=== PATIENT | female | born 1945 | race Caucasian/White ===

== ENCOUNTER 2022-03-01 12:22 | Outpatient (CLI) | payer MEDICARE, SELFPAY | END 2022-03-01 12:23 | disposition home or self-care (01) | LOC: AMB 03-14 13:58 | PROVIDERS: PCP Family Medicine; Visit Provider Emergency Medicine | DX: S79.911A Unspecified injury of right hip, initial encounter (principal); W01.0XXA Fall on same level from slipping, tripping and stumbling without subsequent striking against object, initial encounter; Y92.008 Other place in unspecified non-institutional (private) residence as the place of occurrence of the external cause | CPT/HCPCS: A0425; A0427 ==

== ENCOUNTER 2022-03-01 12:58 | Inpatient (IN) | payer MEDICARE, SELFPAY ==
[2022-03-01] VITALS (13 sets, daily range): BP systolic 103–157; BP diastolic 46–89; PULSE 74–85; RESP 16; TEMP 36.4–36.6; O2SAT 91–99; BMI 19.9
--- NOTE | 2022-03-01 | CRLHL7_ITS ---
For Patients: As a result of the Cures Act, medical imaging exams and procedure reports are released immediately into your electronic medical record. You may view this report before your referring provider. If you have questions, please contact your health care provider. INDICATION: Chest injury from fall, trauma TECHNIQUE: Chest radiograph 1 view COMPARISON: None FINDINGS: Mediastinum: The mediastinum is normal in appearance. The heart silhouette is normal in size and morphology. Lung: Both lungs are unremarkable in appearance. No sign of pleural effusion seen. No pneumothorax is identified. Prominent skin fold is seen right apex. Bone and Soft tissue: A right shoulder arthroplasty is partially visualized. Left shoulder osteoarthritis is noted. Severe diffuse osteopenia is present. IMPRESSION: 1. No acute cardiopulmonary disease is seen. Dictated by Wellington Eid MD @ 03/01/2022 2:12:37 PM Dictated by: Wellington Eid MD @ 03/01/2022 14:12:41 (Electronically Signed)
--- NOTE | 2022-03-01 13:29 | CRLHL7_ITS ---
For Patients: As a result of the Cures Act, medical imaging exams and procedure reports are released immediately into your electronic medical record. You may view this report before your referring provider. If you have questions, please contact your health care provider. INDICATION: Pelvic hip injury from fall, trauma TECHNIQUE: Pelvis radiograph, Hip radiograph 3 views right COMPARISON: None FINDINGS: Bone: A comminuted intertrochanteric fracture with varus angulation is seen in the right proximal femur. Joint: Moderate right hip osteoarthritis is present. A left bipolar hip prosthesis is partially seen. The visualized sacroiliac joints are unremarkable in appearance. The pubic symphysis is normal in appearance. Soft tissue: Unremarkable. The visualized bowel gas pattern of the pelvis is unremarkable in appearance. No radiopaque foreign bodies are seen. IMPRESSION: 1. A comminuted intertrochanteric fracture with varus angulation is seen in the right proximal femur. Dictated by Wellington Eid MD @ 03/01/2022 2:08:35 PM Dictated by: Wellington Eid MD @ 03/01/2022 14:08:39 (Electronically Signed)
--- NOTE | 2022-03-01 13:29 | ED_ITS ---
HPI - General Adult General Date Seen: 03/01/22 Chief complaint: Hip Injury/Pain Stated complaint: Fall Hip Pain Time Seen by Provider: 03/01/22 13:23 Source: patient History of Present Illness HPI narrative: Patient is a 76-year-old woman brought in by EMS after a fall from standing at home. Per report, she stumbled secondary possibly to her dog and cat getting tangled up in front of her. She landed on her right hip and now has pain and inability to bear weight. She denies hitting her head, no loss of consciousness. Denies neck or back pain. She has pain in the right hip and a shortened, rotated right leg. She does have a hip replacement on the left, but not on the right. She does not take any blood thinners. She received pain medication from EMS and says she is reasonably comfortable right now, declines need for more pain medication. Related Data Home Medications Medication Instructions Recorded Confirmed ibuprofen 800 mg tablet 800 mg PO TID PRN 10/22/21 03/01/22 meloxicam 15 mg tablet 15 mg PO QDAY 10/22/21 03/01/22 needle (disp) 18 G 18 gauge x 1 10/22/2104/08 (Exel Hypodermic [place]) omeprazole 20 mg capsule,delayed 20 mg PO QDAY 10/22/21 03/01/22 release sucralfate 1 gram tablet 1 g PO QID PRN 10/22/21 03/01/22 syringe with needle 3 mL 25 gauge 10/22/21 x 1 (Vivaty Luer Lock Syringe with needle) albuterol sulfate 90 mcg/actuation 2 puff inhalation Q4-6H PRN 11/14/21 03/01/22 aerosol inhaler alprazolam 0.25 mg tablet 0.25 mg PO TID PRN 11/14/21 03/01/22 aspirin 81 mg tablet,delayed 81 mg PO DAILY 11/14/21 03/01/22 release cranberry 500 mg capsule 1,500 mg PO QDAY 11/14/21 03/01/22 multivitamin 1 tab PO QDAY 11/14/21 03/01/22 ondansetron HCl 4 mg tablet 4 mg PO Q6H PRN 11/14/21 03/01/22 trazodone 150 mg tablet 150 mg PO QPM 11/14/21 03/01/22 Previous Rx's Medication Instructions Recorded valacyclovir 500 mg tablet 500 mg PO QDAY #30 tabs 11/14/21 cyanocobalamin (vitamin B-12) 1,000 mcg IM .QMONTH #10 mL 12/02/21 1,000 mcg/mL injection solution oxybutynin chloride 15 mg 15 mg PO .HS #90 tabs 12/20/21 tablet,extended release 24 hr tramadol 50 mg tablet 50 - 100 mg PO Q6H PRN pain #56 02/22/22 tabs Allergies Allergy/AdvReac Type Severity Reaction Status Date / Time amitriptyline Allergy Severe Bundle Verified 03/01/22 13:02 Branch Block acetaminophen Allergy Intermediate GI Verified 03/01/22 13:02 Intolerance codeine Allergy Intermediate GI Verified 03/01/22 13:02 [From Tylenol-Codeine #3] Intolerance diphenhydramine Allergy Mild Itchiness Verified 03/01/22 13:02 zinc Allergy Mild Cold Sores Verified 03/01/22 13:02 Review of Systems Status of ROS: Reports: 10 or more systems reviewed and unremarkable except as noted in History and below [facility] Medical History (Updated 03/01/22 @ 17:46 by Radha Galeano MD) ADD (attention deficit disorder) Chronic back pain Chronic pain syndrome Gastroesophageal reflux disease Generalized anxiety disorder with panic attacks History of duodenal ulcer History of vitamin B deficiency Insomnia Leukoplakia of oral cavity Radicular leg pain Recurrent cold sores Seasonal allergies Sore in mouth Urinary incontinence Surgical History (Updated 03/01/22 @ 15:55 by Amelie Mitchell MD) History of gastric bypass History of lumbar laminectomy 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 Harmony has been smoking cigarettes for 50 years. She is now down to a puff a few times a day, and one cigarette lasts 4-5 days. She denied alcohol use, but her granddaughter stopped Harmony's nurse in the hallway to say that Harmony does drink wine. She denies recreational drug use. She wishes to be a full code. Smoking Status: Light tobacco smoker What tobacco products do you use: cigarettes Do you use any of these nicotine containing products: None Second hand tobacco smoke exposure: No How often do you have a drink containing alcohol: 4 or more times a week Alcohol type: wine How many standard drinks containing alcohol do you have on a typical day: 1 or 2 How often do you have six or more drinks on one occasion: Never AUDIT-C Alcohol total score: 4 Non-prescribed substance use: denies use Non-prescribed substance use details: tylenol Caffeine: Yes (coffee, 1 cup/day) service: No Exam Narrative: Exam Narrative: Vital signs as noted above. In general, an alert, well-appearing patient. She looks comfortable, breathing easily. Head: Normocephalic, atraumatic. Eyes: Pupils are equal reactive. Extraocular movements are full. Conjunctivae are normal. ENT: Mucous membranes are moist. Throat is normal. Neck: Supple without lymphadenopathy. Nontender to palpation. Heart: Regular rate and rhythm. No murmur or rub. Lungs: Clear bilaterally. No increased work of breathing, crackles or wheezes. Abdomen: Soft and nontender. No organomegaly. Pelvis: Stable to palpation. Extremities: Well perfused. Bilateral dorsalis pedis pulses intact. No edema. No tenderness over the right femur, tenderness over the right hip. Distal CMS normal. Neurologic: Patient is alert and oriented to person and place. Speech is fluent. Face is symmetric. Follows commands. Moves all extremities. Affect: Normal. Skin: Warm and dry. Well perfused. Const: Vital Signs, click to edit/add: Vital Signs - 24 hr 03/01/22 13:04 03/01/22 14:05 03/01/22 14:21 Temperature 98 F Pulse Rate 81 79 Pulse Rate [Apical ] 83 Pulse Rate [Left P ulse Oximeter] Respiratory Rate 16 Blood Pressure 123/63 147/78 H Blood Pressure [Ri ght Arm] Blood Pressure [Ri ght Upper Arm] 121/71 Pulse Oximetry 99 98 98 Oxygen Delivery Me thod Room Air 03/01/22 14:42 03/01/22 15:02 03/01/22 15:22 Temperature Pulse Rate 85 74 82 Pulse Rate [Apical ] Pulse Rate [Left P ulse Oximeter] Respiratory Rate Blood Pressure 157/89 H 147/74 H 151/78 H Blood Pressure [Ri ght Arm] Blood Pressure [Ri ght Upper Arm] Pulse Oximetry 98 97 96 Oxygen Delivery Me thod 03/01/22 15:42 03/01/22 16:21 03/01/22 17:31 Temperature 98 F Pulse Rate 77 Pulse Rate [Apical ] Pulse Rate [Left P ulse Oximeter] 81 Respiratory Rate 16 16 Blood Pressure 131/64 Blood Pressure [Ri ght Arm] 115/51 L Blood Pressure [Ri ght Upper Arm] Pulse Oximetry 91 98 98 Oxygen Delivery Me thod Room Air Room Air Documenting provider has reviewed patient's vital signs: yes Course Course Hospital Course: X-rays of the right hip by my review show an intertrochanteric fracture of the right hip. Final radiology report is likewise. X-ray of the chest by my review is negative. Labs are largely pending. She does live with her daughter who currently has COVID, patient herself does not have any symptoms but COVID test is pending. CBC shows an elevated white blood cell count of 11.8. She is mildly anemic with a hemoglobin of 11. He had an EKG here by my review shows a normal sinus rhythm, ventricular rate of 84 beats per minute. No acute ST segment changes. Remainder of her labs are pending at this time. I did review her care with Orthopedics, plan will be for repair of her hip tomorrow morning assuming she is cleared for surgery. She has remained comfortable and hemodynamically stable without other complaints while in the emergency department. Will follow up on other labs as they return. Otherwise, plan will be for admission to the hospital when a bed becomes available. Currently, no beds are available and she will remain in the emergency department for the time being. Reevaluation(s) Reevaluation #1: Labs otherwise normal. Patient transferred to floor without incident Vital Signs Vital signs: Initial Vital Signs Temperature 98 F 03/01/22 13:04 Temperature Source Temporal Artery Scan 03/01/22 13:04 Pulse Rate 83 03/01/22 13:04 Pulse Rhythm 03/01/22 13:04 Respiratory Rate 16 03/01/22 13:04 Blood Pressure 121/71 03/01/22 13:04 Blood Pressure Mean 87 03/01/22 13:04 Blood Pressure Position Supine 03/01/22 13:04 Pulse Oximetry 99 03/01/22 13:04 Oxygen Delivery Method 03/01/22 13:04 Vital Signs Temperature 98 F 03/01/22 13:04 Pulse Rate 83 03/01/22 13:04 Respiratory Rate 16 03/01/22 13:04 Blood Pressure 121/71 03/01/22 13:04 Pulse Oximetry 99 03/01/22 13:04 Oxygen Delivery Method 03/01/22 13:04 Temperature 98 F 03/01/22 16:21 Pulse Rate 81 03/01/22 16:21 Respiratory Rate 16 03/01/22 17:31 Blood Pressure 115/51 L 03/01/22 16:21 Pulse Oximetry 98 03/01/22 17:31 Oxygen Delivery Method 03/01/22 17:31 Medical Decision Making Lab Data Labs: Lab Results 03/01/22 03/01/22 03/01/22 Range/Units 13:33 14:12 14:12 WBC 11.88 H (4.50-11.00) K/uL RBC 3.80 L (4.00-5.20) m/uL Hgb 11.2 L (12.0-16.0) gm/dL Hct 35.5 (33.0-51.0) % MCV 93 (80-100) fL MCH 30 (26-34) pg MCHC 32 (32-36) gm/dL RDW Coeff of Hao 15.7 H (11.5-15.5) % Plt Count 200 (140-440) K/uL Neut % (Auto) 82.8 H (42.0-72.0) % Lymph % (Auto) 8.6 L (20-44) % Reynolds % (Auto) 7.8 (0.0-11.0) % Eos % (Auto) 0.3 (0.0-7.0) % Baso % (Auto) 0.2 (0.0-3.0) % Neut # (Auto) 9.80 H (1.7-7.0) K/uL Lymph # (Auto) 1.00 (0.90-2.90) K/uL Reynolds # (Auto) 0.90 (0.00-0.90) K/UL Eos # (Auto) 0.00 (0.00-0.50) K/uL Baso # (Auto) 0.00 (0.00-0.30) K/uL Abs Immat Gran (auto) 0.00 (0.00-0.30) K/uL Imm/Tot Granulo (auto) 0.3 % INR 0.88 L (0.91-1.10) APTT 27 (23-33) Seconds Sodium (135-149) mmol/L Potassium (3.6-5.1) mmol/L Chloride (96-114) mmol/L Carbon Dioxide (20-32) mmol/L BUN (7-30) mg/dL Creatinine (0.5-1.5) mg/dL Estimated Creat Clear Estimated GFR ml/min Glucose (60-115) mg/dL Calcium (8.4-10.6) mg/dL Total Bilirubin (0.1-1.5) mg/dL Direct Bilirubin (0.0-0.5) mg/dL AST (12-35) U/L ALT (4-35) U/L Alkaline Phosphatase (40-150) U/L Total Protein (6.0-8.3) g/dL Albumin (3.3-5.0) g/dL SARS-CoV-2 (PCR) Negative SARS-CoV-2 (Negative) 03/01/22 Range/Units 14:12 WBC (4.50-11.00) K/uL RBC (4.00-5.20) m/uL Hgb (12.0-16.0) gm/dL Hct (33.0-51.0) % MCV (80-100) fL MCH (26-34) pg MCHC (32-36) gm/dL RDW Coeff of Hao (11.5-15.5) % Plt Count (140-440) K/uL Neut % (Auto) (42.0-72.0) % Lymph % (Auto) (20-44) % Reynolds % (Auto) (0.0-11.0) % Eos % (Auto) (0.0-7.0) % Baso % (Auto) (0.0-3.0) % Neut # (Auto) (1.7-7.0) K/uL Lymph # (Auto) (0.90-2.90) K/uL Reynolds # (Auto) (0.00-0.90) K/UL Eos # (Auto) (0.00-0.50) K/uL Baso # (Auto) (0.00-0.30) K/uL Abs Immat Gran (auto) (0.00-0.30) K/uL Imm/Tot Granulo (auto) % INR (0.91-1.10) APTT (23-33) Seconds Sodium 137 (135-149) mmol/L Potassium 4.8 (3.6-5.1) mmol/L Chloride 104 (96-114) mmol/L Carbon Dioxide 28 (20-32) mmol/L BUN 17 (7-30) mg/dL Creatinine 0.5 (0.5-1.5) mg/dL Estimated Creat Clear 33.30 Estimated GFR 96 ml/min Glucose 91 (60-115) mg/dL Calcium 8.6 (8.4-10.6) mg/dL Total Bilirubin 0.6 (0.1-1.5) mg/dL Direct Bilirubin 0.2 (0.0-0.5) mg/dL AST 22 (12-35) U/L ALT 27 (4-35) U/L Alkaline Phosphatase 59 (40-150) U/L Total Protein 6.3 (6.0-8.3) g/dL Albumin 3.7 (3.3-5.0) g/dL SARS-CoV-2 (PCR) (Negative) Discharge Plan Discharge Clinical Impression: Closed intertrochanteric fracture of right hip Patient Disposition: Admitted As Inpatient Condition: Improved
[2022-03-01 14:24] LABS: Basophils Percent Auto 0.2 % (0.0-3.0); Eosinophils Percent Auto 0.3 % (0.0-7.0); Hematocrit 35.5 % (33.0-51.0); Hemoglobin* 11.2 gm/dL (12.0-16.0); Immature Granulocytes Pct Auto 0.3 %; Lymphocytes Percent Auto 8.6 % (20-44); Mean Corpuscular HGB Conc 32 gm/dL (32-36); Mean Corpuscular Hemoglobin 30 pg (26-34); Mean Corpuscular Volume 93 fL (80-100); Monocytes Percent Auto 7.8 % (0.0-11.0); Neutrophils Percent Auto 82.8 % (42.0-72.0); Platelet Count* 200 K/uL (140-440); RDW Coefficient of Variation % 15.7 % (11.5-15.5); White Blood Count* 11.88 K/uL (4.50-11.00)
[2022-03-01 14:33] LABS: Slide Review Reflex No
[2022-03-01 14:38] LABS: Albumin* 3.7 g/dL (3.3-5.0)
[2022-03-01 14:39] LABS: Chloride* 104 mmol/L (96-114); Potassium* 4.8 mmol/L (3.6-5.1); Sodium* 137 mmol/L (135-149)
[2022-03-01 14:41] LABS: Bilirubin Direct* 0.2 mg/dL (0.0-0.5); Bilirubin Total* 0.6 mg/dL (0.1-1.5); Carbon Dioxide* 28 mmol/L (20-32); Creatinine* 0.5 mg/dL (0.5-1.5); Estimated Glomerular Filt Rate 96 ml/min
[2022-03-01 14:42] LABS: Alanine Aminotransferase* 27 U/L (4-35); Alkaline Phosphatase* 59 U/L (40-150); Aspartate Amino Transferase* 22 U/L (12-35); Blood Urea Nitrogen* 17 mg/dL (7-30); Calcium* 8.6 mg/dL (8.4-10.6); Glucose* 91 mg/dL (60-115); Total Protein* 6.3 g/dL (6.0-8.3)
[2022-03-01 14:47] LABS: SARS PCR* Negative SARS-CoV-2 (Negative)
[2022-03-01 14:57] LABS: INR 0.88 (0.91-1.10); Prothrombin Time 12.5 Seconds
[2022-03-01 14:58] LABS: Partial Thromboplastin Time* 27 Seconds (23-33)
[2022-03-01] MEDS: MORPHINE 4 MG/ML INJ IVP ×3 (15:23→21:48)
--- NOTE | 2022-03-01 15:47 | PM.IMHP1 ---
Hospitalist- H&P: HPI History of Present Illness Time Seen by Provider: 16:45 Date Seen: 03/01/22 Chief complaint: Fall Hip Pain Narrative: Harmony Yoon is a 76 year old female who lives with her daughter and fell face forward this morning. She says they have two dogs in the home that follow her everywhere, and even though they were not right in front of her, it still tripped her up. She denies hitting her face or head. Denies LOC. She fell onto her right hip and now has pain in the right groin. She was in her usual state of health prior to this with no recent illness or change in medications. She did not have any dizziness, vertigo, focal numbness, weakness or tingling. Review of Systems Status of ROS: Reports: 10 or more systems reviewed and unremarkable except as noted in History and below [facility] Medical History (Updated 03/01/22 @ 17:46 by Radha Galeano MD) ADD (attention deficit disorder) Chronic back pain Chronic pain syndrome Gastroesophageal reflux disease Generalized anxiety disorder with panic attacks History of duodenal ulcer History of vitamin B deficiency Insomnia Leukoplakia of oral cavity Radicular leg pain Recurrent cold sores Seasonal allergies Sore in mouth Urinary incontinence Surgical History (Updated 03/01/22 @ 15:55 by Amelie Mitchell MD) History of gastric bypass History of lumbar laminectomy 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 Harmony has been smoking cigarettes for 50 years. She is now down to a puff a few times a day, and one cigarette lasts 4-5 days. She denied alcohol use, but her granddaughter stopped Harmony's nurse in the hallway to say that Harmony does drink wine. She denies recreational drug use. She wishes to be a full code. Smoking Status: Light tobacco smoker What tobacco products do you use: cigarettes Do you use any of these nicotine containing products: None Second hand tobacco smoke exposure: No How often do you have a drink containing alcohol: 4 or more times a week Alcohol type: wine How many standard drinks containing alcohol do you have on a typical day: 1 or 2 How often do you have six or more drinks on one occasion: Never AUDIT-C Alcohol total score: 4 Non-prescribed substance use: denies use Non-prescribed substance use details: tylenol Caffeine: Yes (coffee, 1 cup/day) service: No Meds Home Medications and Allergies Home Medications Medication Instructions Recorded Confirmed Type ibuprofen 800 mg tablet 800 mg PO TID PRN 10/22/21 03/01/22 History meloxicam 15 mg tablet 15 mg PO QDAY 10/22/21 03/01/22 History needle (disp) 18 G 18 gauge x 1 10/22/21 History 1/2 (Exel Hypodermic [place]) omeprazole 20 mg capsule,delayed 20 mg PO QDAY 10/22/21 03/01/22 History release sucralfate 1 gram tablet 1 g PO QID PRN 10/22/21 03/01/22 History syringe with needle 3 mL 25 gauge 10/22/21 History x 1 (Sporthold Luer Lock Syringe with needle) albuterol sulfate 90 mcg/actuation 2 puff inhalation Q4-6H PRN 11/14/21 03/01/22 History aerosol inhaler alprazolam 0.25 mg tablet 0.25 mg PO TID PRN 11/14/21 03/01/22 History aspirin 81 mg tablet,delayed 81 mg PO DAILY 11/14/21 03/01/22 History release cranberry 500 mg capsule 1,500 mg PO QDAY 11/14/21 03/01/22 History multivitamin 1 tab PO QDAY 11/14/21 03/01/22 History ondansetron HCl 4 mg tablet 4 mg PO Q6H PRN 11/14/21 03/01/22 History trazodone 150 mg tablet 150 mg PO QPM 11/14/21 03/01/22 History Allergies Allergy/AdvReac Type Severity Reaction Status Date / Time amitriptyline Allergy Severe Bundle Verified 03/01/22 13:02 Branch Block acetaminophen Allergy Intermediate GI Verified 03/01/22 13:02 Intolerance codeine Allergy Intermediate GI Verified 03/01/22 13:02 [From Tylenol-Codeine #3] Intolerance diphenhydramine Allergy Mild Itchiness Verified 03/01/22 13:02 zinc Allergy Mild Cold Sores Verified 03/01/22 13:02 Exam Narrative: Exam Narrative: General: No acute distress. Thin, gaunt. Awake alert oriented x3. HEENT: Normocephalic atraumatic, pupils equally round and reactive to light and accommodation. Oropharynx clear, no teeth. No dentures present. Mucous membranes are moist. No cervical lymphadenopathy, thyromegaly or carotid bruits. No JVD. Cardiovascular: Regular rate and rhythm. No murmurs, gallops, or rubs. Chest: No increased work of breathing. Clear to auscultation bilaterally. No crackles or wheezes. Abdomen: Bowel sounds present. Soft, nondistended, nontender. No hepatosplenomegaly or masses. Extremities: No edema, no cyanosis or clubbing. No bruising on right hip. Right leg is shortened and internally rotated. Skin: No jaundice, no pallor, no rashes. Neuro: Grossly intact. No focal deficits. Const: Vital Signs, click to edit/add: Vital Signs - 24 hr 03/01/22 13:04 03/01/22 14:05 03/01/22 14:21 Temperature 98 F Pulse Rate 81 79 Pulse Rate [Apical ] 83 Respiratory Rate 16 Blood Pressure 123/63 147/78 H Blood Pressure [Ri ght Upper Arm] 121/71 Pulse Oximetry 99 98 98 Oxygen Delivery Me od Room Air 03/01/22 14:42 03/01/22 15:02 03/01/22 15:22 Temperature Pulse Rate 85 74 82 Pulse Rate [Apical ] Respiratory Rate Blood Pressure 157/89 H 147/74 H 151/78 H Blood Pressure [Ri ght Upper Arm] Pulse Oximetry 98 97 96 Oxygen Delivery Me thod 03/01/22 15:42 Temperature Pulse Rate 77 Pulse Rate [Apical ] Respiratory Rate Blood Pressure 131/64 Blood Pressure [Ri ght Upper Arm] Pulse Oximetry 91 Oxygen Delivery Nc thod Hospitalist - H&P: Result Labs Labs: Short CBC 03/01/22 Range/Units 14:12 WBC 11.88 H (4.50-11.00) K/uL Hgb 11.2 L (12.0-16.0) gm/dL Hct 35.5 (33.0-51.0) % Plt Count 200 (140-440) K/uL BMP 03/01/22 14:12 Sodium 137 Potassium 4.8 Chloride 104 Carbon Dioxide 28 BUN 17 Creatinine 0.5 Glucose 91 Calcium 8.6 Liver Function 03/01/22 Range/Units 14:12 Total Bilirubin 0.6 (0.1-1.5) mg/dL Direct Bilirubin 0.2 (0.0-0.5) mg/dL AST 22 (12-35) U/L ALT 27 (4-35) U/L Alkaline Phosphatase 59 (40-150) U/L Albumin 3.7 (3.3-5.0) g/dL 03/01/2022 1:43 p.m. EKG: Normal sinus rhythm, heart rate 84 beats per minute, normal EKG. Ordering Physician: Radha Galeano MD Date of Service: 03/01/22 Procedure(s): XR hip RT min 2V Accession Number(s): [id number] cc: Radha Galeano MD; Daniele Hawkins M.D.~ For Patients: As a result of the Cures Act, medical imaging exams and procedure reports are released immediately into your electronic medical record. You may view this report before your referring provider. If you have questions, please contact your health care provider. INDICATION: Pelvic hip injury from fall, trauma TECHNIQUE: Pelvis radiograph, Hip radiograph 3 views right COMPARISON: None FINDINGS: Bone: A comminuted intertrochanteric fracture with varus angulation is seen in the right proximal femur. Joint: Moderate right hip osteoarthritis is present. A left bipolar hip prosthesis is partially seen. The visualized sacroiliac joints are unremarkable in appearance. The pubic symphysis is normal in appearance. Soft tissue: Unremarkable. The visualized bowel gas pattern of the pelvis is unremarkable in appearance. No radiopaque foreign bodies are seen. IMPRESSION: 1. A comminuted intertrochanteric fracture with varus angulation is seen in the right proximal femur. Dictated by Wellington Eid MD @ 03/01/2022 2:08:35 PM Dictated by: Wellington Eid MD @ 03/01/2022 14:08:39 (Electronically Signed) Ordering Physician: Radha Galeano MD Date of Service: 03/01/22 Procedure(s): XR chest 1V Accession Number(s): [id number] cc: Radha Galeano MD; Daniele Hawkins M.D.~ For Patients: As a result of the Century Cures Act, medical imaging exams and procedure reports are released immediately into your electronic medical record. You may view this report before your referring provider. If you have questions, please contact your health care provider. INDICATION: Chest injury from fall, trauma TECHNIQUE: Chest radiograph 1 view COMPARISON: None FINDINGS: Mediastinum: The mediastinum is normal in appearance. The heart silhouette is normal in size and morphology. Lung: Both lungs are unremarkable in appearance. No sign of pleural effusion seen. No pneumothorax is identified. Prominent skin fold is seen right apex. Bone and Soft tissue: A right shoulder arthroplasty is partially visualized. Left shoulder osteoarthritis is noted. Severe diffuse osteopenia is present. IMPRESSION: 1. No acute cardiopulmonary disease is seen. Dictated by Wellington Eid MD @ 03/01/2022 2:12:37 PM Dictated by: Wellington Eid MD @ 03/01/2022 14:12:41 (Electronically Signed) Assessment and Plan Assessment and plan (1) Closed intertrochanteric fracture of right hip: Status: Acute Assessment and Plan: Harmony and I discussed the cardiopulmonary risk of surgery at her age as well as the high risk of mortality within the year and poor quality of life associated with not undergoing surgery for a hip fracture. She is an active person yet who has a lot of things to do and desires surgery. EKG and CXR reviewed. No further cardiopulmonary testing needed prior to surgery. I will make her NPO after MN and have started 50 cc/hr of LR (her wt is 46 kg). (2) ADD (attention deficit disorder): Status: Chronic Assessment and Plan: Not currently treated with medications. (3) Generalized anxiety disorder with panic attacks: Status: Chronic (4) Poor circulation: Status: Chronic (5) Recurrent falls: Status: Chronic Plan Start SCDs and TEDs. Hold off on pharmacologic VTE prophylaxis due to surgery tomorrow. Unclear how much wine she drinks. Monitor for signs of withdrawal.
--- NOTE | 2022-03-01 15:56 | ED.NURSE ---
to 247 via cart. report to dusty tian.
--- NOTE | 2022-03-01 16:09 | ED.NURSE ---
Klein catheter placed successfully after 1 attempt. Clear, dark yellow urine draining via gravity. Report given by BELINDA Canas to M/S RN. Pt brought down by cart with belongings.
[2022-03-01] MEDS: ONDANSETRON ODT 4 MG TAB PO (18:07)
[2022-03-01] MEDS: LACTATED RINGERS 1000 ML 1,000 ML 50 ML IV (18:11)
--- NOTE | 2022-03-01 18:36 | PC.NURSE ---
Pt. up to floor at 1523 accompanied by granddaughter. Alert and oriented x4. Comes from home where she lives with daughter in [place]. Fell this morning and broke her right hip. No bruises noted at this time. 18 gauge IV in left AC patent, LR running @50mls/hr. Klein Cath. inserted in ED, patent. VSS. Pt. denies SOB, lung sounds clear, no edema present. Pt. rated pain 7/10 PRN 4mg morphine Administered at 1805. Pt. C/O nausea, PRN Zofran administered PO. Pt. at 98% O2 on RA. Pt. [place], wears dentures. Bilateral calf SCD's applied. Pt. will be NPO at midnight for hip surgery in AM on 03/02/22.
[2022-03-01] MEDS: TRAZODONE HCL 50 MG TABLET 150 MG PO (21:12)
[2022-03-02] VITALS (24 sets, daily range): BP systolic 84–136; BP diastolic 46–72; PULSE 62–88; RESP 12–18; TEMP 35.8–37; O2SAT 93–100
[2022-03-02] MEDS: MORPHINE 4 MG/ML INJ IVP (02:45)
--- NOTE | 2022-03-02 04:19 | PC.NURSE ---
call placed to Link to updated provider on patients pain
[2022-03-02] MEDS: fentaNYL 100 MCG/2 ML inj 25 MCG IVP (04:55)
--- NOTE | 2022-03-02 05:05 | PC.NURSE ---
patient bedrest, krishnamurthy patent and draining. NPO since 0000. patient continues to have pain despite PRN medication, call placed to E hospitalist see new orders.
[2022-03-02] MEDS: OMEPRAZOLE 20 MG CAPSULE DR PO (06:32)
--- NOTE | 2022-03-02 07:14 | P.IMPN_ITS ---
Exam Narrative: Exam Narrative: edentulous Const: Vital Signs, click to edit/add: Vital Signs - 24 hr 03/01/22 13:04 03/01/22 14:05 03/01/22 14:21 Temperature 98 F Pulse Rate 81 79 Pulse Rate [Apical ] 83 Pulse Rate [Left P ulse Oximeter] Respiratory Rate 16 Blood Pressure 123/63 147/78 H Blood Pressure [Ri ght Arm] Blood Pressure [Ri ght Upper Arm] 121/71 Pulse Oximetry 99 98 98 Oxygen Delivery Me thod Room Air 03/01/22 14:42 03/01/22 15:02 03/01/22 15:22 Temperature Pulse Rate 85 74 82 Pulse Rate [Apical ] Pulse Rate [Left P ulse Oximeter] Respiratory Rate Blood Pressure 157/89 H 147/74 H 151/78 H Blood Pressure [Ri ght Arm] Blood Pressure [Ri ght Upper Arm] Pulse Oximetry 98 97 96 Oxygen Delivery Me thod 03/01/22 15:42 03/01/22 16:21 03/01/22 17:31 Temperature 98 F Pulse Rate 77 Pulse Rate [Apical ] Pulse Rate [Left P ulse Oximeter] 81 Respiratory Rate 16 16 Blood Pressure 131/64 Blood Pressure [Ri ght Arm] 115/51 L Blood Pressure [Ri ght Upper Arm] Pulse Oximetry 91 98 98 Oxygen Delivery Me thod Room Air Room Air 03/01/22 17:44 03/01/22 17:46 03/01/22 19:00 Temperature 98 F 97.6 F Pulse Rate Pulse Rate [Apical ] Pulse Rate [Left P ulse Oximeter] 81 83 Respiratory Rate 16 16 Blood Pressure Blood Pressure [Ri ght Arm] 115/51 L 103/63 Blood Pressure [Ri ght Upper Arm] Pulse Oximetry 98 98 98 Oxygen Delivery Me thod Room Air Room Air 03/01/22 23:00 03/01/22 23:00 03/02/22 02:52 Temperature 98 F 97 F L Pulse Rate Pulse Rate [Apical ] Pulse Rate [Left P ulse Oximeter] 80 80 82 Respiratory Rate 16 16 18 Blood Pressure Blood Pressure [Ri ght Arm] 118/46 L 108/47 L Blood Pressure [Ri ght Upper Arm] Pulse Oximetry 98 98 Oxygen Delivery Me thod Room Air Room Air Labs Labs: Laboratory Results - last 24 hr 11/03/01/22 03/01/22 13:33 14:12 14:12 WBC 11.88 H RBC 3.80 L Hgb 11.2 L Hct 35.5 MCV 93 MCH 30 MCHC 32 RDW Coeff of Hao 15.7 H Plt Count 200 Neut % (Auto) 82.8 H Lymph % (Auto) 8.6 L [place] % (Auto) 7.8 Eos % (Auto) 0.3 Baso % (Auto) 0.2 Neut # (Auto) 9.80 H Lymph # (Auto) 1.00 [place] # (Auto) 0.90 Eos # (Auto) 0.00 Baso # (Auto) 0.00 Abs Immat Gran (auto) 0.00 Imm/Tot Granulo (auto) 0.3 INR 0.88 L APTT 27 Sodium Potassium Chloride Carbon Dioxide BUN Creatinine Estimated Creat Clear Estimated GFR Glucose Calcium Total Bilirubin Direct Bilirubin AST ALT Alkaline Phosphatase Total Protein Albumin SARS-CoV-2 (PCR) Negative SARS-CoV-2 03/01/22 14:12 WBC RBC Hgb Hct MCV MCH MCHC RDW Coeff of Hao Plt Count Neut % (Auto) Lymph % (Auto) [place] % (Auto) Eos % (Auto) Baso % (Auto) Neut # (Auto) Lymph # (Auto) [place] # (Auto) Eos # (Auto) Baso # (Auto) Abs Immat Gran (auto) Imm/Tot Granulo (auto) INR APTT Sodium 137 Potassium 4.8 Chloride 104 Carbon Dioxide 28 BUN 17 Creatinine 0.5 Estimated Creat Clear 33.30 Estimated GFR 96 Glucose 91 Calcium 8.6 Total Bilirubin 0.6 Direct Bilirubin 0.2 AST 22 ALT 27 Alkaline Phosphatase 59 Total Protein 6.3 Albumin 3.7 SARS-CoV-2 (PCR)
--- NOTE | 2022-03-02 07:44 | CRLHL7_ITS ---
For Patients: As a result of the Cures Act, medical imaging exams and procedure reports are released immediately into your electronic medical record. You may view this report before your referring provider. If you have questions, please contact your health care provider. Indication: RT FEMUR RODDING Technique: Four fluoroscopic images of the right femur. Fluoroscopic time 163.1 seconds. IMPRESSION: Fluoroscopic guidance for open reduction internal fixation of right femoral neck fracture. Dictated by Lester Gold MD @ 03/04/2022 11:13:54 AM (Electronically Signed)
[2022-03-02] MEDS: LACTATED RINGERS 1000 ML 1,000 ML 100 ML IV (08:00)
[2022-03-02] MEDS: CEFAZOLIN 2 GM in 0.9 % SODIUM CHLORIDE Mini-bag 100 ML IVPB (08:16)
[2022-03-02] MEDS: TRANEXAMIC ACID 100 MG/ML INJ 1000 MG IV (08:22)
--- NOTE | 2022-03-02 09:49 | P.ORPRC_ITS ---
Procedure Note Date of procedure: 03/02/22 Procedure: PREOPERATIVE DIAGNOSES: 1. Right femur intertrochanteric fracture, Comminuted, closed, acute POSTOPERATIVE DIAGNOSES: 1. Right femur intertrochanteric fracture, comminuted, closed, acute NAME OF OPERATION: 1. Right femur intertrochanteric fracture fixation with intramedullary nail 2. 97119 - intraoperative fluoroscopy up to 1 hour. SURGEON: Wolfgang Garrison MD SEISMIC SURVEY ASSISTANT: Butch Felix PA-C. Of note, an assistant director of plant operations was critical for this case to aide in patient positioning, extremity positioning, tissue retraction, instrument manipulation, and closure. ANESTHESIA: Spinal IMPLANTS: Synthes long TFN 12 mm x 340 mm with 95 mm lag screw and 2 distal 5.0 mm interlocking screws] EBL: 150 ml COMPLICATIONS: None evident INDICATIONS: The patient is a pleasant, 76-year-old female who unfortunately sustained a recent fall. They landed on their right hip and were unable to bear weight. They experienced significant pain which prompted a visit to [facility]. X-rays were obtained and revealed a proximal femur fracture consis tent with a pertrochanteric (i.e. intertrochanteric / subtrochanteric) femur fracture. Given these findings, along with the desire to help with pain control and improved mobility / mobilization, surgery was recommended. FINDINGS: Intertrochanteric right femur fracture with displacement, comminuted, shortening, and varus angulation. PROCEDURE: Following a thorough discussion of risks, benefits, and alternatives, consent was obtained and the right hip was marked. After obtaining proper medical evaluation determining the patient was optimized prior to surgery, they were brought to the operating room and placed supine on the operating table. Induction of anesthesia undertaken. 1 g IV Ancef and 1 g tranexamic acid was administered within 1 hr of incision preoperatively. Proper time-out was performed identifying proper patient, site, and procedure. The operative extremity was prepped & draped in the appropriate sterile fashion using ChloraPrep after the patient was positioned on the [place] table with the head in neutral alignment all bone prominences well padded. C-arm fluoroscopic imaging was utilized to obtain AP and lateral views of the operative hip. This indeed confirm proper reduction of the proximal femur fracture. 10 blade skin incision was made proximal to the greater trochanteric tip. Sharp incision through skin and gluteal fascia allowed palpation of the greater trochanteric tip. A sharp awl was utilized and placed against the greater trochanteric tip. This was confirmed on C-arm and both in AP and lateral planes to be in appropriate starting position. Aiming down the canal. Once breaching the cortex, the ball-tip guidewire was passed the length of the femur. Once confirming via palpable scrape and visual C-Arm imagining that the guide wire with intraosseous, the depth gauge was used. The proper nail length was selected. The opening / proximal reamer was used followed by diaphyseal reamers up to 13.5mm. The IMN was then opened and inserted and passed the length of the canal without difficulty. The triple trocar was then applied to the lateral femur, 10 blade incision through the skin and ITB band along the trocars allowed them to be advanced to the lateral cortex. This was confirmed fluoroscopically to be in appropriate position. The guide pin was then placed and confirmed on AP and lateral views with the goal of center center position. The length was measured as noted above and the reamer used followed by screw application. Reduction of the fracture was monitored during insertion. The proximal nail locking screw was tightened down, and left static as the fracture pattern was felt to be unstable. At this stage, C-arm confirmed proper screw/leg screw position. We then turned our attention to the distal interlocking screws. Perfect [place] technique was utilized, and the 10 blade skin incision allowed the drill bit to be placed, and confirmed on C-arm fluoroscopic imaging to be within the oblong hole. This was measured and the screw placed with good security of the screw. A 2nd screw was placed in 1 of the other holes in a similar fashion. Again C-arm images were obtained to confirm position within the nail and the nail to be within the bone. At this stage, the wounds were thoroughly irrigated normal saline; closure was performed with #0 Vicryl for the deep gluteal fascia, and IT band. 2-0 Vicryl and 4-0 Monocryl was utilized for subcutaneous and subcuticular closure, respectively. The patient was awoken from anesthesia and transferred to the PACU in stable condition. PLAN: 1. Weight bear as tolerated left lower extremity. 2. Encouraged ice. 3. Oxycodone for pain as needed. 4. Anticipate the need for [facility] facility transfer once medically stabilized 5. 23 hr perioperative antibiotics. 6. Xarelto for DVT prophylaxis along with Luther ivan and SCDs.
--- NOTE | 2022-03-02 10:39 | P.NB_ITS ---
Nerve Block Nerve Block Time Seen by Provider: 10:30 Date Seen: 03/02/22 Type of block requested by surgeon for post-operative analgesia: IGNACIO/LFCN Side: right Time out performed: Yes Verification of patient name: Yes Verification of date of : Yes Site marking: site marked Name of person performing procedure: don Continuous monitoring Was continuous monitoring of O2 sat, B/P, residential monitor, recorded every 15 minutes?: Yes Procedure Checklist: sterile prep, needles and gloves Ultrasound guided. Images saved: Yes Medications given in 5ml increments after negative aspiration: Ropivicaine %: 0.5 mL: 20 Needle gauge: 20 Decadron (mg): 10 Precedex (mcg): 25 Patient tolerated procedure well: Yes Block Charges Block Charge (with Pro Fee): Other Periph Nerve Block Use of Ultrasound Machine for Block: Yes- US Guidance/pain block
--- NOTE | 2022-03-02 10:43 | W.ANESCHARGE ---
Anesthesia Charges Start Date/Time Anesthesia Start Date: 03/02/22 Anesthesia Start Time: 07:58 Stop Date/Time Anesthesia Stop Date: 03/02/22 Anesthesia Stop Time: 10:17 Summary Emergency: Yes Extremes of Age: Over 68-CPT [id number]
[2022-03-02] MEDS: LACTATED RINGERS 1000 ML 1,000 ML 35 ML IV (10:48)
[2022-03-02] MEDS: CEFAZOLIN 1 GM in 0.9 % SODIUM CHLORIDE Mini-bag 100 ML IVPB ×2 (13:45→21:53)
[2022-03-02] MEDS: OXYCODONE 5 MG TABLET PO ×5 (14:35→23:30)
--- NOTE | 2022-03-02 18:01 | P.IMPN_ITS ---
Progress Note: A&P Assessment and plan (1) Closed intertrochanteric fracture of right hip: Status: Acute Assessment and Plan: Postop day 0 status post ORIF. Routine cares. I discussed pain control with the patient's nurse. Continue current plan of care. (2) Recurrent falls: Status: Chronic (3) Poor circulation: Status: Chronic (4) Generalized anxiety disorder with panic attacks: Status: Chronic Plan Starting rivaroxaban in the morning for VTE prophylaxis. 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 She said she feels better now after surgery and can't wait to be active again. She has pain in her right hip when she moves, so she hasn't been out of bed yet. No CP or SOB. Exam Narrative: Exam Narrative: General: No acute distress. Thin, gaunt. Bright affect. Awake alert oriented x3. Cardiovascular: Regular rate and rhythm. No murmurs, gallops, or rubs. Chest: No increased work of breathing. Clear to auscultation bilaterally. No crackles or wheezes. Abdomen: Bowel sounds present. Soft, nondistended, nontender. No hepatosplenomegaly or masses. Extremities: 3 right hip bandages are clean, dry, and intact. No ankle edema. Const: Vital Signs, click to edit/add: Vital Signs - 24 hr 03/01/22 19:00 03/01/22 23:00 03/01/22 23:00 Temperature 97.6 F 98 F Pulse Rate Pulse Rate [Left P ulse Oximeter] 83 80 80 Respiratory Rate 16 16 16 Blood Pressure Blood Pressure [Ri ght Arm] 103/63 118/46 L Pulse Oximetry 98 98 Oxygen Delivery Me thod Room Air Room Air 03/02/22 02:52 03/02/22 10:14 03/02/22 11:08 Temperature 97 F L 98.2 F 96.5 F L Pulse Rate 74 65 Pulse Rate [Left P ulse Oximeter] 82 Respiratory Rate 18 14 18 Blood Pressure 111/72 Blood Pressure [Ri ght Arm] 108/47 L 114/52 L Pulse Oximetry 98 99 Oxygen Delivery Me thod Room Air Room Air Room Air 03/02/22 11:00 03/02/22 11:00 03/02/22 10:20 Temperature 96.8 F L 96.5 F L Pulse Rate 76 Pulse Rate [Left P ulse Oximeter] 65 65 Respiratory Rate 16 18 16 Blood Pressure 101/67 Blood Pressure [Ri ght Arm] 116/50 L 114/52 L Pulse Oximetry 100 100 96 Oxygen Delivery Me thod Room Air Room Air 03/02/22 10:25 03/02/22 10:30 03/02/22 10:35 Temperature Pulse Rate 73 67 71 Pulse Rate [Left P ulse Oximeter] Respiratory Rate 14 14 14 Blood Pressure 118/46 L 120/56 L 113/47 L Blood Pressure [Ri ght Arm] Pulse Oximetry 95 97 98 Oxygen Delivery Me thod 03/02/22 10:40 03/02/22 10:45 03/02/22 11:15 Temperature 97.2 F L Pulse Rate 65 62 Pulse Rate [Left P ulse Oximeter] 66 Respiratory Rate 16 16 12 Blood Pressure 120/51 L 112/53 L Blood Pressure [Ri ght Arm] 113/52 L Pulse Oximetry 96 98 98 Oxygen Delivery Me thod Room Air 03/02/22 11:30 03/02/22 11:45 03/02/22 11:51 Temperature 97.2 F L 97.2 F L 97.2 F L Pulse Rate Pulse Rate [Left P ulse Oximeter] 69 68 73 Respiratory Rate 12 12 12 Blood Pressure Blood Pressure [Ri ght Arm] 84/68 L 114/55 L 116/55 L Pulse Oximetry 98 99 100 Oxygen Delivery Me thod Room Air Room Air Room Air 03/02/22 15:00 03/02/22 15:00 03/02/22 12:00 Temperature 97.6 F 97.6 F Pulse Rate Pulse Rate [Left P ulse Oximeter] 77 77 73 Respiratory Rate 14 14 14 Blood Pressure Blood Pressure [Ri ght Arm] 127/57 L 116/55 L Pulse Oximetry 99 100 Oxygen Delivery Me thod Room Air Room Air 03/02/22 12:30 03/02/22 13:00 03/02/22 14:00 Temperature 97.6 F 97.4 F L 97.6 F Pulse Rate Pulse Rate [Left P ulse Oximeter] 82 88 86 Respiratory Rate 14 16 16 Blood Pressure Blood Pressure [Ri ght Arm] 123/61 94/54 L 120/51 L Pulse Oximetry 95 95 100 Oxygen Delivery Me thod Room Air Room Air Room Air 03/02/22 15:00 03/02/22 16:00 03/02/22 17:46 Temperature 97.6 F 98.1 F Pulse Rate Pulse Rate [Left P ulse Oximeter] 77 81 Respiratory Rate 14 14 Blood Pressure Blood Pressure [Ri t Arm] 127/57 L 122/54 L Pulse Oximetry 99 100 97 Oxygen Delivery Me thod Room Air Room Air
[2022-03-02] MEDS: ONDANSETRON 2 MG/ML inj 4 MG IVP (18:58)
--- NOTE | 2022-03-02 19:10 | PC.NURSE ---
Pt. up to floor at 1055 from right hip fracture surgery. Pt. alert and oriented, denies N/V/Pain. Pt's dressing to right hip C/D/I covered w/waterproof dressing to three sites. bilateral teds applied and bilateral SCD's in use. Pt. VSS, 95-100% on RA and on cont. pulse ox. Pt. tolerated advanced diet. Pt. krishnamurthy patent and draining. Will be removed when able to ambulate. Pt. needed 5 mg oxy for pain at 1400. see eMAR for administration and times. Pt. sat at edge of bed @1900 and did not tolerate well. Pt. became nauseous and PRN zofran was administered. Pt. did not want to attempt to stand d/t the amount of pain she was feeling. Pt. rated pain then, a 7-8/10. PRN oxy 5mg was administered prior to sitting at edge of bed.
[2022-03-02] MEDS: TRAZODONE HCL 50 MG TABLET 150 MG PO (20:18)
[2022-03-02] MEDS: SENNOSIDES 1 TAB TABLET 2 TAB PO (20:18)
[2022-03-03] MEDS: OXYCODONE 5 MG TABLET PO ×7 (01:52→21:48)
[2022-03-03] MEDS: LACTATED RINGERS 1000 ML 1,000 ML 75 ML IV (01:55)
[2022-03-03 03:00] VITALS: PULSE 70; RESP 16; TEMP 37; O2SAT 97
--- NOTE | 2022-03-03 04:49 | PC.NURSE ---
[id number]: patient has not yet ambulated, patient has been up to stand at bedside, able to take 2 steps but refused to take further steps or attempt BSC so Klein left in place. patient hesitant to ambulate due to fear of falling and pain; education provided and patient continued to refuse. appears to have slept on and off during the night. see EMAR for meds given. ice to hip, surgical sites c/d/i with mepilex.
[2022-03-03] MEDS: CEFAZOLIN 1 GM in 0.9 % SODIUM CHLORIDE Mini-bag 100 ML IVPB (06:09)
[2022-03-03] MEDS: OMEPRAZOLE 20 MG CAPSULE DR PO (06:09)
[2022-03-03 07:00] VITALS: BP 116/56; PULSE 62; RESP 18; TEMP 36.9; O2SAT 96
--- NOTE | 2022-03-03 07:26 | P.ORPN_ITS ---
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 She said she feels better now after surgery and can't wait to be active again. She has pain in her right hip when she moves, so she hasn't been out of bed yet. No CP or SOB. Ortho Exam Narrative Exam Narrative: Alert and oriented x3. Patient is in no acute distress. Converses without labored breathing. Hearing is grossly intact. Dressings are clean, dry, and intact. Soft tissue edema about the right hip and thigh. CMS is intact right lower extremity. Bilateral calves are soft and nontender. Const Vital Signs, click to edit/add: Vital Signs - 24 hr 03/02/22 10:14 03/02/22 11:08 03/02/22 11:00 Temperature 98.2 F 96.5 F L 96.8 F L Pulse Rate 74 65 Pulse Rate [Left Pulse Oximeter] 65 Respiratory Rate 14 18 16 Blood Pressure 111/72 Blood Pressure [Right Arm] 114/52 L 116/50 L Pulse Oximetry 99 100 Oxygen Delivery Method Room Air Room Air Room Air 03/02/22 11:00 03/02/22 10:20 03/02/22 10:25 Temperature 96.5 F L Pulse Rate 76 73 Pulse Rate [Left Pulse Oximeter] 65 Respiratory Rate 18 16 14 Blood Pressure 101/67 118/46 L Blood Pressure [Right Arm] 114/52 L Pulse Oximetry 100 96 95 Oxygen Delivery Method Room Air 03/02/22 10:30 03/02/22 10:35 03/02/22 10:40 Temperature Pulse Rate 67 71 65 Pulse Rate [Left Pulse Oximeter] Respiratory Rate 14 14 16 Blood Pressure 120/56 L 113/47 L 120/51 L Blood Pressure [Right Arm] Pulse Oximetry 97 98 96 Oxygen Delivery Method 03/02/22 10:45 03/02/22 11:15 03/02/22 11:30 Temperature 97.2 F L 97.2 F L Pulse Rate 62 Pulse Rate [Left Pulse Oximeter] 66 69 Respiratory Rate 16 12 12 Blood Pressure 112/53 L Blood Pressure [Right Arm] 113/52 L 84/68 L Pulse Oximetry 98 98 98 Oxygen Delivery Method Room Air Room Air 03/02/22 11:45 03/02/22 11:51 03/02/22 15:00 Temperature 97.2 F L 97.2 F L Pulse Rate Pulse Rate [Left Pulse Oximeter] 68 73 77 Respiratory Rate 12 12 14 Blood Pressure Blood Pressure [Right Arm] 114/55 L 116/55 L Pulse Oximetry 99 100 Oxygen Delivery Method Room Air Room Air 03/02/22 15:00 03/02/22 12:00 03/02/22 12:30 Temperature 97.6 F 97.6 F 97.6 F Pulse Rate Pulse Rate [Left Pulse Oximeter] 77 73 82 Respiratory Rate 14 14 14 Blood Pressure Blood Pressure [Right Arm] 127/57 L 116/55 L 123/61 Pulse Oximetry 99 100 95 Oxygen Delivery Method Room Air Room Air Room Air 03/02/22 13:00 03/02/22 14:00 03/02/22 15:00 Temperature 97.4 F L 97.6 F 97.6 F Pulse Rate Pulse Rate [Left Pulse Oximeter] 88 86 77 Respiratory Rate 16 16 14 Blood Pressure Blood Pressure [Right Arm] 94/54 L 120/51 L 127/57 L Pulse Oximetry 95 100 99 Oxygen Delivery Method Room Air Room Air Room Air 03/02/22 16:00 03/02/22 17:46 03/02/22 19:00 Temperature 98.1 F 98.1 F Pulse Rate Pulse Rate [Left Pulse Oximeter] 81 84 Respiratory Rate 14 14 Blood Pressure Blood Pressure [Right Arm] 122/54 L 136/57 L Pulse Oximetry 100 97 93 Oxygen Delivery Method Room Air Room Air 03/02/22 21:55 03/02/22 23:00 03/03/22 03:00 Temperature 98.6 F 98.6 F Pulse Rate Pulse Rate [Left Pulse Oximeter] 74 74 70 Respiratory Rate 14 16 16 Blood Pressure Blood Pressure [Right Arm] 108/56 L Pulse Oximetry 96 97 Oxygen Delivery Method Room Air Room Air Assessment and Plan Assessment and plan (1) Closed intertrochanteric fracture of right hip: Problem details: Date of surgery 03/02/2022 Bladimir Perkins Status: Acute Assessment and Plan: 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 Harmony is aware she will be going to a senior care upon discharge for an undetermined period of time. She has a good outlook and attitude and states she will take 1 day at a time. She has pain. She is weight-bearing as tolerated right lower extremity. She and I discussed that she will put weight on the right lower extremity as she feels comfortable. DVT prophylaxis includes Xarelto 10 mg daily for 35 days, Luther stockings for 1 month, SCDs, pumping her ankles. Physical therapy in hospital. On discharge PT and OT at longterm facility. Plan for discharge is today to home if they meet discharge criteria. Dressing will be removed in 1 week. Dressing is waterproof. May shower if safe to do so. Return to clinic with Dr. Garrison in 4 weeks. Minimize narcotic use. She will wean off when possible over the next several weeks. (2) Recurrent falls: Status: Chronic (3) Poor circulation: Status: Chronic (4) Generalized anxiety disorder with panic attacks: Status: Chronic
--- NOTE | 2022-03-03 08:49 | PM.IMPN1 ---
Progress Note: A&P Assessment and plan (1) Closed intertrochanteric fracture of right hip: Problem details: - post op IM rodding with Dr. Garrison on 03/02/22 Status: Acute Assessment and Plan: - continue PT, OT. Appreciate their assistance with dispo planning (2) Recurrent falls: Status: Chronic (3) Generalized anxiety disorder with panic attacks: Problem details: - has remained stable during stay Status: Chronic Plan - per above - continue PT/OT, will likely require TCU placement upon discharge - Semaj for ppx Subjective Date Seen: 03/03/22 Interval history: Harmony is having breakfast when I see her this morning, has pain in her hip when she moves, but no other concerns. She specifically denies chest pain or lightheadedness. Exam Narrative: Exam Narrative: GEN: Alert and oriented, answering questions appropriately HEENT: Normal external ears, EOMIs bilaterally, edentulous, no scleral icterus CV: RRR, No concerning murmurs, rubs, or gallops R: LCTA bilaterally without concerning wheezing, rales, or rhonchi Ext: wwp, no concerning edema Neuro: Nonfocal Psych: Appropriate Const: Vital Signs, click to edit/add: Vital Signs - 24 hr 03/02/22 10:14 03/02/22 11:08 03/02/22 11:00 Temperature 98.2 F 96.5 F L 96.8 F L Pulse Rate 74 65 Pulse Rate [Left P ulse Oximeter] 65 Respiratory Rate 14 18 16 Blood Pressure 111/72 Blood Pressure [Ri ght Arm] 114/52 L 116/50 L Pulse Oximetry 99 100 Oxygen Delivery Me thod Room Air Room Air Room Air 03/02/22 11:00 03/02/22 10:20 03/02/22 10:25 Temperature 96.5 F L Pulse Rate 76 73 Pulse Rate [Left P ulse Oximeter] 65 Respiratory Rate 18 16 14 Blood Pressure 101/67 118/46 L Blood Pressure [Ri ght Arm] 114/52 L Pulse Oximetry 100 96 95 Oxygen Delivery Me thod Room Air 03/02/22 10:30 03/02/22 10:35 03/02/22 10:40 Temperature Pulse Rate 67 71 65 Pulse Rate [Left P ulse Oximeter] Respiratory Rate 14 14 16 Blood Pressure 120/56 L 113/47 L 120/51 L Blood Pressure [Ri ght Arm] Pulse Oximetry 97 98 96 Oxygen Delivery Me thod 03/02/22 10:45 03/02/22 11:15 03/02/22 11:30 Temperature 97.2 F L 97.2 F L Pulse Rate 62 Pulse Rate [Left P ulse Oximeter] 66 69 Respiratory Rate 16 12 12 Blood Pressure 112/53 L Blood Pressure [Ri ght Arm] 113/52 L 84/68 L Pulse Oximetry 98 98 98 Oxygen Delivery Me thod Room Air Room Air 03/02/22 11:45 03/02/22 11:51 03/02/22 15:00 Temperature 97.2 F L 97.2 F L Pulse Rate Pulse Rate [Left P ulse Oximeter] 68 73 77 Respiratory Rate 12 12 14 Blood Pressure Blood Pressure [Ri ght Arm] 114/55 L 116/55 L Pulse Oximetry 99 100 Oxygen Delivery Me thod Room Air Room Air 03/02/22 15:00 03/02/22 12:00 03/02/22 12:30 Temperature 97.6 F 97.6 F 97.6 F Pulse Rate Pulse Rate [Left P ulse Oximeter] 77 73 82 Respiratory Rate 14 14 14 Blood Pressure Blood Pressure [Ri ght Arm] 127/57 L 116/55 L 123/61 Pulse Oximetry 99 100 95 Oxygen Delivery Me thod Room Air Room Air Room Air 03/02/22 13:00 03/02/22 14:00 03/02/22 15:00 Temperature 97.4 F L 97.6 F 97.6 F Pulse Rate Pulse Rate [Left P ulse Oximeter] 88 86 77 Respiratory Rate 16 16 14 Blood Pressure Blood Pressure [Ri ght Arm] 94/54 L 120/51 L 127/57 L Pulse Oximetry 95 100 99 Oxygen Delivery Me thod Room Air Room Air Room Air 03/02/22 16:00 03/02/22 17:46 03/02/22 19:00 Temperature 98.1 F 98.1 F Pulse Rate Pulse Rate [Left P ulse Oximeter] 81 84 Respiratory Rate 14 14 Blood Pressure Blood Pressure [Ri ght Arm] 122/54 L 136/57 L Pulse Oximetry 100 97 93 Oxygen Delivery Me thod Room Air Room Air 03/02/22 21:55 03/02/22 23:00 03/03/22 03:00 Temperature 98.6 F 98.6 F Pulse Rate Pulse Rate [Left P ulse Oximeter] 74 74 70 Respiratory Rate 14 16 16 Blood Pressure Blood Pressure [Ri ght Arm] 108/56 L Pulse Oximetry 96 97 Oxygen Delivery Me thod Room Air Room Air
[2022-03-03] MEDS: ONDANSETRON 2 MG/ML inj 4 MG IVP (09:32)
[2022-03-03] MEDS: RIVAROXABAN 10 MG TABLET PO (09:32)
[2022-03-03] MEDS: MULTIVITAMIN/MINERALS 1 TABLET 1 TAB PO (09:32)
[2022-03-03] MEDS: SENNOSIDES 1 TAB TABLET 2 TAB PO ×2 (09:32→21:48)
[2022-03-03] MEDS: VALACYCLOVIR HCL 500 MG TABLET PO (09:33)
[2022-03-03 11:00] VITALS: BP 121/60; PULSE 85; RESP 18; TEMP 36.9; O2SAT 96
[2022-03-03 15:00] VITALS: BP 129/57; PULSE 98; RESP 18; TEMP 36.5; O2SAT 94
[2022-03-03 19:00] VITALS: BP 127/63; PULSE 86; RESP 18; TEMP 37; O2SAT 94
--- NOTE | 2022-03-03 19:42 | PC.NURSE ---
shift note: pt up to recliner 2/walker. pt very cautious about activity. Reassured pt through transfers. Pt medicated with oxycodone throughout the day for 4-10+/10 pain. PP+ bilat. pt has bilat foot drop. drsg x3 c/d/i on rt lateral leg. teds and scds in place. LS clr. pt sats 92-9&% RA. pt had nausea this a.m and was given zofran IV with relief.
[2022-03-03] MEDS: ALPRAZolam 0.25 MG TABLET PO (19:54)
[2022-03-03] MEDS: TRAZODONE HCL 50 MG TABLET 150 MG PO (21:48)
[2022-03-03 22:13] VITALS: BP 126/59; PULSE 91; RESP 20; TEMP 36.8; O2SAT 92
[2022-03-04] VITALS (14 sets, daily range): BP systolic 91–130; BP diastolic 48–64; PULSE 72–103; RESP 14–20; TEMP 36.5–37.7; O2SAT 92–100
[2022-03-04] MEDS: OXYCODONE 5 MG TABLET PO ×7 (00:17→20:45)
[2022-03-04] MEDS: OMEPRAZOLE 20 MG CAPSULE DR PO ×2 (06:48→20:46)
[2022-03-04 07:16] LABS: Basophils Absolute Auto 0.01 K/uL (0.00-0.30); Basophils Percent Auto 0.1 % (0.0-3.0); Eosinophils Absolute Auto 0.03 K/uL (0.00-0.50); Eosinophils Percent Auto 0.4 % (0.0-7.0); Hematocrit 17.3 % (33.0-51.0); Immature Granulocytes Abs Auto 0.02 K/uL (0.00-0.30); Immature Granulocytes Pct Auto 0.2 %; Lymphocytes Percent Auto 19.9 % (20-44); Mean Corpuscular HGB Conc 33 gm/dL (32-36); Mean Corpuscular Hemoglobin 30 pg (26-34); Mean Corpuscular Volume 92 fL (80-100); Monocytes Percent Auto 15.1 % (0.0-11.0); Neutrophils Absolute Auto 5.49 K/uL (1.7-7.0); Neutrophils Percent Auto 64.3 % (42.0-72.0); Platelet Count* 163 K/uL (140-440); RDW Coefficient of Variation % 15.5 % (11.5-15.5); Red Blood Count 1.88 m/uL (4.00-5.20); White Blood Count* 8.54 K/uL (4.50-11.00)
[2022-03-04 07:27] LABS: Hemoglobin* 5.7 gm/dL (12.0-16.0)
[2022-03-04 07:35] LABS: Slide Review Reflex No
[2022-03-04 07:44] LABS: Chloride* 103 mmol/L (96-114)
[2022-03-04 07:47] LABS: Blood Urea Nitrogen* 16 mg/dL (7-30); Carbon Dioxide* 29 mmol/L (20-32); Creatinine* 0.6 mg/dL (0.5-1.5); Estimated Glomerular Filt Rate 92 ml/min; Glucose* 90 mg/dL (60-115)
[2022-03-04 07:48] LABS: Calcium* 8.2 mg/dL (8.4-10.6)
[2022-03-04 07:51] LABS: Sodium* 135 mmol/L (135-149)
--- NOTE | 2022-03-04 07:53 | PC.NURSE ---
[id number]: Patient cooperative with cares. Rates pain 4-8/10. PRN Oxy for relief. Xanax administered per patient for anxiety. Active ice to op site. Dressings C/D/I. Klein cath patent.
--- NOTE | 2022-03-04 07:56 | P.IMPN_ITS ---
Progress Note: A&P Assessment and plan (1) Closed intertrochanteric fracture of right hip: Problem details: - post op IM rodding with Dr. Garrison on 03/02/22 - continue postoperative therapies Status: Acute (2) Recurrent falls: Problem details: - may require transitional care versus home with increased services. Patient lives with daughter Status: Chronic (3) Generalized anxiety disorder with panic attacks: Problem details: - has remained stable during stay Status: Chronic (4) Anemia: Problem details: - noted 03/04/22, s/p 2U PRBCs Status: Acute Assessment and Plan: - likely secondary to acute blood loss from surgery - patient amenable to transfusion after discussion of risks and benefits (received a transfusion in the remote past) Plan - Transfuse per above - add PPI - follow hemoglobin - hemoccult stool - patient has already received her postoperative rivaroxaban today; consider holding prophylaxis pending hemoglobin trend Subjective Date Seen: 03/04/22 Interval history: Donnell notes some hip pain and generalized weakness this morning, no other concerns for hospitalist team. Her morning hemoglobin was noted to be 6 (confirmed with repeat). Patient denies melanotic stools, no acid reflux. Does have occasional nausea. Exam Narrative: Exam Narrative: GEN: Alert and oriented, answering questions appropriately HEENT: Normal external ears, EOMIs bilaterally, + conjunctival pallor CV: Heart rate in the 90s, sinus rhythm with no concerning murmurs R: LCTA bilaterally without concerning wheezing, rales, or rhonchi, air movement adequate Ext: wwp, no concerning edema. No concerning bleeding or bruising around surgical sites Skin: No concerning skin lesions or rashes on exposed skin Neuro: Nonfocal Psych: Appropriate Const: Vital Signs, click to edit/add: Vital Signs - 24 hr 03/03/22 11:00 03/03/22 15:00 03/03/22 19:00 Temperature 98.4 F 97.7 F 98.6 F Pulse Rate [Left P ulse Oximeter] 85 98 86 Respiratory Rate 18 18 18 Blood Pressure [Ri ght Arm] 121/60 129/57 L 127/63 Pulse Oximetry 96 94 94 Oxygen Delivery Me thod Room Air Room Air Room Air 03/03/22 22:13 03/04/22 02:41 Temperature 98.3 F 99.8 F H Pulse Rate [Left P ulse Oximeter] 91 89 Respiratory Rate 20 20 Blood Pressure [Ri ght Arm] 126/59 L 122/56 L Pulse Oximetry 92 92 Oxygen Delivery Me thod Room Air Room Air Labs Labs: Laboratory Results - last 24 hr 03/04/22 03/04/22 03/04/22 05:50 05:50 07:38 WBC 8.54 RBC 1.88 L Hgb 5.7 L* 6.0 L* Hct 17.3 L MCV 92 MCH 30 MCHC 33 RDW Coeff of Hao 15.5 Plt Count 163 Neut % (Auto) 64.3 Lymph % (Auto) 19.9 L [place] % (Auto) 15.1 H Eos % (Auto) 0.4 Baso % (Auto) 0.1 Neut # (Auto) 5.49 Lymph # (Auto) 1.70 [place] # (Auto) 1.30 H Eos # (Auto) 0.03 Baso # (Auto) 0.01 Abs Immat Gran (auto) 0.02 Imm/Tot Granulo (auto) 0.2 Sodium 135 Potassium 4.0 Chloride 103 Carbon Dioxide 29 BUN 16 Creatinine 0.6 Estimated Creat Clear 33.30 Estimated GFR 92 Glucose 90 Calcium 8.2 L
--- NOTE | 2022-03-04 09:22 | PM.ORCN ---
History of Present Illness HPI Date Seen: 03/02/22 Chief complaint: Fall Hip Pain Narrative: Harmony is a pleasant, spry 76 year old female who lives with her daughter and fell face forward on 03/01/2022 landing primarily on her right hip. She believes 1 of the 2 house dog's got in front of her and unfortunately tripped anterior. Denies LOC. she experienced significant pain about her right hip. Unable to bear weight. She presented [facility] via EMS. X-rays were obtained revealed a right intertrochanteric comminuted fracture. Orthopedics is consulted to assist with management. Prior to the fall, she was in her usual state of health with no recent illness or change in medications. She did not have any dizziness, vertigo, focal numbness, weakness or tingling. Review of Systems Narrative: Some anxiety, but otherwise no fevers or chills, nausea vomiting, diarrhea or constipation. No chest pain or shortness of breath. No blurry vision double vision or headaches. Outside of the fact that she does were glasses. No history of blood clotting or bleeding disorders. Remaining 10 point review systems otherwise negative. History is notable for undergoing contralateral left HAWA in the remote past-doing well. 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 Harmony has been smoking cigarettes for 50 years. She is now down to a puff a few times a day, and one cigarette lasts 4-5 days. She denied alcohol use, but her granddaughter stopped Harmony's nurse in the hallway to say that Harmony does drink wine. She denies recreational drug use. She wishes to be a full code. Smoking Status: Light tobacco smoker What tobacco products do you use: cigarettes Do you use any of these nicotine containing products: None Second hand tobacco smoke exposure: No How often do you have a drink containing alcohol: 4 or more times a week Alcohol type: wine How many standard drinks containing alcohol do you have on a typical day: 1 or 2 How often do you have six or more drinks on one occasion: Never AUDIT-C Alcohol total score: 4 Non-prescribed substance use: denies use Non-prescribed substance use details: tylenol Caffeine: Yes (coffee, 1 cup/day) service: No Meds Home Medications and Allergies Home Medications Medication Instructions Recorded Confirmed Type ibuprofen 800 mg tablet 800 mg PO TID PRN 10/22/21 03/01/22 History meloxicam 15 mg tablet 15 mg PO QDAY 10/22/21 03/01/22 History needle (disp) 18 G 18 gauge x 1 10/22/21 History 1/2 ([employer] [place]) omeprazole 20 mg capsule,delayed 20 mg PO QDAY 10/22/21 03/01/22 History release sucralfate 1 gram tablet 1 g PO QID PRN 10/22/21 03/01/22 History syringe with needle 3 mL 25 gauge 10/22/21 History x 1 ([employer] Luer Lock Syringe with needle) albuterol sulfate 90 mcg/actuation 2 puff inhalation Q4-6H PRN 11/14/21 03/01/22 History aerosol inhaler alprazolam 0.25 mg tablet 0.25 mg PO TID PRN 11/14/21 03/01/22 History aspirin 81 mg tablet,delayed 81 mg PO DAILY 11/14/21 03/01/22 History release cranberry 500 mg capsule 1,500 mg PO QDAY 11/14/21 03/01/22 History multivitamin 1 tab PO QDAY 11/14/21 03/01/22 History ondansetron HCl 4 mg tablet 4 mg PO Q6H PRN 11/14/21 03/01/22 History trazodone 150 mg tablet 150 mg PO QPM 11/14/21 03/01/22 History atomoxetine 10 mg capsule 10 mg PO DAILY 03/02/22 03/02/22 History gabapentin 300 mg capsule 900 mg PO HS 03/02/22 03/02/22 History Allergies Allergy/AdvReac Type Severity Reaction Status Date / Time amitriptyline Allergy Severe Bundle Verified 03/01/22 13:02 Branch Block acetaminophen Allergy Intermediate GI Verified 03/01/22 13:02 Intolerance codeine Allergy Intermediate GI Verified 03/01/22 13:02 [From Tylenol-Codeine #3] Intolerance diphenhydramine Allergy Mild Itchiness Verified 03/01/22 13:02 zinc Allergy Mild Cold Sores Verified 03/01/22 13:02 Ortho Exam Narrative Exam Narrative: She is alert and oriented x3. No acute distress. Nonlabored breathing. Cooperative with the exam. She is spry and spunky. Regarding the right hip, she does have pain about the right groin with any rotation of the hip or knee. She is nontender around the knee itself or distal. Mildly tender around the lateral and anterior hip to palpation. 2+ DP and PT pulse. Neurologic intact all 5 dermatomes/myotomes right lower extremity although again difficult to fully assess hip due to her recent fall and fracture. Const Vital Signs, click to edit/add: Vital Signs - 24 hr 03/03/22 11:00 03/03/22 15:00 03/03/22 19:00 Temperature 98.4 F 97.7 F 98.6 F Pulse Rate [Left Pulse Oximeter] 85 98 86 Respiratory Rate 18 18 18 Blood Pressure [Right Arm] 121/60 129/57 L 127/63 Pulse Oximetry 96 94 94 Oxygen Delivery Method Room Air Room Air Room Air 03/03/22 22:13 03/04/22 02:41 03/04/22 07:00 Temperature 98.3 F 99.8 F H 98.6 F Pulse Rate [Left Pulse Oximeter] 91 89 95 Respiratory Rate 20 20 14 Blood Pressure [Right Arm] 126/59 L 122/56 L 113/57 L Pulse Oximetry 92 92 93 Oxygen Delivery Method Room Air Room Air Room Air Results Labs Labs: Laboratory Results - last 48 hr 03/04/22 03/04/22 03/04/22 05:50 05:50 07:38 WBC 8.54 RBC 1.88 L Hgb 5.7 L* 6.0 L* Hct 17.3 L MCV 92 MCH 30 MCHC 33 RDW Coeff of Hao 15.5 Plt Count 163 Neut % (Auto) 64.3 Lymph % (Auto) 19.9 L [place] % (Auto) 15.1 H Eos % (Auto) 0.4 Baso % (Auto) 0.1 Neut # (Auto) 5.49 Lymph # (Auto) 1.70 [place] # (Auto) 1.30 H Eos # (Auto) 0.03 Baso # (Auto) 0.01 Abs Immat Gran (auto) 0.02 Imm/Tot Granulo (auto) 0.2 Sodium 135 Potassium 4.0 Chloride 103 Carbon Dioxide 29 BUN 16 Creatinine 0.6 Estimated Creat Clear 33.30 Estimated GFR 92 Glucose 90 Calcium 8.2 L Blood Type Antibody Screen Crossmatch ([facility]) 03/04/22 07:48 WBC RBC Hgb Hct MCV MCH MCHC RDW Coeff of Hao Plt Count Neut % (Auto) Lymph % (Auto) [place] % (Auto) Eos % (Auto) Baso % (Auto) Neut # (Auto) Lymph # (Auto) [place] # (Auto) Eos # (Auto) Baso # (Auto) Abs Immat Gran (auto) Imm/Tot Granulo (auto) Sodium Potassium Chloride Carbon Dioxide BUN Creatinine Estimated Creat Clear Estimated GFR Glucose Calcium Blood Type A Negative Antibody Screen NEGATIVE Crossmatch ([facility]) See Detail Diagnostic results Additional Comments: AP pelvis and AP and cross-table lateral views of the right hip ordered by different provider from [facility] dated 03/01/2022 and reviewed by me. This demonstrates right comminuted intertrochanteric femur fracture with varus angulation, shortening, and external rotation to the shaft. Incidentally, contralateral left HAWA implants are present. The appear to be well fixed without evidence of loosening. Assessment and Plan Assessment and plan (1) Closed intertrochanteric fracture of right hip: Problem comment: - post op IM rodbet[place] with Dr. Garrison on 03/02/22 Status: Acute Total time spent: Total time spent is greater than 50% in coordination of care (as documented) at patient's floor/unit and/or counseling patient: (2) Recurrent falls: Status: Chronic Total time spent: Total time spent is greater than 50% in coordination of care (as documented) at patient's floor/unit and/or counseling patient: (3) Generalized anxiety disorder with panic attacks: Problem comment: - has remained stable during stay Status: Chronic Total time spent: Total time spent is greater than 50% in coordination of care (as documented) at patient's floor/unit and/or counseling patient: (4) Anemia: Status: Acute Total time spent: Total time spent is greater than 50% in coordination of care (as documented) at patient's floor/unit and/or counseling patient: Plan Prior to the fall, she did ambulate regularly. I do think given her activity level and comminution/fracture displacement that surgery is indicated. This be for right femur cephalomedullary nail placement. We discussed the risks, benefits, and alternatives in great detail. I believe all questions were answered regarding both nonoperative and operative choices. At this time, indeed she elects for the operative route. We will plan for surgery on 03/02/2022. Following the procedure, I would expect she should be able to weightbear as tolerated. PT and OT consult will be initiated along with social work consult for discharge planning. 23 hours of perioperative antibiotics.
[2022-03-04] MEDS: SENNOSIDES 1 TAB TABLET 2 TAB PO ×2 (09:32→20:46)
[2022-03-04] MEDS: SODIUM CHLORIDE 0.9 % (FLUSH) 10 ML SYRINGE IVF (09:33)
[2022-03-04] MEDS: RIVAROXABAN 10 MG TABLET PO (09:33)
[2022-03-04] MEDS: VALACYCLOVIR HCL 500 MG TABLET PO (09:33)
[2022-03-04] MEDS: MULTIVITAMIN/MINERALS 1 TABLET 1 TAB PO (09:33)
[2022-03-04] MEDS: ONDANSETRON 2 MG/ML inj 4 MG IVP (09:42)
[2022-03-04] MEDS: ACETAMINOPHEN 325 MG TABLET 650 MG PO (09:59)
--- NOTE | 2022-03-04 13:03 | PC.SOCIAL ---
Update from PT/OT Department: Pt needed a blood transfusion so PT/OT was placed on hold until later afternoon. Pt/OT will reach out to Social Work with a recommendation. Met with pt in room. Informed pt that this worker will assist with discharge planning after PT and OT assess. Phone call to Pt's daughter, Jamia, at [phone]. Informed Jamia that this worker will be working on discharge planning after PT and OT assess pt. Jamia informed that pt would likely not like to go to a SNF but she understands that if it is recommended that it would be the safest plan. Jamia informed that she is home sick with Covid now and states she can be reached by phone at any time. Social Work will follow up as necessary.
[2022-03-04] MEDS: FUROSEMIDE 10 MG/ML inj 20 MG IV (13:06)
[2022-03-04] MEDS: ACETAMINOPHEN 325 MG TABLET 975 MG PO ×2 (13:14→20:45)
[2022-03-04 17:32] LABS: Hemoglobin* 10.1 gm/dL (12.0-16.0)
--- NOTE | 2022-03-04 20:02 | PC.NURSE ---
End of shift-- Pleasant and cooperative, alert and oriented patient. VSS and pt is afebrile. SPO2 maintained >90% on RA. Patient c/o pain in right hip which she rated as high as 8/10 this morning and refused to get up for breakfast. MD was notified and pt was given Tylenol. Pain now appears well managed with scheduled Tylenol and PRN Oxycodone. Dressing to right hip and knee are C/D/I and CMS WNL. Significant swelling noted in right knee. Pt was given 2 units PRBCs today per MD order and tolerated it well. LS CTA. BS+ x4, pt denied nausea and ate a regular diet without difficulty. She was up to the chair twice today with assist of 1-2, belt and walker and tolerated it well. Report to BELINDA York.
[2022-03-04] MEDS: SODIUM CHLORIDE 0.9 % (FLUSH) 10 ML SYRINGE 5 ML IVF (20:46)
[2022-03-04] MEDS: TRAZODONE HCL 50 MG TABLET 150 MG PO (20:46)
[2022-03-05 03:00] VITALS: BP 118/49; PULSE 72; RESP 18; TEMP 36.8; O2SAT 96
[2022-03-05] MEDS: ACETAMINOPHEN 325 MG TABLET 975 MG PO ×3 (03:17→20:08)
[2022-03-05] MEDS: OXYCODONE 5 MG TABLET PO ×5 (03:18→20:40)
--- NOTE | 2022-03-05 06:31 | PC.NURSE ---
[id number]: patient assist X2 with walker and gait belt. Klein DCed intact tip, pain well managed see EMAR for meds given. surgical dressing c/d/i
[2022-03-05 06:53] LABS: Basophils Absolute Auto 0.02 K/uL (0.00-0.30); Basophils Percent Auto 0.3 % (0.0-3.0); Eosinophils Absolute Auto 0.12 K/uL (0.00-0.50); Eosinophils Percent Auto 1.5 % (0.0-7.0); Hematocrit 28.8 % (33.0-51.0); Hemoglobin* 9.5 gm/dL (12.0-16.0); Immature Granulocytes Abs Auto 0.02 K/uL (0.00-0.30); Immature Granulocytes Pct Auto 0.3 %; Lymphocytes Percent Auto 18.8 % (20-44); Mean Corpuscular HGB Conc 33 gm/dL (32-36); Mean Corpuscular Hemoglobin 29 pg (26-34); Mean Corpuscular Volume 88 fL (80-100); Neutrophils Absolute Auto 5.22 K/uL (1.7-7.0); Neutrophils Percent Auto 65.1 % (42.0-72.0); Platelet Count* 165 K/uL (140-440); RDW Coefficient of Variation % 16.3 % (11.5-15.5); Red Blood Count 3.26 m/uL (4.00-5.20)
[2022-03-05 06:57] LABS: Slide Review Reflex No
[2022-03-05 07:05] LABS: Albumin* 3.1 g/dL (3.3-5.0); Chloride* 107 mmol/L (96-114)
[2022-03-05 07:06] LABS: Sodium* 140 mmol/L (135-149)
[2022-03-05 07:08] LABS: Alkaline Phosphatase* 55 U/L (40-150); Aspartate Amino Transferase* 27 U/L (12-35); Bilirubin Total* 1.1 mg/dL (0.1-1.5); Blood Urea Nitrogen* 17 mg/dL (7-30); Carbon Dioxide* 33 mmol/L (20-32); Creatinine* 0.6 mg/dL (0.5-1.5); Estimated Glomerular Filt Rate 92 ml/min; Total Protein* 5.5 g/dL (6.0-8.3)
[2022-03-05 07:09] LABS: Alanine Aminotransferase* 22 U/L (4-35); Calcium* 8.7 mg/dL (8.4-10.6); Glucose* 85 mg/dL (60-115)
[2022-03-05 07:36] VITALS: BP 125/52; PULSE 81; RESP 16; TEMP 36.9; O2SAT 96
[2022-03-05] MEDS: RIVAROXABAN 10 MG TABLET PO (08:26)
[2022-03-05] MEDS: MULTIVITAMIN/MINERALS 1 TABLET 1 TAB PO (08:26)
[2022-03-05] MEDS: OMEPRAZOLE 20 MG CAPSULE DR PO ×2 (08:26→20:11)
[2022-03-05] MEDS: SENNOSIDES 1 TAB TABLET 2 TAB PO ×2 (08:26→20:09)
[2022-03-05] MEDS: VALACYCLOVIR HCL 500 MG TABLET PO (08:27)
[2022-03-05] MEDS: SODIUM CHLORIDE 0.9 % (FLUSH) 10 ML SYRINGE 5 ML IVF ×2 (08:27→20:16)
[2022-03-05 12:14] VITALS: BP 116/59; PULSE 90; RESP 16; TEMP 36.7; O2SAT 97
--- NOTE | 2022-03-05 14:24 | P.ORPN_ITS ---
Subjective Subjective Time Seen by Provider: 14:25 Date Seen: 03/05/22 Principal diagnosis: Right hip IM rodding Interval history: Donnell notes some hip pain and generalized weakness this morning, no other concerns for hospitalist team. Her morning hemoglobin was noted to be 6 (confirmed with repeat). Patient denies melanotic stools, no acid reflux. Does have occasional nausea. Ortho Exam Narrative Exam Narrative: Alert and oriented x3. Patient is in no acute distress. Converses without labored breathing. Hearing is grossly intact. Thigh is edematous. No erythema. Mildly tender to palpation. CMS intact right lower extremity. Dressings are intact. Bilateral calves are soft and nontender. Const Vital Signs, click to edit/add: Vital Signs - 24 hr 03/04/22 15:00 03/04/22 17:33 03/04/22 15:00 Temperature 98.3 F 98.2 F Pulse Rate [Dorsalis Pedis] 79 82 82 Respiratory Rate 16 18 18 Blood Pressure [Right Arm] 103/52 L 119/48 L Pulse Oximetry 96 Oxygen Delivery Method Room Air 03/04/22 19:00 03/04/22 23:00 03/04/22 23:00 Temperature 98.2 F 98 F Pulse Rate [Dorsalis Pedis] 76 72 76 Respiratory Rate 18 18 18 Blood Pressure [Right Arm] 123/48 L 130/50 L Pulse Oximetry 97 96 Oxygen Delivery Method Room Air Room Air 03/05/22 03:00 03/05/22 07:36 03/05/22 12:14 Temperature 98.2 F 98.5 F 98.1 F Pulse Rate [Dorsalis Pedis] 72 81 90 Respiratory Rate 18 16 16 Blood Pressure [Right Arm] 118/49 L 125/52 L 116/59 L Pulse Oximetry 96 96 97 Oxygen Delivery Method Room Air Room Air Room Air Assessment and Plan Assessment and plan (1) Closed intertrochanteric fracture of right hip: Problem details: - post op IM rodding with Dr. Garrison on 03/02/22 - continue postoperative therapies Status: Acute Assessment and Plan: [facility]ing on [place] [facility]. Orthopedic Discharge medications will be entered once placement has been decided. DVT prophylaxis includes Xarelto 10 mg daily, Luther stockings for 1 month, pumping ankles, SCDs. Harmony states she feels much better since having a blood transfusion. Continue cares (2) Recurrent falls: Problem details: - may require transitional care versus home with increased services. Patient lives with daughter Status: Chronic (3) Generalized anxiety disorder with panic attacks: Problem details: - has remained stable during stay Status: Chronic (4) Anemia: Problem details: - noted 03/04/22, s/p 2U PRBCs Status: Acute
--- NOTE | 2022-03-05 14:25 | P.IMPN_ITS ---
Progress Note: A&P Assessment and plan (1) Closed intertrochanteric fracture of right hip: Problem details: - post op IM rodding with Dr. Garrison on 03/02/22 - continue postoperative therapies Status: Acute (2) Recurrent falls: Problem details: - may require transitional care versus home with increased services. Patient lives with daughter Status: Chronic (3) Generalized anxiety disorder with panic attacks: Problem details: - has remained stable during stay Status: Chronic (4) Anemia: Problem details: - noted 03/04/22, s/p 2U PRBCs with improvement - normal BUN, no melena, on PPI Status: Acute Plan - per above - medically cleared for home with HH vs SNF - Xarelto for prophylaxis Subjective Date Seen: 03/05/22 Interval history: Harmony is feeling better today after her blood transfusion. She continues to have pain in her hip, this is well controlled with current medication regimen. No other concerns for hospitalist staff. Exam Narrative: Exam Narrative: GEN: Alert and oriented, answering questions appropriately eating breakfast HEENT: Normal external ears, EOMIs bilaterally, edentulous, no scleral icterus CV: RRR, No concerning murmurs, rubs, or gallops R: LCTA bilaterally without concerning wheezing, rales, or rhonchi Skin: No concerning skin lesions or rashes on exposed skin Neuro: Nonfocal Psych: Appropriate Const: Vital Signs, click to edit/add: Vital Signs - 24 hr 03/04/22 15:00 03/04/22 17:33 03/04/22 15:00 Temperature 98.3 F 98.2 F Pulse Rate [Dorsal is Pedis] 79 82 82 Respiratory Rate 16 18 18 Blood Pressure [Ri ght Arm] 103/52 L 119/48 L Pulse Oximetry 96 Oxygen Delivery Me thod Room Air 03/04/22 19:00 03/04/22 23:00 03/04/22 23:00 Temperature 98.2 F 98 F Pulse Rate [Dorsal is Pedis] 76 72 76 Respiratory Rate 18 18 18 Blood Pressure [Ri ght Arm] 123/48 L 130/50 L Pulse Oximetry 97 96 Oxygen Delivery Me thod Room Air Room Air 03/05/22 03:00 03/05/22 07:36 03/05/22 12:14 Temperature 98.2 F 98.5 F 98.1 F Pulse Rate [Dorsal is Pedis] 72 81 90 Respiratory Rate 18 16 16 Blood Pressure [Ri ght Arm] 118/49 L 125/52 L 116/59 L Pulse Oximetry 96 96 97 Oxygen Delivery Me thod Room Air Room Air Room Air Labs Labs: Laboratory Results - last 24 hr 03/04/22 03/04/22 03/05/22 07:48 17:24 06:21 WBC 8.00 RBC 3.26 L Hgb 10.1 L 9.5 L Hct 28.8 L MCV 88 MCH 29 MCHC 33 RDW Coeff of Hao 16.3 H Plt Count 165 Neut % (Auto) 65.1 Lymph % (Auto) 18.8 L [place] % (Auto) 14.0 H Eos % (Auto) 1.5 Baso % (Auto) 0.3 Neut # (Auto) 5.22 Lymph # (Auto) 1.50 [place] # (Auto) 1.10 H Eos # (Auto) 0.12 Baso # (Auto) 0.02 Abs Immat Gran (auto) 0.02 Imm/Tot Granulo (auto) 0.3 Sodium Potassium Chloride Carbon Dioxide BUN Creatinine Estimated Creat Clear Estimated GFR Glucose Calcium Total Bilirubin AST ALT Alkaline Phosphatase Total Protein Albumin Crossmatch ([facility]) See Detail 03/05/22 06:21 WBC RBC Hgb Hct MCV MCH MCHC RDW Coeff of Hao Plt Count Neut % (Auto) Lymph % (Auto) [place] % (Auto) Eos % (Auto) Baso % (Auto) Neut # (Auto) Lymph # (Auto) [place] # (Auto) Eos # (Auto) Baso # (Auto) Abs Immat Gran (auto) Imm/Tot Granulo (auto) Sodium 140 Potassium 4.0 Chloride 107 Carbon Dioxide 33 H BUN 17 Creatinine 0.6 Estimated Creat Clear 33.30 Estimated GFR 92 Glucose 85 Calcium 8.7 Total Bilirubin 1.1 AST 27 ALT 22 Alkaline Phosphatase 55 Total Protein 5.5 L Albumin 3.1 L Crossmatch (G)
[2022-03-05 15:21] VITALS: BP 120/62; RESP 16; TEMP 36.2; O2SAT 97
--- NOTE | 2022-03-05 16:17 | PC.SOCIAL ---
Discharge planning: Called dtr Jamia regarding d/c plan. Jamia originally stated she would only place pt in short term rehab in a facility in [place] or [place]. And that if there was not availability in these facilities she will take pt home. Dtr works for a home care agency and is confident she can provide care at home. Called assisted facilites in [place] and [place]. There is no availability at these facilities. Called back to daughter who now states her sister is refusing for dtr to take pt home and is requesting placement in a facility within a short drive of [place]. Dtr specifically named [facility] and [facility] and [facility] as possibilities. Called the following facilities with the listed results: 1. [facility] - no beds this week. 2. [facility] - no beds this week. 3. [facility] - no beds this week. 4. [facility] - left message and requested call back. 5. [facility] - left message and requested call back. Dtr specifically said she would refuse [facility], so did not call this facility. Dtr states that after a placement is found, she will need 24 hours to schedule a family member to provide transport as she is unable to drive that distance. Explained the option to private pay for transportation. Dtr refused this option. alcoholism worker to follow up as needed.
--- NOTE | 2022-03-05 17:44 | PC.NURSE ---
End of shift note: Patient had surgery on 03/02 for a fall. Post op day 3. Has been up with assist of 1 and a walker and gaitbelt. Patient refused to get out of bed to chair for breakfast this morning but has been cooperative and compliant for lunch and supper. Worked with PT/OT. Latoya was pulled today and has voided 3 times. Small amounts and urine dark. Encouraged fluids. Does like apple juice and rosales crackers. Incisions are clean dry and intact. Lung sounds are clear. Vital signs are within normal limits. PIV in left upper arm is patent and secure. Alert and oriented. Denies nausea but appetite is poor. Pain is controlled with PO meds. Has not had a BM here. Gave senna this morning. Patient did not want anything more at this time. See social work note for discharge planning.
[2022-03-05] MEDS: ONDANSETRON 2 MG/ML inj 4 MG IVP (18:15)
[2022-03-05 19:59] VITALS: BP 113/52; PULSE 75; RESP 16; TEMP 36.6; O2SAT 94
[2022-03-05] MEDS: TRAZODONE HCL 50 MG TABLET 150 MG PO (20:11)
[2022-03-05 23:00] VITALS: BP 116/61; PULSE 75; RESP 16; TEMP 37.1; O2SAT 94
[2022-03-06] VITALS (7 sets, daily range): BP systolic 110–125; BP diastolic 54–61; PULSE 71–91; RESP 16–18; TEMP 36.6–37.1; O2SAT 94–99
[2022-03-06] MEDS: OXYCODONE 5 MG TABLET PO ×5 (04:51→20:50)
[2022-03-06] MEDS: ACETAMINOPHEN 325 MG TABLET 975 MG PO ×3 (04:51→20:50)
--- NOTE | 2022-03-06 07:04 | PC.NURSE ---
Status end of shift [id number] Pt alert with chronic confusion. Pleasant and cooperative. PRN oxy and scheduled tylenol given for hip pain. BP soft but stable. Remains on room air. Up with stand by and walker to bathroom. Voiding without difficulty. No BM this shift, passing flatus. Pt observed resting intermittently between cares. Plan to d/c back to [place] via son at 1100.
[2022-03-06 07:24] LABS: Basophils Absolute Auto 0.01 K/uL (0.00-0.30); Basophils Percent Auto 0.1 % (0.0-3.0); Eosinophils Absolute Auto 0.14 K/uL (0.00-0.50); Hematocrit 29.6 % (33.0-51.0); Hemoglobin* 9.5 gm/dL (12.0-16.0); Immature Granulocytes Abs Auto 0.01 K/uL (0.00-0.30); Immature Granulocytes Pct Auto 0.1 %; Lymphocytes Percent Auto 13.5 % (20-44); Mean Corpuscular HGB Conc 32 gm/dL (32-36); Mean Corpuscular Hemoglobin 29 pg (26-34); Mean Corpuscular Volume 91 fL (80-100); Monocytes Percent Auto 11.3 % (0.0-11.0); Platelet Count* 217 K/uL (140-440); RDW Coefficient of Variation % 16.6 % (11.5-15.5); Red Blood Count 3.27 m/uL (4.00-5.20)
[2022-03-06 07:33] LABS: Slide Review Reflex No
[2022-03-06 07:41] LABS: Chloride* 106 mmol/L (96-114)
[2022-03-06 07:42] LABS: Potassium* 3.7 mmol/L (3.6-5.1); Sodium* 139 mmol/L (135-149)
[2022-03-06 07:44] LABS: Carbon Dioxide* 29 mmol/L (20-32); Creatinine* 0.5 mg/dL (0.5-1.5); Estimated Glomerular Filt Rate 96 ml/min
--- NOTE | 2022-03-06 07:44 | PC.NURSE ---
Status end of shift [id number] Pt alert and oriented. PRN oxy and scheduled tylenol given for right hip pain. Denies nausea. BP stable. Remains on room air. Up with assist of 1 and walker/belt to bathroom. BM x2 this shift. Stool occult negative x2. Voided x1. Encouraging oral intake. Pt observed resting well between cares.
[2022-03-06 07:45] LABS: Blood Urea Nitrogen* 17 mg/dL (7-30); Calcium* 8.2 mg/dL (8.4-10.6); Glucose* 139 mg/dL (60-115)
[2022-03-06] MEDS: VALACYCLOVIR HCL 500 MG TABLET PO (09:22)
[2022-03-06] MEDS: OMEPRAZOLE 20 MG CAPSULE DR PO ×2 (09:22→20:53)
[2022-03-06] MEDS: MULTIVITAMIN/MINERALS 1 TABLET 1 TAB PO (09:22)
[2022-03-06] MEDS: RIVAROXABAN 10 MG TABLET PO (09:22)
[2022-03-06] MEDS: SENNOSIDES 1 TAB TABLET 2 TAB PO ×2 (09:22→20:53)
[2022-03-06] MEDS: SODIUM CHLORIDE 0.9 % (FLUSH) 10 ML SYRINGE 5 ML IVF ×2 (09:23→20:58)
--- NOTE | 2022-03-06 16:09 | P.IMPN_ITS ---
Progress Note: A&P Assessment and plan (1) Closed intertrochanteric fracture of right hip: Problem details: - post op IM rodding with Dr. Garrison on 03/02/22 - continue postoperative therapies Status: Acute (2) Recurrent falls: Problem details: - may require transitional care versus home with increased services. Patient lives with daughter Status: Chronic (3) Generalized anxiety disorder with panic attacks: Problem details: - has remained stable during stay Status: Chronic (4) Anemia: Problem details: - noted 03/04/22, s/p 2U PRBCs with improvement - normal BUN, no melena, on PPI Status: Acute Plan - per above - home with HH (patient lives with daughter) vs SNF, appreciate input from therapies and SW Subjective Date Seen: 03/06/22 Interval history: Harmony continues to do well with therapy. She is considering SNF stay, appreciate input from PT, OT, and social work. Hemoglobin remained stable. Patient denies abdominal pain, has no other concerns for hospitalist staff. Exam Narrative: Exam Narrative: GEN: Alert and oriented, answering questions appropriately and sitting in bedside chair HEENT: Normal external ears, EOMIs bilaterally, edentulous, no scleral icterus CV: RRR, No concerning murmurs, rubs, or gallops R: LCTA bilaterally without concerning wheezing, rales, or rhonchi Skin: No concerning skin lesions or rashes on exposed skin Const: Vital Signs, click to edit/add: Vital Signs - 24 hr 03/05/22 19:59 03/05/22 23:00 03/06/22 00:30 Temperature 97.9 F 98.7 F 98.7 F Pulse Rate [Left P ulse Oximeter] 75 75 75 Respiratory Rate 16 16 16 Blood Pressure [Ri ght Arm] 113/52 L 116/61 116/61 Pulse Oximetry 94 94 94 Oxygen Delivery Me thod Room Air Room Air Room Air 03/06/22 00:30 03/06/22 03:00 03/06/22 08:12 Temperature 98 F 98.1 F Pulse Rate [Left P ulse Oximeter] 75 77 71 Respiratory Rate 16 18 18 Blood Pressure [Ri ght Arm] 125/56 L 110/59 L Pulse Oximetry 97 94 Oxygen Delivery Me thod Room Air Room Air 03/06/22 12:35 Temperature 98.2 F Pulse Rate [Left P ulse Oximeter] 91 Respiratory Rate 18 Blood Pressure [Ri ght Arm] 115/59 L Pulse Oximetry 96 Oxygen Delivery Me thod Room Air Labs Labs: Laboratory Results - last 24 hr 03/06/22 03/06/22 06:26 06:26 WBC 6.90 RBC 3.27 L Hgb 9.5 L Hct 29.6 L MCV 91 MCH 29 MCHC 32 RDW Coeff of Hao 16.6 H Plt Count 217 Neut % (Auto) 73.0 H Lymph % (Auto) 13.5 L [place] % (Auto) 11.3 H Eos % (Auto) 2.0 Baso % (Auto) 0.1 Neut # (Auto) 5.00 Lymph # (Auto) 0.90 [place] # (Auto) 0.80 Eos # (Auto) 0.14 Baso # (Auto) 0.01 Abs Immat Gran (auto) 0.01 Imm/Tot Granulo (auto) 0.1 Sodium 139 Potassium 3.7 Chloride 106 Carbon Dioxide 29 BUN 17 Creatinine 0.5 Estimated Creat Clear 33.30 Estimated GFR 96 Glucose 139 H Calcium 8.2 L
--- NOTE | 2022-03-06 17:03 | PC.SOCIAL ---
Discharge planning- Phone call to Faith in admissions at [facility]. There is one open bed. Faxed referral to [facility]. Received a phone call back stating that pt was declined for admission due to numerous referrals and only one available bed. Phone call to Fartun in admissions at [facility]. There is an open bed. Faxed referral to [facility]. Fartun is assessing pt for possible admission. Social Work will follow up.
--- NOTE | 2022-03-06 19:32 | PC.NURSE ---
Nursing Care Hours: [id number] Pt this shift up to chair for meals, bathroom x1. 1 assist with walker and gait belt. A&Ox4, makes needs known, pleasant and cooperative. R knee warm, red, swollen. Pt offered ice pack x2, pt declined d/t feeling cold, but agreeable to use it in a little bit, aware that it will help with decreased swelling. Pedal pulses equal and strong. CMS intact.
[2022-03-06] MEDS: TRAZODONE HCL 50 MG TABLET 150 MG PO (20:51)
[2022-03-07] MEDS: OXYCODONE 5 MG TABLET PO ×6 (01:59→22:00)
[2022-03-07 03:00] VITALS: BP 117/52; PULSE 69; RESP 18; TEMP 36.6; O2SAT 97
[2022-03-07] MEDS: ACETAMINOPHEN 325 MG TABLET 975 MG PO ×3 (04:00→19:31)
--- NOTE | 2022-03-07 04:50 | PC.NURSE ---
Shift note: Pt was able to ambulate with assist of 1, walker and GB to and from the washroom. Pain complain has been ranging between 4 and 7 and effectively managed with scheduled tylenol and oxycodone. Dressing looked clean and dry.
[2022-03-07 07:55] VITALS: BP 119/50; PULSE 73; RESP 18; TEMP 36.3; O2SAT 97
[2022-03-07] MEDS: SENNOSIDES 1 TAB TABLET 2 TAB PO ×2 (07:56→21:59)
[2022-03-07] MEDS: MULTIVITAMIN/MINERALS 1 TABLET 1 TAB PO (07:56)
[2022-03-07] MEDS: OMEPRAZOLE 20 MG CAPSULE DR PO ×2 (07:56→21:59)
[2022-03-07] MEDS: RIVAROXABAN 10 MG TABLET PO (07:57)
[2022-03-07] MEDS: VALACYCLOVIR HCL 500 MG TABLET PO (07:57)
[2022-03-07] MEDS: SODIUM CHLORIDE 0.9 % (FLUSH) 10 ML SYRINGE 5 ML IVF ×2 (07:57→22:00)
[2022-03-07 12:59] VITALS: BP 142/65; PULSE 78; RESP 16; TEMP 36.5; O2SAT 98
--- NOTE | 2022-03-07 15:10 | P.IMPN_ITS ---
Progress Note: A&P Assessment and plan (1) Closed intertrochanteric fracture of right hip: Problem details: - post op IM rodding with Dr. Garrison on 03/02/22 - continue postoperative therapies Status: Acute (2) Recurrent falls: Problem details: - may require transitional care versus home with increased services. Patient lives with daughter in [place] Status: Chronic (3) Generalized anxiety disorder with panic attacks: Problem details: - has remained stable during stay Status: Chronic (4) Anemia: Problem details: - noted 03/04/22, s/p 2U PRBCs with improvement - normal BUN, no melena, on PPI Status: Acute Plan - continue to work with PT and OT while awaiting SNF placement - comorbidities stable - Xarelto for prophylaxis Subjective Date Seen: 03/07/22 Interval history: Harmony was admitted on 03/01 for right hip fracture after a fall at home; she is postop day 5 from IM rodding. Postoperatively, she required a blood transfusion for anemia. Hemoglobin remains stable. She continues to do well with therapy. Family requesting SNF discharge, appreciate input from PT, OT, and social work. Harmony has no concerns for hospitalist staff. Exam Narrative: Exam Narrative: GEN: Alert and oriented, sitting comfortably in bedside chair HEENT: Normal external ears, EOMIs bilaterally, edentulous CV: RRR, No concerning murmurs, rubs, or gallops R: LCTA bilaterally, no tachypnea Neuro: No focal deficits Const: Vital Signs, click to edit/add: Vital Signs - 24 hr 03/06/22 19:00 03/06/22 23:00 03/07/22 03:00 Temperature 98.4 F 98 F 98 F Pulse Rate [Left P ulse Oximeter] 80 76 69 Respiratory Rate 18 18 18 Blood Pressure [Ri ght Arm] 112/54 L 116/55 L 117/52 L Pulse Oximetry 99 99 97 Oxygen Delivery Me thod Room Air Room Air Room Air 03/07/22 07:55 03/07/22 12:59 Temperature 97.3 F L 97.7 F Pulse Rate [Left P ulse Oximeter] 73 78 Respiratory Rate 18 16 Blood Pressure [Ri ght Arm] 119/50 L 142/65 H Pulse Oximetry 97 98 Oxygen Delivery Me thod Room Air Room Air
[2022-03-07 15:19] VITALS: BP 142/65; PULSE 78; RESP 16; TEMP 36.5; O2SAT 98
--- NOTE | 2022-03-07 16:51 | PC.SOCIAL ---
Discharge planning- Contacting the following SNF's for possible placement for Short-term rehab stay. 1. [facility]- Phone call to Fartun in admissions to follow up on referral that was sent yesterday. Left voicemail. 2. [facility]- Phone call to Mary at [facility]. There is an opening. Faxed referral to facility. 3. [facility]- Phone call to [facility] and there is openings. Faxed referral to facility. Met with pt and pt's daughter, Jamia, in pt's room. Provided an update on locating a SNF. Jamia prefers to not have pt go to [facility]. Jamia states that they are interested in [facility]. Provided update that [facility] may have an open bed. Jamia states that [facility] would be a good option also as she and her work near [place]. Pt states she would like to go home and does not want to go to SNF. Daughter states that she thinks it would work best for pt to go to SNF for rehab as there are stairs in the home and she would need to find someone to come stay with pt while daughter works during the day. Daughter states this may be an option if no SNF is located. Received a phone call from Fartun in admissions states that pt is accepted clinically, but states that pt is out of network with insurance so pt would have to pay $150 for days 1-16, $250 for days 17-26, $0 for days 27-100. Will provide information to pt and pt's family. Phone call to pt's daughter, Jamia, to provide information that was relayed from [facility]. Jamia states that pt cannot afford to pay the co-pay for [facility] so she will not be able to go there.
[2022-03-07 19:00] VITALS: BP 132/63; PULSE 97; RESP 18; TEMP 36.6; O2SAT 98
[2022-03-07] MEDS: TRAZODONE HCL 50 MG TABLET 150 MG PO (22:00)
[2022-03-07 23:00] VITALS: BP 128/61; PULSE 65; RESP 16; TEMP 36.6; O2SAT 98
[2022-03-08] MEDS: OXYCODONE 5 MG TABLET PO ×4 (00:51→14:28)
[2022-03-08 03:00] VITALS: RESP 16
[2022-03-08] MEDS: ACETAMINOPHEN 325 MG TABLET 975 MG PO ×2 (04:04→11:02)
--- NOTE | 2022-03-08 04:59 | PC.NURSE ---
[id number] Pt rested well during shift, requesting pain meds q2h, educated on pain management strategies, pt slept well during night between cares and br trips. ambulated without difficulty, walker LILIA, SBRenea. dressings to R thigh x3 C/D/I. declined ice to site entire shift. encouraged patient to increase fluid intake.
[2022-03-08 07:00] VITALS: BP 118/59; PULSE 69; RESP 12; TEMP 36.8; O2SAT 99
[2022-03-08] MEDS: MULTIVITAMIN/MINERALS 1 TABLET 1 TAB PO (08:09)
[2022-03-08] MEDS: RIVAROXABAN 10 MG TABLET PO (08:09)
[2022-03-08] MEDS: SENNOSIDES 1 TAB TABLET 2 TAB PO (08:09)
[2022-03-08] MEDS: OMEPRAZOLE 20 MG CAPSULE DR PO (08:10)
[2022-03-08] MEDS: SODIUM CHLORIDE 0.9 % (FLUSH) 10 ML SYRINGE 5 ML IVF (08:10)
[2022-03-08] MEDS: VALACYCLOVIR HCL 500 MG TABLET PO (08:22)
[2022-03-08] MEDS: ONDANSETRON ODT 4 MG TAB PO (09:41)
[2022-03-08 11:00] VITALS: BP 142/59; PULSE 74; RESP 15; TEMP 36.6; O2SAT 97
[2022-03-08] MEDS: ALPRAZolam 0.25 MG TABLET PO (11:33)
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
--- NOTE | 2022-03-08 12:11 | PM.DS1 ---
DS: Providers Provider Date Seen: 03/08/22 Date of admission: 03/01/22 17:44 Primary care physician: Daniele Hawkins MD Admitting Clinician: Amelie Mitchell MD Date of Discharge: 03/08/22 DS: Diagnosis Discharge Diagnosis (1) Closed intertrochanteric fracture of right hip: Status: Acute Problem details: - post op IM rodding with Dr. Garrison on 03/02/22 - continue postoperative therapies (2) Recurrent falls: Status: Chronic Problem details: half-way facility for rehab (3) Generalized anxiety disorder with panic attacks: Status: Chronic Problem details: - has remained stable during stay (4) ADD (attention deficit disorder): Status: Chronic (5) Anemia: Status: Acute Problem details: Transfuse 2 units packed red cells. This was thought to be acute blood loss due to fracture DS: Summary Hospital Course Hospital Course: 76-year-old female fell injuring her right hip. She was found to have an intertrochanteric femur fracture. She was taken to the operating room by Dr. Garrison where she had placement of an intramedullary nail to stabilize the fracture. There were no operative complications. She has done well postoperatively. She did have anemia with a preop hemoglobin of 11.2 dropping to 6.0. This was thought to be acute blood loss from the fracture. She received 2 units of blood transfusion. Subsequent hemoglobin 9.5. Postoperatively she has otherwise done well. Status at Discharge Functional status at discharge: uses cane/walker Overall status at discharge: patient is progressing back to baseline Time Spent with Patient Time attestation: Total time spent providing and/or coordinating discharge services: Time spent: Greater than 30 minutes Exam Narrative: Exam Narrative: She is alert and in no distress. Very pleasant. She reports no significant issues other than her hip pain with activity. Respirations are clear to auscultation. Cardiovascular: S1, S2, regular rate and rhythm. Abdomen is soft without tenderness. Right hip is examined she has mild bruising in the area of the right hip. No significant erythema or drainage from the incisions. Distally she has intact pulses and sensation. No significant edema. Const: Vital Signs, click to edit/add: Vital Signs - 24 hr 03/07/22 12:59 03/07/22 15:19 03/07/22 19:00 Temperature 97.7 F 97.7 F 97.9 F Pulse Rate [Left P ulse Oximeter] 78 78 97 Respiratory Rate 16 16 18 Blood Pressure [Ri ght Arm] 142/65 H 142/65 H 132/63 Pulse Oximetry 98 98 98 Oxygen Delivery Me thod Room Air Room Air Room Air 03/07/22 23:00 03/08/22 03:00 03/08/22 07:00 Temperature 97.9 F 98.3 F Pulse Rate [Left P ulse Oximeter] 65 69 Respiratory Rate 16 16 12 Blood Pressure [Ri ght Arm] 128/61 118/59 L Pulse Oximetry 98 99 Oxygen Delivery Me thod Room Air Room Air 03/08/22 07:00 Temperature Pulse Rate [Left P ulse Oximeter] 69 Respiratory Rate 12 Blood Pressure [Ri ght Arm] Pulse Oximetry Oxygen Delivery Me thod Documenting provider has reviewed patient's vital signs: yes Discharge Plan Discharge Disposition: [facility] Date of Admission: 03/01/22 17:44 Attending Provider on Discharge: Oz Newton Consulting Providers: Wolfgang Garrison Primary Care Provider: Daniele Hawkins Condition: Improved Discharge Medications: New Xarelto 10 mg Tablet 10 mg PO DAILY Qty: 30 0RF sennosides [Senna Lax] 8.6 mg Tablet 17.2 mg PO BID Qty: 60 0RF naproxen sodium [Aleve] 220 mg capsule 220 mg PO BID Qty: 40 0RF alprazolam 0.25 mg tablet 0.25 mg PO BID PRNQty: 30 0RF oxycodone 5 mg capsule 5 mg PO Q4H PRN (Reason: pain) Qty: 40 0RF Rx Instructions: 2.5 - 5 mg every 4 hours as needed for pain Continued ondansetron HCl 4 mg tablet 4 mg PO Q6H PRN multivitamin Tablet 1 tab PO QDAY cranberry 500 mg capsule 1,500 mg PO QDAY Rx Instructions: administer with a meal trazodone 150 mg tablet 150 mg PO QPM albuterol sulfate 90 mcg/actuation HFA aerosol inhaler 2 puff inhalation Q4-6H PRN valacyclovir 500 mg tablet 500 mg PO QDAY Qty: 30 5RF gabapentin 300 mg capsule 900 mg PO HS Label Comments: TAKE 3 CAPSULES BY MOUTH EVERY NIGHT AT BEDTIME FOR NERVE PAIN atomoxetine 10 mg capsule 10 mg PO DAILY (DME) [employer] [place] 18 gauge x 1 1/2 needle See Rx Instructions .Route Rx Instructions: As directed (DME) [employer] Luer Lock Syr-needle 3 mL 25 gauge x 1 syringe See Rx Instructions .Route Rx Instructions: As directed omeprazole 20 mg capsule,delayed release(DR/EC) 20 mg PO QDAY sucralfate 1 gram tablet 1 g PO QID PRN cyanocobalamin (vitamin B-12) 1,000 mcg/mL solution 1,000 mcg IM .QMONTH Qty: 10 1RF oxybutynin chloride 15 mg tablet extended release 24hr 15 mg PO .HS Qty: 90 3RF Discontinued alprazolam 0.25 mg tablet 0.25 mg PO TID PRN aspirin 81 mg tablet,delayed release (DR/EC) 81 mg PO DAILY meloxicam 15 mg tablet 15 mg PO QDAY ibuprofen 800 mg tablet 800 mg PO TID PRN tramadol 50 mg tablet 50 - 100 mg PO Q6H PRN (Reason: pain) Qty: 56 0RF Rx Instructions: This prescription must last until January 11 Discharge Orders: Discharge Order (Routine); Ordered 03/08/22 Ordered By: Oz Newton Additional Instructions: Code status is full Regular diet Use facility standing orders Good rehab potential Good discharge potential PT and OT to evaluate and treat Weight-bearing as tolerated Activity Level: Weight Bearing as Tolerated Follow Up Appointments: Daniele Hawkins MD [Primary Care Provider] - Discharge Comments: See Dr. Garrison in 4 weeks. [facility]. [phone] TEDs: Bilateral Knee Therapy: Physical Therapy and Occupational Therapy Therapy Orders Additional Information: Weightbear as tolerated right lower extremity
--- NOTE | 2022-03-08 12:13 | PC.SOCIAL ---
Completed preadmission screening for pt to admit to [facility] today (03/08/2022). Confirmation #[id number]. Faxed preadmission screening to [facility].
[2022-03-08 13:40] VITALS: BP 138/74
--- NOTE | 2022-03-08 14:21 | PC.SOCIAL ---
Discharge planning- met with pt in pt's room. Following up on how pt was doing after receiving PRN medication for anxiety. Pt states she wants to go home as she is very anxious for the car ride to [facility] and anxious about how the SNF stay will be for her. Discussed options for pt. Provided pt with a copy of pt's medicare rights form and discussed her rights to appeal hospital discharge. Placed original medicare rights form in chart. Provided a list of SNF's and Home Health Care agencies that are covered by pt's insurance as requested by pt's daughter. Phone call to pt's daughter, Jamia. Informed Jamia that pt has changed her mind and wants to go home. Jamia states that pt has a lot of anxiety and things will be fine. Jamia states that she will talk through this with pt as this is the option that is best for pt due to not having someone in the home to assist with care all day throughout the day. Informed Jamia that the medicare rights form is on the table by the bed along with the requested list of SNF's and Home Health Care Agencies that are covered by pt's insurance. Informed that Social Work is available as needed.
--- NOTE | 2022-03-08 15:20 | PC.NURSE ---
Addendum entered by Liberty Vargas RN 03/08/22 15:31: Nursing Care Hours: edit [id number] Original Note: Nursing Care Hours: [id number] Pt this shift calm and cooperative in the morning. C/o nausea when breakfast arrived and requested to get back into bed. SB assist with walker, gait steady, strength improved from 03/06. PO Zofran given, tx effective. Pt ate 25% of breakfast afterwards. Pt became emotional and anxious during interview with medical social consultant. pt expressing not wanting to go anywhere else but home, tearful. Xanax given PRN, tx effective. Pt refused lunch d/t being upset. Pain controlled with Oxycodone see eMAR, and Tylenol. New order for Naproxen discussed with pt, pt refused d/t hx of stomach ulcers per pt report with use of NSAID's. R leg more swollen than left, but decreased from 03/06. Leg warm compared to L leg. Walked to bathroom x2. IV dc'd in morning d/t occlusion. Discharge instructions provided, wheeled out to daughters car in stable condition.
== END 2022-03-08 14:35 | DRG 481 ==
LOC: ED 15:31 → SS 16:18 → MEDSURG 16:19 → SS 19:53 → MEDSURG 19:53
PROVIDERS: Family Medicine; Orthopaedic Surgery Sports Medicine; Admitting Provider Family Medicine; Emergency Provider Emergency Medicine; PCP Family Medicine; Visit Provider Surgery
PROC: 0QS606Z Reposition Right Upper Femur with Intramedullary Internal Fixation Device, Open Approach (ICD-10-PCS; CPT 27245; principal; 2022-03-02 08:00)
DX: S72.141A Displaced intertrochanteric fracture of right femur, initial encounter for closed fracture (principal); D62 Acute posthemorrhagic anemia; F98.8 Other specified behavioral and emotional disorders with onset usually occurring in childhood and adolescence; K21.9 Gastro-esophageal reflux disease without esophagitis; F41.1 Generalized anxiety disorder; F41.0 Panic disorder [episodic paroxysmal anxiety]; G89.4 Chronic pain syndrome; M54.9 Dorsalgia, unspecified; F17.210 Nicotine dependence, cigarettes, uncomplicated; Z98.84 Bariatric surgery status; Z96.642 Presence of left artificial hip joint; Z96.611 Presence of right artificial shoulder joint; W01.0XXA Fall on same level from slipping, tripping and stumbling without subsequent striking against object, initial encounter; Y92.009 Unspecified place in unspecified non-institutional (private) residence as the place of occurrence of the external cause; Z91.81 History of falling
CPT/HCPCS: 01230; 36415; 36430; 64450; 71045; 73502; 73552; 76942; 80048; 80053; 80076; 85018; 85025; 85610; 85730; 86850; 86900; 86901; 86922; 87635; 93005; 97110; 97116; 97161; 97165; 97530; 97535; 99100; 99140; 99284; 99285; A9153; A9270; C1713; J0690; J1100; J1940; J2250; J2270; J2370; J2405; J2704; J2795; J3010; J3490; J7120; P9016

== ENCOUNTER 2022-03-09 18:43 | Emergency (ER) | payer MEDICARE, SELFPAY ==
[2022-03-09 18:54] VITALS: RESP 18; TEMP 36.9; O2SAT 99; BMI 20.9
--- NOTE | 2022-03-09 19:37 | ED.GENADULT ---
HPI - General Adult General Chief complaint: Extremity Pain/Injury, Lower Stated complaint: Extreme pain in R hip down to knee Time Seen by Provider: 03/09/22 19:00 Source: patient and family Mode of arrival: ambulatory Limitations: no limitations History of Present Illness HPI narrative: Patient is a 76-year-old female who has been staying at [facility] after breaking her hip. She states that she hates it there and she asked her daughter to bring her here because they are not adequately controlling her pain. Patient states that she is tired of fighting and she does not want to live anymore. She states that she is not going back there. She is not ill. Upon speaking with the staff at [facility], patient has been acting out, urinating on herself and telling the staff to come clean it up, yelling at the staff and kicking him out of her room. Per patient and her daughter and they sometimes forget to feed her, they do not bring her blankets when she requests, that he had in her room has not been turned on, in they are generally unkind to her. It looks like the patient received a dose of a alprazolam around 3:00 p.m. today and a dose of oxycodone at the same time. Patient has oxycodone 2.5-5 mg every 4 hours p.r.n.. Looks like she got 5 mg at 4:00 a.m. in the morning, 2.5 mg around 11 and then another 5mg around 3. Related Data Home Medications Medication Instructions Recorded Confirmed needle (disp) 18 G 18 gauge x 1 10/22/2104/08 ([employer] [place]) omeprazole 20 mg capsule,delayed 20 mg PO QDAY 10/22/21 03/01/22 release sucralfate 1 gram tablet 1 g PO QID PRN 10/22/21 03/01/22 syringe with needle 3 mL 25 gauge 10/22/21 x 1 ([employer] Luer Lock Syringe with needle) albuterol sulfate 90 mcg/actuation 2 puff inhalation Q4-6H PRN 11/14/21 03/01/22 aerosol inhaler cranberry 500 mg capsule 1,500 mg PO QDAY 11/14/21 03/01/22 multivitamin 1 tab PO QDAY 11/14/21 03/01/22 ondansetron HCl 4 mg tablet 4 mg PO Q6H PRN 11/14/21 03/01/22 trazodone 150 mg tablet 150 mg PO QPM 11/14/21 03/01/22 atomoxetine 10 mg capsule 10 mg PO DAILY 03/02/22 03/02/22 gabapentin 300 mg capsule 900 mg PO HS 03/02/22 03/02/22 Previous Rx's Medication Instructions Recorded valacyclovir 500 mg tablet 500 mg PO QDAY #30 tabs 11/14/21 cyanocobalamin (vitamin B-12) 1,000 mcg IM .QMONTH #10 mL 12/02/21 1,000 mcg/mL injection solution oxybutynin chloride 15 mg 15 mg PO .HS #90 tabs 12/20/21 tablet,extended release 24 hr tramadol 50 mg tablet 50 - 100 mg PO Q6H PRN pain #56 02/22/22 tabs alprazolam 0.25 mg tablet 0.25 mg PO BID PRN #30 tabs 03/08/22 naproxen sodium 220 mg capsule 220 mg PO BID pain #40 caps 03/08/22 (Aleve) oxycodone 5 mg capsule 5 mg PO Q4H PRN pain #40 caps 03/08/22 rivaroxaban 10 mg tablet (Xarelto) 10 mg PO DAILY #30 tabs 03/08/22 sennosides 8.6 mg tablet (Senna 17.2 mg PO BID #60 tabs 03/08/22 Lax) Allergies Allergy/AdvReac Type Severity Reaction Status Date / Time amitriptyline Allergy Severe Bundle Verified 03/09/22 18:54 Branch Block codeine Allergy Intermediate GI Verified 03/09/22 18:54 [From Tylenol-Codeine #3] Intolerance diphenhydramine Allergy Mild Itchiness Verified 03/09/22 18:54 zinc Allergy Mild Cold Sores Verified 03/09/22 18:54 Review of Systems Status of ROS: Reports: 10 or more systems reviewed and unremarkable except as noted in History and below [facility] Medical History ADD (attention deficit disorder) Chronic back pain Chronic pain syndrome Gastroesophageal reflux disease Generalized anxiety disorder with panic attacks History of duodenal ulcer History of vitamin B deficiency Insomnia Leukoplakia of oral cavity Radicular leg pain Recurrent cold sores Seasonal allergies Sore in mouth Urinary incontinence Surgical History History of gastric bypass History of lumbar laminectomy 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 Harmony has been smoking cigarettes for 50 years. She is now down to a puff a few times a day, and one cigarette lasts 4-5 days. She denied alcohol use, but her granddaughter stopped Harmony's nurse in the hallway to say that Harmony does drink wine. She denies recreational drug use. She wishes to be a full code. Smoking Status: Light tobacco smoker What tobacco products do you use: cigarettes Do you use any of these nicotine containing products: None Second hand tobacco smoke exposure: No How often do you have a drink containing alcohol: 4 or more times a week Alcohol type: wine How many standard drinks containing alcohol do you have on a typical day: 1 or 2 How often do you have six or more drinks on one occasion: Never AUDIT-C Alcohol total score: 4 Non-prescribed substance use: denies use Non-prescribed substance use details: tylenol Caffeine: Yes (coffee, 1 cup/day) service: No Exam Narrative: Exam Narrative: Thin, elderly patient in no acute distress. Alert and oriented. Patient is very angry. States that she is angry that she has to be residential. States that they are not taking good care of her. Patient raises her voice and anger. She then quickly becomes tearful saying that she is tired of fighting and does not want a live anymore. HEENT: Normocephalic atraumatic. Pupils are equally round reactive to light. Extraocular muscles are intact. Conjunctivae are moist without any icterus noted. Moist mucous membranes. She is edentulous. Cardiovascular: Heart is regular rate and rhythm. Lungs: Clear to auscultation bilaterally. Abdomen: Soft and nontender nondistended with normal bowel sounds. Extremities: Normal DP and PT pulses. Skin: Well perfused without any obvious rashes. Const: Vital Signs, click to edit/add: Vital Signs - 24 hr 03/09/22 18:54 03/09/22 19:45 Temperature 98.4 F Pulse Rate [Pulse Oximeter] 76 Respiratory Rate 18 14 Blood Pressure [Ri ght Upper Arm] 137/65 Pulse Oximetry 99 99 Oxygen Delivery Me thod Room Air Room Air Course Course Hospital Course: Given that has been over 4 hours since her last dosing we did repeat her alprazolam and oxycodone. This did help her quite a bit. She was much more calm. She just stated that she fell on comfortable at the current residential that she was that. She feels overwhelmed right now with recent surgery and not being home. Patient states that she feels like she will be better served if her pain medication is increased. She states that she does not want to harm herself although she does feel very sad. Vital Signs Vital signs: Initial Vital Signs Temperature 98.4 F 03/09/22 18:54 Temperature Source Temporal Artery Scan 03/09/22 18:54 Pulse Rhythm 03/09/22 18:54 Respiratory Rate 18 03/09/22 18:54 Blood Pressure Position Supine 03/09/22 18:54 Pulse Oximetry 99 03/09/22 18:54 Oxygen Delivery Method 03/09/22 18:54 Vital Signs Temperature 98.4 F 03/09/22 18:54 Respiratory Rate 18 03/09/22 18:54 Pulse Oximetry 99 03/09/22 18:54 Oxygen Delivery Method 03/09/22 18:54 Temperature 98.4 F 03/09/22 18:54 Pulse Rate 76 03/09/22 19:45 Respiratory Rate 14 03/09/22 19:45 Blood Pressure 137/65 03/09/22 19:45 Pulse Oximetry 99 03/09/22 19:45 Oxygen Delivery Method 03/09/22 19:45 Medical Decision Making MDM Narrative Medical decision making narrative: 76 year-old female with postoperative pain, , depression, difficulty acclimating to her new environment. We will increase the patient's oxycodone dosing as it looks like they are currently alternating 2.5 mg tabs and 5 mg tabs every 4 hours. We will go ahead increase that to 5 mg every 4 hours. Continue alprazolam as is. Family will have a conversation with physician on Friday to discuss next steps verses transfer her to a different residential. Patient did not feel the need to have a DEC assessment today, the are several hours out. She wished to go back to the residential at this time and rest. Again has no plans of suicide. Discharge Plan Discharge Clinical Impression: Post-op pain Patient Disposition: Home w/ Parent or Adult Condition: Improved Additional Instructions: Patient needs to have oxycodone increase to 5 mg every 4 hours as needed and not have the 2.5 mg dosing. Continue alprazolam as is. Have a discussion with the local physician on Friday regarding pain management. Recommend an air mattress or extra cushioning on the bed for increased comfort if possible. Prescriptions: No Action ondansetron HCl 4 mg tablet 4 mg PO Q6H PRN multivitamin Tablet 1 tab PO QDAY cranberry 500 mg capsule 1,500 mg PO QDAY Rx Instructions: administer with a meal trazodone 150 mg tablet 150 mg PO QPM albuterol sulfate 90 mcg/actuation HFA aerosol inhaler 2 puff inhalation Q4-6H PRN valacyclovir 500 mg tablet 500 mg PO QDAY Qty: 30 5RF gabapentin 300 mg capsule 900 mg PO HS Label Comments: TAKE 3 CAPSULES BY MOUTH EVERY NIGHT AT BEDTIME FOR NERVE PAIN atomoxetine 10 mg capsule 10 mg PO DAILY Xarelto 10 mg Tablet 10 mg PO DAILY Qty: 30 0RF sennosides [Senna Lax] 8.6 mg Tablet 17.2 mg PO BID Qty: 60 0RF naproxen sodium [Aleve] 220 mg capsule 220 mg PO BID Qty: 40 0RF alprazolam 0.25 mg tablet 0.25 mg PO BID PRNQty: 30 0RF oxycodone 5 mg capsule 5 mg PO Q4H PRN (Reason: pain) Qty: 40 0RF Rx Instructions: 2.5 - 5 mg every 4 hours as needed for pain (DME) [employer] [place] 18 gauge x 1 1/2 needle See Rx Instructions .Route Rx Instructions: As directed (DME) [employer] Luer Lock Syr-needle 3 mL 25 gauge x 1 syringe See Rx Instructions .Route Rx Instructions: As directed omeprazole 20 mg capsule,delayed release(DR/EC) 20 mg PO QDAY sucralfate 1 gram tablet 1 g PO QID PRN cyanocobalamin (vitamin B-12) 1,000 mcg/mL solution 1,000 mcg IM .QMONTH Qty: 10 1RF oxybutynin chloride 15 mg tablet extended release 24hr 15 mg PO .HS Qty: 90 3RF Follow Up/Referrals: Daniele Hawkins MD [Primary Care Provider] - Stand Alone Forms: [facility] Info Instructions
[2022-03-09] MEDS: OXYCODONE 5 MG TABLET PO (19:40)
[2022-03-09 19:45] VITALS: BP 137/65; PULSE 76; RESP 14; O2SAT 99
[2022-03-09] MEDS: ALPRAZolam 0.25 MG TABLET PO (19:55)
== END 2022-03-09 21:24 | disposition home or self-care (01) ==
PROVIDERS: Emergency Provider Family Medicine; PCP Family Medicine
DX: G89.18 Other acute postprocedural pain (principal)
CPT/HCPCS: 99283; 99284; A9270

== ENCOUNTER 2022-03-20 16:40 | Outpatient (CLI) | payer MEDICARE, SELFPAY | END 2022-03-20 16:41 | disposition home or self-care (01) | LOC: AMB 04-02 09:37 | PROVIDERS: PCP Family Medicine; Visit Provider Family Medicine | DX: R25.1 Tremor, unspecified (principal) | CPT/HCPCS: A0425; A0427 ==

== ENCOUNTER 2022-03-20 17:27 | Emergency (ER) | payer MEDICARE, SELFPAY ==
[2022-03-20 17:41] VITALS: BP 144/65; PULSE 70; RESP 16; TEMP 36.2; O2SAT 97; BMI 22.9
[2022-03-20 18:00] VITALS: BP 136/65; PULSE 66; O2SAT 97
[2022-03-20 18:30] VITALS: BP 131/63; PULSE 66; O2SAT 97
[2022-03-20] MEDS: 0.9 % SODIUM CHLORIDE 1000 ml 1,000 ML IV (18:33)
[2022-03-20 19:00] VITALS: BP 118/58; PULSE 71; O2SAT 94
[2022-03-20 19:19] LABS: Basophils Absolute Auto 0.03 K/uL (0.00-0.30); Basophils Percent Auto 0.5 % (0.0-3.0); Eosinophils Absolute Auto 0.12 K/uL (0.00-0.50); Eosinophils Percent Auto 2.1 % (0.0-7.0); Hematocrit 32.4 % (33.0-51.0); Immature Granulocytes Abs Auto 0.01 K/uL (0.00-0.30); Immature Granulocytes Pct Auto 0.2 %; Lymphocytes Absolute Auto 1.76 K/uL (0.90-2.90); Lymphocytes Percent Auto 31.2 % (20-44); Mean Corpuscular HGB Conc 31 gm/dL (32-36); Mean Corpuscular Hemoglobin 30 pg (26-34); Mean Corpuscular Volume 96 fL (80-100); Neutrophils Absolute Auto 3.05 K/uL (1.7-7.0); Platelet Count* 336 K/uL (140-440); RDW Coefficient of Variation % 17.1 % (11.5-15.5); Red Blood Count 3.39 m/uL (4.00-5.20); White Blood Count* 5.65 K/uL (4.50-11.00)
[2022-03-20 19:25] LABS: Slide Review Reflex No
[2022-03-20 19:30] VITALS: BP 134/65; PULSE 67; RESP 18; O2SAT 98
[2022-03-20 19:30] LABS: Albumin* 3.3 g/dL (3.3-5.0); Chloride* 109 mmol/L (96-114); Sodium* 139 mmol/L (135-149)
[2022-03-20 19:31] LABS: Potassium* 4.1 mmol/L (3.6-5.1)
[2022-03-20 19:33] LABS: Carbon Dioxide* 25 mmol/L (20-32); Creatinine* 0.5 mg/dL (0.5-1.5); Est. Creatinine Clearance* 33.86; Estimated Glomerular Filt Rate 96 ml/min
[2022-03-20 19:34] LABS: Alanine Aminotransferase* 15 U/L (4-35); Alkaline Phosphatase* 114 U/L (40-150); Aspartate Amino Transferase* 20 U/L (12-35); Bilirubin Direct* 0.3 mg/dL (0.0-0.5); Bilirubin Total* 0.7 mg/dL (0.1-1.5); Blood Urea Nitrogen* 16 mg/dL (7-30); Glucose* 86 mg/dL (60-115); Magnesium* 1.9 mg/dL (1.5-2.6); Total Protein* 5.7 g/dL (6.0-8.3)
[2022-03-20 19:41] LABS: C Reactive Protein* < 0.5 mg/dL (0.5-1.0); Ethanol* < 0.01 % (0.01-0.03)
--- NOTE | 2022-03-20 19:56 | ED.NURSE ---
has had a turkey sandwich. is pleasant and interacting well with daughter and staff. no tremors noted. watching tv.
--- NOTE | 2022-03-20 20:04 | ED.GENADULT ---
HPI - General Adult General Chief complaint: Neuro Symptoms/Altered Deficit Stated complaint: Tremors Time Seen by Provider: 03/20/22 17:42 History of Present Illness HPI narrative: 68-year-old woman presenting to the emergency department with concern of tremors that begin and ascend from her legs up into her upper arms even her head/face if she is attempting to ambulate. Started today. Physical therapist noted was concerned of a neurological problem. Primary apparently concerned about med interaction. Two weeks ago did have a left hip done. Sounds like has been rehabbing quite well. Does not drink water prefers coffee. Been no fevers. No cough or cold symptoms. Is not describing associated pain. Has been ambulating with a walker. No focal weakness. Related Data Home Medications Medication Instructions Recorded Confirmed needle (disp) 18 G 18 gauge x 1 10/22/2104/08 ([employer] [place]) omeprazole 20 mg capsule,delayed 20 mg PO QDAY 10/22/21 03/20/22 release sucralfate 1 gram tablet 1 g PO QID PRN 10/22/21 03/20/22 syringe with needle 3 mL 25 gauge 10/22/21 x 1 ([employer] Luer Lock Syringe with needle) albuterol sulfate 90 mcg/actuation 2 puff inhalation Q4-6H PRN 11/14/21 03/20/22 aerosol inhaler cranberry 500 mg capsule 1,500 mg PO QDAY 11/14/21 03/20/22 multivitamin 1 tab PO QDAY 11/14/21 03/20/22 ondansetron HCl 4 mg tablet 4 mg PO Q6H PRN 11/14/21 03/20/22 trazodone 150 mg tablet 150 mg PO QPM 11/14/21 03/20/22 atomoxetine 10 mg capsule 10 mg PO DAILY 03/02/22 03/20/22 gabapentin 300 mg capsule 900 mg PO HS 03/02/22 03/20/22 bupropion HCl 100 mg tablet,12 hr mg PO 03/20/22 sustained-release tramadol 50 mg tablet 50 mg PO Q8H PRN 03/20/22 03/20/22 Previous Rx's Medication Instructions Recorded valacyclovir 500 mg tablet 500 mg PO QDAY #30 tabs 11/14/21 cyanocobalamin (vitamin B-12) 1,000 mcg IM .QMONTH #10 mL 12/02/21 1,000 mcg/mL injection solution oxybutynin chloride 15 mg 15 mg PO .HS #90 tabs 12/20/21 tablet,extended release 24 hr tramadol 50 mg tablet 50 - 100 mg PO Q6H PRN pain #56 02/22/22 tabs alprazolam 0.25 mg tablet 0.25 mg PO BID PRN #30 tabs 03/08/22 naproxen sodium 220 mg capsule 220 mg PO BID pain #40 caps 03/08/22 (Aleve) oxycodone 5 mg capsule 5 mg PO Q4H PRN pain #40 caps 03/08/22 rivaroxaban 10 mg tablet (Xarelto) 10 mg PO DAILY #30 tabs 03/08/22 sennosides 8.6 mg tablet (Senna 17.2 mg PO BID #60 tabs 03/08/22 Lax) Allergies Allergy/AdvReac Type Severity Reaction Status Date / Time amitriptyline Allergy Severe Bundle Verified 03/20/22 17:51 Branch Block codeine Allergy Intermediate GI Verified 03/20/22 17:51 [From Tylenol-Codeine #3] Intolerance diphenhydramine Allergy Mild Itchiness Verified 03/20/22 17:51 zinc Allergy Mild Cold Sores Verified 03/20/22 17:51 Review of Systems Status of ROS: Reports: 10 or more systems reviewed and unremarkable except as noted in History and below [facility] Medical History ADD (attention deficit disorder) Chronic back pain Chronic pain syndrome Gastroesophageal reflux disease Generalized anxiety disorder with panic attacks History of duodenal ulcer History of vitamin B deficiency Insomnia Leukoplakia of oral cavity Poor circulation Radicular leg pain Recurrent cold sores Seasonal allergies Sore in mouth Urinary incontinence Surgical History History of gastric bypass History of lumbar laminectomy 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 Harmony has been smoking cigarettes for 50 years. She is now down to a puff a few times a day, and one cigarette lasts 4-5 days. She denied alcohol use, but her granddaughter stopped Harmony's nurse in the hallway to say that Harmony does drink wine. She denies recreational drug use. She wishes to be a full code. Smoking Status: Light tobacco smoker What tobacco products do you use: cigarettes Do you use any of these nicotine containing products: None Second hand tobacco smoke exposure: No How often do you have a drink containing alcohol: 4 or more times a week Alcohol type: wine How many standard drinks containing alcohol do you have on a typical day: 1 or 2 How often do you have six or more drinks on one occasion: Never AUDIT-C Alcohol total score: 4 Non-prescribed substance use: denies use Non-prescribed substance use details: tylenol Caffeine: Yes (coffee, 1 cup/day) service: No Exam Narrative: Exam Narrative: Is pleasant with good energy. Partially edentulous. Mouth is sticky. Skin is warm and dry. Trace edema in the right lower leg versus the left. Elevate left leg from the bed without any difficulty or tremor. Little weaker on the right but does well. This is the surgical leg. Well-healing incisions without inflammatory changes in the right hip. Abdomen is soft protuberant nontender. Cardiovascular with regular rate and rhythm. Lungs are clear. Has good strength also her upper extremities. Fluid movements. No significant tremor demonstrated. Cranial nerves 2-12 to be intact. Const: Vital Signs, click to edit/add: Vital Signs - 24 hr 03/20/22 17:41 03/20/22 18:00 03/20/22 18:30 Temperature 97.2 F L Pulse Rate [Right Pulse Oximeter] 70 66 66 Respiratory Rate 16 Blood Pressure [Le ft Upper Arm] 144/65 H 136/65 131/63 Pulse Oximetry 97 97 97 Oxygen Delivery Me thod Room Air Room Air Room Air 03/20/22 19:00 03/20/22 19:30 Temperature Pulse Rate [Right Pulse Oximeter] 71 67 Respiratory Rate 18 Blood Pressure [Le ft Upper Arm] 118/58 L 134/65 Pulse Oximetry 94 98 Oxygen Delivery Me thod Room Air Room Air Documenting provider has reviewed patient's vital signs: yes Course Vital Signs Vital signs: Initial Vital Signs Temperature 97.2 F L 03/20/22 17:41 Temperature Source Temporal Artery Scan 03/20/22 17:41 Pulse Rate 70 03/20/22 17:41 Respiratory Rate 16 03/20/22 17:41 Blood Pressure 144/65 H 03/20/22 17:41 Blood Pressure Mean 91 03/20/22 17:41 Blood Pressure Position Sitting 03/20/22 17:41 Pulse Oximetry 97 03/20/22 17:41 Oxygen Delivery Method 03/20/22 17:41 Vital Signs Temperature 97.2 F L 03/20/22 17:41 Pulse Rate 70 03/20/22 17:41 Respiratory Rate 16 03/20/22 17:41 Blood Pressure 144/65 H 03/20/22 17:41 Pulse Oximetry 97 03/20/22 17:41 Oxygen Delivery Method 03/20/22 17:41 Temperature 97.2 F L 03/20/22 21:31 Pulse Rate 67 03/20/22 21:31 Respiratory Rate 18 03/20/22 21:31 Blood Pressure 134/65 03/20/22 21:31 Pulse Oximetry 98 03/20/22 19:30 Oxygen Delivery Method 03/20/22 19:30 Medical Decision Making MDM Narrative Medical decision making narrative: Will hydrate check chemistries. Review medications for potential interactions. Discussed also with pharmacist. Reviewed also with our hospitalist. Three potential culprits are delineated on discharge. Chemistries were rather unremarkable. Received IV fluids ...and her coffee. Ambulated without apparent difficulty. Subtle tremor in her hands perhaps with intention was observed later. My thought is that after period of more prolonged inactivity after surgery and some degree of deconditioning stressing muscles in new way causing some of this spasm and recruitment. Dehydration possibly playing a role. Potentially medications are also a precipitant. Lab Data Lab results reviewed: Yes I reviewed the patient's lab results Labs: Lab Results 03/20/22 03/20/22 03/20/22 Range/Units 18:10 19:13 19:13 WBC 5.65 (4.50-11.00) K/uL RBC 3.39 L (4.00-5.20) m/uL Hgb 10.0 L (12.0-16.0) gm/dL Hct 32.4 L (33.0-51.0) % MCV 96 (80-100) fL MCH 30 (26-34) pg MCHC 31 L (32-36) gm/dL RDW Coeff of Hao 17.1 H (11.5-15.5) % Plt Count 336 (140-440) K/uL Neut % (Auto) 54.0 (42.0-72.0) % Lymph % (Auto) 31.2 (20-44) % [place] % (Auto) 12.0 H (0.0-11.0) % Eos % (Auto) 2.1 (0.0-7.0) % Baso % (Auto) 0.5 (0.0-3.0) % Neut # (Auto) 3.05 (1.7-7.0) K/uL Lymph # (Auto) 1.76 (0.90-2.90) K/uL [place] # (Auto) 0.70 (0.00-0.90) K/UL Eos # (Auto) 0.12 (0.00-0.50) K/uL Baso # (Auto) 0.03 (0.00-0.30) K/uL Abs Immat Gran (auto) 0.01 (0.00-0.30) K/uL Imm/Tot Granulo (auto) 0.2 % Sodium 139 (135-149) mmol/L Potassium 4.1 (3.6-5.1) mmol/L Chloride 109 (96-114) mmol/L Carbon Dioxide 25 (20-32) mmol/L BUN 16 (7-30) mg/dL Creatinine 0.5 (0.5-1.5) mg/dL Estimated Creat Clear 33.86 Estimated GFR 96 ml/min Glucose 86 (60-115) mg/dL Calcium 8.0 L (8.4-10.6) mg/dL Magnesium 1.9 (1.5-2.6) mg/dL Total Bilirubin 0.7 (0.1-1.5) mg/dL Direct Bilirubin 0.3 (0.0-0.5) mg/dL AST 20 (12-35) U/L ALT 15 (4-35) U/L Alkaline Phosphatase 114 (40-150) U/L C-Reactive Protein < 0.5 L (0.5-1.0) mg/dL Total Protein 5.7 L (6.0-8.3) g/dL Albumin 3.3 (3.3-5.0) g/dL Ethyl Alcohol < 0.01 L (0.01-0.03) % SARS-CoV-2 (PCR) Negative SARS-CoV-2 (Negative) Influenza Type A (PCR) Negative PCR FLU A (Negative) Influenza Type B (PCR) Negative PCR FLU B (Negative) Discharge Plan Discharge Clinical Impression: Muscle spasm Patient Disposition: Home w/ Parent or Adult Condition: Improved Additional Instructions: Definitely important to stay well hydrated. Water is best. Maybe flavored water would be helpful. The pills that might possibly be involved in some combination of twitching cramping or spasm include trazodone, Strattera or bupropion. As you are newly stressing your muscles they can start to twitch and spasm and sometimes recruit and escalate, especially when they are a little weaker. Prescriptions: No Action ondansetron HCl 4 mg tablet 4 mg PO Q6H PRN multivitamin Tablet 1 tab PO QDAY cranberry 500 mg capsule 1,500 mg PO QDAY Rx Instructions: administer with a meal trazodone 150 mg tablet 150 mg PO QPM albuterol sulfate 90 mcg/actuation HFA aerosol inhaler 2 puff inhalation Q4-6H PRN valacyclovir 500 mg tablet 500 mg PO QDAY Qty: 30 5RF gabapentin 300 mg capsule 900 mg PO HS Label Comments: TAKE 3 CAPSULES BY MOUTH EVERY NIGHT AT BEDTIME FOR NERVE PAIN atomoxetine 10 mg capsule 10 mg PO DAILY Xarelto 10 mg Tablet 10 mg PO DAILY Qty: 30 0RF sennosides [Senna Lax] 8.6 mg Tablet 17.2 mg PO BID Qty: 60 0RF naproxen sodium [Aleve] 220 mg capsule 220 mg PO BID Qty: 40 0RF alprazolam 0.25 mg tablet 0.25 mg PO BID PRNQty: 30 0RF oxycodone 5 mg capsule 5 mg PO Q4H PRN (Reason: pain) Qty: 40 0RF Rx Instructions: 2.5 - 5 mg every 4 hours as needed for pain tramadol 50 mg tablet 50 mg PO Q8H PRN bupropion HCl 100 mg tablet sustained-release 12 hr PO Label Comments: TAKE 1 TABLET BY MOUTH IN MORNING FOR DEPRESSION/ENERGY AND INATTENTION. WAIT ONE WEEK TO START (DME) [employer] [place] 18 gauge x 1 1/2 needle See Rx Instructions .Route Rx Instructions: As directed (DME) [employer] Luer Lock Syr-needle 3 mL 25 gauge x 1 syringe See Rx Instructions .Route Rx Instructions: As directed omeprazole 20 mg capsule,delayed release(DR/EC) 20 mg PO QDAY sucralfate 1 gram tablet 1 g PO QID PRN cyanocobalamin (vitamin B-12) 1,000 mcg/mL solution 1,000 mcg IM .QMONTH Qty: 10 1RF oxybutynin chloride 15 mg tablet extended release 24hr 15 mg PO .HS Qty: 90 3RF Follow Up/Referrals: Daniele Hawkins MD [Primary Care Provider] - Stand Alone [facility]
[2022-03-20 20:14] LABS: PCR FLU A Negative PCR FLU A (Negative); PCR FLU B Negative PCR FLU B (Negative)
[2022-03-20 21:00] LABS: SARS PCR* Negative SARS-CoV-2 (Negative)
[2022-03-20 21:31] VITALS: BP 134/65; PULSE 67; RESP 18; TEMP 36.2
== END 2022-03-20 21:32 | disposition home or self-care (01) ==
PROVIDERS: Emergency Provider Family Medicine; PCP Family Medicine
DX: M62.838 Other muscle spasm (principal); F17.200 Nicotine dependence, unspecified, uncomplicated
CPT/HCPCS: 36415; 80048; 80076; 81001; 82077; 83735; 85025; 86140; 87631; 96360; 99283; 99284; J7030

== ENCOUNTER 2022-09-30 13:48 | Outpatient (CLI) | payer MEDICARE, SELFPAY | END 2022-09-30 13:49 | disposition home or self-care (01) | LOC: AMB 10-02 11:24 | PROVIDERS: PCP Family Medicine; Visit Provider Family Medicine | DX: M54.9 Dorsalgia, unspecified (principal) | CPT/HCPCS: A0425; A0429 ==

== ENCOUNTER 2022-09-30 14:14 | Emergency (ER) | payer MEDICARE, SELFPAY ==
[2022-09-30 14:17] VITALS: BP 151/72; PULSE 79; RESP 18; TEMP 36.7; O2SAT 89; BMI 26.6
--- NOTE | 2022-09-30 17:01 | ED.BACK ---
HPI - Back Pain/Injury General Chief Complaint: Back Injury/Pain Stated Complaint: Back pain Time Seen by Provider: 09/30/22 16:52 History of Present Illness HPI Narrative: This 77-year-old female has a history of lumbar radiculopathy and chronic low back pain and is scheduled for an injection in the spine clinic tomorrow. She comes in because of pain in her back that is not new but not adequately treated as she has run out of her medications. She is taking meloxicam and also has prescription for tramadol. She states that she has run out of tramadol and is due for refill next week. She states that she must of taken extra tablets a to run out early. She does not describe any new injury event or strenuous activity. Related Data Home Medications Medication Instructions Recorded Confirmed needle (disp) 18 G 18 gauge x 1 10/22/21 06/25/2204/08 ([employer] [place]) omeprazole 20 mg capsule,delayed 20 mg PO QDAY 10/22/21 09/23/22 release syringe with needle 3 mL 25 gauge 10/22/21 06/25/22 x 1 ([employer] Luer Lock Syringe with needle) albuterol sulfate 90 mcg/actuation 2 puff inhalation Q4-6H PRN 11/14/21 09/23/22 aerosol inhaler ondansetron HCl 4 mg tablet 4 mg PO Q6H PRN 11/14/21 09/23/22 trazodone 150 mg tablet 150 mg PO QPM 11/14/21 09/23/22 tramadol 50 mg tablet 50 mg PO Q8H PRN 03/20/22 09/23/22 risedronate 35 mg tablet 35 mg PO QWEEK 06/25/22 09/23/22 lidocaine 5 % topical patch 1 patch topical DAILY 09/23/22 09/23/22 meloxicam 15 mg tablet 15 mg PO DAILY 09/23/22 09/23/22 tolterodine 4 mg capsule,extended 4 mg PO DAILY 09/23/22 09/23/22 release 24 hr Previous Rx's Medication Instructions Recorded valacyclovir 500 mg tablet 500 mg PO QDAY #30 tabs 11/14/21 cyanocobalamin (vitamin B-12) 1,000 mcg IM .QMONTH #10 mL 12/02/21 1,000 mcg/mL injection solution alprazolam 0.25 mg tablet 0.25 mg PO BID PRN #30 tabs 03/08/22 oxybutynin chloride 15 mg 15 mg PO .HS #90 tabs 08/30/22 tablet,extended release 24 hr tramadol 50 mg tablet 50 mg PO Q6H PRN pain #6 tabs 09/30/22 Allergies Allergy/AdvReac Type Severity Reaction Status Date / Time amitriptyline Allergy Severe Bundle Verified 09/30/22 14:20 Branch Block codeine Allergy Intermediate GI Verified 09/30/22 14:20 [From Tylenol-Codeine #3] Intolerance diphenhydramine Allergy Mild Itchiness Verified 09/30/22 14:20 zinc Allergy Mild Cold Sores Verified 09/30/22 14:20 Review of Systems Status of ROS: Reports: 10 or more systems reviewed and unremarkable except as noted in History and below Narrative: Constitutional: No fevers, no weight gain or loss. Eyes: No discharge. No vision changes. HENT: No congestion, no sore throat, no ear pain. Cardiovascular: No chest pain, no palpitations. Respiratory: No shortness of breath, no wheezes, no cough. Gastrointestinal: No abdominal pain, no vomiting, no diarrhea. Genitourinary: No dysuria, no hematuria. Musculoskeletal: Chronic low back pain. Skin: No rashes, no pruritis. Neurological: No dizziness, weakness, sensory change, speech change. Endo/Heme/Allergies: No bruising or bleeding. No polydipsia. Pysch: no suicidality, no anxiety, no insomnia. All other systems reviewed and are negative. 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, including tongue (ICD-10) Poor circulation ?R09.89 - Other specified symptoms and signs involving the circulatory and respiratory systems (ICD-10) 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 (ICD-10) Radicular leg pain ?M54.10 - Radiculopathy, site unspecified (ICD-10) Urinary incontinence ?R32 - Unspecified urinary incontinence (ICD-10) Sore in mouth ?K13.79 - Other lesions of oral mucosa (ICD-10) Seasonal allergies ?J30.2 - Other seasonal allergic rhinitis (ICD-10) Insomnia ?G47.00 - Insomnia, unspecified (ICD-10) History of vitamin B deficiency ?Z86.39 - Personal history of other endocrine, nutritional and metabolic disease (ICD-10) History of duodenal ulcer ?Z87.19 - Personal history of other diseases of the digestive system (ICD-10) Generalized anxiety disorder with panic attacks ?F41.1 - Generalized anxiety disorder (ICD-10) ?F41.0 - Panic disorder [episodic paroxysmal anxiety] (ICD-10) Gastroesophageal reflux disease ?K21.9 - Gastro-esophageal reflux disease without esophagitis (ICD-10) Chronic pain syndrome ?G89.4 - Chronic pain syndrome (ICD-10) ADD (attention deficit disorder) ?F98.8 - Other specified behavioral and emotional disorders with onset usually occurring in childhood and adolescence (ICD-10) Surgical History Status post hip surgery (03/02/22) ?Z98.890 - Other specified postprocedural states (ICD-10) History of lumbar laminectomy ?Z98.890 - Other specified postprocedural states (ICD-10) 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 Harmony has been smoking cigarettes for 50 years. She is now down to a puff a few times a day, and one cigarette lasts 4-5 days. She denied alcohol use, but her granddaughter stopped Harmony's nurse in the hallway to say that Harmony does drink wine. She denies recreational drug use. She wishes to be a full code. Smoking Status: Light tobacco smoker What tobacco products do you use: cigarettes Smoking quit date/years: <= 15 years ago Do you use any of these nicotine containing products: None Second hand tobacco smoke exposure: No How often do you have a drink containing alcohol: 4 or more times a week Alcohol type: wine How many standard drinks containing alcohol do you have on a typical day: 1 or 2 How often do you have six or more drinks on one occasion: Never AUDIT-C Alcohol total score: 4 Non-prescribed substance use: denies use Non-prescribed substance use details: tylenol Caffeine: Yes (coffee, 1 cup/day) service: No Exam Narrative: Exam Narrative: Constitutional: Well-developed, well-nourished, no acute distress. HEENT: Normocephalic, atraumatic. Neck: Normal range of motion. Nontender. Supple. Heart: Intact distal pulses. Lungs: No chest discomfort. No wheezes, rhonchi, or rales. Abdomen: Nontender. Back: Chronic low back pain. No new injury. She is ambulatory. Extremities: Normal range of motion. No injury. Skin: Intact. No rash. Warm. No erythema or pallor. Neurologic: No altered sensation. No weakness. Alert and oriented. Psychiatric: No suicidality. No anxiety or depression. No insomnia. Nursing notes and vitals signs are reviewed. Const: Vital Signs, click to edit/add: Vital Signs - 24 hr 09/30/22 14:17 Temperature 98.0 F Pulse Rate [Right Pulse Oximeter] 79 Respiratory Rate 18 Blood Pressure [Ri ght Upper Arm] 151/72 H Pulse Oximetry 89 Oxygen Delivery Me thod Room Air Course Vital Signs Vital signs: Initial Vital Signs Temperature 98.0 F 09/30/22 14:17 Temperature Source Temporal Artery Scan 09/30/22 14:17 Pulse Rate 79 09/30/22 14:17 Pulse Rhythm Regular 09/30/22 14:17 Pulse Strength 3+ Normal 09/30/22 14:17 Respiratory Rate 18 09/30/22 14:17 Blood Pressure 151/72 H 09/30/22 14:17 Blood Pressure Mean 98 09/30/22 14:17 Blood Pressure Position Sitting 09/30/22 14:17 Pulse Oximetry 89 09/30/22 14:17 Oxygen Delivery Method Room Air 09/30/22 14:17 Vital Signs Temperature 98.0 F 09/30/22 14:17 Pulse Rate 79 09/30/22 14:17 Respiratory Rate 18 09/30/22 14:17 Blood Pressure 151/72 H 09/30/22 14:17 Pulse Oximetry 89 09/30/22 14:17 Oxygen Delivery Method Room Air 09/30/22 14:17 Temperature 98.0 F 09/30/22 14:17 Pulse Rate 79 09/30/22 14:17 Respiratory Rate 18 09/30/22 14:17 Blood Pressure 151/72 H 09/30/22 14:17 Pulse Oximetry 89 09/30/22 14:17 Oxygen Delivery Method Room Air 09/30/22 14:17 MDM - Back Pain/Injury MDM Narrative Medical decision making narrative: This patient has chronic low back pain and is scheduled for an injection at the spine clinic tomorrow. She comes in today stating that she has run out of her tramadol and her pain is not adequately controlled. She is taking meloxicam also. She understands that tramadol is a narcotic that her regular doctor will need to manage. I did explain that we would not manage ongoing pain management out of the emergency department. She understands this and simply hopes to have some relief to get through till tomorrow. She does have a lidocaine patch in place that is providing some benefit also. Patient did receive an intramuscular injection of morphine 4 mg. I did provide a prescription for 6 tablets of tramadol also. Further management will need to occur through the spine clinic or her primary physician. Discharge Plan Discharge Clinical Impression: Lumbar radiculopathy, Chronic back pain Patient Disposition: Home w/ Parent or Adult Condition: Unchanged Additional Instructions: Take medications as prescribed and needed. Follow up with MD tomorrow as scheduled. Return if worsening. Prescriptions: New tramadol 50 mg tablet 50 mg PO Q6H PRN (Reason: pain) Qty: 6 0RF No Action ondansetron HCl 4 mg tablet 4 mg PO Q6H PRN trazodone 150 mg tablet 150 mg PO QPM albuterol sulfate 90 mcg/actuation HFA aerosol inhaler 2 puff inhalation Q4-6H PRN valacyclovir 500 mg tablet 500 mg PO QDAY Qty: 30 5RF tolterodine 4 mg capsule,extended release 24hr 4 mg PO DAILY meloxicam 15 mg tablet 15 mg PO DAILY lidocaine 5 % adhesive patch,medicated 1 patch topical DAILY risedronate 35 mg tablet 35 mg PO QWEEK alprazolam 0.25 mg tablet 0.25 mg PO BID PRNQty: 30 0RF tramadol 50 mg tablet 50 mg PO Q8H PRN (DME) [employer] [facility] [place] 18 gauge x 1 1/2 needle See Rx Instructions .Route Rx Instructions: As directed (DME) [employer] Luer Lock Syr-needle 3 mL 25 gauge x 1 syringe See Rx Instructions .Route Rx Instructions: As directed omeprazole 20 mg capsule,delayed release(DR/EC) 20 mg PO QDAY cyanocobalamin (vitamin B-12) 1,000 mcg/mL solution 1,000 mcg IM .QMONTH Qty: 10 1RF oxybutynin chloride 15 mg tablet extended release 24hr 15 mg PO .HS Qty: 90 3RF Follow Up/Referrals: Daniele Hawkins MD [Primary Care Provider] - Stand Alone Forms: [facility] Info Instructions
[2022-09-30] MEDS: MORPHINE 4 MG/ML INJ IM (17:22)
== END 2022-09-30 17:50 | disposition home or self-care (01) ==
LOC: ED 17:16
PROVIDERS: Emergency Provider Emergency Medicine Emergency Medical Services; PCP Family Medicine
DX: M54.16 Radiculopathy, lumbar region (principal); M54.9 Dorsalgia, unspecified; G89.29 Other chronic pain
CPT/HCPCS: 96372; 99284; J2270

== ENCOUNTER 2022-10-01 08:56 | Outpatient (CLI) | payer MEDICARE, SELFPAY | END 2022-10-01 08:57 | disposition home or self-care (01) | LOC: INJ CL 08:56 | PROVIDERS: PCP Family Medicine; Visit Provider Family Medicine | DX: M51.36 Other intervertebral disc degeneration, lumbar region (principal); M54.16 Radiculopathy, lumbar region | CPT/HCPCS: 64483; J1100; Q9966 ==

== ENCOUNTER 2022-12-02 16:45 | Outpatient (RCR) | payer MEDICARE, SELFPAY ==
--- NOTE | 2022-10-24 15:37 | PT.OPEX ---
PT [place] Outpatient Eval PT [facility] Outpatient Eval Start: 10/24/22 14:30 Freq: Status: Active Protocol: Document 10/24/22 14:32 MARISOL (Rec: 10/24/22 15:34 MARISOL [email or web address]) E-signed By Hank Castellano PT Physical Therapy Outpatient Evaluation Insurance Information Insurance Name Medicare B,[facility] Medical Diagnosis Lumbar DDD Lumbar facet arthropathy Lumbar radiculopathy Referring MD Dick Subjective Subjective Pt. comes to therapy today for right LB, gluteal and thigh pain symptoms. She had an injection at end of September which has helped reduce her pain. She has the most pain with standing. Walking and sitting are better overall. She reports having a fall last year, fracturing her hip and needing an ORIF. She now feels like her right leg is considerably shorter than the left. She is hoping to have reduced pain and improved strength from therapy. PMH includes; depression, arthritis, osteoporosis, and right hip ORIF. Pain Comments 8 Date of Last Physician Visit 09/23/22 Current Work Status Retired Preferred Name Harmony Assessment Assessment/Impression Objectively, pt. demonstrates; ambulation with 4 wheeled walker with apparent shortening of right LE; mild extension lag of right knee due to OA; dynamic balance deficits; core weakness; lumbar flexion preference; tightness of right gluteals/ hip; hip abductor and extensor weakness; normal bilateral ankle AROM and strength; mild quad and hamstring weakness; negative slump and SLR with good hamstring flexibility. She would benefit from skilled therapy working on progressive ROM, strengthening , and gait/balance rehab with a lumbar flexion biased program. Plan of Care Rehabilitation Potential Excellent Physical Therapy Goals 1. Pt. will be independent with HEP for self maintenance in 8 weeks. 2. Pt. will demonstrate improved mobility and core strength in 8 weeks. 3. Pt. will be able to stand longer with improved gait and balance in 8 weeks. Coordination/Communication With Referral Source Treatment Plan/Direct Interventions Manual Therapy,Neuromuscular Re-ed,Self-Care/Home Management,Therapeutic Activities,Therapeutic Exercises Frequency/Duration 1-2 times a week for 8 weeks. Patient Will Be Discharged From Therapy Independent w/HEP, Independently Progressing Evaluation Billing Complexity Moderate Certification Information Initial Certification Date 10/24/22 Ending Certification Date 01/17/23 Provider Signature Shows Agreement With POC & Medical Necessity Physician Signature & Date Requested Please Sign/Date Here Physician Comment/Change : Physician NPI Number #
== END 2023-01-30 09:06 | disposition home or self-care (01) ==
PROVIDERS: PCP Family Medicine; Visit Provider Family Medicine
DX: M54.16 Radiculopathy, lumbar region (principal); M51.36 Other intervertebral disc degeneration, lumbar region; M47.816 Spondylosis without myelopathy or radiculopathy, lumbar region; Z51.89 Encounter for other specified aftercare
CPT/HCPCS: 97110; 97112; 97162

== ENCOUNTER 2023-03-04 11:00 | Outpatient (CLI) | payer MEDICARE, SELFPAY | END 2023-03-04 11:01 | disposition home or self-care (01) | LOC: INJ CL 11:00 | PROVIDERS: PCP Family Medicine; Visit Provider Family Medicine | DX: M54.16 Radiculopathy, lumbar region (principal); M51.36 Other intervertebral disc degeneration, lumbar region | CPT/HCPCS: 64483; J1100; Q9966 ==

== ENCOUNTER 2023-05-04 03:21 | Emergency (ER) | payer MEDICARE, SELFPAY ==
[2023-05-04 03:25] VITALS: BP 142/72; PULSE 82; RESP 16; TEMP 36; O2SAT 99; BMI 21.9
--- NOTE | 2023-05-04 03:28 | ED_ITS ---
HPI - Back Pain/Injury General Chief Complaint: Back Injury/Pain Stated Complaint: low back pain Time Seen by Provider: 05/04/23 03:28 History of Present Illness HPI Narrative: Patient is an 78-year-old woman who was unable to sleep tonight due to worsening of her chronic back pain. She has not had any recent injuries. Any significant radiculopathy. She is out of her tramadol. She normally takes ibuprofen tramadol in Tylenol for pain. The pain is moderate in located in her low lumbar spine. She has no bowel or bladder symptoms no fevers chills night sweats cough or shortness of breath. She is otherwise in good health. Her daughter who lives with her called for an ambulance. Related Data Home Medications Medication Instructions Recorded Confirmed needle (disp) 18 G 18 gauge x 1 10/22/21 11/28/2204/08 (Exel Hypodermic [place]) omeprazole 20 mg capsule,delayed 20 mg PO QDAY 10/22/21 11/28/22 release albuterol sulfate 90 mcg/actuation 2 puff inhalation Q4-6H PRN 11/14/21 11/28/22 aerosol inhaler ondansetron HCl 4 mg tablet 4 mg PO Q6H PRN 11/14/21 11/28/22 risedronate 35 mg tablet 35 mg PO QWEEK 06/25/22 11/28/22 lidocaine 5 % topical patch 1 patch topical DAILY 09/23/22 05/04/23 meloxicam 15 mg tablet 15 mg PO DAILY 09/23/22 11/28/22 tolterodine 4 mg capsule,extended 4 mg PO DAILY 09/23/22 11/28/22 release 24 hr Previous Rx's Medication Instructions Recorded cyanocobalamin (vitamin B-12) 1,000 mcg IM .QMONTH #10 mL 12/02/21 1,000 mcg/mL injection solution alprazolam 0.25 mg tablet 0.25 mg PO BID PRN #30 tabs 03/08/22 tramadol 50 mg tablet 50 mg PO Q6H PRN pain #6 tabs 09/30/22 valacyclovir 500 mg tablet 500 mg PO QDAY #30 tabs 11/15/22 nirmatrelvir 300 mg (150 mg See Rx Instructions PO .COMPLEX 12/04/22 x2)-ritonavir 100 mg tablet,dose #30 ea pack (Paxlovid) trazodone 150 mg tablet 150 mg PO QPM #90 tabs 02/17/23 escitalopram oxalate 10 mg tablet 10 mg PO QDAY #30 tabs 03/07/23 syringe with needle, safety 3 mL #3 ea 03/21/23 25 gauge x 1 (Eclipse Syringe) oxybutynin chloride 15 mg 15 mg PO .HS #90 tabs 05/02/23 tablet,extended release 24 hr Allergies Allergy/AdvReac Type Severity Reaction Status Date / Time amitriptyline Allergy Severe Bundle Verified 05/04/23 03:25 Branch Block codeine Allergy Intermediate GI Verified 05/04/23 03:25 [From Tylenol-Codeine #3] Intolerance diphenhydramine Allergy Mild Itchiness Verified 05/04/23 03:25 zinc Allergy Mild Cold Sores Verified 05/04/23 03:25 Review of Systems Status of ROS: Reports: 10 or more systems reviewed and unremarkable except as noted in History and below [facility] Medical History Anemia ?D64.9 - Anemia, unspecified (ICD-10) 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, including tongue (ICD-10) Poor circulation ?R09.89 - Other specified symptoms and signs involving the circulatory and respiratory systems (ICD-10) 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 (ICD-10) History of duodenal ulcer ?Z87.19 - Personal history of other diseases of the digestive system (ICD-10) Gastroesophageal reflux disease ?K21.9 - Gastro-esophageal reflux disease without esophagitis (ICD-10) Chronic pain syndrome ?G89.4 - Chronic pain syndrome (ICD-10) ADD (attention deficit disorder) ?F98.8 - Other specified behavioral and emotional disorders with onset usually occurring in childhood and adolescence (ICD-10) Surgical History Status post hip surgery (03/02/22) ?Z98.890 - Other specified postprocedural states (ICD-10) History of lumbar laminectomy ?Z98.890 - Other specified postprocedural states (ICD-10) 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 Harmony has been smoking cigarettes for 50 years. She is now down to a puff a few times a day, and one cigarette lasts 4-5 days. She denied alcohol use, but her granddaughter stopped Harmony's nurse in the hallway to say that Harmony does drink wine. She denies recreational drug use. She wishes to be a full code. Smoking Status: Light tobacco smoker What tobacco products do you use: cigarettes Smoking quit date/years: <= 15 years ago Do you use any of these nicotine containing products: None Second hand tobacco smoke exposure: No How often do you have a drink containing alcohol: 4 or more times a week Alcohol type: wine How many standard drinks containing alcohol do you have on a typical day: 1 or 2 How often do you have six or more drinks on one occasion: Never AUDIT-C Alcohol total score: 4 Non-prescribed substance use: denies use Non-prescribed substance use details: tylenol Caffeine: Yes (coffee, 1 cup/day) Little interest or pleasure in doing things: several days Feeling down, depressed, or hopeless: several days service: No Exam Narrative: Exam Narrative: EXAM GENERAL: Patient appears comfortable and well. EYES: No scleral icterus. LYMPH: No supraclavicular or cervical lymphadenopathy. SKIN: Visible skin seen during exam normal or with benign process only. EXT: No dependent lower extremity pedal edema. HEART: Regular rate and rhythm with no murmurs, rubs, or gallops. LUNGS: Clear to auscultation bilaterally with no crackles or wheezes. ABD: Soft, non tender, non distended. PSYCH: Good eye contact, speech is not pressured. Neurologic cranial nerves 2-12 grossly intact no focal defects. Back exam is unremarkable with only modestly reduced range of motion. Const: Vital Signs, click to edit/add: Vital Signs - 24 hr 05/04/23 03:25 Temperature 96.8 F L Pulse Rate [Pulse Oximeter] 82 Respiratory Rate 16 Blood Pressure [Ri ght Upper Arm] 142/72 H Pulse Oximetry 99 Oxygen Delivery Me thod Room Air Course Course ED Course: Patient seen and examined. Vital Signs Vital signs: Initial Vital Signs Temperature 96.8 F L 05/04/23 03:25 Temperature Source Temporal Artery Scan 05/04/23 03:25 Pulse Rate 82 05/04/23 03:25 Respiratory Rate 16 05/04/23 03:25 Blood Pressure 142/72 H 05/04/23 03:25 Blood Pressure Mean 95 05/04/23 03:25 Pulse Oximetry 99 05/04/23 03:25 Oxygen Delivery Method Room Air 05/04/23 03:25 Vital Signs Temperature 96.8 F L 05/04/23 03:25 Pulse Rate 82 05/04/23 03:25 Respiratory Rate 16 05/04/23 03:25 Blood Pressure 142/72 H 05/04/23 03:25 Pulse Oximetry 99 05/04/23 03:25 Oxygen Delivery Method Room Air 05/04/23 03:25 Temperature 96.8 F L 05/04/23 03:25 Pulse Rate 82 05/04/23 03:25 Respiratory Rate 16 05/04/23 03:25 Blood Pressure 142/72 H 05/04/23 03:25 Pulse Oximetry 99 05/04/23 03:25 Oxygen Delivery Method Room Air 05/04/23 03:25 MDM - Back Pain/Injury MDM Narrative Medical decision making narrative: Patient is an 78-year-old woman who has worsening of her chronic back pain. She has no recent alarm symptoms such as fever bowel or bladder symptoms nausea vomiting or weakness. Her pain is in her low lumbar spine she has a completely normal exam with the exception of decreased range of motion of her lumbar spine. I do not believe further x-rays would be helpful. I do think outpatient follow-up would be appropriate. I did treat her with a 5 day course of prednisone as well as limited number of 8 Vicodin to take 1 every 6 hours for the next several days on a p.r.n. basis. She can apply ice to her back and advance her activity as tolerated. I did recommend close PCP follow-up with possible PT referral. Differential Diagnosis Differential diagnosis: Likely lumbar radiculopathy, sciatica, strain of lumbar region, renal colic, thoracic back pain, AAA and discitis Discharge Plan Discharge Clinical Impression: Low back pain Condition: Stable Instructions: Acute Low Back Pain (ED) Additional Instructions: [place] as directed Prednisone as directed Ice Tylenol Follow-up with primary care to discuss physical therapy. Activity Level: No Restrictions Discharge Diet: Regular Prescriptions: No Action ondansetron HCl 4 mg tablet 4 mg PO Q6H PRN albuterol sulfate 90 mcg/actuation HFA aerosol inhaler 2 puff inhalation Q4-6H PRN tolterodine 4 mg capsule,extended release 24hr 4 mg PO DAILY meloxicam 15 mg tablet 15 mg PO DAILY lidocaine 5 % adhesive patch,medicated 1 patch topical DAILY risedronate 35 mg tablet 35 mg PO QWEEK alprazolam 0.25 mg tablet 0.25 mg PO BID PRNQty: 30 0RF tramadol 50 mg tablet 50 mg PO Q6H PRN (Reason: pain) Qty: 6 0RF (DME) Exel Hypodermic [place] 18 gauge x 1 1/2 needle See Rx Instructions .Route Rx Instructions: As directed omeprazole 20 mg capsule,delayed release(DR/EC) 20 mg PO QDAY cyanocobalamin (vitamin B-12) 1,000 mcg/mL solution 1,000 mcg IM .QMONTH Qty: 10 1RF valacyclovir 500 mg tablet 500 mg PO QDAY Qty: 30 0RF Paxlovid 300 mg (150 mg x 2)-100 mg tablets,dose pack See Rx Instructions PO .COMPLEX Qty: 30 0RF Rx Instructions: take TWO 150 mg tablets of nirmatrelvir with ONE 100 mg tablet of ritonavir twice daily for 5 days PO trazodone 150 mg tablet 150 mg PO QPM Qty: 90 3RF escitalopram oxalate 10 mg tablet 10 mg PO QDAY Qty: 30 3RF (DME) Eclipse Syringe 3 mL 25 gauge x 1 syringe See Rx Instructions .ROUTE .COMPLEX Qty: 3 5RF Dose Instruction: USE ONCE MONTHLY Rx Instructions: USE ONCE MONTHLY oxybutynin chloride 15 mg tablet extended release 24hr 15 mg PO .HS Qty: 90 3RF Follow Up/Referrals: Daniele Hawkins MD [Primary Care Provider] - Stand Alone Forms: [facility] Info Instructions
--- OUTSIDE RECORDS SUMMARY | 2023-05-04 03:28 | XMS_ITS | Encounter Summary ---
Author Name Unknown Organization [facility] Address [address] [place] [address]. [place] [address] Care Team Providers Care Production Control Planner Name Role Phone Davy Murillo MD Primary Care Provider Davy Murillo MD Unavailable Davy Murillo MD Unavailable Reason for Visit * Reason Comments Medication Refill Encounter Details Date Type Department Care Team ([facility] st Contact Info) Description 04/02/2023 Refill [facility] [id number] [place] [address] [place] [id number] [place] [address] Medication Refill Social History Tobacco Use Types Packs/Day Years Used Date Smoking Tobacco: Former Cigarettes 0.5 40 Q uit: 03/29/2022 Smokeless Tobacco: Never Alcohol Use Standard Drinks/Week Comments No 0 (1 standard drink = 0.6 oz pur e alcohol) red wine rare PHQ-2 Answer Date Recorded PHQ-2 Score 0 03/21/2023 Adolescent Education Answer Date Record ed Getting School Help Needed Not on file 01/10 Food Insecurity Answer Date Recorded Within the past 12 months, d id you worry that your food would run out before you got money to buy more? No 03/21/2023 Within the past 12 months, d id the food you bought just not last and you didn? t have money to get more? No 03/21/2023 Housing Stability Answer Date Recorded Do you have housing? Yes 03/21/2023 Are you worried about losing your housing? No 03/21/2023 Financial Resource Strain Answer Date R ecorded Within the past 12 months, h ave you or your family members you live with been unable to get utilities (heat, electricity) when it was really needed? No 03/21/2023 Transportation Needs Answer Date Record ed Within the past 12 months, h as lack of transportation kept you from medical appointments, getting your medicines, non-medical meetings or appointments, work, or from getting things that you need? No 03/21/2023 Sex and Gender Information Value Date Recorded Sex Assigned at Not on file Gender Identity Not on file Sexual Orientation Not on file documented as of this encounter Plan of Treatment Not on file documented as of this encounter Goals Goal Patient Goal Type Associated Problems Recent Progress Patient-Stated? Author Financial Wellbeing General 20%( 9 1:15 PM CDT) Yes Liberty Harris LSW Note: Goal Statement: I would like to learn about financial resources that can assist me and my . Measure of Success: Whether or not I am able to qualfy programs that are helpful Supportive Steps to Achieve: I will work with my [facility] and the [facility] to inquire services I am interested in. Barriers: None noted Strengths: I am willing and able to look into applicable resources. 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
--- OUTSIDE RECORDS SUMMARY | 2023-05-04 03:28 | XMS_ITS | Encounter Summary ---
Author Name Unknown Organization [facility] Address [address] [place] [address]. [place] [address] Care Team Providers Care Grape Cutter Name Role Phone Davy Murillo MD Primary Care Provider Davy Murillo MD Unavailable [phone] Davy Murillo MD Unavailable Reason for Visit * Reason Comments Medication Refill Encounter Details Date Type Department Care Team (Late st Contact Info) Description [facility] [address] [place] [address] [place] [address] [place] [address] Medication Refill Social History Tobacco Use Types Packs/Day Years Used Date Smoking Tobacco: Former Cigarettes 0.5 40 Q uit: 03/29/2022 Smokeless Tobacco: Never Alcohol Use Standard Drinks/Week Comments No 0 (1 standard drink = 0.6 oz pur e alcohol) red wine rare PHQ-2 Answer Date Recorded PHQ-2 Score 1 05/17/2022 Sex and Gender Information Value Date Recorded [...] to Achieve: I will work with my [facility] and the [facility] to inquire services I am interested in. Barriers: None noted Strengths: I am willing and able to look into applicable resources. Date to Achieve By: October 2018 Patient expressed understanding of goal: yes documented as of this encounter Visit Diagnoses Diagnosis Nausea and vomiting, unspecified vomiting type documented in this encounter Additional Health Concerns Assessment Noted Time PHQ-9 Depression Total Score: 6 05/17/19 23 1:27 PM [employer] documented as of this encounter Care Teams Grape Cutter Relationship Specialty [place] [address] [address] [place] [address] PCP - General Family Practice 05/14/13 [place] [address] [address] [place] [address] Assigned PCP 01/26/22 [place] [address] [address] [address] Assigned Pain Medication Provider 04/15/22 documented as of this encounter
--- OUTSIDE RECORDS SUMMARY | 2023-05-04 03:28 | XMS_ITS | Encounter Summary ---
Author Name Unknown Organization [facility] Address [address] [place] [address]. [place] [address] Care Team Providers Care Transcribing Machine Operator Name Role Phone Davy Murillo MD Primary Care Provider Davy Murillo MD Unavailable [phone] Davy Murillo MD Unavailable [phone] Encounter Details Date Type Department Care Team (Late st Contact Info) Description 01/10/2023 [facility] [address] [place] [address] Michelle Leon V Social History Tobacco Use Types Packs/Day Years Used Date Smoking Tobacco: Former Cigarettes 0.5 40 Q uit: 03/29/2022 Smokeless Tobacco: Never Alcohol Use Standard Drinks/Week Comments No 0 (1 standard drink = 0.6 oz pur e alcohol) red wine rare PHQ-2 Answer Date Recorded PHQ-2 Score 1 05/17/2022 Adolescent Education Answer Date Record ed Getting School Help Needed Not on file 01/10 Sex and Gender Information Value Date Recorded Sex Assigned at Not on file Gender Identity Not on file Sexual Orientation Not on file documented as of this encounter Plan of Treatment Not on file documented as of this encounter Goals Goal Patient Goal Type Associated Problems Recent Progress Patient-Stated? 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 Measure of Success: Whether or not I am able to qualfy programs that are helpful Supportive Steps to Achieve: I will work with my [facility] and the [facility] to inquire services I am interested in. Barriers: None noted Strengths: I am willing and able to look into applicable resources. 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
--- OUTSIDE RECORDS SUMMARY | 2023-05-04 03:28 | XMS_ITS | Encounter Summary ---
Author Name Unknown Organization [place] Address [address] [place] [address]. [place] [address] Care Team Providers Care Counter Supply Worker Name Role Phone Davy Murillo MD Primary Care Provider [phone] Davy Murillo MD Unavailable Davy Murillo MD Unavailable [phone] Reason for Visit * Reason Comments Medication Refill Encounter Details Date Type Department Care Team ([facility] st Contact Info) Description [facility] [address] [place] [address] [place] [address] [place] [address] Medication Refill Social History Tobacco [...] to Achieve: I will work with my [facility] and the [facility] to inquire services I am interested in. Barriers: None noted Strengths: I am willing and able to look into applicable resources. 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
--- OUTSIDE RECORDS SUMMARY | 2023-05-04 03:28 | XMS_ITS | Encounter Summary ---
Author Name Unknown Organization [facility] Address [address] [place] [address]. [place] [address] Care Team Providers Care Tobacco Classer Name Role Phone Davy Murillo MD Primary Care Provider [phone] Davy Murillo MD Unavailable [phone] Davy Murillo MD Unavailable [phone] Reason for Visit * Reason Comments Medication Refill Encounter Details Date Type Department Care Team ([facility] st Contact Info) Description 02/03/2023 Refill [facility] [address] [place] [address] [place] [address] [place] [address] Medication Refill Social History Tobacco [...] to Achieve: I will work with my [facility] and the [facility] to inquire services I am interested [...] Total Score: 6 05/17/19 23 1:27 PM BACK TUFTER documented as of this encounter Care Teams Tobacco Classer Relationship Specialty [place] [address] [place] [address] PCP - General Family Practice 05/14/13 [place] [address] [facility] [address] Assigned PCP 01/26/22 [place] [address] [address] [address] Assigned Pain Medication Provider 04/15/22 documented as of this encounter
--- OUTSIDE RECORDS SUMMARY | 2023-05-04 03:28 | XMS_ITS | Referral Summary ---
Author Name Unknown Organization [place] Address [address] [place] [address]. [place] [address] Care Team Providers Care Amusement Or Recreation Card Checker Name Role Phone Davy Murillo MD Primary Care Provider Davy Murillo MD Unavailable Davy Murillo MD Unavailable Encounters Date Type Department Care Team Description 04/29/2023 Refill [facility] [place] [address] [place] [phone] Davy Murillo MD Medication Refill 04/24/2023 Refill [facility] [place] [address] [place] [phone] Davy Murillo MD Medication Refill 04/22/2023 Refill [facility] [place] [address] [place] [phone] Davy Murillo MD Medication Refill 04/02/2023 Telephone [facility] [place] [address] [place] [phone] Davy Murillo MD 04/02/2023 Refill [facility] [place] [address] [place] [address] Davy Murillo MD Medication Refill 03/21/2023 Travel 03/21/2023 12:00 PM CLINIC PHYSICIAN Office Visit [facility] [address] [place] [address] Davy Murillo MD Attention deficit hyperactivity disorder (ADHD), predominantly inattentive type; Vitamin B12 deficiency without anemia; Age-related osteoporosis with current pathological fracture, vertebra(e), initial encounter for fracture (H); Closed fracture of hip, unspecified laterality, sequela 03/05/2023 Refill [facility] [address] [place] [address] Davy Murillo MD Medication Refill 02/03/2023 Refill [facility] [address] [place] [address] Davy Murillo MD Medication Refill from Last 3 Months Allergies Active Allergy Reactions Criticality Noted Date Comments Amitriptyline Other (See Comments) High 01/06/2014 Bundle branch block Per [facility] EMR Diphenhydramine Itching Low 04/26/2019 Per [facility] EMR Methylphenidate Swelling High 01/06/2014 Tongue swelling Acetaminophen-Codeine GI Disturbance 03/22/2013 Zinc Other (See Comments) 03/11/2022 Per [facility] EMR Medications Medication Sig Dispensed Refills Start Date End Date Status VITAMIN D, CHOLECALCIFEROL, PO Take 50,000 Units by mouth Take 2 times weekly 0 Active order for DMEIndications:Chr onic low back pain, unspecified back pain laterality, with sciatica presence unspecified Equipment being ordered: TENS unit 1 each 0 06/04/2016 Active Syringe/Needle, Disp, (SYRINGE LUER LOCK) 25G X 1 3 ML MISCIndications:Vi tamin B12 deficiency without anemia Inject 1 Device into the muscle every 30 days Every OTHER MONTH, to be given with B-12 injection 1 each 0 12/12/2016 Active vitamin C (ASCORBIC ACID) 500 MG tablet Take 500 mg by mouth daily 0 Active GARLIC PO 0 Active oxybutynin ER (DITROPAN XL) 15 MG 24 hr tablet Take 15 mg by mouth At Bedtime 0 05/08/2022 Active cyanocobalamin (CYANOCOBALAMIN) 1000 MCG/ML injection Inject 1,000 mcg into the muscle every 30 days 0 10/30/2020 Active lidocaine (LIDODERM) 5 % patchIndications:C losed fracture of hip, unspecified laterality, sequela,Chronic low back pain, unspecified back pain laterality, unspecified whether sciatica present Place 1 patch onto the skin every 24 hours To prevent lidocaine toxicity, patient should be patch free for 12 hrs daily. 90 patch 1 05/20/2022 Active cyanocobalamin (CYANOCOBALAMIN) 1000 MCG/ML injectionIndicatio ns:Vitamin B12 deficiency without anemia Inject 1 mL (1,000 mcg) into the muscle every 30 days 1 mL 11 07/18/2022 Active albuterol (PROAIR HFA/PROVENTIL HFA/VENTOLIN HFA) 108 (90 Base) MCG/ACT inhalerIndications :Wheezing Inhale 1-2 puffs into the lungs every 6 hours as needed for shortness of breath, wheezing or cough 18 g 0 08/26/2022 Active omeprazole (PRILOSEC) [address] capsuleIndications :Gastroesophageal reflux disease without esophagitis TAKE 1 CAPSULE BY MOUTH DAILY FOR 14 DAYS THEN NEEDED UP UPSET STOMACH/ HEARTBURN 90 capsule 1 12/24/2022 Active ondansetron (ZOFRAN) 4 MG tabletIndications: Nausea and vomiting, unspecified vomiting type TAKE 1 TABLET(4 MG) BY MOUTH EVERY 8 HOURS NEEDED FOR NAUSEA 18 tablet 1 02/03/2023 Active meloxicam (MOBIC) 15 MG tabletIndications: Closed fracture of hip, unspecified laterality, sequela TAKE 1 TABLET(15 MG) BY MOUTH DAILY 30 tablet 1 03/05/2023 Active atomoxetine (STRATTERA) 10 MG capsuleIndications :Attention deficit hyperactivity disorder (ADHD), predominantly inattentive type TAKE 1 CAPSULE(10 MG) BY MOUTH DAILY FOR ADHD. REPLACES ADDERALL 30 capsule 5 03/21/2023 Active RISEdronate (ACTONEL) 35 MG tabletIndications: Age-related osteoporosis with current pathological fracture, vertebra(e), initial encounter for fracture (H) TAKE 1 TABLET BY MOUTH EVERY 7 DAYS. REMAIN UPRIGHT FOR AT LEAST 30 MINUTES AFTER TAKING AND TAKE 30 MINUTES BEFORE FIRST MEAL 4 tablet 5 03/21/2023 Active traMADol (ULTRAM) 50 MG tabletIndications: Closed fracture of hip, unspecified laterality, sequela Take 2 tablets (100 mg) by mouth 2 times daily as needed for severe pain 120 tablet 5 03/21/2023 Active traZODone (DESYREL) 150 MG tabletIndications: Primary insomnia TAKE 2 TABLETS BY MOUTH AT BEDTIME NEEDED FOR SLEEP 180 tablet 5 04/24/2023 Active tolterodine ER (DETROL LA) 4 MG 24 hr capsuleIndications :OAB (overactive bladder) TAKE 1 CAPSULE(4 MG) BY MOUTH DAILY 90 capsule 2 04/29/2023 Active traZODone (DESYREL) 150 MG tabletIndications: Primary insomnia TAKE 2 TABLET BY MOUTH AT BEDTIME NEEDED FOR SLEEP 180 tablet 5 01/21/2022 4 Discontinued tolterodine ER (DETROL LA) 4 MG 24 hr capsuleIndications :OAB (overactive bladder) TAKE 1 CAPSULE(4 MG) BY MOUTH DAILY 90 capsule 3 04/09/2022 4 Discontinued Hospital, Clinic, or Other Facility Administered Medication Ordered Dose Route Frequency Start Date End Date Status triamcinolone acetonide (KENALOG-40) injection 40 mgIndications:Primary osteoarthritis of left hip 40 mg 02/25/2018 Active ropivacaine (NAROPIN) injection 3 mLIndications:Primary osteoarthritis of left hip 3 mL 02/25/2018 Active triamcinolone (KENALOG-40) injection 40 mgIndications:Primary osteoarthritis of right hip,Acute right hip pain 40 mg 05/08/2018 Active ropivacaine (NAROPIN) injection 3 mLIndications:Primary osteoarthritis of right hip,Acute right hip pain 3 mL 05/08/2018 Active triamcinolone (KENALOG-40) injection 40 mgIndications:Primary osteoarthritis of left hip 40 mg 09/09/2018 Active ropivacaine (NAROPIN) injection 3 mLIndications:Primary osteoarthritis of left hip 3 mL 09/09/2018 Active cyanocobalamin injection 1,000 mcgIndications:Vitamin B12 deficiency (non anemic) 1000 mcg IM EVERY 30 DAYS 05/17/2022 05/12/2023 Active Active Problems Problem Noted Date Diagnosed Date Closed intertrochanteric fracture of femur 03/11 Severe episode of recurrent major depressive disorder, without psychotic features 01/21/2022 Anemia 02/22/2019 Overview: As of 02/2019, multifactorial including acute blood loss postoperative left hip replacement (hemoglobin 11.3 down to 8.7), vitamin B12 deficiency, iron deficiency. Anxiety 02/22/2019 Overview: Has been on Xanax as needed Attention deficit disorder (ADD) without hyperac tivity 03/17/2017 Urge incontinence of urine 06/04/2016 Chronic pain syndrome 02/15/2016 Pseudophakia of both eyes 01/23/2016 Choroidal nevus of right eye 01/03/2016 Chronic low back pain, unspe cified back pain laterality, with sciatica presence unspecified 09/29/2015 Primary insomnia 08/07/2015 NO SHOW 04/23/2015 LOUISA (generalized anxiety disorder) 02/06/2015 Chronic low back pain 01/27/2015 Chronic pain 10/25/2014 Overview: Patient is followed by Davy Murillo MD for ongoing prescription of pain medication. All refills should be approved by this provider, or covering partner. Medication(s): tramadol. Maximum quantity per month: max #6/day Clinic visit frequency required: Q 4 months Controlled substance agreement: Encounter-Level CSA: There are no encounter-level csa. Pain Clinic evaluation in the past: No DIRE Total Score(s): No flowsheet data found. Last [facility] website verification: 12/16/16 [email or web address] Vitamin D deficiency 04/19/2013 Overview: Problem list name updated by automated process. Provider to review Vitamin B12 deficiency without anemia 04/19/2013 Overview: Diagnosis updated by automated process. Provider to review and confirm. Generalized anxiety disorder 04/12/2013 Overview: Diagnosis updated by automated process. Provider to review and confirm. Advance care planning 03/29/2013 Overview: Advance Care Planning 05/11/2015: Receipt of ACP document: Received: Health Care Directive which was witnessed or notarized on 09/11/12. Document not previously scanned. Validation form completed and sent with document to be scanned. Code Status needs to be updated to reflect choices in most recent ACP document. Orders placed. Confirmed/documented designated decision maker(s). Added by Alexandra Jackson She does have a living will. 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 Bilateral chronic knee pain 03/22/2013 Insomnia 03/22/2013 Esophageal reflux 03/22/2013 CARDIOVASCULAR SCREENING; LDL GOAL LESS THAN 160 03/22/2013 Resolved Problems Problem Noted Date Diagnosed Date Resolved Date Combined form of age-related cataract, os 01/17/2016 02/06/2016 Immunizations Name Administration Dates Next Due COVID-19 Monovalent 18+ (Moderna) 09/17/2021,04/2020 COVID-19 Vaccine (Imani) 06/20/2020 Influenza (High Dose) 3 helena nt vaccine 02/05/2021,01/26/2019,12/25/2017,2016,01/17/2016,01/03/2015 Influenza (IIV3) PF 12/14/2012, 2,02/23/2008,2006,02/13/2006,02/19/2005 Influenza Vaccine 65+ (FLUAD) 01/11/2023 Influenza Vaccine 65+ (Fluzone HD) 01/21/2022 Influenza Vaccine >6 months,quad, PF 04/2020,12/25/2017,12/12/2016,2015,01/03/2015,02/03/2014,12/24/2012,1 ,02/14/2011,12/21/2009, 008,02/23/2007,02/13/2006,02/19/2005 Influenza, seasonal, injectable, PF 02/14/2011,0 12/21/2009 Pneumo Conj 13-V (2010&after) 01/17/2016 Pneumococcal 23 valent 08/25/2013,08/08/2010 TDAP (Adacel,Boostrix) 11/26/2022,08/08/2010 Zoster recombinant adjuvante d (SHINGRIX) 10/11/2019,09/29/2019 Social History Tobacco Use Types Packs/Day Years Used Date Smoking Tobacco: Former Cigarettes 0.5 40 Q uit: 03/29/2022 Smokeless Tobacco: Never Tobacco Cessation:Counseling Given: Not Answered Alcohol Use Standard Drinks/Week Comments No 0 [...] on file Sexual Orientation Not on file Last Filed Vital Signs Vital Sign Reading Time Taken Comments Blood Pressure 118/67 03/21/2023 11:50 AM CLINIC PHYSICIAN Pulse 73 03/21/2023 11:50 AM CLINIC PHYSICIAN Temperature 36.8 ??C (98.3 ??F) 03/21/2023 11:[address] Respiratory Rate 18 03/21/2023 11:50 AM CLINIC PHYSICIAN Oxygen Saturation 96% 03/21/2023 11:50 AM CLINIC PHYSICIAN Inhaled Oxygen Concentration - - Weight 50.8 kg (112 lb) 03/21/2023 11:50 AM CLINIC PHYSICIAN Height 152.4 cm (5') 05/17/2022 1:23 PM CLINIC PHYSICIAN Body Mass Index 21.87 05/17/2022 1:23 PM CLINIC PHYSICIAN Plan of Treatment Not on file Goals Goal Patient Goal Type Associated Problems [...] to Achieve: I will work with [facility] and [facility] to inquire services I am interested in. Barriers: None noted Strengths: I am willing and able to look into applicable resources. Date to Achieve By: October 2018 Patient expressed understanding of goal: yes Medical Devices Implanted Type Area Mortgage Funder Device Identifier Shelf Expiration Date Model / Serial / Lot Eye Imp Iol [place] Pcl Tecnis [id number] 22.0 Implanted:Qty: 1 on 01/22/2016 by Zane Bender MD at [facility] Right: Eye [employer] OPT 11/18/2019 ZCB00 22.0 / [id number] / Eye Imp Iol Abel Pcl Tecnis Zcb00 22.0 Implanted:Qty: 1 on 02/05/2016 by Zane Bender MD at [facility] Left: Eye [employer] OPT 11/20/2019 ZCB00 22.0 / [id number] / Advance Directives For more information, please contact: [phone] Documents on File Type Date Recorded 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
--- OUTSIDE RECORDS SUMMARY | 2023-05-04 03:28 | XMS_ITS | Encounter Summary ---
Author Name Unknown Organization [place] Address [address] [place] [address]. [place] [address] Care Team Providers Care Shake Packer Name Role Phone Davy Murillo MD Primary Care Provider Davy Murillo MD Unavailable [phone] Davy Murillo MD Unavailable [phone] Reason for Visit * Reason Comments Medication Refill Encounter Details Date Type Department Care Team ([facility] st Contact Info) Description [facility] [address] [place] [address] [place] [address] [place] [address] Medication Refill Social History Tobacco [...] to Achieve: I will work with my [facility] and the [facility] to inquire services I am interested in. [...] Total Score: 6 05/17/19 23 1:27 PM ASPHALT PAVING SUPERINTENDENT documented as of this encounter Care Teams Shake Packer Relationship Specialty [place] [address] [address] [place] [address] PCP - General Family Practice 05/14/13 [place] [address] [address] [address] Assigned PCP 01/26/22 [place] [address] [address] [address] Assigned Pain Medication Provider 04/15/22 documented as of this encounter
--- OUTSIDE RECORDS SUMMARY | 2023-05-04 03:28 | XMS_ITS | Clinical Summary ---
Author Name Unknown Organization [facility] Address [address] [place] [address]. [place] [address] Care Team Providers Care Automatic Mounter Name Role Phone Davy Murillo MD Primary Care Provider [phone] Davy Murillo MD Unavailable [phone] Davy Murillo MD Unavailable [phone] Allergies Active Allergy Reactions Criticality Noted Date Comments Amitriptyline Other (See Comments) High 01/06/2014 Bundle branch block Per [facility] EMR Diphenhydramine Itching Low 04/26/2019 Per [facility] E[facility] Methylphenidate Swelling High 01/06/2014 Tongue swelling Acetaminophen-Codeine GI Disturbance 03/22/2013 Zinc Other (See Comments) 03/11/2022 Per [facility] EMR Medications Medication Sig Dispensed Refills Start [...] Total Score(s): No flowsheet data found. Last [facility] website verification: 12/16/16 [email or web address] Vitamin D deficiency 04/19/2013 Overview: Problem list [...] She does have a living will. 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 CMA Bilateral chronic knee pain 03/22/2013 Insomnia 03/22/2013 Esophageal reflux 03/22/2013 CARDIOVASCULAR SCREENING; LDL GOAL LESS THAN 160 03/22/2013 Resolved Problems Problem Noted Date Diagnosed Date Resolved Date Combined form of age-related cataract, os 01/17/2016 02/06/2016 Encounters Date Type Department Care Team Description 04/29/2023 Refill [facility] [address] [facility] [place] [facility] [address] Davy Murillo MD Medication Refill 04/24/2023 Refill [facility] [address] [address] [facility] [place] [facility] [address] Davy Murillo MD Medication Refill 04/22/2023 Refill [facility] [address] [facility] [place] [facility] [address] Davy Murillo MD Medication Refill 04/02/2023 Telephone [facility] [address] [facility] [place] [facility] [place] [address] Davy Murillo MD 04/02/2023 Refill [facility] [address] [facility] [place] [facility] [place] [address] Davy Murillo MD Medication Refill 03/21/2023 12:00 PM CLOTH STOCK SORTER Office Visit [facility] [address] [facility] [place] [facility] [place] [address] Davy Murillo MD Attention deficit hyperactivity disorder (ADHD), predominantly inattentive type; Vitamin B12 deficiency without anemia; Age-related osteoporosis with current pathological fracture, vertebra(e), initial encounter for fracture (H); Closed fracture of hip, unspecified laterality, sequela 03/21/2023 Travel 03/05/2023 Refill [facility] [address] [place] [address] Davy Murillo MD Medication Refill 02/03/2023 Refill [facility] [address] [place] [address] Davy Murillo MD Medication Refill from Last 3 Months Immunizations Name Administration Dates Next Due COVID-19 [...] 11/26/2022,08/08/2010 Zoster recombinant adjuvante d (SHINGRIX) 10/11/2019,09/29/2019 Family History Medical History Relation Comments Cancer Brother 7 Cancer Brother 8 Diabetes Father Relation Status Comments Brother 1 Alive Brother 2 Alive Brother 3 Alive Brother 4 Alive Brother 5 Alive Brother 6 Brother 7 Brother 8 Daughter 1 Alive Daughter 2 Alive Daughter 3 Alive Daughter 4 Alive Father Maternal Grandfather Maternal Grandmother Mother surgery lung Paternal Grandfather Paternal Grandmother Son 1 Alive Son 2 [facility] Social History Tobacco Use Types Packs/Day Years [...] Comments Blood Pressure 118/67 03/21/2023 11:50 AM CLOTH STOCK SORTER Pulse 73 03/21/2023 11:50 AM CLOTH STOCK SORTER Temperature 36.8 ??C (98.3 ??F) 03/21/2023 11:[address] Respiratory Rate 18 03/21/2023 11:50 AM CLOTH STOCK SORTER Oxygen Saturation 96% 03/21/2023 11:50 AM CLOTH STOCK SORTER Inhaled Oxygen Concentration - - Weight 50.8 kg (112 lb) 03/21/2023 11:50 AM CLOTH STOCK SORTER Height 152.4 cm (5') 05/17/2022 1:23 PM CLOTH STOCK SORTER Body Mass Index 21.87 05/17/2022 1:23 PM CLOTH STOCK SORTER Plan of Treatment Health Maintenance Due Date Last Done Comments ANNUAL REVIEW OF HM ORDERS 1945 NICOTINE/TOBACCO CESSATION COUNSELING Q 1 YR 1943 URINE DRUG SCREEN 1943 RSV VACCINE ( & 60+) (1 - 1-dose 60+ series) 2003 MEDICARE ANNUAL WELLNESS VISIT 2008 EYE EXAM 06/06/2017 06/06/2016, 01/05, 01/03/2016, Additional history exists LIPID 08/24/2018 08/24/2013 ZOSTER IMMUNIZATION (2 of 2) 12/06/2019 10/11/2019, 09/29/2019 ADVANCE CARE PLANNING 05/11/2020 05/11/2015 , 03/29/2013, 03/29/2013 FALL RISK ASSESSMENT 03/21/2024 03/21/2023, 01/21/2022, 10/15/2018, Additional history exists PHQ-9 03/21/2024 03/21/2023, 05/08, 05/17/2022, Additional history exists DTAP/TDAP/TD IMMUNIZATION (3 - Td or Tdap) 11/26/2032 11/26/2022, 08/08/2010 DEXA 06/07/2037 06/07/2022, 03/0 06/2022, 04/07/2012 DEPRESSION ACTION PLAN Completed 5, 02/03/2014, 09/23/2013 Pneumococcal Vaccine: 65+ Years Completed 01/17/2016, 08/25/2013, 08/08/2010 LUNG CANCER SCREENING Discontinued 06/14/2016, 016 COVID-19 Vaccine Completed 01/11/2023, , 02/05/2021, Additional history exists INFLUENZA VACCINE Completed 01/11/2023, , 02/05/2021, Additional history exists HPV IMMUNIZATION Aged Out No longer e ligible based on patient's age to complete this topic IPV IMMUNIZATION Aged Out No longer e ligible based on patient's age to complete this topic MENINGITIS IMMUNIZATION Aged Out No l onger eligible based on patient's age to complete this topic RSV MONOCLONAL ANTIBODY Aged Out No l onger eligible based on patient's age to complete this topic Goals Goal Patient Goal Type Associated Problems [...] to Achieve: I will work with my [facility] I am interested in. Barriers: None noted Strengths: I am willing and able to look into applicable resources. Date to Achieve By: October 2018 Patient expressed understanding of goal: yes Medical Devices Implanted Type Area Bit And Shank Department Supervisor Device Identifier Shelf Expiration Date Model / Serial / Lot Eye Imp Iol [place] Pcl Tecnis Zcb00 22.0 Implanted:Qty: 1 on 01/22/2016 by Zane Bender MD at [facility] Right: Eye [employer] 11/18/2019 ZCB00 22.0 / [id number] / Eye Imp Iol [place] Pcl Tecnis Zcb00 22.0 Implanted:Qty: 1 on 02/05/2016 by Zane Bender MD at [facility] Left: Eye [employer] OPT 11/20/2019 ZCB00 22.0 / [id number] / Advance Directives For more information, please contact: [phone] Documents on File Type Date Recorded Patient Social Services Specialist Expl anation Advance Directives and Living Will 05/19/2015 2:23 PM HEALTH CARE DIRECTIV E 09-11-12 Care Teams Automatic Mounter Relationship Specialty [place] [address] [address] [address] PCP - General Family Practice 05/14/13 [place] [address] [address] [place] [address] Assigned PCP 01/26/22 [place] [address] [address] [address] Assigned Pain Medication Provider 04/15/22
--- OUTSIDE RECORDS SUMMARY | 2023-05-04 03:28 | XMS_ITS | Encounter Summary ---
Author Name Unknown Organization [facility] Address [address] [place] [address]. [place] [address] Care Team Providers Care Meat Hostess Name Role Phone Davy Murillo MD Primary Care Provider Davy Murillo MD Unavailable [phone] Davy Murillo MD Unavailable [phone] Reason for Visit * Reason Onset Date Comments Panel Management 01/10/2023 Encounter Details Date Type Department Care Team (Late st Contact Info) Description 01/10/2023 Telephone [facility] [address] [place] [address] [place] [address] [place] [address] Panel Management Social History Tobacco Use Types Packs/Day Years [...] on file documented as of this encounter Miscellaneous Notes * Telephone Encounter - Michelle Leon V - 01/10/2023 11:36 AM CDT Patient Quality Outreach Patient is due for the following: Physical Annual Wellness Visit Topic Date Due Zoster (Shingles) Vaccine (2 of 2) 12/06/2019 Diptheria Tetanus Pertussis (DTAP/TDAP/TD) Vaccine (2 - Td or Tdap) 08/08/2020 Flu Vaccine (1) 12/06/2022 COVID-19 Vaccine (4 - 2022-24 season) 2022 Next Steps: Schedule a Annual Wellness Visit Type of outreach: Sent [employer] message. Questions for provider review: None Michelle Leon documented in this encounter Plan of Treatment Not on [...] to Achieve: I will work with my [facility] and the [facility] to inquire services I am interested in. Barriers: None noted Strengths: I am willing and able to look into applicable resources. Date to Achieve By: October 2018 Patient expressed understanding of goal: yes documented as of this encounter Visit Diagnoses Not on filedocumented in this encounter Additional Health Concerns Assessment Noted Time PHQ-9 Depression Total Score: 6 05/17/19 23 1:27 PM SOFTWARE LEAD documented as of this encounter Care Teams Meat Hostess Relationship Specialty [place] [address] [address] [place] [address] PCP - General Family Practice 05/14/13 [place] [address] [address] [address] Assigned PCP 01/26/22 [place] [address] [address] [address] Assigned Pain Medication Provider 04/15/22 documented as of this encounter
--- OUTSIDE RECORDS SUMMARY | 2023-05-04 03:28 | XMS_ITS | Encounter Summary ---
Author Name Unknown Organization [facility] Address [address] [place] [address]. [place] [address] Care Team Providers Care And Rescue Fire Fighter Crash Fire Name Role Phone Davy Murillo MD Primary Care Provider [phone] Davy Murillo MD Unavailable [phone] Davy Murillo MD Unavailable Reason for Visit * Reason Comments Recheck Medication Refills Encounter Details Date Type Department Care Team (Latest Contact Info) Description 03/21/2023 12:00 PM POLYMER SCIENTIST Office Visit [facility] [address] [place] [address] [place] [address] [place] [address] Attention deficit hyperactivity disorder (ADHD), predominantly inattentive type; Vitamin B12 deficiency without anemia; Age-related osteoporosis with current pathological fracture, vertebra(e), initial encounter for fracture (H); Closed fracture of hip, unspecified laterality, sequela Social History Tobacco Use Types Packs/Day Years [...] on file documented as of this encounter Last Filed Vital Signs Vital Sign Reading Time Taken Comments Blood Pressure 118/67 03/21/2023 11:50 AM POLYMER SCIENTIST Pulse 73 03/21/2023 11:50 AM POLYMER SCIENTIST Temperature 36.8 ??C (98.3 ??F) 03/21/2023 11:[address] Respiratory Rate 18 03/21/2023 11:50 AM POLYMER SCIENTIST Oxygen Saturation 96% 03/21/2023 11:50 AM POLYMER SCIENTIST Inhaled Oxygen Concentration - - Weight 50.8 kg (112 lb) 03/21/2023 11:50 AM POLYMER SCIENTIST Height - - Body Mass Index 21.87 05/17/2022 1:23 PM POLYMER SCIENTIST documented in this encounter Progress Notes * Davy Murillo MD - 03/21/2023 12:00 PM CST ASSESSMENT / PLAN: (F90.0) Attention deficit hyperactivity disorder (ADHD), predominantly inattentive type Comment: stable Plan: atomoxetine (STRATTERA) 10 MG capsule Prn. Reveiwed risks and side effects of medication (E53.8) Vitamin B12 deficiency without anemia Comment: stalbe in past. Just had shot Plan: Recheck in 6 months mid cycle of shot. (M80.08XA) Age-related osteoporosis with current pathological fracture, vertebra(e), initial encounter for fracture (H) Comment: toleraing well Plan: RISEdronate (ACTONEL) 35 MG tablet Repeat dexa in one year.Reveiwed risks and side effects of medication (S72.009S) Closed fracture of hip, unspecified laterality, sequela Comment: stable Plan: traMADol (ULTRAM) 50 MG tablet Reveiwed risks and side effects of medication Avoid with ALCOHOL. Recheck in 6 months Follow-up ortho/pain specialist if worse. Exercise. Alfredo Antunez is a 77 year old, presenting for the following health issues: History chronic low back pain, [id number] def, osteoporosis, adhd, anxiety and insomnia History Hip fracture Living with daughter [facility] Here with daughter and lives with other daughter. 3 daughters in [place] and 1 son in [place]. 22 grandkids. Emotionally doing. Memory about same. Sleep overall ok. Up to one glass wine/day. No shortness of breath. No chest pain. Appetite ok. No nausea, vomiting or diarrhea or black/bloody stool. No constipation. Albuterol more spring related. Eats meat. [id number] Recheck Medication (Refills/) 03/21/2023 11:44 AM Additional Questions Roomed by Ladi Leon CMA Accompanied by Daughter Leticia History of Present Illness Reason for visit: Med checks She eats 2-3 servings of fruits and vegetables daily.She consumes 0 sweetened beverage(s) daily.Sheexercises with enough effort to increase her heart rate 20 to 29 minutes per day. She is taking medications regularly. Objective BP 118/67 Pulse 73 Temp 98.3 ??F (36.8 ??C) (Oral) Resp 18 Wt 50.8 kg (112 lb) SpO2 96% BMI 21.87 kg/m?? Body mass index is 21.87 kg/m??. Physical Exam GENERAL: healthy, alert and no distress NECK: no adenopathy, no asymmetry, masses, or scars and thyroid normal to palpation RESP: lungs clear to auscultation - no rales, rhonchi or wheezes CV: regular rate and rhythm, normal S1 S2, no S3 or S4, no murmur, click or rub, no peripheral edema and peripheral pulses strong ABDOMEN: soft, nontender, no hepatosplenomegaly, no masses and bowel sounds normal MS: no gross musculoskeletal defects noted, no edema PSYCH: mentation appears normal, affect normal/bright MER SCIENTIST documented in this encounter Plan of Treatment [...] Achieve: I will work with my [facility] and the [facility] to inquire services I am interested in. Barriers: None noted Strengths: I am willing and able to look into applicable resources. Date to Achieve By: October 2018 Patient expressed understanding of goal: yes documented as of this encounter Visit Diagnoses Diagnosis Attention deficit hyperactivity disorder (ADHD), predominantly inattentive type Vitamin B12 deficiency without anemia Other B-complex deficiencies Age-related osteoporosis with current pathological fracture, vertebra(e), initial encounter for fracture (H) Closed fracture of hip, unspecified laterality, sequela documented in this encounter Additional Health Concerns Assessment Noted Time PHQ-9 Depression Total Score: 0 03/21/20 23 11:15 AM POLYMER SCIENTIST documented as of this encounter Care Teams And Rescue Fire Fighter Crash Fire Relationship Specialty [place] [address] [place] [address] PCP - General Family Practice 05/14/13 [place] [address] [address] [facility] [address] Assigned PCP 01/26/22 [place] [address] [place] [address] Assigned Pain Medication Provider 04/15/22 documented as of this encounter
--- OUTSIDE RECORDS SUMMARY | 2023-05-04 03:28 | XMS_ITS | Encounter Summary ---
Author Name Unknown Organization [facility] Address [address] [place] [address]. [place] [address] Care Team Providers Care General Manager Land Department Name Role Phone Davy Murillo MD Primary Care Provider [phone] Davy Murillo MD Unavailable [phone] Davy Murillo MD Unavailable Reason for Visit * Reason Comments Medication Refill Encounter Details Date Type Department Care Team ([facility] st Contact Info) Description [facility] [address] [place] [address] [place] [address] [place] [address] Medication Refill Social History Tobacco [...] to Achieve: I will work with my [facility] and the [facility] to inquire services I am interested in. Barriers: None noted Strengths: I am willing and able to look into applicable resources. Date to Achieve By: October 2018 Patient expressed understanding of goal: yes documented as of this encounter Visit Diagnoses Diagnosis Closed fracture of hip, unspecified laterality, sequela documented in this encounter Additional Health Concerns Assessment Noted Time PHQ-9 Depression Total Score: 6 05/17/19 23 1:27 PM GILL TENDER documented as of this encounter Care Teams General Manager Land Department Relationship Specialty [place] [address] [place] [address] PCP - General Family Practice 05/14/13 [place] [address] [place] [address] Assigned PCP 01/26/22 [place] [address] [facility] [place] [address] Assigned Pain Medication Provider 04/15/22 documented as of this encounter
--- OUTSIDE RECORDS SUMMARY | 2023-05-04 03:28 | XMS_ITS | Encounter Summary ---
Author Name Unknown Organization [facility] Address [address] [place] [address]. [place] [address] Care Team Providers Care Commercial Litigation Attorney Name Role Phone Davy Murillo MD Primary Care Provider [phone] Davy Murillo MD Unavailable [phone] Davy Murillo MD Unavailable [phone] Encounter Details Date Type Department Care Team (Latest Contact Info) Description 03/21/2023 Travel Social History Tobacco Use Types Packs/Day Years [...] to Achieve: I will work with my [facility] and the [facility] to inquire services I am interested in. Barriers: None noted Strengths: I am willing and able to look into applicable resources. Date to Achieve By: October 2018 Patient expressed understanding of goal: yes documented as of this encounter Visit Diagnoses Not on filedocumented in this encounter Additional Health Concerns Assessment Noted Time PHQ-9 Depression Total Score: 0 03/21/20 23 11:15 AM STATE'S ATTORNEY documented as of this encounter Care Teams Commercial Litigation Attorney Relationship Specialty [place] [address] [place] [address] PCP - General Family Practice 05/14/13 [place] [address] [place] [address] Assigned PCP 01/26/22 [place] [address] [place] [address] Assigned Pain Medication Provider 04/15/22 documented as of this encounter
--- OUTSIDE RECORDS SUMMARY | 2023-05-04 03:28 | XMS_ITS | Encounter Summary ---
Author Name Unknown Organization [facility] Address [address] [place] [address]. [place] [address] Care Team Providers Care Sanitizer Name Role Phone Davy Murillo MD Primary Care Provider Davy Murillo MD Unavailable Davy Murillo MD Unavailable Reason for Visit * Reason Comments Medication Refill Encounter Details Date Type Department Care Team ([facility] st Contact Info) Description [facility] [address] [place] [address] [place] [address] [place] [address] Medication Refill Social History Tobacco [...] to Achieve: I will work with my [facility] and the [facility] to inquire services I am interested in. Barriers: None noted Strengths: I am willing and able to look into applicable resources. Date to Achieve By: October 2018 Patient expressed understanding of goal: yes documented as of this encounter Visit Diagnoses Diagnosis Primary insomnia Persistent disorder of initiating or maintaining sleep documented in this encounter Additional Health Concerns Assessment Noted Time PHQ-9 Depression Total Score: 0 03/21/20 23 11:15 AM WATER PUMP ASSEMBLER documented as of this encounter Care Teams Sanitizer Relationship Specialty [place] [address] [place] [address] PCP - General Family Practice 05/14/13 [place] [address] [place] [address] Assigned PCP 01/26/22 [place] [address] [place] [address] Assigned Pain Medication Provider 04/15/22 documented as of this encounter
--- OUTSIDE RECORDS SUMMARY | 2023-05-04 03:28 | XMS_ITS | Encounter Summary ---
Author Name Unknown Organization [facility] Address [address] [place] [address]. [place] [address] Care Team Providers Care Medical Office Assistant Name Role Phone Davy Murillo MD Primary Care Provider [phone] Davy Murillo MD Unavailable [phone] Davy Murillo MD Unavailable [phone] Reason for Referral * Consultation (Routine: Next available opening) - Pending Review Specialty Diagnoses / Procedures Referred By Carlos biswas Referred To Contact Pain Medicine Diagnoses Bilateral chronic knee pain Chronic low back pain, unspecified back pain laterality, unspecified whether [place] [address] [place] [address] [facility] [address] [place] [address] Referral ID Status Reason Start Date Expiration Date V isits Requested Visits Authorized [id number] Pending Review 04/02/2023 04/01/2024 1 1 Question Answer Reason for Referral: Comprehensive Pain Evaluation Are there any red flags that may impact the assessment or management of the patient? No Red Flags Provider, please review opioid agreement in the process instructions above. Do you agree to these terms? Yes Scheduling Instructions: [employer] will call you to coordinate care as prescribed your provider. If you don? t hear from a parts representative within 2 business days, please call . Comments Please be aware that coverage of these services is subject to the terms and limitations of your health insurance plan. Call member services at your health plan with any benefit or coverage questions. [employer] [place] will call you to coordinate care as prescribed your provider. If you don? t hear from a parts representative within 2 business days, please call . D SOLUTIONS ARCHITECT Encounter Details Date Type Department Care Team (Late st Contact Info) Description 04/02/2023 Telephone [facility] [address] [place] [address] [place] [address] [place] [address] Social History Tobacco Use Types Packs/Day Years [...] encounter Miscellaneous Notes * Telephone Encounter - Stephanie Knox MA - 04/02/2023 2:47 PM CLOUD SOLUTIONS ARCHITECT Called and informed patient of Dr Murillo's message.Stephanie Anderson [facility] D SOLUTIONS ARCHITECT * Telephone Encounter - Davy Murillo MD - 04/02/2023 1:50 PM CST Referral [facility] placed. Patient lives [place] of [facility] so might need to shop around her area and we canplace referral for whomever. D SOLUTIONS ARCHITECT * Telephone Encounter - Niki Leblanc RN - 04/02/2023 11:16 AM CST Provider: Please place a referral for a pain specialist. Thank you. Niki Leblanc R.N. Patient notified of provider's message as written below. She is interested in a pian specialist. She was advised they should call her, but if they do not she is to call us back in about 1 week. Patient verbalized good understanding, agrees with plan and needs no further support. Thank you. Niki Leblanc R.N. D SOLUTIONS ARCHITECT * Telephone Encounter - Niki Leblanc RN - 04/02/2023 11:00 AM CST I left a message to return a call to [phone]. Niki Leblanc R.N. D SOLUTIONS ARCHITECT * Telephone Encounter - Davy Murillo MD - 04/02/2023 10:47 AM CLOUD SOLUTIONS ARCHITECT Because of age and other medications we can't increase. Can see pain specialist if desired. Davy Murillo MD D SOLUTIONS ARCHITECT * Telephone Encounter - Lili Timmons - 04/02/2023 9:25 AM CST FYI - Status Update Who is Calling: patient Update: Pt is wondering if they can increase their TRAMADOL meds to 3 times a day instead of 2. Pt said they had to go in to the ER for shots a couple of times because the pain is really bad. Does caller want a call/response back: Yes Could we send this information to you in NGIhart or would you prefer to receive a phone call?: Phone call Okay to leave a detailed message?: Yes at Home number on file [phone] (home) D SOLUTIONS ARCHITECT documented in this encounter Plan of Treatment Scheduled Referrals Name Type Priority Associated Diagnoses Orde r Schedule Pain Management Bit Setter Referral Referral Routine: Next available opening Bilateral chronic knee pain Chronic low back pain, unspecified back pain laterality, unspecified whether sciatica present Expected: 04/02/2023 (Approximate), Expires: 04/02/2024 documented as of this encounter Goals Goal [...] to Achieve: I will work with my [facility] and the [facility] to inquire services I am interested in. Barriers: None noted Strengths: I am willing and able to look into applicable resources. Date to Achieve By: October 2018 Patient expressed understanding of goal: yes documented as of this encounter Visit Diagnoses Diagnosis Bilateral chronic knee pain- Primary Pain in joint, lower leg Chronic low back pain, unspecified back pain laterality, unspecified whether sciatica present documented in this encounter Additional Health Concerns Assessment Noted Time PHQ-9 Depression Total Score: 0 03/21/20 11:15 AM CLOUD SOLUTIONS ARCHITECT documented as of this encounter Care Teams Medical Office Assistant Relationship Specialty [place] [address] [place] [address] PCP - General Family Practice 05/14/13 [place] [address] [place] [address] Assigned PCP 01/26/22 [place] [address] [place] [address] Assigned Pain Medication Provider 04/15/22 documented as of this encounter
--- OUTSIDE RECORDS SUMMARY | 2023-05-04 03:28 | XMS_ITS | Encounter Summary ---
Author Name Unknown Organization [facility] Address [address] [place] [address]. [place] [address] Care Team Providers Care Exchange Administrator Name Role Phone Davy Murillo MD Primary Care Provider Davy Murillo MD Unavailable Davy Murillo MD Unavailable Reason for Visit * Reason Comments Medication Refill Encounter Details Date Type Department Care Team ([facility] st Contact Info) Description [facility] [address] [place] [address] [place] [address] [place] [address] Medication Refill Social History Tobacco [...] to Achieve: I will work with my [facility] and the [facility] to inquire services I am interested in. [...] Total Score: 0 03/21/20 23 11:15 AM TECHNICAL CABLE JOINTER documented as of this encounter Care Teams Exchange Administrator Relationship Specialty [place] [address] [place] [address] PCP - General Family Practice 05/14/13 [place] [address] [place] [address] Assigned PCP 01/26/22 [place] [address] [address] [address] Assigned Pain Medication Provider 04/15/22 documented as of this encounter
--- OUTSIDE RECORDS SUMMARY | 2023-05-04 03:29 | XMS_ITS | Encounter Summary ---
Author Name Unknown Organization [facility] Address [address] [place] [address]. [place] [address] Care Team Providers Care Capacitor Inspector Name Role Phone Davy Murillo MD Primary Care Provider Davy Murillo MD Unavailable [phone] Davy Murillo MD Unavailable Reason for Visit * Reason Onset Date Comments Refill Request 08/12/2022 Encounter Details Date Type Department Care Team (Late st Contact Info) Description 08/12/2022 Refill [facility] [address] [place] [address] [place] [address] [place] [address] Refill Request Social History Tobacco Use Types Packs/Day Years [...] encounter Miscellaneous Notes * Telephone Encounter - Mily Melara MA - 08/12/2022 11:49 AM CDT Medication Question or Refill What medication are you calling about (include dose and sig)?: traMADol (ULTRAM) 50 MG tablet 120 tablet 0 07/20/2022 No Sig - Route: Take 2 tablets (100 mg) by mouth 2 times daily as needed for severe pain - Oral Preferred Pharmacy: [id number] [place], [place] - [address] [facility] [address] [facility] [id number] Controlled Substance Agreement on file: CSA -- Patient Level: CSA: None found at the patient level. Who prescribed the medication?: Dr. Murillo Do you need a refill? Yes When did you use the medication last? Patient offered an appointment? Do you have any questions or concerns? Could we send this information to you in [employer] or would you prefer to receive a phone call?: Patient would prefer a phone call Okay to leave a detailed message?: Yes at Cell number on file: Telephone Information: documented in this encounter Plan of Treatment [...] Achieve: I will work with my [facility] and the [facility] to [...] Time PHQ-9 Depression Total Score: 6 05/17/19 1:27 PM EDUCATION FACULTY MEMBER documented as of this encounter Care Teams Capacitor Inspector Relationship Specialty [place] [address] [place] [address] PCP - General Family Practice 05/14/13 [place] [address] [place] [address] Assigned PCP 01/26/22 [place] [address] [address] [address] Assigned Pain Medication Provider 04/15/22 documented as of this encounter
--- OUTSIDE RECORDS SUMMARY | 2023-05-04 03:29 | XMS_ITS | Encounter Summary ---
Author Name Unknown Organization [place] [facility] Address [address] [place] [address]. [place] [address] Care Team Providers Care Varnish Cooker Name Role Phone Davy Murillo MD Primary Care Provider [phone] Davy Murillo MD Unavailable [phone] Davy Murillo MD Unavailable [phone] Reason for Visit * Reason Comments Medication Refill Encounter Details Date Type Department Care Team ([facility] st Contact Info) Description [facility] [address] [place] [address] [place] [address] [place] [address] Medication Refill Social History Tobacco [...] to Achieve: I will work with my [facility] and the [facility] to inquire services I am interested in. Barriers: None noted Strengths: I am willing and able to look into applicable resources. Date to Achieve By: October 2018 Patient expressed understanding of goal: yes documented as of this encounter Visit Diagnoses Diagnosis Age-related osteoporosis with current pathological fracture, vertebra(e), initial encounter for fracture (H) documented in this encounter Additional Health Concerns Assessment Noted Time PHQ-9 Depression Total Score: 6 05/17/19 23 1:27 PM PACKING HOUSE SUPERVISOR documented as of this encounter Care Teams Varnish Cooker Relationship Specialty [place] [address] [place] [address] PCP - General Family Practice 05/14/13 [place] [address] [place] [address] Assigned PCP 01/26/22 [place] [address] [place] [address] Assigned Pain Medication Provider 04/15/22 documented as of this encounter
--- OUTSIDE RECORDS SUMMARY | 2023-05-04 03:29 | XMS_ITS | Encounter Summary ---
Author Name Unknown Organization [place] Address [address] [place] [address]. [place] [address] Care Team Providers Care Special Education Supervisor Name Role Phone Davy Murillo MD Primary Care Provider Davy Murillo MD Unavailable [phone] Davy Murillo MD Unavailable [phone] Reason for Visit * Reason Onset Date Comments Medication Request 09/29/2022 traMADol (ULT ZULY) 50 MG tablet Encounter Details Date Type Department Care Team (Late st Contact Info) Description 09/29/2022 Telephone [facility] [address] [place] [address] [place] [address] [place] [address] Medication Request (traMADol (ULTRAM) 50 MG tablet ) Social History Tobacco Use Types Packs/Day Years [...] encounter Miscellaneous Notes * Telephone Encounter - Lety Ricketts RN - 09/30/2022 8:50 AM CDT Patient is calling to see how she can refill her tramadol. Patient updated on the below from Dr. Bhatti. Patient to picker and packer her next Tramadol on October 10. Patient to contact the pharmacy. She verbalized understanding. Lety Ricketts RN * Telephone Encounter - Yamileth Xiao RN - 09/30/2022 8:07 AM CDT This commercial insurance underwriter attempted to contact Harmony on 09/30/22 Reason for call relay provider message-see below and left message to call back to [facility]. If patient calls back: Registered Nurse called. Send to RN team at [facility]. Yamileth Xiao RN Clinical Triage/Primary Care [facility] * Telephone Encounter - Davy Murillo MD - 09/29/2022 2:52 PM CDT Not due until next week /. I can lose my [place] license if patient using more than max prescribed. Davy Murillo MD * Telephone Encounter - Kenya Cervantes - 09/29/2022 11:42 AM CDT Medication Question or Refill What medication are you calling about (include dose and sig)?: traMADol (ULTRAM) 50 MG tablet Preferred Pharmacy: [facility] #[id number] - [place] [address] [address] [facility] [address] Controlled Substance Agreement on file: CSA -- Patient Level: CSA: None found at the patient level. Who prescribed the medication?: Dr. Murillo Do you need a refill? Yes When did you use the medication last? 09/27/22 Patient offered an appointment? No Do you have any questions or concerns? Yes: needs more refills by this week if possible. Could we send this information to you in [facility] or would you prefer to receive a [...] to Achieve: I will work with my [facility] and the [facility] to inquire services I am interested in. Barriers: None noted Strengths: I am willing and able to look into applicable resources. Date to Achieve By: October 2018 Patient expressed understanding of goal: yes documented as of this encounter Visit Diagnoses Not on filedocumented in this encounter Additional Health Concerns Assessment Noted Time PHQ-9 Depression Total Score: 6 05/17/19 23 1:27 PM MANAGER BEAUTY documented as of this encounter Care Teams Special Education Supervisor Relationship Specialty [place] [address] [place] [address] PCP - General Family Practice 05/14/13 [place] [address] [place] [address] Assigned PCP 01/26/22 [place] [address] [place] [address] Assigned Pain Medication Provider 04/15/22 documented as of this encounter
--- OUTSIDE RECORDS SUMMARY | 2023-05-04 03:29 | XMS_ITS | Encounter Summary ---
Author Name Unknown Organization [place] Address [address] [place] [address]. [place] [address] Care Team Providers Care Electric Mule Driver Name Role Phone Davy Murillo MD Primary Care Provider Davy Murillo MD Unavailable Davy Murillo MD Unavailable Reason for Visit * Reason Comments Medication Refill Encounter Details Date Type Department Care Team ([facility] st Contact Info) Description [facility] [address] [place] [address] [place] [address] [place] [address] Medication Refill Social History Tobacco [...] encounter Miscellaneous Notes * Telephone Encounter - Katty Goetz - 09/30/2022 11:22 AM CDT Patient called and scheduled video visit for 10/21/22 Katty Polanco Wheat Cleaner [phone] * Telephone Encounter - Stephanie Knox MA - 09/30/2022 7:32 AM CDT Mailed letter.Stephanie Anderson MA/TC * Telephone Encounter - Davy Murillo MD - 09/29/2022 2:45 PM CDT Video visit in next month please. Davy Murillo MD documented in this encounter Plan of Treatment Not on file documented as of this encounter Goals Goal Patient Goal Type Associated Problems Recent Progress Patient-Stated? Author Financial Wellbeing General 20%( 9 1:15 PM CDT) Yes Liberty Harris, LUBE TECHNICIAN Note: Goal Statement: I would like to learn about financial resources that can assist me and my . Measure of Success: Whether or not I am able to qualfy programs that are helpful Supportive Steps to Achieve: I will work with my [facility] and the [facility] to inquire services I am interested in. [...] Total Score: 6 05/17/19 23 1:27 PM INFRASTRUCTURE ANALYST documented as of this encounter Care Teams Electric Mule Driver Relationship Specialty [place] [address] [place] [address] PCP - General Family Practice 05/14/13 [place] [address] [place] [address] Assigned PCP 01/26/22 [place] [address] [place] [address] Assigned Pain Medication Provider 04/15/22 documented as of this encounter
--- OUTSIDE RECORDS SUMMARY | 2023-05-04 03:29 | XMS_ITS | Encounter Summary ---
Author Name Unknown Organization [place] Address [address] [place] [address]. [place] [address] Care Team Providers Care Skin Care Technician Name Role Phone Davy Murillo MD Primary Care Provider [phone] Davy Murillo MD Unavailable [phone] Davy Murillo MD Unavailable [phone] Reason for Visit * Reason Onset Date Comments Refill Request 06/11/2022 Encounter Details Date Type Department Care Team (Late st Contact Info) Description 06/11/2022 Refill M [facility] [address] [place] [address] [place] [address] [place] [address] Refill Request Social History Tobacco [...] on file Sexual Orientation Not on file COVID-19 Exposure Response Date Recorded In the last 10 days, have yo u been in contact with someone who was confirmed or suspected to have Coronavirus/COVID-19? No / Unsure 06/07/2022 8:24 AM MAIL ORDER BILLER documented as of this encounter Miscellaneous Notes * Telephone Encounter - Maame Snyder PA-C - 06/11/2022 4:17 PM MAIL ORDER BILLER Patient filled 3 weeks ago ok to hold until pcp is back. Maame Snyder PA-C ORDER BILLER * Telephone Encounter - Mily Melara MA - 06/11/2022 12:24 PM CST Medication Question or Refill What medication are you calling about (include dose and sig)?: traMADol (ULTRAM) 50 MG tablet 120 tablet 0 05/17/2022 No Sig - Route: Take 2 tablets (100 mg) by mouth 2 times daily as needed for severe pain (7-10) - Oral Preferred Pharmacy: [facility] [address] [place] [address] Controlled Substance Agreement on file: CSA -- Patient Level: CSA: None found at the patient level. Who prescribed the medication?: Dr. Murillo Do you need a refill? Yes When did you use the medication last? Patient offered an appointment? Do you have any questions or concerns? Patient's daughter asked pharmacy for a refill, and she was told it is too soon. Could we send this information to you in [facility] or would you prefer to receive a phone call?: Patient would prefer a phone call Okay to leave a detailed message?: Yes at Cell number on file: Telephone Information: ORDER BILLER documented in this encounter Plan of Treatment [...] my [facility] and the county to inquire services I am interested [...] Total Score: 6 05/17/19 23 1:27 PM MAIL ORDER BILLER documented as of this encounter Care Teams Skin Care Technician Relationship Specialty [place] [address] [place] [address] PCP - General Family Practice 05/14/13 [place] [address] [place] [address] Assigned PCP 01/26/22 [place] [address] [place] [address] Assigned Pain Medication Provider 04/15/22 documented as of this encounter
--- OUTSIDE RECORDS SUMMARY | 2023-05-04 03:29 | XMS_ITS | Encounter Summary ---
Author Name Unknown Organization [place] Address [address] [place] [address]. [place] [address] Care Team Providers Care Senior Administrative Support Name Role Phone Davy Murillo MD Primary Care Provider Davy Murillo MD Unavailable [phone] Davy Murillo MD Unavailable [phone] Reason for Visit * Reason Onset Date Comments Refill Request 08/12/2022 Encounter Details Date Type Department Care Team (Late st Contact Info) Description 08/12/2022 Refill M [facility] [address] [place] [address] [place] [address] [place] [address] Refill Request Social History Tobacco [...] Telephone Encounter - Stephanie Knox MA - 08/12/2022 1:38 PM CDT Medication Question or Refill Contacts Type Contact Phone/Fax 08/12/2022 01:38 PM CDT Phone (Incoming) Car Harmony Vanessa (Self) [phone] (M) What medication are you calling about (include dose and sig)?: B12 Preferred Pharmacy: [facility] #[id number] [place], [place] - [facility] [address] [facility] [address] [facility] [address] Controlled Substance Agreement on file: CSA -- Patient Level: CSA: None found at the patient level. Who prescribed the medication?: Dr Murillo Do you need a refill? Yes When did you use the medication last? Patient offered an appointment? No Do you have any questions or concerns? No Could we send this information to you in [employer] or would you prefer to receive a phone call?: Patient would prefer a phone call Okay to leave a detailed message?: Yes at Home number on file [phone] (home) Stephanie Anderson MA/BENJY documented in this encounter Plan of Treatment [...] to Achieve: I will work with my [facility] and the [facility] to inquire services I am interested in. Barriers: None noted Strengths: I am willing and able to look into applicable resources. Date to Achieve By: October 2018 Patient expressed understanding of goal: yes documented as of this encounter Visit Diagnoses Diagnosis Vitamin B12 deficiency without anemia Other B-complex deficiencies documented in this encounter Additional Health Concerns Assessment Noted Time PHQ-9 Depression Total Score: 6 05/17/19 23 1:27 PM EMERGING SOLUTIONS EXECUTIVE documented as of this encounter Care Teams Senior Administrative Support Relationship Specialty [place] [address] [place] [address] PCP - General Family Practice 05/14/13 [place] [address] [place] [address] Assigned PCP 01/26/22 [place] [address] [place] [address] Assigned Pain Medication Provider 04/15/22 documented as of this encounter
--- OUTSIDE RECORDS SUMMARY | 2023-05-04 03:29 | XMS_ITS | Encounter Summary ---
Author Name Unknown Organization [place] Address [address] [place] [address]. [place] [address] Care Team Providers Care Quality Intern Name Role Phone Candice Murillo MD Primary Care Provider Candice Murillo MD Unavailable [phone] Candice Murillo MD Unavailable Encounter Details Date Type Department Care Team (Late st Contact Info) Description 11/08/2022 [facility] [address] [place] [address] [place] [address] [place] [address] Social History Tobacco Use Types [...] * Telephone Encounter - Katty Goetz - 11/15/2022 10:18 AM CDT Harmony returned call and scheduled video appointment with Dr Murillo on 11/21. Per Harmony, she will be out of medication by Saturday 11/18 and will be needing more Tramadol 50 MG to get her to appointment. Pharmacy is pended Katty Polanco Motor Boss [phone] * Telephone Encounter - Stephanie Knox MA - 11/12/2022 12:55 PM CDT Left message on patient's voicemail with Dr Murillo;s message, and to call back to set up an appointment.Stephanie Anderson [facility] * Telephone Encounter - Candice Murillo MD - 11/12/2022 12:15 PM CDT Video appointment or office appointment needs set-up before we can refill med. Candice Murillo MD * Telephone Encounter - Dulce Dominguez - 11/08/2022 11:39 AM CDT Patient requesting refill on Rx traMADol (ULTRAM) 50 MG tablet. States her surgeon sent her to PT 2x a week and she has a lot of pain afterwards. [facility] #[id number] [place], [place] - [address] [place] [address] AT [facility] [address] [phone] Dulce Dominguez, Patient Email Marketing Manager - [facility] * Addendum Note - Candice Murillo MD - 11/08/2022 11:39 AM CDTAddended by: CANDICE MURILLO on: 11/17/2022 04:36 PM Modules accepted: Orders documented in this encounter Plan of Treatment [...] to Achieve: I will work with my [facility] and the [facility] to inquire services I am interested in. Barriers: None noted Strengths: I am willing and able to look into applicable resources. Date to Achieve By: October 2018 Patient expressed understanding of goal: yes documented as of this encounter Visit Diagnoses Diagnosis Chronic low back pain, unspecified back pain laterality, unspecified whether sciatica present- Primary documented in this encounter Additional Health Concerns Assessment Noted Time PHQ-9 Depression Total Score: 6 05/17/19 23 1:27 PM CEMENT DESPATCH OPERATOR documented as of this encounter Care Teams Quality Intern Relationship Specialty [place] [address] [place] [address] PCP - General Family Practice 05/14/13 [place] [address] [place] [address] Assigned PCP 01/26/22 [place] [address] [place] [address] Assigned Pain Medication Provider 04/15/22 documented as of this encounter
--- OUTSIDE RECORDS SUMMARY | 2023-05-04 03:29 | XMS_ITS | Encounter Summary ---
Author Name Unknown Organization [place] Address [address] [place] [address]. [place] [address] Care Team Providers Care Tours Hostess Name Role Phone Davy Murillo MD Primary Care Provider Davy Murillo MD Unavailable [phone] Davy Murillo MD Unavailable [phone] Reason for Visit * Reason Onset Date Comments Orders 06/20/2022 Encounter Details Date Type Department Care Team (Late st Contact Info) Description 06/20/2022 Telephone [facility] [address] [place] [address] [place] [address] [place] [address] Orders Social History Tobacco Use Types Packs/Day Years [...] Coronavirus/COVID-19? No / Unsure 06/07/2022 8:24 AM RESPIRATORY DIRECTOR documented as of this encounter Miscellaneous Notes * Telephone Encounter - Stephanie Knox MA - 06/21/2022 9:49 AM CDT Called and spoke to patient, I informed her that her RX was sent to the pharmacy. She would like the order for the walker mailed to her at her [facility] house. Mailed to: [address] [place] [address] Stephanie Anderson MA/TC * Telephone Encounter - Davy Murillo MD - 06/20/2022 3:57 PM CDT Ok for walker (for fax)/zofran. Not doing home health aide at this time. Davy Murillo MD * Telephone Encounter - Katty Goetz - 06/20/2022 1:58 PM CDT Reason for Call: Request for an order or referral: Order or referral being requested: walker, one that helps her stand up straight. She also is looking to see if she could get a home health aid to help her with her laundry because she has stairs, and showers etc. Patient is also wanting to see if she can get a refill on her anti nausea medication- Zofran 4 MG tablet- Pharmacy is pended Date needed: as soon as possible Has the patient been seen by the PCP for this problem? Not Applicable Additional comments: patient had fallen and fractured hip after gi- Phone number Patient can be reached at: Home number on file [phone] (home) Best Time: anytime Can we leave a detailed message on this number? YES Call taken on 06/20/2022 at 1:58 PM by Katty Goetz documented in this encounter Plan of Treatment [...] to Achieve: I will work with my [facility] and the [facility] to inquire services I am interested in. Barriers: None noted Strengths: I am willing and able to look into applicable resources. Date to Achieve By: October 2018 Patient expressed understanding of goal: yes documented as of this encounter Visit Diagnoses Diagnosis Closed fracture of hip, unspecified laterality, sequela- Primary Nausea and vomiting, unspecified vomiting type Poor balance documented in this encounter Additional Health Concerns Assessment Noted Time PHQ-9 Depression Total Score: 6 05/17/19 23 1:27 PM RESPIRATORY DIRECTOR documented as of this encounter Care Teams Tours Hostess Relationship Specialty [place] [address] [place] [address] PCP - General Family Practice 05/14/13 [place] [address] [place] [address] Assigned PCP 01/26/22 [place] [address] [place] [address] Assigned Pain Medication Provider 04/15/22 documented as of this encounter
--- OUTSIDE RECORDS SUMMARY | 2023-05-04 03:29 | XMS_ITS | Encounter Summary ---
Author Name Unknown Organization [place] Address [address] [place] [address]. [place] [address] Care Team Providers Care Surface Water Technician Name Role Phone Davy Murillo MD Primary Care Provider Davy Murillo MD Unavailable [phone] Davy Murillo MD Unavailable [phone] Reason for Visit * Reason Onset Date Comments Medication Request 09/11/2022 Encounter Details Date Type Department Care Team (Late st Contact Info) Description 09/11/2022 Refill M [facility] [address] [place] [address] [place] [address] [place] [address] Medication Request Social History Tobacco Use Types Packs/Day [...] encounter Miscellaneous Notes * Telephone Encounter - Liv Hernandez - 09/11/2022 10:39 AM CDT Medication Question or Refill Contacts Type Contact Phone/Fax 09/11/2022 10:39 AM CDT Phone (Incoming) Harmony Yoon (Self) [phone] (M) What medication are you calling about (include dose and sig)?: Tramadol 50 MG Preferred Pharmacy: [facility] #[id number] [place] [address] [address] [facility] [address] [facility] [address] Controlled Substance Agreement on file: CSA -- Patient Level: CSA: None found at the patient level. Who prescribed the medication?: PCP Do you need a refill? Yes When did you use the medication last? 09/11/2022 Patient offered an appointment? No Do you have any questions or concerns? Yes: patient have 1 day left of the tramadol. Could we send this information to you in [employer] or would you prefer to receive a [...] Achieve: I will work with my [facility] and the [facility] to inquire services I am [...] Total Score: 6 05/17/19 23 1:27 PM HEAVY REPAIRER documented as of this encounter Care Teams Surface Water Technician Relationship Specialty [place] [address] [address] [facility] [address] PCP - General Family Practice 05/14/13 [place] [address] [place] [address] Assigned PCP 01/26/22 [place] [address] [place] [address] Assigned Pain Medication Provider 04/15/22 documented as of this encounter
--- OUTSIDE RECORDS SUMMARY | 2023-05-04 03:29 | XMS_ITS | Encounter Summary ---
Author Name Unknown Organization [place] Address [address] [place] [address]. [place] [address] Care Team Providers Care Culinary Internship Name Role Phone Davy Murillo MD Primary Care Provider Davy Murillo MD Unavailable Davy Murillo MD Unavailable Reason for Visit * Reason Comments Medication Refill Encounter Details Date Type Department Care Team ([facility] st Contact Info) Description [facility] [address] [place] [address] [place] [address] [place] [address] Medication Refill Social History Tobacco [...] to Achieve: I will work with my [facility] and the [facility] to inquire services I am interested in. [...] Total Score: 6 05/17/19 23 1:27 PM CHANGE HOUSE ATTENDANT documented as of this encounter Care Teams Culinary Internship Relationship Specialty [place] [address] [place] [address] PCP - General Family Practice 05/14/13 [place] [address] [place] [address] Assigned PCP 01/26/22 [place] [address] [place] [address] Assigned Pain Medication Provider 04/15/22 documented as of this encounter
--- OUTSIDE RECORDS SUMMARY | 2023-05-04 03:29 | XMS_ITS | Encounter Summary ---
Author Name Unknown Organization [place] Address [address] [place] [address]. [place] [address] Care Team Providers Care Cardio Clinician Name Role Phone Davy Murillo MD Primary Care Provider Davy Murillo MD Unavailable [phone] Davy Murillo MD Unavailable [phone] Reason for Visit * Reason Onset Date Comments Refill Request 07/18/2022 Encounter Details Date Type Department Care Team (Late st Contact Info) Description 07/18/2022 Refill M [facility] [address] [place] [address] [place] [address] [place] [address] Refill Request Social History Tobacco [...] encounter Miscellaneous Notes * Telephone Encounter - Mounika Goetzyla - 07/18/2022 10:20 AM CDT Reason for Call: Medication or medication refill: Do you use a [facility]? Name of the pharmacy and phone number for the current request: Natalia Ashford Name of the medication requested: Medications and pharmacy are pended Patient also states that she would like a Prednisone prescription for her back as it has been acting up. She states that she has been doing more walking outside with it being nice out but its starting to be painful Other request: Can we leave a detailed message on this number? YES Phone number patient can be reached at: Cell number on file: Telephone Information: Best Time: anytime Call taken on 07/18/2022 at 10:20 AM by Katty Goetz documented in this encounter Plan of Treatment Not on file documented as of this encounter Goals Goal Patient Goal Type Associated Problems Recent Progress Patient-Stated? Author Financial Wellbeing General 20%( 9 1:15 PM CDT) Yes Liberty Harris, ELROY Note: Goal Statement: I would like to learn about financial resources that can assist me and my . Measure of Success: Whether or not I am able to qualfy programs that are helpful Supportive Steps to Achieve: I will work with my [facility] and the [facility] to inquire services I am interested in. Barriers: None noted Strengths: I am willing and able to look into applicable resources. Date to Achieve By: October 2018 Patient expressed understanding of goal: yes documented as of this encounter Visit Diagnoses Diagnosis Closed fracture of hip, unspecified laterality, sequela Nausea and vomiting, unspecified vomiting type Vitamin B12 deficiency without anemia Other B-complex deficiencies documented in this encounter Additional Health Concerns Assessment Noted Time PHQ-9 Depression Total Score: 6 05/17/19 23 1:27 PM FLY RAISER LOCKSTITCH documented as of this encounter Care Teams Cardio Clinician Relationship Specialty [place] [address] [address] [place] [address] PCP - General Family Practice 05/14/13 [place] [address] [place] [address] Assigned PCP 01/26/22 [place] [address] [place] [address] Assigned Pain Medication Provider 04/15/22 documented as of this encounter
--- OUTSIDE RECORDS SUMMARY | 2023-05-04 03:29 | XMS_ITS | Encounter Summary ---
Author Name Unknown Organization [place] Address [address] [place] [address]. [place] [address] Care Team Providers Care Brick Stacker Name Role Phone Davy Murillo MD Primary Care Provider [phone] Davy Murillo MD Unavailable [phone] Davy Murillo MD Unavailable Reason for Visit * Reason Onset Date Comments Refill Request 06/18/2022 Encounter Details Date Type Department Care Team (Late st Contact Info) Description 06/18/2022 Refill [facility] [address] [place] [address] [place] [address] [place] [address] Refill Request Social History Tobacco [...] Coronavirus/COVID-19? No / Unsure 06/07/2022 8:24 AM SEAT JOINER CHAINSTITCH documented as of this encounter Miscellaneous Notes * Telephone Encounter - Shari Mtz, RN - 06/18/2022 12:07 PM CDT Pt is in [facility]. Can you resend prescription there? Shari Mtz BSN, RN * Telephone Encounter - Yoselyn Cartagena - 06/18/2022 12:04 PM CDT Medication Question or Refill Contacts Type Contact Phone/Fax 06/18/2022 12:04 PM CDT Phone (Incoming) Harmony Yoon (Self) [phone] (M) What medication are you calling about (include dose and sig)?: traMADol (ULTRAM) 50 MG tablet Preferred Pharmacy: [id number] [place] [address] [address] [facility] [address] [facility] [address] Controlled Substance Agreement on file: CSA -- Patient Level: CSA: None found at the patient level. Who prescribed the medication?: murillo Do you need a refill? Yes When did you use the medication last? Daily Patient offered an appointment? No Do you have any questions or concerns? No Could we send this information to you in [facility] or would you prefer to receive a phone call?: No preference Okay to leave a detailed message?: Yes at Cell number on file: Telephone Information: Yoselyn Rodriguez, Human Resources Project Coordinator documented in this encounter Plan of Treatment Not on file documented as of this encounter Goals Goal Patient Goal Type Associated Problems Recent Progress Patient-Stated? Author Financial Wellbeing General 20%( 9 1:15 PM CDT) Yes Harris, Liberty J, LINUX SERVER ADMINISTRATOR Note: Goal Statement: I would like to learn about financial resources that can assist me and my . Measure of Success: Whether or not I am able to qualfy programs that are helpful Supportive Steps to Achieve: I will work with my [facility] and the [facility] to inquire services I [...] Total Score: 6 05/17/19 23 1:27 PM SEAT JOINER CHAINSTITCH documented as of this encounter Care Teams Brick Stacker Relationship Specialty [place] [address] [place] [address] PCP - General Family Practice 05/14/13 [place] [address] [place] [address] Assigned PCP 01/26/22 [place] [address] [place] [address] Assigned Pain Medication Provider 04/15/22 documented as of this encounter
--- OUTSIDE RECORDS SUMMARY | 2023-05-04 03:29 | XMS_ITS | Encounter Summary ---
Author Name Unknown Organization [facility] Address [address] [place] [address]. [place] [address] Care Team Providers Care Mine Utility Operator Name Role Phone Davy Murillo MD Primary Care Provider [phone] Davy Murillo MD Unavailable [phone] Davy Murillo MD Unavailable [phone] Reason for Referral * Mental Health Outpatient (Routine: Next available opening) - Referral NOT Required Specialty Diagnoses / Procedures Referred By Carlos biswas Referred To Contact Behavioral Health Diagnoses Mood disorder (H24) [place] [address] [place] [address] Referral ID Status Reason Start Date Expiration Date V isits Requested Visits Authorized Referral NOT Required 11/21/2022 11/21/2023 1 1 Question Answer Services: Psychiatry/Med Management Reason for Referral - REVIEW REFERENCE LINK BELOW: Short-term consultation & return to PCP/Collaborative Care (CCPS) My Clinical Question Is: help with depression. possible cymbalta but on tramadol and tremors with psych meds in past Scheduling Instructions: [facility] will call you to coordinate your care as prescribed by your provider. If you don't hear from a parts representative within 2 business days, please call . Comments Please be aware that coverage of these services is subject to the terms and limitations of your health insurance plan. Call member services at your health plan with any benefit or coverage questions. [facility] will call you to coordinate your care as prescribed by your provider. If you don't hear from a parts representative within 2 business days, please call . Reason for Visit * Reason Comments Back Pain Medication Refill Encounter Details Date Type Department Care Team (Late st Contact Info) Description 11/21/2022 10:30 AM CDT Virtual Visit [facility] [address] [place] [address] [place] [address] [place] [address] Chronic low back pain, unspecified back pain laterality, unspecified whether sciatica present (Primary Dx); Closed fracture of hip, unspecified laterality, sequela; Mood disorder (H); Vitamin B12 deficiency (non anemic) Social History Tobacco Use Types Packs/Day Years [...] on file documented as of this encounter Progress Notes * Davy Murillo MD - 11/21/2022 10:30 AM CDT Harmony is a 77 year old who is being evaluated via a billable video visit. How would you like to obtain your AVS? Mail a copy If the video visit is dropped, the invitation should be resent by: Send to e- mail at: Will anyone else be joining your video visit? No ASSESSMENT / PLAN: (M54.50, G89.29) Chronic low back pain, unspecified back pain laterality, unspecified whether sciatica present (primary encounter diagnosis) Comment: tramadol helpful Plan: consider cymbalta but issues with psych meds in past. Continue p.t.exercise and tylenol prn. Recheck in 6 months Reveiwed risks and side effects of medication (S72.009S) Closed fracture of hip, unspecified laterality, sequela Comment: improving mobility Plan: traMADol (ULTRAM) 50 MG tablet Continue p.t. and vitaminD/osteoporesis med. Recheck in 6 months (F39) Mood disorder (H) Comment: needs help. Good support system Plan: Adult Mental Health Net Applications Developer Referral Patient/daughter interested in seeing psych for med help. If SUICIAL IDEATION OR HOMOCIDAL IDEATIONOR HÉCTOR TO ER (E53.8) Vitamin B12 deficiency (non anemic) Comment: stable? Plan: Recheck in 6 monthsf or labs/med check. Alfredo Antunez is a 77 year old, presenting for the following health issues: No chief complaint on file. History chronic low back pain, [id number] def, adhd, anxiety and insomnia History Hip fracture Living with daughter [facility]. Tramadol 2 pills twice daily. In AM and before pm and alternating with tylenol. Patient interested in seeing psych md. Wellbutrin- shaking/tremor with psych. P.t.for exercise. Albuterol prn weather changes. Taking [id number]. Needs to restart vitaminD. GERDstable. History of Present Illness Back Pain: She presents for follow up of back pain. Patient's back pain is a chronic problem. Location of back pain: Right lower back and left lower back Description of back pain: dull ache, shooting and other Back pain spreads: right buttocks and right knee Since patient first noticed back pain, pain is: always present, but gets better and worse Does back pain interfere with her job: Not applicable She eats 4 or more servings of fruits and vegetables daily.She consumes 2 sweetened beverage(s) daily.She exercises with enough effort to increase her heart rate 30 to 60 minutes per day. She exercises with enough effort to increase her heart rate 7 days per week. She is taking medications regularly. Objective Vitals: No vitals were obtained today due to virtual visit. Physical Exam GENERAL: Healthy, alert and no distress EYES: Eyes grossly normal to inspection. No discharge or erythema, or obvious scleral/conjunctival abnormalities. RESP: No audible wheeze, cough, or visible cyanosis. No visible retractions or increased work of breathing. SKIN: Visible skin clear. No significant rash, abnormal pigmentation or lesions. NEURO: Cranial nerves grossly intact. Mentation and speech appropriate for age. PSYCH: Mentation appears normal, affect normal/bright, judgement and insight intact, normal speech and appearance well-groomed. PSYCH: anxious Video-Visit Details Type of service: Video Visit Video Start Time: 10:29 AM Video End Time:10:49 AM Originating Location (pt. Location): Home Distant Location (provider location): On-site Platform used for Video Visit: [employer] documented in this encounter Plan of Treatment Scheduled Referrals Name Type Priority Associated Diagnoses Orde r Schedule Adult Mental Health Net Applications Developer Referral Referral Routine: Next available opening Mood disorder (H) Expected: 11/21/2022 (Approximate), Expires: 11/22/2023 documented as of this encounter Goals Goal [...] to Achieve: I will work with my [facility] and the [facility] to inquire services I am interested in. Barriers: None noted Strengths: I am willing and able to look into applicable resources. Date to Achieve By: October 2018 Patient expressed understanding of goal: yes documented as of this encounter Visit Diagnoses Diagnosis Chronic low back pain, unspecified back pain laterality, unspecified whether sciatica present- Primary Closed fracture of hip, unspecified laterality, sequela Mood disorder (H24) Unspecified episodic mood disorder Vitamin B12 deficiency (non anemic) Other B-complex deficiencies documented in this encounter Additional Health Concerns Assessment Noted Time PHQ-9 Depression Total Score: 6 05/17/19 23 1:27 PM CHILD CARE NURSE documented as of this encounter Care Teams Mine Utility Operator Relationship Specialty [place] [address] [address] [address] PCP - General Family Practice 05/14/13 [place] [address] [address] [place] [address] Assigned PCP 01/26/22 [place] [address] [place] [address] Assigned Pain Medication Provider 04/15/22 documented as of this encounter
--- OUTSIDE RECORDS SUMMARY | 2023-05-04 03:29 | XMS_ITS | Encounter Summary ---
Author Name Unknown Organization [place] Address [address] [place] [address]. [place] [address] Care Team Providers Care Exhibition Specialist Name Role Phone Davy Murillo MD Primary Care Provider Davy Murillo MD Unavailable [phone] Davy Murillo MD Unavailable Encounter Details Date Type Department Care Team (Late st Contact Info) Description [facility] [address] [place] [address] [place] [address] [place] [address] Social History Tobacco Use Types [...] Coronavirus/COVID-19? No / Unsure 06/07/2022 8:24 AM ENGINEERING RECRUITER documented as of this encounter Miscellaneous Notes * Telephone Encounter - Shari Mtz RN - 06/18/2022 11:57 AM CDT Pt calling for dexa scan results. Pt given provider result note. Osteoporesis seen DEXA scan. Prescription for actonel to help thicken bones sent to your pharmacy. Follow-up md appointment in 3months for med check. , please send letter to patient with results. ?? Patient: Harmony Yoon ?? Provider: Davy Murillo MD MD Please call with questions or concerns. No prescription seen on med list. Please send the Actonel prescription to pended pharmacy. Shari DUQUE, RN documented in this encounter Plan of Treatment Not on file documented as of this encounter Goals Goal Patient Goal Type Associated Problems Recent Progress Patient-Stated? Author Financial Wellbeing General 20%( 9 1:15 PM CDT) Yes Liberty Harris, MACHINE LACER Note: Goal Statement: I would like to learn about financial resources that can assist me and my . Measure of Success: Whether or not I am able to qualfy programs that are helpful Supportive Steps to Achieve: I will work with my [facility] and the [facility] to inquire services I am [...] Total Score: 6 05/17/19 23 1:27 PM ENGINEERING RECRUITER documented as of this encounter Care Teams Exhibition Specialist Relationship Specialty [place] [address] [place] [address] PCP - General Family Practice 05/14/13 [place] [address] [place] [address] Assigned PCP 01/26/22 [place] [address] [address] [address] Assigned Pain Medication Provider 04/15/22 documented as of this encounter
--- OUTSIDE RECORDS SUMMARY | 2023-05-04 03:29 | XMS_ITS | Encounter Summary ---
Author Name Unknown Organization [place] Address [address] [place] [address]. [place] [address] Care Team Providers Care Ribbon Lap Machine Tender Name Role Phone Davy Murillo MD Primary Care Provider Davy Murillo MD Unavailable Davy Murillo MD Unavailable [phone] Reason for Visit * Reason Comments Medication Refill Encounter Details Date Type Department Care Team ([facility] st Contact Info) Description [facility] [address] [place] [address] [place] [address] [place] [address] Medication Refill Social History Tobacco [...] Achieve: I will work with my [facility] and the [facility] to inquire [...] Total Score: 6 05/17/19 23 1:27 PM INTEGRATION DEVELOPER documented as of this encounter Care Teams Ribbon Lap Machine Tender Relationship Specialty [place] [address] [place] [address] PCP - General Family Practice 05/14/13 [place] [address] [place] [address] Assigned PCP 01/26/22 [place] [address] [place] [address] Assigned Pain Medication Provider 04/15/22 documented as of this encounter
--- OUTSIDE RECORDS SUMMARY | 2023-05-04 03:29 | XMS_ITS | Encounter Summary ---
Author Name Unknown Organization [facility] Address [address] [place] [address]. [place] [address] Care Team Providers Care Driver Trainer Name Role Phone Davy Murillo MD Primary Care Provider Davy Murillo MD Unavailable [phone] Davy Murillo MD Unavailable Reason for Visit * Reason Comments Medication Refill Encounter Details Date Type Department Care Team ([facility] st Contact Info) Description [facility] [address] [place] [address] [place] [address] [place] [address] Medication Refill Social History Tobacco [...] Coronavirus/COVID-19? No / Unsure 06/07/2022 8:24 AM PROGRAM MANAGER ENVIRONMENTAL PLANNING documented as of this encounter Plan of [...] to Achieve: I will work with my [facility] and the [facility] to inquire services I am interested [...] Total Score: 6 05/17/19 23 1:27 PM PROGRAM MANAGER ENVIRONMENTAL PLANNING documented as of this encounter Care Teams Driver Trainer Relationship Specialty [place] [address] [address] [address] PCP - General Family Practice 05/14/13 [place] [address] [address] [place] [address] Assigned PCP 01/26/22 [place] [address] [address] [place] [address] Assigned Pain Medication Provider 04/15/22 documented as of this encounter
--- OUTSIDE RECORDS SUMMARY | 2023-05-04 03:29 | XMS_ITS | Encounter Summary ---
Author Name Unknown Organization [facility] Address [address] [place] [address]. [place] [address] Care Team Providers Care Drawing In Machine Tender Helper Name Role Phone Davy Murillo MD Primary Care Provider [phone] Davy Murillo MD Unavailable [phone] Davy Murillo MD Unavailable [phone] Encounter Details Date Type Department Care Team (Late st Contact Info) Description 10/21/2022 1:30 PM CDT Virtual Visit [facility] [address] [place] [address] [place] [address] [place] [address] No-show for appointment (Primary Dx) Social History Tobacco Use Types Packs/Day Years [...] Progress Notes * Davy Murillo MD - 10/21/2022 1:30 PM CDT Attempted to call #. No show. documented in this encounter Plan of Treatment [...] to Achieve: I will work with my [facility] and the [facility] to inquire services I am interested in. Barriers: None noted Strengths: I am willing and able to look into applicable resources. Date to Achieve By: October 2018 Patient expressed understanding of goal: yes documented as of this encounter Visit Diagnoses Diagnosis No-show for appointment- Primary documented in this encounter Additional Health Concerns Assessment Noted Time PHQ-9 Depression Total Score: 6 05/17/19 23 1:27 PM RAIL CREW MEMBER documented as of this encounter Care Teams Drawing In Machine Tender Helper Relationship Specialty [place] [address] [address] [facility] [place] [address] PCP - General Family Practice 05/14/13 [place] [address] [address] [facility] [address] Assigned PCP 01/26/22 [place] [address] [address] [address] Assigned Pain Medication Provider 04/15/22 documented as of this encounter
--- OUTSIDE RECORDS SUMMARY | 2023-05-04 03:29 | XMS_ITS | Encounter Summary ---
Author Name Unknown Organization [place] Address [address] [place] [address]. [place] [address] Care Team Providers Care Chain Forming Machine Operator Name Role Phone Davy Murillo MD Primary Care Provider [phone] Davy Murillo MD Unavailable [phone] Davy Murillo MD Unavailable [phone] Reason for Visit * Reason Onset Date Comments Medication Request 08/26/2022 Encounter Details Date Type Department Care Team (Late st Contact Info) Description 08/26/[address] [facility] [address] [place] [address] [place] [address] [place] [address] Medication Request Social History Tobacco [...] Telephone Encounter - Stephanie Knox MA - 08/26/2022 9:55 AM CDT Medication Question or Refill Contacts Type Contact Phone/Fax 08/26/2022 09:55 AM CDT Phone (Incoming) Harmony Yoon (Self) [phone] (M) What medication are you calling about (include dose and sig)?: albuterol inhaler Preferred Pharmacy: [id number] [place], [place] - [facility] [address] [facility] [address] [facility] [address] Controlled Substance Agreement on file: CSA -- Patient Level: CSA: None found at the patient level. Who prescribed the medication?: Dr Key Do you need a refill? Yes When did you use the medication last? Patient offered an appointment? No Do you have any questions or concerns? Yes: allergies are bad, from the smoke from [employer]. Could we send this information to you in [employer] or would you prefer to receive a phone call?: Patient would prefer a phone call Okay to leave a detailed message?: Yes at Cell number on file: Telephone Information: Stephanie Anderson MA/BENJY documented in this encounter Plan of Treatment Not on file documented as of this encounter Goals Goal Patient Goal Type Associated Problems Recent Progress Patient-Stated? Author Financial Wellbeing General 20%( 9 1:15 PM CDT) Yes Liberty Hraris LSW Note: Goal Statement: I would like to learn about financial resources that can assist me and my . Measure of Success: Whether or not I am able to qualfy programs that are helpful Supportive Steps to Achieve: I will work with my [facility] and the [facility] to inquire services I am interested in. Barriers: None noted Strengths: I am willing and able to look into applicable resources. Date to Achieve By: October 2018 Patient expressed understanding of goal: yes documented as of this encounter Visit Diagnoses Diagnosis Wheezing- Primary documented in this encounter Additional Health Concerns Assessment Noted Time PHQ-9 Depression Total Score: 6 05/17/19 23 1:27 PM EGG TRAYER documented as of this encounter Care Teams Chain Forming Machine Operator Relationship Specialty [place] [address] [place] [address] PCP - General Family Practice 05/14/13 [place] [address] [place] [address] Assigned PCP 01/26/22 [place] [address] [place] [address] Assigned Pain Medication Provider 04/15/22 documented as of this encounter
--- OUTSIDE RECORDS SUMMARY | 2023-05-04 03:29 | XMS_ITS | Encounter Summary ---
Author Name Unknown Organization [facility] Address [address] [place] [address]. [place] [address] Care Team Providers Care Automation Technician Name Role Phone Davy Murillo MD Primary Care Provider Davy Murillo MD Unavailable [phone] Davy Murillo MD Unavailable Reason for Visit * Reason Onset Date Comments Dme 10/10/2022 TENS unit order Encounter Details Date Type Department Care Team (Late st Contact Info) Description 10/10/2022 Telephone [facility] [address] [place] [address] [place] [address] [place] [address] Dme (TENS unit order) Social History Tobacco Use Types Packs/Day Years [...] Telephone Encounter - Stephanie Knox MA - 10/11/2022 7:10 AM CDT Mailed order to patient's home.Stephanie Anderson MA/TC * Telephone Encounter - Davy Murillo MD - 10/10/2022 3:49 PM CDT DME done. Davy Murillo MD * Telephone Encounter - Yamileth Xiao RN - 10/10/2022 12:57 PM CDT Patient calling to request new order for a TENS unit. Chronic low back pain, unspecified back pain laterality, unspecified whether sciatica present [M54.50, G89.29] ??- Primary Last ordered by PCP on 07/29/22 (or maybe was just re-printed from an older order?). Patient lost prescription and is now requesting another order to be created and mailed out to her. Patient has since moved, now living with a different daughter of hers, living down in [place], [place]. This will remain patient's permanent address. Daughter has tried to find last prescription too, can't find it. Please mail to address noted in chart. Demographics page updated to reflect new address in [place]. Routing to provider to review and advise. Yamileth Xiao RN Clinical Triage/Primary Care [facility] documented in this encounter Plan of Treatment [...] to Achieve: I will work with my [facility] and the [facility] to inquire services I am interested in. [...] Total Score: 6 05/17/19 23 1:27 PM LOOP TACKER documented as of this encounter Care Teams Automation Technician Relationship Specialty [place] [address] [address] [place] [address] PCP - General Family Practice 05/14/13 [place] [address] [place] [address] Assigned PCP 01/26/22 [place] [address] [address] [place] [address] Assigned Pain Medication Provider 04/15/22 documented as of this encounter
--- OUTSIDE RECORDS SUMMARY | 2023-05-04 03:29 | XMS_ITS | Encounter Summary ---
Author Name Unknown Organization [facility] Address [address] [place] [address]. [place] [address] Care Team Providers Care Setter Helper Name Role Phone Davy Murillo MD Primary Care Provider [phone] Davy Murillo MD Unavailable [phone] Davy Murillo MD Unavailable [phone] Reason for Visit * Reason Onset Date Comments Refill Request 06/16/2022 90 days supply ( RISEdronate (ACTONEL) 35 MG tablet) Encounter Details Date Type Department Care Team (Late st Contact Info) Description [facility] [address] [place] [address] [place] [address] [place] [address] Refill Request (90 days supply (RISEdronate (ACTONEL) 35 MG tablet)) Social History Tobacco Use Types Packs/Day Years [...] Coronavirus/COVID-19? No / Unsure 06/07/2022 8:24 AM ENAMEL SHADER documented as of this encounter Miscellaneous Notes * Telephone Encounter - Valentina Andersen RN - 06/17/2022 11:02 AM CDT Refill sent to pharmacy 06/16/22. Valentina Andersen RN * Telephone Encounter - Francesca Ortega - 06/16/2022 7:10 PM CDT Patient is requesting 90 days supply for RISEdronate (ACTONEL) 35 MG tablet. documented in this encounter Plan of Treatment [...] to Achieve: I will work with my [facility] and the [facility] to inquire services I am interested in. Barriers: None noted Strengths: I am willing and able to look into applicable resources. Date to Achieve By: October 2018 Patient expressed understanding of goal: yes documented as of this encounter Visit Diagnoses Not on filedocumented in this encounter Additional Health Concerns Assessment Noted Time PHQ-9 Depression Total Score: 6 05/17/19 23 1:27 PM ENAMEL SHADER documented as of this encounter Care Teams Setter Helper Relationship Specialty [place] [address] [place] [address] PCP - General Family Practice 05/14/13 [place] [address] [address] [place] [address] Assigned PCP 01/26/22 [place] [address] [address] [address] Assigned Pain Medication Provider 04/15/22 documented as of this encounter
--- OUTSIDE RECORDS SUMMARY | 2023-05-04 03:29 | XMS_ITS | Encounter Summary ---
Author Name Unknown Organization [facility] Address [address] [place] [address]. [place] [address] Care Team Providers Care Costume Specialist Name Role Phone Davy Murillo MD Primary Care Provider Davy Murillo MD Unavailable [phone] Davy Murillo MD Unavailable [phone] Encounter Details Date Type Department Care Team (Late st Contact Info) Description 07/29/2022 [facility] [address] [place] [address] [place] [address] [place] [address] Social History Tobacco Use Types [...] Telephone Encounter - Stephanie Knox MA - 07/30/2022 12:59 PM CDT Mailed order to patient's home.Stephanie Anderson MA/TC [address] [place] [id number] * Telephone Encounter - Davy Murillo MD - 07/30/2022 12:33 PM CDT done * Telephone Encounter - Stephanie Knox MA - 07/30/2022 10:20 AM CDT I did not see this order. Can you re-print it, and place in TC basket please.Stephanie Anderson MA/BENJY * Telephone Encounter - Davy Murillo MD - 07/30/2022 7:38 AM CDT Prescription done. Davy Murillo MD * Telephone Encounter - Katty Goetz - 07/29/2022 2:50 PM CDT Reason for Call: Order or referral being requested: Tens unit order Date needed: as soon as possible Has the patient been seen by the PCP for this problem? YES Additional comments: Patient borrowed her daughter her tense unit, and her daughter lost it and unable to locate it. Harmony is wondering if you would be willing to write another prescription for this. She would like the paper order mailed to her at [address] [place] [phone] (this is not her current address- she switches living with her daughters from time to time) Phone number Patient can be reached at: Cell number on file: Telephone Information: Best Time: anytime Can we leave a detailed message on this number? YES Call taken on 07/29/2022 at 2:51 PM by Katty Goetz documented in this encounter Plan of Treatment Not on file documented as of this encounter Goals Goal Patient Goal Type Associated Problems Recent Progress Patient-Stated? Author Financial Wellbeing General 20%( 9 1:15 PM CDT) Yes Liberty Harris, AGENCY DIRECTOR Note: Goal Statement: I would like to learn about financial resources that can assist me and my . Measure of Success: Whether or not I am able to qualfy programs that are helpful Supportive Steps to Achieve: I will work with my [facility] and the [facility] to inquire services I am [...] Total Score: 6 05/17/19 23 1:27 PM GUEST RELATIONS REPRESENTATIVE documented as of this encounter Care Teams Costume Specialist Relationship Specialty [place] [address] [address] [address] PCP - General Family Practice 05/14/13 [place] [address] [place] [address] Assigned PCP 01/26/22 [place] [address] [address] [address] Assigned Pain Medication Provider 04/15/22 documented as of this encounter
--- OUTSIDE RECORDS SUMMARY | 2023-05-04 03:29 | XMS_ITS | Encounter Summary ---
Author Name Unknown Organization [facility] Address [address] [place] [address]. [place] [address] Care Team Providers Care Timber Feller Name Role Phone Davy Murillo MD Primary Care Provider Davy Murillo MD Unavailable [phone] Davy Murillo MD Unavailable Encounter Details Date Type Department Care Team (Late st Contact Info) Description 11/18/2022 [facility] [address] [place] [address] [place] [address] [place] [address] Social History Tobacco Use Types [...] Telephone Encounter - Shari Mtz RN - 11/19/2022 5:41 PM CDT Pt notified of provider message as written. Pt verbalized good understanding. Shari DUQUE, RN * Telephone Encounter - Davy Murillo MD - 11/19/2022 5:27 PM CDT Patient no showed last appointment so no more meds until . Davy Murillo MD * Telephone Encounter - Niki Leblanc RN - 11/19/2022 4:03 PM CDT Provider: Please see message before this message. Please refill this medication or state why it is not appropriate. You had doned it and not addressed this request. Thank you. Niki Leblanc R.N. * Telephone Encounter - Niki Leblanc RN - 11/18/2022 1:18 PM CDT Images from the original note were not included. Provider: are you willing to send a new Prescription(s) for Tramadol 50 mg - 2 tablets twice a day?Thank you. Niki Leblanc R.N. There is no consent to communicate with anyone but the patient (TD-11/18/2022) I did receive verbal permission for from Harmony to speak with her daughter Jamia. Jamia reports that Harmony is needing a refill of her Tramadol. She is doing PT (due to a hip fracturelast year) and needs the Tramadol to partake on PT. Jamia reports that Harmony should be on traMADol (ULTRAM) 50 MG tablet 2 tablets (100 mg) in the am and 2 tablets (100 mg) in the pm Per Dr. Murillo. They picked up the last Prescription(s) (# 1 listed below). She has used all these due to the 2 tablets twice a day. They tried to chicken picker Prescription(s) #2 and the insurance stated it was too early to chicken picker as she should not be out of Tramadol with the sig sent below. This is the first time they have has issue with this medication, per Jamia. They are asking for a new Prescription(s) to be sent to the #120 - 2 tablets twice a day. Next 5 appointments (look out 90 days) Nov 21, 2022 10:30 AM (Arrive by 10:10 AM) Provider Visit with Davy Murillo MD [facility] [address] [facility] [address] 1. 2. documented in this encounter Plan of Treatment [...] to Achieve: I will work with my [facility] and the [facility] to inquire services I am interested [...] Total Score: 6 05/17/19 23 1:27 PM REGULATORY AFFAIRS DIRECTOR documented as of this encounter Care Teams Timber Feller Relationship Specialty [place] [address] [place] [address] PCP - General Family Practice 05/14/13 [place] [address] [facility] [place] [address] Assigned PCP 01/26/22 [place] [address] [place] [address] Assigned Pain Medication Provider 04/15/22 documented as of this encounter
--- OUTSIDE RECORDS SUMMARY | 2023-05-04 03:30 | XMS_ITS | Encounter Summary ---
Author Name Unknown Organization [facility] Address [address] [place] [address]. [place] [address] Care Team Providers Care Government Minister Name Role Phone Candice Murillo MD Primary Care Provider Candice Murillo MD Unavailable [phone] Candice Murillo MD Unavailable Reason for Referral * Diagnostic Imaging Dexa (Routine) - Pending Review Specialty Diagnoses / Procedures Referred By Contmelody t Referred To Contact Radiology. Diagnoses Osteoporosis with current pathological fracture, unspecified osteoporosis type, sequela Age-related osteoporosis with current pathological fracture, vertebra(e), initial encounter for fracture (H) Procedures DX Hip/Pelvis/[place] [address] [place] [address] Referral ID Status Reason Start Date Expiration Date V isits Requested Visits Authorized [id number] Pending Review 05/17/2022 05/17/2023 1 1 OR PRIVATE CLIENT ADVISOR Reason for Visit * Reason Comments RECHECK Fall 03/2022. Medica tion Imm/Inj b12 Encounter Details Date Type Department Care Team ([facility] st Contact Info) Description 05/17/2022 1:30 PM SENIOR PRIVATE CLIENT ADVISOR Office Visit [facility] [address] [place] [phone] [place] [address] [place], [place] [id number] Chronic low back pain, unspecified back pain laterality, unspecified whether sciatica present (Primary Dx); Severe episode of recurrent major depressive disorder, without psychotic features (H); Vitamin B12 deficiency without anemia; Gastroesophageal reflux disease without esophagitis; Closed fracture of hip, unspecified laterality, sequela; Vitamin B12 deficiency (non anemic); Osteoporosis with current pathological fracture, unspecified osteoporosis type, sequela; Age-related osteoporosis with current pathological fracture, vertebra(e), initial encounter for fracture (H) Social History Tobacco Use Types Packs/Day Years [...] Coronavirus/COVID-19? No / Unsure 06/07/2022 8:24 AM SENIOR PRIVATE CLIENT ADVISOR documented as of this encounter Last Filed Vital Signs Vital Sign Reading Time Taken Comments Blood Pressure 108/64 05/17/2022 1:23 PM SENIOR PRIVATE CLIENT ADVISOR Pulse 91 05/17/2022 1:23 PM SENIOR PRIVATE CLIENT ADVISOR Temperature 36.6 ??C (97.8 ??F) 05/17/2022 1:23 PM CS T Respiratory Rate 20 05/17/2022 1:23 PM SENIOR PRIVATE CLIENT ADVISOR Oxygen Saturation 98% 05/17/2022 1:23 PM SENIOR PRIVATE CLIENT ADVISOR Inhaled Oxygen Concentration - - Weight 48.5 kg (107 lb) 05/17/2022 1:23 PM SENIOR PRIVATE CLIENT ADVISOR Height 152.4 cm (5') 05/17/2022 1:23 PM SENIOR PRIVATE CLIENT ADVISOR Body Mass Index 20.9 05/17/2022 1:23 PM SENIOR PRIVATE CLIENT ADVISOR documented in this encounter Progress Notes * Candice Murillo MD - 05/17/2022 1:30 PM CST ASSESSMENT / PLAN: (M54.50, G89.29) Chronic low back pain, unspecified back pain laterality, unspecified whether sciatica present (primary encounter diagnosis) Comment: needs help Plan: Miscellaneous Order for DME - ONLY FOR DME, lidocaine (LIDODERM) 5 % patch Temporary increase from 3 to 4 daily. Pain specilist if worse. Reveiwed risks and side effects of medication Expected course and warning signs reviewed. Recheck in 3 months (F33.2) Severe episode of recurrent major depressive disorder, without psychotic features (H) Comment: stalbe Plan: good support at home. If SUICIAL IDEATION OR HOMOCIDAL IDEATION OR HÉCTOR TO ER (K21.9) Gastroesophageal reflux disease without esophagitis Comment: stable Plan: prilosec prn. Possible increased if bone density meds. (S72.009S) Closed fracture of hip, unspecified laterality, sequela Comment: needs help Plan: traMADol (ULTRAM) 50 MG tablet, lidocaine (LIDODERM) 5 % patch Patch and new TENS unit. Reveiwed risks and side effects of medication (E53.8) Vitamin B12 deficiency (non anemic) Plan: cyanocobalamin injection 1,000 mcg Recheck in 3 months Shot given (M80.00XS) Osteoporosis with current pathological fracture, unspecified osteoporosis type, sequela Comment: high risk Plan: DX Hip/Pelvis/Spine Likely start meds if poor especially if considering knee replacement (M80.08XA) Age-related osteoporosis with current pathological fracture, vertebra(e), initial encounter for fracture (H) Plan: DX Hip/Pelvis/Spine Continue vitmainD/calcium Subjective Harmony is a 77 year old accompanied by her daughter, presenting for the following health issues: RECHECK (Fall 03/2022. Medication ) History chronic low back pain, ftbvydnD20 def, adhd, anxiety and insomnia Hip fracture a couple months ago. Using cane/walker - prolonged ambulation walker. Finished p.t. and doing exercise. Sleep overall ok Needs new TENS units. Stopped wellbutrin. Seen knee specialist and bone on bone. Taking vitaminD. DEXA scan a long year. No osteoporesis. prilosec prn GERD. Ditropan xl 15mg not as affective. No ALCOHOL. One cup coffee in AM. No kegels. History of Present Illness Back Pain: She presents for follow up of back pain. Patient's back pain is a chronic problem. Location of back pain: Right lower back and other Description of back pain: gnawing and other Back pain spreads: right buttocks, left buttocks, right thigh, left thigh and right knee Since patient first noticed back pain, pain is: always present, but gets better and worse Does back pain interfere with her job: Not applicable Reason for visit: Check on meds, b12 shot, knee pain management, ask about lidocaine patch,oxybutinnot as effective as it was She eats 2-3 servings of fruits and vegetables daily.She consumes 2 sweetened beverage(s) daily.Sheexercises with enough effort to increase her heart rate 9 or less minutes per day. She exercises with enough effort to increase her heart rate 3 or less days per week. She is taking medications regularly. Today's PHQ-9 PHQ-9 Total Score: 6 PHQ-9 Q9 Thoughts of better off /self-harm past 2 weeks : Not at all How difficult have these problems made it for you to do your work, take care of things at home, or get along with other people: Not difficult at all Review of Systems Objective BP 108/64 Pulse 91 Temp 97.8 ??F (36.6 ??C) (Tympanic) Resp 20 Ht 1.524 m (5') Wt 48.5 kg(107 lb) SpO2 98% BMI 20.90 kg/m?? Body mass index is 20.9 kg/m??. Physical Exam GENERAL: healthy, alert and no distress EYES: Eyes grossly normal to inspection, PERRL and conjunctivae and sclerae normal HENT: ear canals and TM's normal, nose and mouth without ulcers or lesions NECK: no adenopathy, no asymmetry, masses, or scars and thyroid normal to palpation RESP: lungs clear to auscultation - no rales, rhonchi or wheezes CV: regular rate and rhythm, normal S1 S2, no S3 or S4, no murmur, click or rub, no peripheral edema and peripheral pulses strong ABDOMEN: soft, nontender, no hepatosplenomegaly, no masses and bowel sounds normal MS: Pain with RANGE OF MOTION right hip and tenderness diffusely lower lumbar spine. PSYCH: mentation appears normal, affect normal/bright OR PRIVATE CLIENT ADVISOR documented in this encounter Nursing Notes * Leroy Chavez MA - 05/17/2022 1:30 PM CST Clinic Administered Medication Documentation Injectable Medication Documentation Patient was given Cyanocobalamin (B-12). Prior to medication administration, verified patients identity using patient???s name and date of . Please see MAR and medication order for additional information. Patient instructed to remain in clinic for 15 minutes and report any adverse reaction to staff immediately . Was entire vial of medication used? Yes Vial/Syringe: Single dose vial Expiration Date: 07/2023 Was this medication supplied by the patient? No Leroy Meier, Licensed Practical Nurse [facility] 05/03/2022 at 7:45 AM OR PRIVATE CLIENT ADVISOR documented in this encounter Miscellaneous Notes * Addendum Note - Candice Murillo MD - 05/17/2022 1:30 PM CSTAddended by: CANDICE MURILLO on: 06/16/2022 09:04 AM Modules accepted: Orders documented in this encounter [...] with my [facility] and the [facility] to inquire services I am interested in. Barriers: None noted Strengths: I am willing and able to look into applicable resources. Date to Achieve By: October 2018 Patient expressed understanding of goal: yes documented as of this encounter Results * DX Hip/Pelvis/Spine (06/07/2022 8:55 AM SENIOR PRIVATE CLIENT ADVISOR) Anatomical Region Laterality Modality Dexa Bone Mineral Den sity Narrative 06/11/2022 4:54 PM SENIOR PRIVATE CLIENT ADVISOR BONE DENSITOMETRY [facility] [address] [place] [address] 06/07/2022 ?? PATIENT: Harmony Yoon CHART: [id number] : ??1945 AGE: ??77 year old SEX: ??female REFERRING PROVIDER: ??Candice Murillo MD ?? PROCEDURE: ??Bone density scanning was performed using DXA technology of the lumbar spine and hip. ??Scanning was performed on a Sofea scanner. ??Reporting is completed in the form of a T-score. ??The T-score represents the standard deviation from peak bone mass based on a young healthy adult. ?? REFERENCE T-SCORES: ?Normal ?-1.0 and greater ?Osteopenia ? Between -1.0 and -2.5 ?Osteoporosis ? -2.5 and less ? 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 FINDINGS: ? Lumbar Spine (L2-L4) ?T-score: ??-1.9, marked degenerative changes present, most marked at L3,4, so only L1,2 are evaluated. ? Forearm (radius 33%) ?T-score: ??-3.9 The left femur is not acceptable for evaluation due to previous arthroplasty. The right femur is not acceptable for evaluation due to previous surgical repair. ? Lumbar (L1-L4) BMD: 1.110 ? Forearm (radius 33%) BMD: 0.437 IMPRESSION Severe osteoporosis on the basis of hip fracture. ??Degenerative changes at the lumbar spine may falsely elevate results. Patient had a study performed previously, however the scans are not available to compare to the current study. Recommendations include ensuring adequate Calcium and Vitamin D. The current NOF Guidelines recommend treatment for patients with prior hip or vertebral fracture, T-score -2.5 or below, or 10 year risk of any major osteoporotic fracture 20% or greater, or 10 year risk of hip fracture 3% or greater as calculated using the FRAX calculator (www.shef.ac.uk/FRAX or you can google FRAX). ?? Based on these guidelines, treatment (in addition to calcium and vitamin D) is recommended for this patient, after ruling out other causes of osteoporosis. This is meant as an aid to clinical decision making; one must still use clinical judgement. Follow up can be considered in 2 years. Joyce Cabrera M.D. Electronically signed ? Candice Murillo MD IMG DEXA ORDERABLES documented in this encounter Visit Diagnoses Diagnosis Chronic low back pain, unspecified back pain laterality, unspecified whether sciatica present- Primary Severe episode of recurrent major depressive disorder, without psychotic features (H) Vitamin B12 deficiency without anemia Other B-complex deficiencies Gastroesophageal reflux disease without esophagitis Esophageal reflux Closed fracture of hip, unspecified laterality, sequela Vitamin B12 deficiency (non anemic) Other B-complex deficiencies Osteoporosis with current pathological fracture, unspecified osteoporosis type, sequela Age-related osteoporosis with current pathological fracture, vertebra(e), initial encounter for fracture (H) Osteoporosis with current pathological fracture, unspecified osteoporosis type, sequela Age-related osteoporosis with current pathological fracture, vertebra(e), initial encounter for fracture (H) documented in this encounter Administered Medications Active Administered Medications - up to 3 most recent administrations Medication Order MAR Action Action Date Dose Rate Site cyanocobalamin injection 1,000 mcg 1,000 mcg, Intramuscular, EVERY 30 DAYS, First dose on Fri05/17/22 at 1430, For 12 doses $Given 05/17/2022 2:13 PM SENIOR PRIVATE CLIENT ADVISOR 1,000 mcg Other (see comments) documented in this encounter Additional Health Concerns Assessment Noted Time PHQ-9 Depression Total Score: 6 05/17/19 1:27 PM SENIOR PRIVATE CLIENT ADVISOR documented as of this encounter Care Teams Government Minister Relationship Specialty [place] [address] [place] [address] PCP - General Family Practice 05/14/13 [place] [address] [place] [address] Assigned PCP 01/26/22 [place] [address] [address] [place] [address] Assigned Pain Medication Provider 04/15/22 documented as of this encounter
--- OUTSIDE RECORDS SUMMARY | 2023-05-04 03:30 | XMS_ITS ---
Author Name Unknown Organization [facility] Address [address] [place] [address] Care Team Providers Care Production Tool Engineer Name Role Phone Unavailable Unavailable Unavailable Surgery Details Not on file Complications Check Surgery Details section. Procedure Estimated Blood Loss Check Surgery Details section. Procedure Findings Check Surgery Details section. Procedure Specimens Taken Check Surgery Details section.
--- OUTSIDE RECORDS SUMMARY | 2023-05-04 03:30 | XMS_ITS | Referral Summary ---
Author Name Unknown Organization [facility] Address [address] [place] [address] Care Team Providers Care Real Estate Officer Name Role Phone Unavailable Primary Care Provider Unavailabl e Source Comments Patient records contain information from all sites at [facility]. For routine questions regarding patient records, call [phone] during business hours, M-F 8:00 AM - 5:00 PM Central Time. Record requests for emergency care only can be directed to [phone] at any time.[facility] Allergies Active Allergy Reactions Criticality Noted Date Comments Acetaminophen Other (see comments) 03/11/2022 Per [facility] EMR Amitriptyline Other (see comments) 03/11/2022 Per [facility] Codeine Other (see comments) 03/11/2022 Per [facility] E[facility] Diphenhydramine Other (see comments) 03/11/2022 Per [facility] E[facility] Methylphenidate Swelling High 01/06/2014 Tongue swelling Zinc Other (see comments) 03/11/2022 Per [facility] E[facility] Medications Medication Sig Dispensed Refills Start Date End Date Status lidocaine (SALONPAS) 4 % adhesive patch,medicated Place 1 patch on the skin daily. Apply to low back 0 Active acetaminophen (TYLENOL) 325 mg tablet Take 350 mg by mouth every 6 (six) hours as needed. 0 Active ondansetron ODT (ZOFRAN-ODT) 4 mg disintegrating tablet Dissolve 4 mg in the mouth every 6 (six) hours as needed. 0 Active valACYclovir (VALTREX) 500 mg tablet Take 500 mg by mouth daily. 0 Active multivitamin tablet Take 1 tablet by mouth daily. 0 Active albuterol 90 mcg/actuation inhaler Inhale 2 puffs every 4 (four) hours as needed. 0 Active cranberry 500 mg capsule Take 1,500 mg by mouth daily. 0 Active omeprazole (PriLOSEC) [address] capsule Take 20 mg by mouth every morning before breakfast. 0 Active traZODone (DESYREL) 150 mg tablet Take 150 mg by mouth at bedtime. 0 Active cyanocobalamin (VITAMIN B12) 1,000 mcg/mL injection Inject 1,000 mcg intramuscularly every 30 (thirty) days. Every month on the 0 Active ALPRAZolam (XANAX) 0.25 mg tablet Take 0.25 mg by mouth 2 (two) times a day as needed. 0 Active oxybutynin (DITROPAN XL) 15 mg 24 hr tablet Take 15 mg by mouth at bedtime. 0 Active sennosides (SENOKOT) 8.6 mg tablet Take 2 tablets by mouth 2 (two) times a day. 0 Active atomoxetine (STRATTERA) 10 mg capsule Take 10 mg by mouth daily. 0 Active gabapentin (NEURONTIN) 300 mg capsule Take 900 mg by mouth at bedtime. 0 Active rivaroxaban (XARELTO) 10 mg tablet Take 1 tablet (10 mg total) by mouth daily with dinner for 24 days. 24 tablet 0 03/13/2022 Active traMADoL (ULTRAM) 50 mg tabletIndications:C hronic Pain/Nonacute Pain Take 1-2 tablets (50-100 mg total) by mouth every 6 (six) hours as needed for moderate pain or score 4-6 of 10 Indications: Chronic Pain/Nonacute Pain. 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 Provider to review and confirm. Problem list name updated by automated process. Provider to review Insomnia 03/22/2013 Pain Knee Right 03/22/2013 Immunizations Name Administration Dates Next Due Influenza (IM) Preservative Free 02/14/2011,12/06 Influenza TIV (IM) 12/14/2012, 2,02/23/2008,2006,02/13/2006,02/19/2005 Influenza high dose QV(65 ye ars or older) (PF) 01/21/2022 Influenza, Seasonal, Injectable 12/25/19 13,01/14/2012,02/23/2008,2006,02/13/2006,02/19/2005 PCV13 01/17/2016 PPSV23 08/25/2013,08/08/2010 RZV (SHINGRIX) 10/11/2019,09/29/2019 SARS-COV-2 (COVID-19) - MULU (J&J) 06/20/2020 SARS-COV-2 (COVID-19) - MODERNA 02/05/2021 Tdap 08/08/2010 influenza high dose (65 year s or older) (PF) 02/05/2021,01/26/2019,12/25/2017,2016,01/17/2016,01/03/2015 influenza vaccine quad (FLUZONE/FLUARIX) (6 months and older)(PF) 02/05/2021,12/25/2017,12/12/2016,2015,01/03/2015,02/03/2014,12/24/2012,1 ,02/14/2011,12/21/2009, 008,02/23/2007,02/13/2006,02/19/2005 Social History Tobacco Use Types Packs/Day Years Used Date Smoking Tobacco: Every Day Cigarettes 0.5 Smokeless Tobacco: Never Tobacco Cessation:Ready to Q uit: Not Asked; Counseling Given: Not Answered Alcohol Use Standard Drinks/Week Comments Not Currently 0 (1 standard drink = 0.6 oz pur e alcohol) Nutrition Answer Date Recorded Nutrition: EVOO Fat Source Unknown 03/11 Nutrition: Servings of Fruits/Vegetables per Day Not on file 03/11/2022 Dental Answer Date Recorded Dental: Regular Dentist Unknown 03/11/20 Sex and Gender Information Value Date Recorded Sex Assigned at Not on file Gender Identity Not on file Sexual Orientation Not on file Last Filed Vital Signs Vital Sign Reading Time Taken Comments Blood Pressure 137/76 03/12/2022 8:34 AM HOTEL RESERVATIONIST Pulse 70 03/12/2022 8:34 AM HOTEL RESERVATIONIST Temperature 36.7 ??C (98.1 ??F) 03/12/2022 8:34 AM CS T Respiratory Rate 17 03/12/2022 8:34 AM HOTEL RESERVATIONIST Oxygen Saturation 96% 03/12/2022 8:34 AM HOTEL RESERVATIONIST Inhaled Oxygen Concentration - - Weight - - Height - - Body Mass Index - - Plan of Treatment Not on file Advance Directives For more information, please contact: [phone] Documents on File Type Date Recorded Patient Final Application Reviewer Expl anation Advance Directives 03/12/2022 1:55 PM POLLizbeth T/MOLST
--- OUTSIDE RECORDS SUMMARY | 2023-05-04 03:30 | XMS_ITS | Encounter Summary ---
Author Name Unknown Organization [facility] Address [address] [place] [address]. [place] [address] Care Team Providers Care Paste Up Copy Camera Operator Name Role Phone Davy Murillo MD Primary Care Provider Davy Murillo MD Unavailable [phone] Davy Murillo MD Unavailable Reason for Visit * Diagnostic Imaging Dexa (Routine) - Pending Review Specialty Diagnoses / Procedures Referred By Carlos t Referred To Contact Radiology. Diagnoses Asymptomatic postmenopausal status Procedures [place] [address] [place] [address] Referral ID Status Reason Start Date Expiration Date V isits Requested Visits Authorized [id number] Pending Review 06/07/2022 06/07/2023 1 1 Encounter Details Date Type Department Care Team (Latest Contact Info) Description 06/07/2022 9:05 AM HEALTH AND PHYSICAL EDUCATION TEACHER Ancillary Procedure M [address] [id number] [place] [address] [place] [address] Asymptomatic postmenopausal status Social History Tobacco Use Types Packs/Day Years [...] Coronavirus/COVID-19? No / Unsure 06/07/2022 8:24 AM HEALTH AND PHYSICAL EDUCATION TEACHER documented as of this encounter Miscellaneous Notes * Result Encounter Note - Linh Ulrich MD - 06/07/2022 9:05 AM HEALTH AND PHYSICAL EDUCATION TEACHER Ok to hold for primary TH AND PHYSICAL EDUCATION TEACHER documented in this encounter Plan of Treatment [...] work with my [facility] and the [facility] to inquire services I am interested in. Barriers: None noted Strengths: I am willing and able to look into applicable resources. Date to Achieve By: October 2018 Patient expressed understanding of goal: yes documented as of this encounter Procedures Procedure Name Priority Date/Time Associated Diagnosis Comments DX WRIST/HEEL/RADIUS Routine 06/07/2022 8:55 AM HEALTH AND PHYSICAL EDUCATION TEACHER Asymptomatic postmenopausal status documented in this encounter Results * DX Wrist Heel Radius (06/07/2022 8:55 AM HEALTH AND PHYSICAL EDUCATION TEACHER) Anatomical Region Laterality Modality Dexa Bone Mineral Den sity Narrative 06/11/2022 4:54 PM HEALTH AND PHYSICAL EDUCATION TEACHER BONE DENSITOMETRY [facility] [address] [place] [address] 06/07/2022 ?? PATIENT: Harmony Yoon CHART: [id number] : ??1945 AGE: ??77 year old SEX: ??female REFERRING PROVIDER: ??Davy Murillo MD ?? PROCEDURE: ??Bone density scanning was performed using DXA technology of the lumbar spine and hip. ??Scanning was performed on a [employer] scanner. ??Reporting is completed in the form [...] 2 years. Joyce Cabrera M.D. Electronically signed Davy Murillo MD IMG DEXA ORDERABLES documented in this encounter Visit Diagnoses Diagnosis Asymptomatic postmenopausal status documented in this encounter Additional Health Concerns Assessment Noted Time PHQ-9 Depression Total Score: 6 05/17/19 23 1:27 PM HEALTH AND PHYSICAL EDUCATION TEACHER documented as of this encounter Care Teams Paste Up Copy Camera Operator Relationship Specialty [place] [address] [address] [facility] [place] [address] PCP - General Family Practice 05/14/13 [place] [address] [address] [address] Assigned PCP 01/26/22 [place] [address] [address] [address] Assigned Pain Medication Provider 04/15/22 documented as of this encounter
--- OUTSIDE RECORDS SUMMARY | 2023-05-04 03:30 | XMS_ITS | Encounter Summary ---
Author Name Unknown Organization [facility] Address [address] [place] [address]. [place] [address] Care Team Providers Care Manager Bar Name Role Phone Davy Murillo MD Primary Care Provider [phone] Davy Murillo MD Unavailable [phone] Davy Murillo MD Unavailable [phone] Encounter Details Date Type Department Care Team (Latest Contact Info) Description 05/17/2022 Travel Social History Tobacco Use Types Packs/Day [...] suspected to have Coronavirus/COVID-19? No / Unsure 05/17/2022 1:23 PM MARITIME GUARD documented as of this encounter Plan of Treatment Not on file documented as of this encounter Goals Goal Patient Goal Type Associated Problems Recent Progress Patient-Stated? Author Financial Wellbeing General 20%( 9 1:15 PM CDT) Yes Lbierty Harris, FINAL ASSEMBLY WORKER Note: Goal Statement: I would like to learn about financial resources that can assist me and my . Measure of Success: Whether or not I am able to qualfy programs that are helpful Supportive Steps to Achieve: I will work with my [facility] and the [facility] to inquire services I am interested in. Barriers: None noted Strengths: I am willing and able to look into applicable resources. Date to Achieve By: October 2018 Patient expressed understanding of goal: yes documented as of this encounter Visit Diagnoses Not on filedocumented in this encounter Additional Health Concerns Assessment Noted Time PHQ-9 Depression Total Score: 6 05/17/19 23 1:27 PM MARITIME GUARD documented as of this encounter Care Teams Manager Bar Relationship Specialty [place] [address] [place] [address] PCP - General Family Practice 05/14/13 [place] [address] [place] [address] Assigned PCP 01/26/22 [place] [address] [place] [address] Assigned Pain Medication Provider 04/15/22 documented as of this encounter
--- OUTSIDE RECORDS SUMMARY | 2023-05-04 03:30 | XMS_ITS | Clinical Summary ---
Author Name Unknown Organization [facility] Address [address] [place] [address] Care Team Providers Care Rehabilitation Aide Name Role Phone Unavailable Primary Care Provider Unavailabl e Source Comments Patient records contain information from all sites at [facility]. For routine questions regarding patient records, call [phone] during business hours, M-F 8:00 AM - 5:00 PM Central Time. Record requests for emergency care only can be directed to [phone] at any time.[facility] Allergies Active Allergy Reactions Criticality Noted Date Comments Acetaminophen Other (see comments) 03/11/2022 Per [facility] EMR Amitriptyline Other (see comments) 03/11/2022 Per [facility] E[facility] Codeine Other (see comments) 03/11/2022 Per [facility] EMR Diphenhydramine Other (see comments) 03/11/2022 Per [facility] EMR Methylphenidate Swelling High 01/06/2014 Tongue swelling Zinc Other (see comments) 03/11/2022 Per [facility] EMR Medications Medication Sig Dispensed Refills Start [...] Comments Blood Pressure 137/76 03/12/2022 8:34 AM ANTIQUE JEWELRY REPAIRER Pulse 70 03/12/2022 8:34 AM ANTIQUE JEWELRY REPAIRER Temperature 36.7 ??C (98.1 ??F) 03/12/2022 8:34 AM CS T Respiratory Rate 17 03/12/2022 8:34 AM ANTIQUE JEWELRY REPAIRER Oxygen Saturation 96% 03/12/2022 8:34 AM ANTIQUE JEWELRY REPAIRER Inhaled Oxygen Concentration - - Weight - - Height - - Body Mass Index - - Plan of Treatment Health Maintenance Due Date Last Done Comments Depression Monitoring (PHQ-9) 1945 Tobacco Cessation counseling 1945 Zoster Vaccines (2 of 2) 12/06/2019 10/11/2019, 09/06 Fall Risk Screen (Annual) 04/07/2023 DTaP,Tdap,and Td Vaccines (3 - Td or Tdap) 11/26/2032 11/26/2022, 08/08/2010 Pneumococcal vaccine (65+ years) Completed 01/17/2016, 08/25/2013, 08/08/2010 COVID-19 Vaccine Completed 01/11/2023, , 02/05/2021, Additional history exists Influenza Vaccine Completed 01/11/2023, , 02/05/2021, Additional history exists Advance Directives For more information, please contact: [phone] Documents on File Type Date Recorded Patient Bladder Cleaner Expl anation Advance Directives 03/12/2022 1:55 PM ALLEN Martinez/NASEEM
--- OUTSIDE RECORDS SUMMARY | 2023-05-04 03:30 | XMS_ITS | Encounter Summary ---
Author Name Unknown Organization [facility] Address [address] [place] [address]. [place] [address] Care Team Providers Care Neon Glass Bender Name Role Phone Davy Murillo MD Primary Care Provider Davy Murillo MD Unavailable Davy Murillo MD Unavailable Liberty HarrisW Unavailable Walter Bryson DO Unavailable Davy Murillo MD Unavailable Davy Murillo MD Unavailable [phone] Reason for Visit * Reason Comments Medication Refill Encounter Details Date Type Department Care Team (Late st Contact Info) Description 01/17/2017 Refill [facility] [address] [place] [address] [place] [address] [place] [address] Medication Refill Social History Tobacco Use Types Packs/Day Years Used Date Smoking Tobacco: Some Days Cigarettes 0.5 40 Smokeless Tobacco: Never Alcohol Use Standard Drinks/Week Comments No 0 (1 standard drink = 0.6 oz pur e alcohol) red wine rare Sex and Gender Information Value Date Recorded Sex Assigned at Not on file Gender Identity Not on file Sexual Orientation Not on file documented as of this encounter Miscellaneous Notes * Telephone Encounter - Patience Wisdom RN - 01/17/2017 2:55 PM CDT Controlled Substance Refill Request for ultram Problem List Complete: Yes ? Patient is followed by Davy Murillo MD??for ongoing prescription of pain medication. ??All refills should be approved by this provider, or covering partner. Medication(s): tramadol. Maximum quantity per month: max #6/day Clinic visit frequency required: Q 4 months?? Controlled substance??agreement: ? Encounter-Level CSA:? There are no encounter-level csa. ? Pain Clinic evaluation in the past: No DIRE Total Score(s): No flowsheet data found. Last [facility] website verification: ??12/16/16 Abbi Wisdom RN documented in this encounter Plan of Treatment Not on file documented as of this encounter Visit Diagnoses Diagnosis Chronic low back pain, unspecified back pain laterality, with sciatica presence unspecified documented in this encounter Additional Health Concerns Assessment Noted Time PHQ-9 Depression Total Score: 0 04/26/19 16 7:58 AM AUTOMOTIVE LUBE TECHNICIAN documented as of this encounter Care Teams Neon Glass Bender Relationship Specialty [place] [address] [address] [address] PCP - General Family Practice 05/14/13 [place] [address] [address] [address] PCP - Assigned PCP 02/26/13 06/09/18 [place] [address] [address] [address] Assigned PCP 02/26/13 10/19/21 Liberty Harris, SCIENCE WRITER [facility] [address] [facility] [address] [place] [place] [address] Lead Drone Pilot Primary Care - CC 07/21/18 Walter Bryson DO [address] [facility] [address] Assigned Musculoskeletal Provider 01/28/20 03/11/20 [place] [address] [address] [address] Assigned PCP 01/26/22 [place] [address] [address] [address] Assigned Pain Medication Provider 04/15/22 documented as of this encounter
--- OUTSIDE RECORDS SUMMARY | 2023-05-04 03:30 | XMS_ITS | Encounter Summary ---
Author Name Unknown Organization [facility] Address [address] [place] [address]. [place] [address] Care Team Providers Care Oyster Culturist Name Role Phone Davy Murillo MD Primary Care Provider Davy Murillo MD Unavailable Davy Murillo MD Unavailable [phone] Liberty HarrisW Unavailable Walter Bryson DO Unavailable Davy Murillo MD Unavailable Davy Murillo MD Unavailable [phone] Reason for Visit * Reason Comments Medication Refill Encounter Details Date Type Department Care Team (Late st Contact Info) Description 03/18/2017 Refill [facility] [address] [place] [address] [place] [address] [place] [address] Medication Refill Social History Tobacco [...] as of this encounter Visit Diagnoses Diagnosis LOUISA (generalized anxiety disorder) Generalized anxiety disorder documented in this encounter Additional Health Concerns Assessment Noted Time PHQ-9 Depression Total Score: 0 04/26/19 16 7:58 AM DYNAMOMETER MECHANIC documented as of this encounter Care Teams Oyster Culturist Relationship Specialty [place] [address] [place] [address] PCP - General Family Practice 05/14/13 [place] [address] [place] [address] PCP - Assigned PCP 02/26/13 06/09/18 [place] [address] [place] [address] Assigned PCP 02/26/13 10/19/21 Liberty Harris, MANAGER BILINGUAL [facility] [address] [facility] [address] [place] [address] Lead Outside Installation Machinist Primary Care - CC 07/21/18 Walter Bryson DO [address] [place] [address] Assigned Musculoskeletal Provider 01/28/20 03/11/20 [place] [address] [place] [address] Assigned PCP 01/26/22 [place] [address] [place] [address] Assigned Pain Medication Provider 04/15/22 documented as of this encounter
--- OUTSIDE RECORDS SUMMARY | 2023-05-04 03:30 | XMS_ITS | Encounter Summary ---
Author Name Unknown Organization [facility] Address [address] [place] [address]. [place] [address] Care Team Providers Care Caramel Candy Maker Helper Name Role Phone Davy Murillo MD Primary Care Provider [phone] Davy Murillo MD Unavailable Davy Murillo MD Unavailable Reason for Visit * Reason Comments Medication Refill Encounter Details Date Type Department Care Team (Late st Contact Info) Description [facility] [address] [place] [address] [place] [address] [place] [address] Medication Refill Social History Tobacco Use Types Packs/Day Years Used Date Smoking Tobacco: Every Day Cigarettes 0.5 40 Smokeless Tobacco: Never Alcohol Use Standard Drinks/Week Comments No 0 (1 standard drink = 0.6 oz pur e alcohol) red wine rare PHQ-2 Answer Date Recorded PHQ-2 Score 3 03/26/2022 Sex and Gender Information Value Date Recorded Sex Assigned at Not on file Gender Identity Not on file Sexual Orientation Not on file documented as of this encounter Plan of Treatment Not on file documented as of this encounter Goals Goal Patient Goal Type Associated Problems Recent Progress Patient-Stated? Author Financial Wellbeing General %( 9 1:15 PM CDT) Yes Liberty Harris LSW Note: Goal Statement: I would like to learn about financial resources that can assist me and my . Measure of Success: Whether or not I am able to qualfy programs that are helpful Supportive Steps to Achieve: I will work with my [facility] and the [facility] to inquire services I am interested in. Barriers: None noted Strengths: I am willing and able to look into applicable resources. Date to Achieve By: October 2018 Patient expressed understanding of goal: yes documented as of this encounter Visit Diagnoses Diagnosis Attention deficit hyperactivity disorder (ADHD), predominantly inattentive type documented in this encounter Additional Health Concerns Assessment Noted Time PHQ-9 Depression Total Score: 11 022 1:40 PM CEMENT CRUSHER OPERATOR documented as of this encounter Care Teams Caramel Candy Maker Helper Relationship Specialty [place] [address] [address] [facility] [address] PCP - General Family Practice 05/14/13 [place] [address] [address] [address] Assigned PCP 01/26/22 [place] [address] [address] [address] Assigned Pain Medication Provider 04/15/22 documented as of this encounter
--- OUTSIDE RECORDS SUMMARY | 2023-05-04 03:30 | XMS_ITS | Clinical Summary ---
Author Name Unknown Organization [employer] [facility] [employer] Address [place], [place] [address] Care Team Providers Care Skin Lap Bonder Name Role Phone Emerita Oviedo DO Unavailable Daniele Hawkins MD Primary Care Provider [phone] Allergies No known active allergies Medications Medication Sig Dispensed Refills Start Date End Date Status (u) VITAMIN B-12 1000 MCG/ML SOLN Give 1 cc IM injection every month ? 0 06/10/2000 Active XANAX 0.5 MG ORAL TAB Take 1 every evening 30 6 09/04/2000 Active ADDERALL 20 MG ORAL TAB Take 1 twice / day 60 0 03/23/2001 Active meclizine (ANTIVERT) 25 mg tabletIndications:Di zziness Take 1 tablet by mouth 3 times daily if needed for Other (Specify) (dizziness). 15 tablet 0 10/28/2015 Active ondansetron (ZOFRAN ODT) 8 mg disintegrating tabletIndications:Na usea Place 1 tablet on the tongue every 8 hours if needed for Nausea/Vomiting. 5 tablet 0 10/28/2015 Active TENS unit and electrodes cmpkIndications:DDD (degenerative disc disease), lumbar,Lumbar radiculopathy,Lumbar facet arthropathy,Myofasci al pain syndrome of lumbar spine As directed. Transcutaneous electrical nerve stimulation unit and supplies. 99 months 1 Each 0 11/25/2022 Active Active Problems Problem Noted Date Diagnosed Date DISEASE, CEREBROVASCULAR NEC 02/05/1998 DISORDER, DEPRESSIVE NEC Encounters Date Type Department Care Team Description 03/04/2023 11:20 AM PATHOLOGY MANAGER Office Visit [facility] [address] [place] [id number] Walter Gomes MD Procedure (Right L4-5 TFESI) 03/04/2023 Orders Only [facility] Scanner 1 scan: (1-Ord) [facility], INJ, RT L4-L5 TRANSFORAMINAL , 03/04/2023 from Last 3 Months Family History Medical History Relation Name Comments Genetic Other Father: d (age:68) Heart disease/ Diabetes~Mother: Cancer~Brother: Cancer(pancreas,liver,brain) Relation Name Status Comments Other Social History Tobacco Use Types Packs/Day Years Used Date Smoking Tobacco: Every Day Cigarettes 1 35 Social Connections Answer Date Recorded Frequency of Communication with Friends and Fami ly Not on file 10/01/2022 Sex and Gender Information Value Date Recorded Sex Assigned at Not on file Gender Identity Not on file Sexual Orientation Not on file Obstetrics History Last Filed Vital Signs Vital Sign Reading Time Taken Comments Blood Pressure 116/56 11/07/2015 1:54 PM CDT Pulse 69 11/07/2015 1:54 PM CDT Temperature 36.3 ??C (97.3 ??F) 11/07/2015 1:54 PM CD T Respiratory Rate 16 11/07/2015 1:54 PM CDT Oxygen Saturation 97% 11/07/2015 1:54 PM CDT Inhaled Oxygen Concentration - - Weight 47.1 kg (103 lb 12.8 oz) 11/07/2015 1:52 PM CDT Height 152.4 cm (5') 11/07/2015 1:51 PM CDT Body Mass Index 20.27 11/07/2015 1:51 PM CDT Plan of Treatment Upcoming Encounters Date Type Department Care Team (Late st Contact Info) Description 05/05/2023 1:20 PM PATHOLOGY MANAGER Office Visit [facility] [address] [place] [address] Walter Gomes MD [address] [place] [address] Health Maintenance Due Date Last Done Comments Pneumococcal series for age 65+ (1 of 2 - PCV) 1949 Tdap 1954 Depression screening for age 12+ 1955 Tetanus booster 1963 Zoster (shingles) series for age 50+ (1 of 2) 1993 DEXA/DXA scan for age 65+ 2008 Medicare Wellness for age 65+ 2008 BMI (ht and wt on same day) for age 18+ 10/27/2016 10/28/2015 Influenza for age 65+ 12/06/2022 COVID-19 vaccine series Completed 01/12/20, 09/17/2021, 02/05/2021, Additional history exists Procedures Procedure Name Priority Date/Time Associated Diagnosis Comments AMB EPIDURAL STEROID INJECTION Routine 03/04/2023 8:14 AM PATHOLOGY MANAGER Lumbar radiculopathy DDD (degenerative disc disease), lumbar Lumbar facet arthropathy SCAN-OPERATIVE/PROC EDURE REPORT 03/04/2023 12:00 AM PATHOLOGY MANAGER from Last 3 Months Results * SCAN-OPERATIVE/PROCEDURE REPORT (03/04/2023 12:00 AM PATHOLOGY MANAGER) Scanner OTHER from Last 3 Months Care Teams Skin Lap Bonder Relationship Specialty Start Date End Date Daniele Hawkins MD [address] [place] [address] PCP - General Family Practice 11/25/22 Emerita Oviedo DO [address] [place] [address] 01/30/12
--- OUTSIDE RECORDS SUMMARY | 2023-05-04 03:30 | XMS_ITS | Encounter Summary ---
Author Name Unknown Organization [facility] Address [address] [place] [address]. [place] [address] Care Team Providers Care Senior Application Software Engineer Name Role Phone Davy Murillo MD Primary Care Provider Davy Murillo MD Unavailable [phone] Davy Murillo MD Unavailable [phone] Reason for Visit * Reason Onset Date Comments Refill Request 05/18/2022 90 days supply ( lidocaine (LIDODERM) 5 % patch) Encounter Details Date Type Department Care Team (Late st Contact Info) Description 05/18/2022 [facility] [address] [place] [address] [place] [address] [place] [address] Refill Request (90 days supply (lidocaine (LIDODERM) 5 % patch)) Social History Tobacco Use Types Packs/Day Years [...] Coronavirus/COVID-19? No / Unsure 05/17/2022 1:23 PM BRIDGE ATTACHER documented as of this encounter Miscellaneous Notes * Telephone Encounter - Francesca Ortega - 05/18/2022 6:28 PM CST Patient is requesting 90 days supply for lidocaine (LIDODERM) 5 % patch. GE ATTACHER documented in this encounter Plan of Treatment [...] to Achieve: I will work with my [facility] and the [facility] to inquire services I am interested in. Barriers: None noted Strengths: I am willing and able to look into applicable resources. Date to Achieve By: October 2018 Patient expressed understanding of goal: yes documented as of this encounter Visit Diagnoses Diagnosis Closed fracture of hip, unspecified laterality, sequela Chronic low back pain, unspecified back pain laterality, unspecified whether sciatica present documented in this encounter Additional Health Concerns Assessment Noted Time PHQ-9 Depression Total Score: 6 05/17/19 23 1:27 PM BRIDGE ATTACHER documented as of this encounter Care Teams Senior Application Software Engineer Relationship Specialty [place] [address] [address] [place] [address] PCP - General Family Practice 05/14/13 [place] [address] [address] [address] Assigned PCP 01/26/22 [place] [address] [place] [address] Assigned Pain Medication Provider 04/15/22 documented as of this encounter
--- OUTSIDE RECORDS SUMMARY | 2023-05-04 03:30 | XMS_ITS | Encounter Summary ---
Author Name Unknown Organization [facility] Address [address] [place] [address]. [place] [address] Care Team Providers Care Transitions Rn Care Coordinator Name Role Phone Davy Murillo MD Primary Care Provider [phone] Davy Murillo MD Unavailable [phone] Davy Murillo MD Unavailable Reason for Visit * Diagnostic Imaging Dexa (Routine) - Pending Review Specialty Diagnoses / Procedures Referred By Carlos t Referred To Contact Radiology. Diagnoses Osteoporosis with current pathological fracture, unspecified osteoporosis type, sequela Age-related osteoporosis with current pathological fracture, vertebra(e), initial encounter for fracture (H) Procedures DX Hip/Pelvis/[place] [address] [place] [address] Referral ID Status Reason Start Date Expiration Date V isits Requested Visits Authorized [id number] Pending Review 05/17/2022 05/17/2023 1 1 Encounter Details Date Type Department Care Team (Latest Contact Info) Description 06/07/2022 9:00 AM NURSING SERVICE ADMINISTRATOR Ancillary Procedure M [address] [phone] [place] [address] [place] [address] Osteoporosis with current pathological fracture, unspecified osteoporosis [...] Coronavirus/COVID-19? No / Unsure 06/07/2022 8:24 AM NURSING SERVICE ADMINISTRATOR documented as of this encounter Miscellaneous Notes * Result Encounter Note - Linh Ulrich MD - 06/07/2022 9:00 AM NURSING SERVICE ADMINISTRATOR Ok to hold for primary ING SERVICE ADMINISTRATOR documented in this encounter Plan of Treatment Not on file documented as of this encounter Goals Goal Patient Goal Type Associated Problems Recent Progress Patient-Stated? Author Financial Wellbeing General 20%( 9 1:15 PM CDT) Yes Liberty Harris, GANG HEMSTITCHING MACHINE OPERATOR Note: Goal Statement: I would like to learn about financial resources that can assist me and my . Measure of Success: Whether or not I am able to qualfy programs that are helpful Supportive Steps to Achieve: I will work with my [facility] and the [facility] to inquire services I am interested in. Barriers: None noted Strengths: I am willing and able to look into applicable resources. Date to Achieve By: October 2018 Patient expressed understanding of goal: yes documented as of this encounter Procedures Procedure Name Priority Date/Time Associated Diagnosis Comments DX HIP/PELVIS/SPINE Routine 06/07/2022 8:55 AM NURSING SERVICE ADMINISTRATOR Osteoporosis with current pathological fracture, unspecified osteoporosis type, sequela Age-related osteoporosis with current pathological fracture, vertebra(e), initial encounter for fracture (H) documented in this encounter Results * DX Hip/Pelvis/Spine (06/07/2022 8:55 AM NURSING SERVICE ADMINISTRATOR) Anatomical Region Laterality Modality Dexa Bone Mineral Den sity Narrative 06/11/2022 4:54 PM NURSING SERVICE ADMINISTRATOR BONE DENSITOMETRY [address] [address] 06/07/2022 ?? PATIENT: Harmony Yoon CHART: [id number] : ??1945 AGE: ??77 year old SEX: ??female REFERRING PROVIDER: ??Davy Murillo MD ?? PROCEDURE: ??Bone density scanning was performed using DXA technology of the lumbar spine and hip. ??Scanning was performed on a Cat Amania scanner. ??Reporting is completed in the form [...] years. Joyce Cabrera M.D. Electronically signed ? Davy Murillo MD IMG DEXA ORDERABLES documented in this encounter Visit Diagnoses Diagnosis Osteoporosis with current pathological fracture, unspecified osteoporosis type, sequela Age-related osteoporosis with current pathological fracture, vertebra(e), initial encounter for fracture (H) documented in this encounter Additional Health Concerns Assessment Noted Time PHQ-9 Depression Total Score: 6 05/17/19 23 1:27 PM NURSING SERVICE ADMINISTRATOR documented as of this encounter Care Teams Transitions Rn Care Coordinator Relationship Specialty [place] [address] [address] [facility] [address] PCP - General Family Practice 05/14/13 [place] [address] [address] [address] Assigned PCP 01/26/22 [place] [address] [address] [address] Assigned Pain Medication Provider 04/15/22 documented as of this encounter
--- OUTSIDE RECORDS SUMMARY | 2023-05-04 03:30 | XMS_ITS | Encounter Summary ---
Author Name Unknown Organization [facility] Address [address] [place] [address]. [place] [address] Care Team Providers Care Materials Scientist Name Role Phone Davy Murillo MD Primary Care Provider [phone] Davy Murillo MD Unavailable [phone] Davy Murillo MD Unavailable [phone] Encounter Details Date Type Department Care Team (Latest Contact Info) Description 06/07/2022 Travel Social History Tobacco Use Types Packs/Day [...] Coronavirus/COVID-19? No / Unsure 06/07/2022 8:24 AM APPRENTICE JOCKEY documented as of this encounter Plan of Treatment Not on file documented as of this encounter Goals Goal Patient Goal Type Associated Problems Recent Progress Patient-Stated? Author Financial Wellbeing General 20%( 9 1:15 PM CDT) Yes Liberty Harris, SENIOR SERVICE TECHNICIAN Note: Goal Statement: I would like to learn about financial resources that can assist me and my . Measure of Success: Whether or not I am able to qualfy programs that are helpful Supportive Steps to Achieve: I will work with my [facility] and the [facility] to inquire services I am interested in. Barriers: None noted Strengths: I am willing and able to look into applicable resources. Date to Achieve By: October 2018 Patient expressed understanding of goal: yes documented as of this encounter Visit Diagnoses Not on filedocumented in this encounter Additional Health Concerns Assessment Noted Time PHQ-9 Depression Total Score: 6 05/17/19 23 1:27 PM APPRENTICE JOCKEY documented as of this encounter Care Teams Materials Scientist Relationship Specialty [place] [address] [place] [address] PCP - General Family Practice 05/14/13 [place] [address] [place] [address] Assigned PCP 01/26/22 [place] [address] [place] [address] Assigned Pain Medication Provider 04/15/22 documented as of this encounter
--- OUTSIDE RECORDS SUMMARY | 2023-05-04 03:30 | XMS_ITS | Encounter Summary ---
Author Name Unknown Organization [facility] Address [address] [place] [address]. [place] [address] Care Team Providers Care Household Refrigeration Mechanic Name Role Phone Davy Murillo MD Primary Care Provider Davy Murillo MD Unavailable [phone] Davy Murillo MD Unavailable [phone] Reason for Visit * Reason Onset Date Comments Refill Request 05/02/2022 Encounter Details Date Type Department Care Team (Late st Contact Info) Description 05/02/2022 Refill [facility] [address] [place] [address] [place] [address] [place] [address] Refill Request Social History Tobacco [...] to Achieve: I will work with my [facility] and the [facility] to inquire services I am interested in. Barriers: None noted Strengths: I am willing and able to look into applicable resources. Date to Achieve By: October 2018 Patient expressed understanding of goal: yes documented as of this encounter Visit Diagnoses Diagnosis Closed fracture of hip, unspecified laterality, sequela LOUISA (generalized anxiety disorder) Generalized anxiety disorder documented in this encounter Additional Health Concerns Assessment Noted Time PHQ-9 Depression Total Score: 11 022 1:40 PM COMPUTED TOMOGRAPHY SCANNER OPERATOR documented as of this encounter Care Teams Household Refrigeration Mechanic Relationship Specialty [place] [address] [place] [address] PCP - General Family Practice 05/14/13 [place] [address] [place] [address] Assigned PCP 01/26/22 [place] [address] [place] [address] Assigned Pain Medication Provider 04/15/22 documented as of this encounter
--- OUTSIDE RECORDS SUMMARY | 2023-05-04 03:30 | XMS_ITS | Encounter Summary ---
Author Name Unknown Organization [facility] Address [address] [place] [address]. [place] [address] Care Team Providers Care Infantry Weapons Crewmember Name Role Phone Davy Murillo MD Primary Care Provider Davy Murillo MD Unavailable [phone] Davy Murillo MD Unavailable Liberty HarrisW Unavailable [phone] Walter Bryson DO Unavailable Davy Murillo MD Unavailable [phone] Davy Murillo MD Unavailable [phone] Reason for Visit * Reason Comments Medication Refill Encounter Details Date Type Department Care Team (Late st Contact Info) Description 12/12/2016 Refill [facility] [address] [place] [address] [place] [address] [place] [address] Medication Refill Social History Tobacco [...] encounter Miscellaneous Notes * Telephone Encounter - Nikole Espinosa RN - 12/16/2016 11:20 AM CDT Request for Alprazolam refill. Duplicate . This was filled 12/13/16. Controlled Substance Refill Request for Tramadol Problem List Complete: Yes Patient is followed by Davy Murillo MD [...] Total Score(s): No flowsheet data found. Last [facility] website verification: 12/16/16 [email or web address] documented in this encounter Plan of Treatment Not on file documented as of this encounter Visit Diagnoses Diagnosis Chronic low back pain, unspecified back pain laterality, with sciatica presence unspecified LOUISA (generalized anxiety disorder) Generalized anxiety disorder documented in this encounter Additional Health Concerns Assessment Noted Time PHQ-9 Depression Total Score: 0 04/26/19 16 7:58 AM COLOR GRINDER documented as of this encounter Care Teams Infantry Weapons Crewmember Relationship Specialty [place] [address] [address] [address] PCP - General Family Practice 05/14/13 [place] [address] [address] [place] [address] PCP - Assigned PCP 02/26/13 06/09/18 [place] [address] [address] [address] Assigned PCP 02/26/13 10/19/21 Liberty Harris, CLERICAL STOCK INSPECTOR [facility] [address] [facility] [address] [place] [address] Lead Plan Nurse Primary Care - CC 07/21/18 Walter Bryson DO [address] [place] [address] Assigned Musculoskeletal Provider 01/28/20 03/11/20 [place] [address] [address] [address] Assigned PCP 01/26/22 [place] [address] [address] [address] Assigned Pain Medication Provider 04/15/22 documented as of this encounter
== END 2023-05-04 03:42 | disposition home or self-care (01) ==
LOC: ED 03:35
PROVIDERS: Emergency Provider Internal Medicine; PCP Family Medicine
DX: M54.50 Low back pain, unspecified (principal)
CPT/HCPCS: 99283; 99284

== ENCOUNTER 2023-05-20 09:11 | Outpatient (CLI) | payer MEDICARE, SELFPAY ==
--- OUTSIDE RECORDS SUMMARY | 2023-05-20 09:14 | XMS_ITS | Encounter Summary ---
Author Name Unknown Organization [facility] Address [address] [place] [address]. [place] [address] Care Team Providers Care Biostatistics Manager Name Role Phone Davy Murillo MD Primary Care Provider Davy Murillo MD Unavailable [phone] Davy Murillo MD Unavailable [phone] Reason for Visit * Reason Onset Date Comments Patient Request for Note/Letter 05/09/2023 Encounter Details Date Type Department Care Team (Late st Contact Info) Description 05/09/2023 Telephone [facility] [address] [place] [address] [place] [address] [place] [address] Patient Request for Note/Letter Social History Tobacco Use Types Packs/Day Years [...] Telephone Encounter - Stephanie Knox MA - 05/09/2023 12:34 PM EXTRACORPOREAL CIRCULATION SPECIALIST Patient's daughter faxed a note for you. Patient has a video appointment with you on 05/13/23.Placed note in you r basket to review Stephanie [place] [facility] ACORPOREAL CIRCULATION SPECIALIST documented in this encounter Plan of Treatment [...] [facility] and the [facility] to inquire services I am interested in. Barriers: None noted Strengths: I am willing and able to look into applicable resources. Date to Achieve By: October 2018 Patient expressed understanding of goal: yes documented as of this encounter Visit Diagnoses Not on filedocumented in this encounter Additional Health Concerns Assessment Noted Time PHQ-9 Depression Total Score: 0 03/21/20 23 11:15 AM EXTRACORPOREAL CIRCULATION SPECIALIST documented as of this encounter Care Teams Biostatistics Manager Relationship Specialty [place] [address] [address] [facility] [address] PCP - General Family Practice 05/14/13 [place] [address] [address] [facility] [address] Assigned PCP 01/26/22 [place] [address] [address] [facility] [address] Assigned Pain Medication Provider 04/15/22 documented as of this encounter
--- OUTSIDE RECORDS SUMMARY | 2023-05-20 09:14 | XMS_ITS | Encounter Summary ---
Author Name Unknown Organization [facility] Address [address] [place] [address]. [place] [address] Care Team Providers Care Armored Car Guard And Driver Name Role Phone Davy Murillo MD Primary Care Provider [phone] Davy Murillo MD Unavailable [phone] Davy Murillo MD Unavailable Reason for Visit * Reason Onset Date Comments Med Change Request 05/09/2023 Encounter Details Date Type Department Care Team (Late st Contact Info) Description 05/09/2023 Telephone [facility] [address] [place] [address] [place] [address] [place] [address] Med Change Request Social History Tobacco Use Types Packs/Day [...] Telephone Encounter - Patience Wisdom RN - 05/09/2023 2:58 PM CST Called patient and gave providers message/ instructions. Patient states (s)he understands this. No further questions. Abbi DUQUE, RN IOPULMONARY TECHNICIAN AND EEG TECH * Telephone Encounter - Davy Murillo MD - 05/09/2023 2:51 PM CST Prednisone is very bad on patients' already thin bones. Can take an extra tramadol daily in mean time. Will need to discuss at follow-up. Davy Murillo MD IOPULMONARY TECHNICIAN AND EEG TECH * Telephone Encounter - Lety Ricketts RN - 05/09/2023 1:43 PM CARDIOPULMONARY TECHNICIAN AND EEG TECH Patient is calling. Patient was advised to go to the ER for back pain. She did go to the ER. I left too early. I got a call from a nurse that they wanted to give me prednisone. I was told to call my primary. Patient has an apt scheduled with PCP on Friday. I can't wait that long. I have a bad back. I need prednisone. Please put a message to Dr. Murillo. Lety Ricketts, RN, BSN [facility] IOPULMONARY TECHNICIAN AND EEG TECH documented in this encounter Plan of Treatment [...] [facility] and the [facility] to inquire services I am interested in. Barriers: None noted Strengths: I am willing and able to look into applicable resources. Date to Achieve By: October 2018 Patient expressed understanding of goal: yes documented as of this encounter Visit Diagnoses Not on filedocumented in this encounter Additional Health Concerns Assessment Noted Time PHQ-9 Depression Total Score: 0 03/21/20 23 11:15 AM CARDIOPULMONARY TECHNICIAN AND EEG TECH documented as of this encounter Care Teams Armored Car Guard And Driver Relationship Specialty [place] [address] [place] [address] PCP - General Family Practice 05/14/13 [place] [address] [address] [facility] [address] Assigned PCP 01/26/22 [place] [address] [address] [facility] [address] Assigned Pain Medication Provider 04/15/22 documented as of this encounter
--- OUTSIDE RECORDS SUMMARY | 2023-05-20 09:14 | XMS_ITS | Encounter Summary ---
Author Name Unknown Organization [facility] Address [address] [place] [address]. [place] [address] Care Team Providers Care Tailer Off Name Role Phone Davy Murillo MD Primary Care Provider Davy Murillo MD Unavailable Davy Murillo MD Unavailable Reason for Visit * Reason Comments Medication Refill Encounter Details Date Type Department Care Team ([facility] st Contact Info) Description [facility] [address] [place] [address] [place] [address] [place] [address] Medication Refill Social History Tobacco [...] to Achieve: I will work with my [facility] and the [facility] [...] Total Score: 0 03/21/20 23 11:15 AM SURVEY COMPILER documented as of this encounter Care Teams Tailer Off Relationship Specialty [place] [address] [place] [place] [address] PCP - General Family Practice 05/14/13 [place] [address] [address] [address] Assigned PCP 01/26/22 [place] [address] [address] [address] Assigned Pain Medication Provider 04/15/22 documented as of this encounter
--- OUTSIDE RECORDS SUMMARY | 2023-05-20 09:14 | XMS_ITS | Encounter Summary ---
Author Name Unknown Organization [facility] Address [address] [place] [address]. [place] [address] Care Team Providers Care Clinical Social Worker Name Role Phone Davy Murillo MD Primary Care Provider [phone] Davy Murillo MD Unavailable Davy Murillo MD Unavailable [phone] Reason for Visit * Reason Comments Medication Refill Encounter Details Date Type Department Care Team ([facility] st Contact Info) Description [facility] [address] [place] [address] [place] [address] [place] [address] Medication Refill Social History Tobacco [...] to Achieve: I will work with my [facility] and the [facility] to inquire services I am [...] Total Score: 0 03/21/20 23 11:15 AM ANIMAL HERDER documented as of this encounter Care Teams Clinical Social Worker Relationship Specialty [place] [address] [address] [facility] [address] PCP - General Family Practice 05/14/13 [place] [address] [place] [address] Assigned PCP 01/26/22 [place] [address] [place] [address] Assigned Pain Medication Provider 04/15/22 documented as of this encounter
--- OUTSIDE RECORDS SUMMARY | 2023-05-20 09:14 | XMS_ITS | Encounter Summary ---
Author Name Unknown Organization [facility] Address [address] [place] [address]. [place] [address] Care Team Providers Care Engineering Aid Name Role Phone Davy Murillo MD Primary Care Provider Davy Murillo MD Unavailable [phone] Davy Murillo MD Unavailable Reason for Visit * Reason Comments Back Pain Recheck Medication Encounter Details Date Type Department Care Team (Late st Contact Info) Description 05/13/2023 2:30 PM BRAKE REPAIRER Virtual Visit [facility] [address] [place] [address] [place] [address] [place] [address] Severe episode of recurrent major depressive disorder, without psychotic features (H) (Primary Dx); Closed fracture of hip, unspecified laterality, sequela [...] Progress Notes * Davy Murillo MD - 05/13/2023 2:30 PM CST Harmony is a 78 year old who is being evaluated via a billable video visit. Instructions Relayed to Patient by Virtual Roomer: Patient is active on [employer]: Relayed following to patient: It looks like you are active on [employer], are you able to join the visit this way? If not, do you need us to send you a link now or would you like your provider to send a link via text or email when they are ready to initiate the visit? Reminded patient to ensure they were logged on to virtual visit by arrival time listed. Documented in appointment notes if patient had flexibility to initiate visit sooner than arrival time. If pediatric virtual visit, ensured pediatric patient along with parent/guardian will be present for video visit. Patient offered the website [email or web address] and/or phone number to [employer] Help line: [phone] How would you like to obtain your AVS? [employer] If the video visit is dropped, the invitation should be resent by: Text to cell phone: [phone] Will anyone else be joining your video visit? No ASSESSMENT / PLAN: (F33.2) Severe episode of recurrent major depressive disorder, without psychotic features (H) (primary encounter diagnosis) Comment: overall not bad and good support but stress from pain. Plan: continue meds. Consider psych/therapist. If SUICIAL IDEATION OR HOMOCIDAL IDEATION OR HÉCTOR TO ER. (W28.009S) Closed fracture of hip, unspecified laterality, sequela Comment: needs help with pain Plan: traMADol (ULTRAM) 50 MG tablet Shouldn't get oral prednisone in future with osteroporesis and not a good surgery canadiate with thin bones/age. Patient doing better with x5/tramadol/day. Recheck in 3 months Will needs pain specialist help/input if worsening. Getting injection today. Reveiwed risks and side effects of medication Avoid ALCOHOL. Call/email with questions/concerns Subjective Harmony is a 78 year old, presenting for the following health issues: History chronic low back pain, [id number] def, adhd, anxiety and insomnia History Hip fracture Getting injection later today for back. Taking 2 tabs in AM, 1 at noon and 1-2 at bedtime. Heat/ice. Tylenol. No massage. No sauna/hot tub. Bath tub too difficult. Emotionally - from pain. Family doing ok. Warmer weather helpful. Lidocaine patches. Seeing orthopedist for injections. No pain specialist. Trying to keep active. Back Pain and Recheck Medication 05/13/2023 1:33 PM Additional Questions Roomed by Enmanuel Stevens Back Pain History of Present Illness Back Pain: She presents for follow up of back pain. Patient's back pain is a chronic problem. Location of back pain: Right lower back and left lower back Description of back pain: gnawing and shooting Back pain spreads: right thigh Since patient first noticed back pain, pain is: gradually worsening Does back pain interfere with her job: Not applicable She eats 0-1 servings of fruits and vegetables daily.She consumes 0 sweetened beverage(s) daily.Sheexercises with enough effort to increase her heart rate 9 or less minutes per day. She exercises with enough effort to increase her heart rate 3 or less days per week. She is taking medications regularly. Objective Vitals: No vitals were obtained today due to virtual visit. Physical Exam GENERAL: alert and no distress EYES: Eyes grossly normal to inspection. No discharge or erythema, or obvious scleral/conjunctival abnormalities. RESP: No audible wheeze, cough, or visible cyanosis. SKIN: Visible skin clear. No significant rash, abnormal pigmentation or lesions. NEURO: Cranial nerves grossly intact. Mentation and speech appropriate for age. PSYCH: Appropriate affect, tone, and pace of words Video-Visit Details Type of service: Video Visit Video Start Time: 1:39 PM Video End Time:1:52 PM Originating Location (pt. Location): Home Distant Location (provider location): On-site Platform used for Video Visit: Meng Signed Electronically by: Davy Murillo MD E REPAIRER documented in this encounter Plan of Treatment [...] with my [facility] and the [facility] to inquire services I am interested in. Barriers: None noted Strengths: I am willing and able to look into applicable resources. Date to Achieve By: October 2018 Patient expressed understanding of goal: yes documented as of this encounter Visit Diagnoses Diagnosis Severe episode of recurrent major depressive disorder, without psychotic features (H)- Primary Closed fracture of hip, unspecified laterality, sequela documented in this encounter Additional Health Concerns Assessment Noted Time PHQ-9 Depression Total Score: 0 03/21/20 23 11:15 AM BRAKE REPAIRER documented as of this encounter Care Teams Engineering Aid Relationship Specialty [place] [address] [place] [address] PCP - General Family Practice 05/14/13 [place] [address] [place] [address] Assigned PCP 01/26/22 [place] [address] [place] [address] Assigned Pain Medication Provider 04/15/22 documented as of this encounter
--- OUTSIDE RECORDS SUMMARY | 2023-05-20 09:14 | XMS_ITS | Referral Summary ---
Author Name Unknown Organization [facility] Address [address] [place] [address]. [place] [address] Care Team Providers Care Medical Reimbursement Manager Name Role Phone Davy Murillo MD Primary Care Provider [phone] Davy Murillo MD Unavailable [phone] Dvay Murillo MD Unavailable [phone] Encounters Date Type Department Care Team Description 05/13/2023 2:30 PM RECTIFYING OPERATOR Virtual Visit [facility] [address] [place] [phone] Davy Murillo MD Severe episode of recurrent major depressive disorder, without psychotic features (H) (Primary Dx); Closed fracture of hip, unspecified laterality, sequela 05/09/2023 Telephone [facility] [address] [place] [phone] Davy Murillo MD Med Change Request 05/09/2023 Telephone [facility] [address] [place] [address] Davy Murillo MD Patient Request for Note/Letter 05/06/2023 Telephone [facility] [address] [place] [address] Davy Murillo MD Pt. Information/instructio n (Pt wants to discuss ablation and that the prednisone helped a little, pain meds make her sick.) 05/05/2023 Travel 04/29/[address] [facility] [address] [place] [address] Davy Murillo MD Medication Refill 04/24/[address] [facility] [address] [place] [address] Davy Murillo MD Medication Refill 04/22/[address] [facility] [address] [place] [address] Davy Murillo MD Medication Refill 04/02/[address] [facility] [address] [place] [address] Davy Murillo MD 04/02/[address] [facility] [address] [place] [address] Davy Murillo MD Medication Refill 03/21/2023 Travel 03/21/2023 12:00 PM RECTIFYING OPERATOR Office Visit [facility] [address] [place] [address] Davy Murillo MD Attention deficit hyperactivity disorder (ADHD), predominantly inattentive type; Vitamin B12 deficiency without anemia; Age-related osteoporosis with current pathological fracture, vertebra(e), initial encounter for fracture (H); Closed fracture of hip, unspecified laterality, sequela 03/05/[address] [facility] [address] [place] [address] Davy Murillo MD Medication Refill from Last 3 Months Allergies Active Allergy Reactions Criticality Noted Date Comments Amitriptyline Other (See Comments) High 01/06/2014 Bundle branch block Per [facility] EMR Diphenhydramine Itching Low 04/26/2019 Per [facility] EMR Methylphenidate Swelling High 01/06/2014 Tongue swelling Acetaminophen-Codeine GI Disturbance 03/22/2013 Zinc Other (See Comments) 03/11/2022 Per [facility] EMR Medications Medication Sig Dispensed Refills Start Date End Date Status VITAMIN D, CHOLECALCIFEROL, PO Take 50,000 Units by mouth Take 2 times weekly 0 Active order for DMEIndications:Chr onic low back pain, unspecified back pain laterality, with sciatica presence unspecified Equipment being ordered: TENS unit 1 each 0 7 Active Syringe/Needle, Disp, (SYRINGE LUER LOCK) 25G X 1 3 ML MISCIndications:Vi tamin B12 deficiency without anemia Inject 1 Device into the muscle every 30 days Every OTHER MONTH, to be given with B-12 injection 1 each 0 7 Active vitamin C (ASCORBIC ACID) 500 MG tablet Take 500 mg by mouth daily 0 Active GARLIC PO 0 Active oxybutynin ER (DITROPAN XL) 15 MG 24 hr tablet Take 15 mg by mouth At Bedtime 0 3 Active cyanocobalamin (CYANOCOBALAMIN) 1000 MCG/ML injection Inject 1,000 mcg into the muscle every 30 days 0 1 Active lidocaine (LIDODERM) 5 % patchIndications:C losed fracture of hip, unspecified laterality, sequela,Chronic low back pain, unspecified back pain laterality, unspecified whether sciatica present Place 1 patch onto the skin every 24 hours To prevent lidocaine toxicity, patient should be patch free for 12 hrs daily. 90 patch 1 3 Active cyanocobalamin (CYANOCOBALAMIN) 1000 MCG/ML injectionIndicatio ns:Vitamin B12 deficiency without anemia Inject 1 mL (1,000 mcg) into the muscle every 30 days 1 mL 11 3 Active albuterol (PROAIR HFA/PROVENTIL HFA/VENTOLIN HFA) 108 (90 Base) MCG/ACT inhalerIndications :Wheezing Inhale 1-2 puffs into the lungs every 6 hours as needed for shortness of breath, wheezing or cough 18 g 0 3 Active omeprazole (PRILOSEC) [address] capsuleIndications :Gastroesophageal reflux disease without esophagitis TAKE 1 CAPSULE BY MOUTH DAILY FOR 14 DAYS THEN NEEDED UP UPSET STOMACH/ HEARTBURN 90 capsule 1 3 Active ondansetron (ZOFRAN) 4 MG tabletIndications: Nausea and vomiting, unspecified vomiting type TAKE 1 TABLET(4 MG) BY MOUTH EVERY 8 HOURS NEEDED FOR NAUSEA 18 tablet 1 3 Active meloxicam (MOBIC) 15 MG tabletIndications: Closed fracture of hip, unspecified laterality, sequela TAKE 1 TABLET(15 MG) BY MOUTH DAILY 30 tablet 1 3 Active atomoxetine (STRATTERA) 10 MG capsuleIndications :Attention deficit hyperactivity disorder (ADHD), predominantly inattentive type TAKE 1 CAPSULE(10 MG) BY MOUTH DAILY FOR ADHD. REPLACES ADDERALL 30 capsule 5 3 Active RISEdronate (ACTONEL) 35 MG tabletIndications: Age-related osteoporosis with current pathological fracture, vertebra(e), initial encounter for fracture (H) TAKE 1 TABLET BY MOUTH EVERY 7 DAYS. REMAIN UPRIGHT FOR AT LEAST 30 MINUTES AFTER TAKING AND TAKE 30 MINUTES BEFORE FIRST MEAL 4 tablet 5 3 Active traZODone (DESYREL) 150 MG tabletIndications: Primary insomnia TAKE 2 TABLETS BY MOUTH AT BEDTIME NEEDED FOR SLEEP 180 tablet 5 4 Active tolterodine ER (DETROL LA) 4 MG 24 hr capsuleIndications :OAB (overactive bladder) TAKE 1 CAPSULE(4 MG) BY MOUTH DAILY 90 capsule 2 4 Active traMADol (ULTRAM) 50 MG tabletIndications: Closed fracture of hip, unspecified laterality, sequela 1-2 tabs every 8 hours as needed for pain. Max #5/day. 150 tablet 5 4 Active traZODone (DESYREL) 150 MG tabletIndications: Primary insomnia TAKE 2 TABLET BY MOUTH AT BEDTIME NEEDED FOR SLEEP 180 tablet 5 2 04/24/19 24 Discontinued tolterodine ER (DETROL LA) 4 MG 24 hr capsuleIndications :OAB (overactive bladder) TAKE 1 CAPSULE(4 MG) BY MOUTH DAILY 90 capsule 3 3 04/29/19 24 Discontinued traMADol (ULTRAM) 50 MG tabletIndications: Closed fracture of hip, unspecified laterality, sequela Take 2 tablets (100 mg) by mouth 2 times daily as needed for severe pain 120 tablet 5 3 05/13/19 24 Discontinued(Nusrat jackson (No AVS)) Hospital, Clinic, or Other Facility Administered Medication [...] mcg IM EVERY 30 DAYS 05/17/2022 05/12/2023 Ended Active Problems Problem Noted Date Diagnosed Date [...] 09/29/2015 Primary insomnia 08/07/2015 NO SHOW 04/23/2015 LUOISA (generalized anxiety disorder) 02/06/2015 Chronic low back [...] Total Score(s): No flowsheet data found. Last [facility] website verification: 12/16/16 [email or web address] Vitamin D deficiency 04/19/2013 Overview: Problem list [...] does have a living will. Shari Hill, GEOR[place]IE Bilateral chronic knee pain 03/22/2013 Insomnia 03/22/2013 [...] Comments Blood Pressure 118/67 03/21/2023 11:50 AM RECTIFYING OPERATOR Pulse 73 03/21/2023 11:50 AM RECTIFYING OPERATOR Temperature 36.8 ??C (98.3 ??F) 03/21/2023 11:[address] Respiratory Rate 18 03/21/2023 11:50 AM RECTIFYING OPERATOR Oxygen Saturation 96% 03/21/2023 11:50 AM RECTIFYING OPERATOR Inhaled Oxygen Concentration - - Weight 50.8 kg (112 lb) 03/21/2023 11:50 AM RECTIFYING OPERATOR Height 152.4 cm (5') 05/17/2022 1:23 PM RECTIFYING OPERATOR Body Mass Index 21.87 05/17/2022 1:23 PM RECTIFYING OPERATOR Plan of Treatment Not on file Goals [...] with my [facility] and the [facility] to inquire services I am interested in. Barriers: None noted Strengths: I am willing and able to look into applicable resources. Date to Achieve By: October 2018 Patient expressed understanding of goal: yes Medical Devices Implanted Type Area Chief Technician X Ray Device Identifier Shelf Expiration Date Model / Serial / Lot Eye Imp Iol Abel Pcl Tecnis [id number] 22.0 Implanted:Qty: 1 on 01/22/2016 by Zane Bender MD at [facility] Right: Eye [employer] 11/18/2019 ZCB00 22.0 / [id number] / Eye Imp Iol Morris Pcl Tecnis Zcb00 22.0 Implanted:Qty: 1 on 02/05/2016 by Zane Bender MD at [facility] Left: Eye [employer] 11/20/2019 ZCB00 22.0 / [id number] / Advance Directives For more information, please contact: [phone] Documents on File Type Date Recorded Patient Cold Roll Operator Expl anation Advance Directives and Living Will 05/19/2015 2:23 PM HEALTH CARE DIRECTIV E 09-11-12 Care Teams Medical Reimbursement Manager Relationship Specialty [place] [address] [address] [address] PCP - General Family Practice 05/14/13 [place] [address] [place] [address] Assigned PCP 01/26/22 [place] [address] [place] [address] Assigned Pain Medication Provider 04/15/22
--- OUTSIDE RECORDS SUMMARY | 2023-05-20 09:14 | XMS_ITS | Encounter Summary ---
Author Name Unknown Organization [facility] Address [address] [place] [address]. [place] [address] Care Team Providers Care County Court Judge Name Role Phone Davy Murillo MD Primary Care Provider [phone] Davy Murillo MD Unavailable [phone] Davy Murillo MD Unavailable [phone] Encounter Details Date Type Department Care Team (Latest Contact Info) Description 05/05/2023 Travel Social History Tobacco Use Types Packs/Day [...] with my [facility] and the [facility] to inquire services I am interested in. Barriers: None noted Strengths: I am willing and able to look into applicable resources. Date to Achieve By: October 2018 Patient expressed understanding of goal: yes documented as of this encounter Visit Diagnoses Not on filedocumented in this encounter Additional Health Concerns Assessment Noted Time PHQ-9 Depression Total Score: 0 03/21/20 23 11:15 AM CHIEF CREDIT OFFICER documented as of this encounter Care Teams County Court Judge Relationship Specialty [place] [address] [place] [address] PCP - General Family Practice 05/14/13 [place] [address] [place] [address] Assigned PCP 01/26/22 [place] [address] [place] [address] Assigned Pain Medication Provider 04/15/22 documented as of this encounter
--- OUTSIDE RECORDS SUMMARY | 2023-05-20 09:14 | XMS_ITS | Encounter Summary ---
Author Name Unknown Organization [facility] Address [address] [place] [address]. [place] [address] Care Team Providers Care Seaman Name Role Phone Davy Murillo MD Primary Care Provider [phone] Davy Murillo MD Unavailable [phone] Davy Murillo MD Unavailable [phone] Reason for Visit * Reason Onset Date Comments Pt. Information/instruction 05/06/2023 Pt w ants to discuss ablation and that the prednisone helped a little, pain meds make her sick. Encounter Details Date Type Department Care Team (Late st Contact Info) Description 05/06/2023 [facility] [address] [place] [address] [place] [address] [place] [address] Pt. Information/instruction (Pt wants to discuss ablation and that the prednisone helped a little, pain meds make her sick.) Social History Tobacco Use Types Packs/Day Years [...] Telephone Encounter - Stephanie Knox MA - 05/07/2023 7:07 AM ORACLE DATABASE MANAGER Please advise.Stephanie Anderson [facility] LE DATABASE MANAGER * Telephone Encounter - Janina Valle - 05/06/2023 4:26 PM CST FYI - Status Update Who is Calling: patient Update: Pt wants to discuss ablation and the gel to use for it at upcoming appt. Prednisone helped a little but almost out of it and wondering if she needs another course of it. Does caller want a call/response back: Yes Could we send this information to you in [facility] or would you prefer to receive a phone call?: Patient would prefer a phone call Okay to leave a detailed message?: Yes at Home number on file [phone] (home) LE DATABASE MANAGER documented in this encounter Plan of Treatment Not on file documented as of this encounter Goals Goal Patient Goal Type Associated Problems Recent Progress Patient-Stated? Author Financial Wellbeing General 20%( 9 1:15 PM CDT) Yes Liberty Harris, CARGO SERVICE AGENT Note: Goal Statement: I would like to learn about financial resources that can assist me and my . Measure of Success: Whether or not I am able to qualfy programs that are helpful Supportive Steps to Achieve: I will work with my [facility] and the [facility] to inquire services I am interested in. Barriers: None noted Strengths: I am willing and able to look into applicable resources. Date to Achieve By: October 2018 Patient expressed understanding of goal: yes documented as of this encounter Visit Diagnoses Not on filedocumented in this encounter Additional Health Concerns Assessment Noted Time PHQ-9 Depression Total Score: 0 03/21/20 23 11:15 AM ORACLE DATABASE MANAGER documented as of this encounter Care Teams Seaman Relationship Specialty [place] [address] [facility] [address] PCP - General Family Practice 05/14/13 [place] [address] [place] [address] Assigned PCP 01/26/22 [place] [address] [address] [address] Assigned Pain Medication Provider 04/15/22 documented as of this encounter
--- OUTSIDE RECORDS SUMMARY | 2023-05-20 09:14 | XMS_ITS | Clinical Summary ---
Author Name Unknown Organization [facility] Address [address] [place] [address]. [place] [address] Care Team Providers Care On Air Talent Name Role Phone Davy Murillo MD Primary Care Provider [phone] Davy Murillo MD Unavailable [phone] Davy Murillo MD Unavailable [phone] Allergies Active Allergy Reactions Criticality Noted Date [...] 120 tablet 5 3 05/13/19 24 Discontinued(Nusrat lundberger (No AVS)) Hospital, Clinic, or Other Facility [...] Total Score(s): No flowsheet data found. Last [facility] website verification: 12/16/16 [email or web address]/ Vitamin D deficiency 04/19/2013 Overview: Problem list [...] does have a living will. Shari Hill, LAB AIDE Bilateral chronic knee pain 03/22/2013 Insomnia 03/22/2013 Esophageal reflux 03/22/2013 CARDIOVASCULAR SCREENING; LDL GOAL LESS THAN 160 03/22/2013 Resolved Problems Problem Noted Date Diagnosed Date Resolved Date Combined form of age-related cataract, os 01/17/2016 02/06/2016 Encounters Date Type Department Care Team Description 05/13/2023 2:30 PM INDUSTRIAL CLEANING TECHNICIAN Virtual Visit [facility] [address] [place] [address] Davy Murillo MD Severe episode of recurrent major depressive disorder, without psychotic features (H) (Primary Dx); Closed fracture of hip, unspecified laterality, sequela 05/09/2023 Telephone [facility] [address] [place] [address] Davy Murillo MD Med Change Request 05/09/2023 Telephone [facility] [address] [facility] [address] Davy Murillo MD Patient Request for Note/Letter 05/06/2023 Telephone [facility] [address] [facility] [place] [address] Davy Murillo MD Pt. Information/instructio n (Pt wants to discuss ablation and that the prednisone helped a little, pain meds make her sick.) 05/05/2023 Travel 04/29/2023 Refill [facility] [address] [facility] [place] [address] Davy Murillo MD Medication Refill 04/24/2023 Refill [facility] [address] [facility] [place] [address] Davy Murillo MD Medication Refill 04/22/2023 Refill [facility] [address] [place] [address] Davy Murillo MD Medication Refill 04/02/2023 Telephone [facility] [address] [place] [address] Davy Murillo MD 04/02/2023 Refill [facility] [address] [place] [address] Davy Murillo MD Medication Refill 03/21/2023 12:00 PM INDUSTRIAL CLEANING TECHNICIAN Office Visit [facility] [address] [facility] [place] [address] Davy Murillo MD Attention deficit hyperactivity disorder (ADHD), predominantly inattentive type; Vitamin B12 deficiency without anemia; Age-related osteoporosis with current pathological fracture, vertebra(e), initial encounter for fracture (H); Closed fracture of hip, unspecified laterality, sequela 03/21/2023 Travel 03/05/2023 Refill [facility] [address] [facility] [address] Davy Murillo MD Medication Refill from Last [...] Son 1 Alive Son 2 [facility] Social History Tobacco Use Types Packs/Day Years [...] Comments Blood Pressure 118/67 03/21/2023 11:50 AM INDUSTRIAL CLEANING TECHNICIAN Pulse 73 03/21/2023 11:50 AM INDUSTRIAL CLEANING TECHNICIAN Temperature 36.8 ??C (98.3 ??F) 03/21/2023 11:[address] Respiratory Rate 18 03/21/2023 11:50 AM INDUSTRIAL CLEANING TECHNICIAN Oxygen Saturation 96% 03/21/2023 11:50 AM INDUSTRIAL CLEANING TECHNICIAN Inhaled Oxygen Concentration - - Weight 50.8 kg (112 lb) 03/21/2023 11:50 AM INDUSTRIAL CLEANING TECHNICIAN Height 152.4 cm (5') 05/17/2022 1:23 PM INDUSTRIAL CLEANING TECHNICIAN Body Mass Index 21.87 05/17/2022 1:23 PM INDUSTRIAL CLEANING TECHNICIAN Plan of Treatment Health Maintenance Due Date Last Done Comments ANNUAL REVIEW OF HM ORDERS 1945 NICOTINE/TOBACCO CESSATION COUNSELING Q 1 YR 1943 URINE DRUG SCREEN 1943 RSV VACCINE ( & 60+) (1 - 1-dose 60+ series) 2003 MEDICARE ANNUAL WELLNESS VISIT 2008 GLUCOSE 08/24/2016 08/24/2013, 07/05/2013 EYE EXAM 06/06/2017 06/06/2016, 01/05, 01/03/2016, Additional [...] 9 1:15 PM CDT) Yes Liberty Harris AVIATION CONSULTANT Note: Goal Statement: I would like to learn about financial resources that can assist me and my . Measure of Success: Whether or not I am able to qualfy programs that are helpful Supportive Steps to Achieve: I will work with my [facility] and the [facility] to inquire services I am interested in. Barriers: None noted Strengths: I am willing and able to look into applicable resources. Date to Achieve By: October 2018 Patient expressed understanding of goal: yes Medical Devices Implanted Type Area Property Assessment Monitor Device Identifier Shelf Expiration Date Model / Serial / Lot Eye Imp Iol Abel Pcl Tecnis [id number] 22.0 Implanted:Qty: 1 on 01/22/2016 by Zane Bender MD at [facility] Right: Eye [employer] OPT 11/18/2019 ZCB00 22.0 / [id number] / Eye Imp Iol Abel Pcl Tecnis Zcb00 22.0 Implanted:Qty: 1 on 02/05/2016 by Zane Bender MD at [facility] Left: Eye [employer] OPT 11/20/2019 ZCB00 22.0 / [id number] / Advance Directives For more information, please contact: [phone] Documents on File Type Date Recorded Patient Hr Director Expl anation Advance Directives and Living Will 05/19/2015 2:23 PM HEALTH CARE DIRECTIV E 09-11-12 Care Teams On Air Talent Relationship Specialty [place] [address] [address] [address] PCP - General Family Practice 05/14/13 [place] [address] [place] [address] Assigned PCP 01/26/22 [place] [address] [place] [address] Assigned Pain Medication Provider 04/15/22
--- OUTSIDE RECORDS SUMMARY | 2023-05-20 09:15 | XMS_ITS | Encounter Summary ---
Author Name Unknown Organization [facility] Address [address] [place] [address]. [place] [address] Care Team Providers Care Stitching Department Supervisor Name Role Phone Davy Murillo MD Primary Care Provider [phone] Davy Murillo MD Unavailable [phone] Davy Murillo MD Unavailable [phone] Reason for Referral * Mental Health Outpatient (Routine: Next available opening) - Referral NOT Required Specialty Diagnoses / Procedures Referred By Carlos biswas Referred To Contact Behavioral Health Diagnoses Mood disorder (H24) [place] [address] [place] [address] Referral ID Status Reason Start Date Expiration Date V isits Requested Visits Authorized Referral NOT Required 11/21/2022 11/21/2023 1 1 Question Answer Services: Psychiatry/Med Management Reason for Referral - REVIEW REFERENCE LINK BELOW: Short-term consultation & return to PCP/Collaborative Care (CCPS) My Clinical Question Is: help with depression. possible cymbalta but on tramadol and tremors with psych meds in past Scheduling Instructions: [facility] will call you to coordinate your care as prescribed by your provider. If you don't hear from a hotel services sales representative within 2 business days, please call . Comments Please be aware that coverage of these services is subject to the terms and limitations of your health insurance plan. Call member services at your health plan with any benefit or coverage questions. [facility] will call you to coordinate your care as prescribed by your provider. If you don't hear from a hotel services sales representative within 2 business days, please call . Reason for Visit * Reason Comments Back Pain Medication Refill Encounter Details Date Type Department Care Team (Late st Contact Info) Description 11/21/2022 10:30 AM CDT Virtual Visit [facility] [address] [place] [address] [place] [address] [place] [address] Chronic low back pain, unspecified [...] resent by: Send to e- mail at: [email or web address] Will anyone else be joining your video [...] Good support system Plan: Adult Mental Health Commodities Broker Referral Patient/daughter interested in seeing psych for med help. If SUICIAL IDEATION OR HOMOCIDAL IDEATIONOR HÉCTOR TO ER (E53.8) Vitamin B12 deficiency (non anemic) Comment: stable? Plan: Recheck in 6 monthsf or labs/med check. Alfredo Antunez is a 77 year old, presenting for the following health issues: No chief complaint on file. History chronic low back pain, [id number] def, adhd, anxiety and insomnia History Hip fracture Living with daughter [facility]. Tramadol 2 pills twice daily. In AM and before pm and alternating with tylenol. Patient interested in seeing psych md. Wellbutrin- shaking/tremor with psych. P.t.for exercise. Albuterol prn weather changes. Taking ofsjrocX79. Needs to restart vitaminD. GERDstable. History of [...] Diagnoses Orde r Schedule Adult Mental Health Commodities Broker Referral Referral Routine: Next available opening Mood [...] with my [facility] and the [facility] to inquire services I am interested in. [...] Total Score: 6 05/17/19 23 1:27 PM GROUND CREWMAN documented as of this encounter Care Teams Stitching Department Supervisor Relationship Specialty [place] [address] [place] [place] [address] PCP - General Family Practice 05/14/13 [place] [address] [address] [address] Assigned PCP 01/26/22 [place] [address] [address] [place] [address] Assigned Pain Medication Provider 04/15/22 documented as of this encounter
--- OUTSIDE RECORDS SUMMARY | 2023-05-20 09:15 | XMS_ITS | Encounter Summary ---
Author Name Unknown Organization [facility] Address [address] [place] [address]. [place] [address] Care Team Providers Care Waste Water Or Water Plant Operator Name Role Phone Davy Murillo MD Primary Care Provider [phone] Davy Murillo MD Unavailable [phone] Davy Murillo MD Unavailable Reason for Referral * Consultation (Routine: Next available opening) - Pending Review Specialty Diagnoses / Procedures Referred By Carlos biswas Referred To Contact Pain Medicine Diagnoses Bilateral chronic knee pain Chronic low back pain, unspecified back pain laterality, unspecified [place] [address] [place] [address] [facility] [address] [place] [address] Referral ID Status Reason Start Date Expiration Date V isits Requested Visits Authorized [id number] Pending Review 04/02/2023 04/01/2024 1 1 Question Answer Reason for Referral: Comprehensive Pain Evaluation Are there any red flags that may impact the assessment or management of the patient? No Red Flags Provider, please review opioid agreement in the process instructions above. Do you agree to these terms? Yes Scheduling Instructions: [facility] will call you to coordinate care as prescribed your provider. If you don? t hear from a disability representative within 2 business days, please call . Comments Please be aware that coverage of these services is subject to the terms and limitations of your health insurance plan. Call member services at your health plan with any benefit or coverage questions. [facility] will call you to coordinate care as prescribed your provider. If you don? t hear from a disability representative within 2 business days, please call . CIATE MEDIA PLANNER Encounter Details Date Type Department Care Team (Late st Contact Info) Description 04/02/2023 Telephone [facility] [address] [place] [address] [place] [address] [place] [address] Social History Tobacco Use Types [...] Stephanie Knox MA - 04/02/2023 2:47 PM ASSOCIATE MEDIA PLANNER Called and informed patient of Dr Murillo's message.Stephanie Anderson [facility] CIATE MEDIA PLANNER * Telephone Encounter - Davy Murillo MD - 04/02/2023 1:50 PM CST Referral MAPS placed. Patient [place] [facility] so might need to shop around her area and we canplace referral for whomever. CIATE MEDIA PLANNER * Telephone Encounter - Niki Leblanc RN [...] further support. Thank you. Niki Leblanc R.N. CIATE MEDIA PLANNER * Telephone Encounter - Niki Leblanc RN - 04/02/2023 11:00 AM CST I left a message to return a call to [phone]. Niki Leblanc R.N. CIATE MEDIA PLANNER * Telephone Encounter - Davy Murillo MD - 04/02/2023 10:47 AM ASSOCIATE MEDIA PLANNER Because of age and other medications we can't increase. Can see pain specialist if desired. Davy Murillo MD CIATE MEDIA PLANNER * Telephone Encounter - Lili Timmons - [...] we send this information to you in [facility] [employer] or would you prefer to receive a phone call?: Phone call Okay to leave a detailed message?: Yes at Home number on file [phone] (home) CIATE MEDIA PLANNER documented in this encounter Plan of Treatment Scheduled Referrals Name Type Priority Associated Diagnoses Orde r Schedule Pain Management Carpenters Referral Referral Routine: Next available opening Bilateral [...] I will work with my [facility] and the [facility] to inquire services I am [...] Depression Total Score: 0 03/21/20 11:15 AM ASSOCIATE MEDIA PLANNER documented as of this encounter Care Teams Waste Water Or Water Plant Operator Relationship Specialty [place] [address] [address] [place] [address] PCP - General Family Practice 05/14/13 [place] [address] [address] [place] [address] Assigned PCP 01/26/22 [place] [address] [address] [place] [address] Assigned Pain Medication Provider 04/15/22 documented as of this encounter
--- OUTSIDE RECORDS SUMMARY | 2023-05-20 09:15 | XMS_ITS | Encounter Summary ---
Author Name Unknown Organization [facility] Address [address] [place] [address]. [place] [address] Care Team Providers Care Director Pharmacovigilance Name Role Phone Davy Murillo MD Primary Care Provider Davy Murillo MD Unavailable [phone] Davy Murillo MD Unavailable [phone] Encounter Details Date Type Department Care Team (Late st Contact Info) Description 01/10/2023 [facility] [address] [place] [address] Michelle Leon V Social History [...] 9 1:15 PM CDT) Yes Liberty Harris, COUNTER MANAGER Note: Goal Statement: I would like to learn about financial resources that can assist me and my . Measure of Success: Whether or not I am able to qualfy programs that are helpful Supportive Steps to Achieve: I will work with my [facility] and the [facility] to inquire services I am interested in. Barriers: None noted Strengths: I am willing and able to look into applicable resources. Date to Achieve By: October 2018 Patient expressed understanding of goal: yes documented as of this encounter Visit Diagnoses Not on filedocumented in this encounter Additional Health Concerns Assessment Noted Time PHQ-9 Depression Total Score: 6 05/17/19 23 1:27 PM AIR TWISTER WINDER documented as of this encounter Care Teams Director Pharmacovigilance Relationship Specialty [place] [address] [place] [address] PCP - General Family Practice 05/14/13 [place] [address] [place] [address] Assigned PCP 01/26/22 [place] [address] [place] [address] Assigned Pain Medication Provider 04/15/22 documented as of this encounter
--- OUTSIDE RECORDS SUMMARY | 2023-05-20 09:15 | XMS_ITS | Encounter Summary ---
Author Name Unknown Organization [facility] Address [address] [place] [address]. [place] [address] Care Team Providers Care Third Hand Name Role Phone Davy Murillo MD Primary Care Provider Davy Murillo MD Unavailable Davy Murillo MD Unavailable Encounter Details Date Type Department Care Team (Late st Contact Info) Description 11/18/2022 [facility] [address] [place] [address] [place] [address] [place] [address] Social History Tobacco Use Types [...] tablets twice a day. They tried to nut picker Prescription(s) #2 and the insurance stated it was too early to nut picker as she should not be out [...] AM) Provider Visit with Davy Murillo MD [facility] ) [address] [facility] [address] 1. 2. documented in this encounter Plan [...] with my [facility] and the [facility] to inquire services I am interested in. [...] Total Score: 6 05/17/19 23 1:27 PM ORACLE REPORTS DEVELOPER documented as of this encounter Care Teams Third Hand Relationship Specialty [place] [address] [place] [address] PCP - General Family Practice 05/14/13 [place] [address] [place] [address] Assigned PCP 01/26/22 [place] [address] [address] [place] [address] Assigned Pain Medication Provider 04/15/22 documented as of this encounter
--- OUTSIDE RECORDS SUMMARY | 2023-05-20 09:15 | XMS_ITS | Encounter Summary ---
Author Name Unknown Organization [facility] Address [address] [place] [address]. [place] [address] Care Team Providers Care Rug Designer Name Role Phone Davy Murillo MD Primary Care Provider Davy Murillo MD Unavailable [phone] Davy Murillo MD Unavailable Reason for Visit * Reason Comments Medication Refill Encounter Details Date Type Department Care Team ([facility] st Contact Info) Description [facility] [address] [place] [address] [place] [address] [place] [address] Medication Refill Social History Tobacco [...] to Achieve: I will work with my [facility] and the [facility] to inquire services I am interested [...] Total Score: 6 05/17/19 23 1:27 PM HEEL SEAT LASTER documented as of this encounter Care Teams Rug Designer Relationship Specialty [place] [address] [address] [address] PCP - General Family Practice 05/14/13 [place] [address] [address] [place] [address] Assigned PCP 01/26/22 [place] [address] [address] [place] [address] Assigned Pain Medication Provider 04/15/22 documented as of this encounter
--- OUTSIDE RECORDS SUMMARY | 2023-05-20 09:15 | XMS_ITS | Encounter Summary ---
Author Name Unknown Organization [facility] Address [address] [place] [address]. [place] [address] Care Team Providers Care Production Machine Tender Name Role Phone Davy Murillo MD Primary Care Provider Davy Murillo MD Unavailable Davy Murillo MD Unavailable Reason for Visit * Reason Comments Medication Refill Encounter Details Date Type Department Care Team ([facility] st Contact Info) Description [facility] [address] [place] [address] [place] [address] [place] [address] Medication Refill Social History Tobacco [...] to Achieve: I will work with my [facility] and the [facility] [...] Total Score: 0 03/21/20 23 11:15 AM KILN FURNITURE SAW TENDER documented as of this encounter Care Teams Production Machine Tender Relationship Specialty [place] [address] [place] [address] PCP - General Family Practice 05/14/13 [place] [address] [address] [address] Assigned PCP 01/26/22 [place] [address] [address] [address] Assigned Pain Medication Provider 04/15/22 documented as of this encounter
--- OUTSIDE RECORDS SUMMARY | 2023-05-20 09:15 | XMS_ITS | Encounter Summary ---
Author Name Unknown Organization [facility] Address [address] [place] [address]. [place] [address] Care Team Providers Care U.S. Commissioner Name Role Phone Davy Murillo MD Primary Care Provider Davy Murillo MD Unavailable Davy Murillo MD Unavailable Reason for Visit * Reason Comments Medication Refill Encounter Details Date Type Department Care Team ([facility] st Contact Info) Description 04/02/2023 Refill [facility] [address] [place] [address] [place] [address] [place] [address] Medication Refill Social History Tobacco [...] I will work with my [facility] and the [facility] to inquire services I am interested in. [...] Total Score: 0 03/21/20 23 11:15 AM SAND SHOVELER documented as of this encounter Care Teams U.S. Commissioner Relationship Specialty [place] [address] [place] [address] PCP - General Family Practice 05/14/13 [place] [address] [address] [address] Assigned PCP 01/26/22 [place] [address] [address] [address] Assigned Pain Medication Provider 04/15/22 documented as of this encounter
--- OUTSIDE RECORDS SUMMARY | 2023-05-20 09:15 | XMS_ITS | Encounter Summary ---
Author Name Unknown Organization [facility] Address [address] [place] [address]. [place] [address] Care Team Providers Care Flight Paramedic Name Role Phone Davy Murillo MD Primary Care Provider [phone] Davy Murillo MD Unavailable Davy Murillo MD Unavailable Reason for Visit * Reason Comments Medication Refill Encounter Details Date Type Department Care Team ([facility] st Contact Info) Description 02/03/2023 Refill [facility] [address] [place] [address] [place] [address] [place] [address] Medication Refill Social History Tobacco [...] Achieve: I will work with my [facility] and the community health to inquire services [...] Total Score: 6 05/17/19 23 1:27 PM DRAFTER GEOPHYSICAL documented as of this encounter Care Teams Flight Paramedic Relationship Specialty [place] [address] [place] [address] PCP - General Family Practice 05/14/13 [place] [address] [address] [facility] [place] [place] [address] Assigned PCP 01/26/22 [place] [address] [address] [address] Assigned Pain Medication Provider 04/15/22 documented as of this encounter
--- OUTSIDE RECORDS SUMMARY | 2023-05-20 09:15 | XMS_ITS | Encounter Summary ---
Author Name Unknown Organization [facility] Address [address] [place] [address]. [place] [address] Care Team Providers Care Residential Worker Name Role Phone Davy Murillo MD Primary Care Provider Davy Murillo MD Unavailable Davy Murillo MD Unavailable [phone] Reason for Visit * Reason Comments Medication Refill Encounter Details Date Type Department Care Team ([facility] st Contact Info) Description [facility] [address] [place] [address] [place] [address] [place] [address] Medication Refill Social History Tobacco [...] with my [facility] and the counts include 234 beds at the [facility] to inquire services I am interested [...] Total Score: 6 05/17/19 23 1:27 PM SENIOR PATROL AGENT documented as of this encounter Care Teams Residential Worker Relationship Specialty [place] [address] [place] [address] PCP - General Family Practice 05/14/13 [place] [address] [place] [address] Assigned PCP 01/26/22 [place] [address] [facility] [place] [address] Assigned Pain Medication Provider 04/15/22 documented as of this encounter
--- OUTSIDE RECORDS SUMMARY | 2023-05-20 09:15 | XMS_ITS | Encounter Summary ---
Author Name Unknown Organization [place] Address [address] [place] [address]. [place] [address] Care Team Providers Care Safety Fire Boss Name Role Phone Davy Murillo MD Primary Care Provider Davy Murillo MD Unavailable [phone] Davy Murillo MD Unavailable [phone] Reason for Visit * Reason Onset Date Comments Panel Management 01/10/2023 Encounter Details Date Type Department Care Team (Late st Contact Info) Description 01/10/2023 Telephone [facility] [address] [place] [address] [place] [address] [place] [address] Panel Management Social History Tobacco [...] Annual Wellness Visit Type of outreach: Sent [employer] message. Questions for provider review: None [...] [facility] and the [facility] to inquire services I am interested in. Barriers: None noted Strengths: I am willing and able to look into applicable resources. Date to Achieve By: October 2018 Patient expressed understanding of goal: yes documented as of this encounter Visit Diagnoses Not on filedocumented in this encounter Additional Health Concerns Assessment Noted Time PHQ-9 Depression Total Score: 6 05/17/19 23 1:27 PM HOUSING PROPERTY MANAGER documented as of this encounter Care Teams Safety Fire Boss Relationship Specialty [place] [address] [address] [place] [address] PCP - General Family Practice 05/14/13 [place] [address] [address] [place] [address] Assigned PCP 01/26/22 [place] [address] [address] [address] Assigned Pain Medication Provider 04/15/22 documented as of this encounter
--- OUTSIDE RECORDS SUMMARY | 2023-05-20 09:15 | XMS_ITS | Encounter Summary ---
Author Name Unknown Organization [place] Address [address] [place] [address]. [place] [address] Care Team Providers Care Workplace Rehabilitation Officer Name Role Phone Davy Murillo MD Primary Care Provider [phone] Davy Murillo MD Unavailable [phone] Davy Murillo MD Unavailable [phone] Encounter Details Date Type Department Care Team [...] to Achieve: I will work with my [facility] and the [facility] to inquire services I am interested in. Barriers: None noted Strengths: I am willing and able to look into applicable resources. Date to Achieve By: October 2018 Patient expressed understanding of goal: yes documented as of this encounter Visit Diagnoses Not on filedocumented in this encounter Additional Health Concerns Assessment Noted Time PHQ-9 Depression Total Score: 0 03/21/20 23 11:15 AM EVS TECH documented as of this encounter Care Teams Workplace Rehabilitation Officer Relationship Specialty [place] [address] [place] [address] PCP - General Family Practice 05/14/13 [place] [address] [address] [place] [address] Assigned PCP 01/26/22 [place] [address] [address] [place] [address] Assigned Pain Medication Provider 04/15/22 documented as of this encounter
--- OUTSIDE RECORDS SUMMARY | 2023-05-20 09:15 | XMS_ITS | Encounter Summary ---
Author Name Unknown Organization [place] Address [address] [place] [address]. [place] [address] Care Team Providers Care Internal Medicine Hospitalist Name Role Phone Davy Murillo MD Primary Care Provider [phone] Davy Murillo MD Unavailable Davy Murillo MD Unavailable Reason for Visit * Reason Comments Medication Refill Encounter Details Date Type Department Care Team ([facility] [place] [facility] st Contact Info) Description [facility] [address] [place] [address] [place] [address] [place] [address] Medication Refill Social History Tobacco [...] my [facility] and the [facility] to inquire services I [...] Total Score: 6 05/17/19 23 1:27 PM MACHINE OPERATOR PICKER documented as of this encounter Care Teams Internal Medicine Hospitalist Relationship Specialty [place] [address] [place] [address] PCP - General Family Practice 05/14/13 [place] [address] [place] [address] Assigned PCP 01/26/22 [place] [address] [place] [address] Assigned Pain Medication Provider 04/15/22 documented as of this encounter
--- OUTSIDE RECORDS SUMMARY | 2023-05-20 09:15 | XMS_ITS | Encounter Summary ---
Author Name Unknown Organization [place] Address [address] [place] [address]. [place] [address] Care Team Providers Care Food Management Aide Name Role Phone Davy Murillo MD Primary Care Provider Davy Murillo MD Unavailable [phone] Davy Murillo MD Unavailable [phone] Reason for Visit * Reason Onset Date Comments Medication Request 09/29/2022 traMADol (ULT ZULY) 50 MG tablet Encounter Details Date Type Department Care Team (Late st Contact Info) Description 09/29/[address] [facility] [address] [place] [address] [place] [address] [place] [address] Medication Request (traMADol (ULTRAM) 50 [...] the below from Dr. Bhatti. Patient to forklift picker her next Tramadol on October 10. Patient to contact the pharmacy. She verbalized understanding. Lety Ricketts RN * Telephone Encounter - Yamileth Xiao RN - 09/30/2022 8:07 AM CDT This fiction and nonfiction writer prose attempted to contact [place] on 09/30/22 Reason for call relay provider message-see below and left message to call back to [facility]. If patient calls back: Registered Nurse called. Send to RN team at [facility]. Yamileth Xiao RN Clinical Triage/Primary Care [facility] * Telephone Encounter - Davy Murillo MD - 09/29/2022 2:52 PM CDT Not due until next week /. I can lose my [place] license if patient using more than max prescribed. Davy Murillo MD * Telephone Encounter - Kenay Cervantes - 09/29/2022 11:42 AM CDT Medication Question or Refill What medication are you calling about (include dose and sig)?: traMADol (ULTRAM) 50 MG tablet Preferred Pharmacy: [id number] - [place] [address] [facility] [id number] Controlled Substance Agreement on file: CSA -- [...] we send this information to you in [facility] or would you prefer to receive a [...] to Achieve: I will work with my [facility] and the [facility] to [...] Total Score: 6 05/17/19 23 1:27 PM TOGGLE PRESS OPERATOR documented as of this encounter Care Teams Food Management Aide Relationship Specialty [place] [address] [place] [address] PCP - General Family Practice 05/14/13 [place] [address] [place] [address] Assigned PCP 01/26/22 [place] [address] [place] [address] Assigned Pain Medication Provider 04/15/22 documented as of this encounter
--- OUTSIDE RECORDS SUMMARY | 2023-05-20 09:15 | XMS_ITS | Encounter Summary ---
Author Name Unknown Organization [place] Address [address] [place] [address]. [place] [address] Care Team Providers Care Build Technician Name Role Phone Davy Murillo MD Primary Care Provider [phone] Davy Murillo MD Unavailable Davy Murillo MD Unavailable Reason for Visit * Reason Comments Medication Refill Encounter Details Date Type Department Care Team ([facility] st Contact Info) Description [facility] [address] [place] [address] [place] [address] [place] [address] Medication Refill Social History Tobacco [...] scheduled video visit for 10/21/22 Katty Polanco Metal Mover [phone] * Telephone Encounter - Stephanie Knox MA [...] 9 1:15 PM CDT) Yes Liberty Harris, MANUFACTURING TECHNICIAN Note: Goal Statement: I would like to learn about financial resources that can assist me and my . Measure of Success: Whether or not I am able to qualfy programs that are helpful Supportive Steps to Achieve: I will work with my [facility] and the [facility] at [...] Total Score: 6 05/17/19 23 1:27 PM CONTRACT ADMINISTRATION COORDINATOR documented as of this encounter Care Teams Build Technician Relationship Specialty [place] [address] [address] [place] [address] PCP - General Family Practice 05/14/13 [place] [address] [address] [address] Assigned PCP 01/26/22 [place] [address] [address] [place] [address] Assigned Pain Medication Provider 04/15/22 documented as of this encounter
--- OUTSIDE RECORDS SUMMARY | 2023-05-20 09:15 | XMS_ITS | Encounter Summary ---
Author Name Unknown Organization [place] Address [address] [place] [address]. [place] [address] Care Team Providers Care Social Service Technician Name Role Phone Davy Murillo MD Primary Care Provider Davy Murillo MD Unavailable [phone] Davy Murillo MD Unavailable [phone] Reason for Visit * Reason Comments Medication Refill Encounter Details Date Type Department Care Team (Late st Contact Info) Description [facility] [address] [place] [address] [place] [address] [place] [address] Medication Refill Social History Tobacco [...] to Achieve: I will work with my [facility] and the [facility] to inquire services I am interested [...] Total Score: 6 05/17/19 23 1:27 PM LEAD TANK MECHANIC documented as of this encounter Care Teams Social Service Technician Relationship Specialty [place] [address] [address] [place] [address] PCP - General Family Practice 05/14/13 [place] [address] [address] [address] Assigned PCP 01/26/22 [place] [address] [address] [address] Assigned Pain Medication Provider 04/15/22 documented as of this encounter
--- OUTSIDE RECORDS SUMMARY | 2023-05-20 09:15 | XMS_ITS | Encounter Summary ---
Author Name Unknown Organization [place] Address [address] [place] [address]. [place] [address] Care Team Providers Care Assembler Radio And Electrical Name Role Phone Davy Murillo MD Primary Care Provider [phone] Davy Murillo MD Unavailable Davy Murillo MD Unavailable Reason for Visit * Reason Comments Recheck Medication Refills Encounter Details Date Type Department Care Team (Latest Contact Info) Description 03/21/2023 12:00 PM ESOL TEACHER ASSISTANT Office Visit [facility] [address] [place] [address] [place] [address] [place] [address] Attention deficit hyperactivity disorder (ADHD), [...] Comments Blood Pressure 118/67 03/21/2023 11:50 AM ESOL TEACHER ASSISTANT Pulse 73 03/21/2023 11:50 AM ESOL TEACHER ASSISTANT Temperature 36.8 ??C (98.3 ??F) 03/21/2023 11:[address] Respiratory Rate 18 03/21/2023 11:50 AM ESOL TEACHER ASSISTANT Oxygen Saturation 96% 03/21/2023 11:50 AM ESOL TEACHER ASSISTANT Inhaled Oxygen Concentration - - Weight 50.8 kg (112 lb) 03/21/2023 11:50 AM ESOL TEACHER ASSISTANT Height - - Body Mass Index 21.87 05/17/2022 1:23 PM ESOL TEACHER ASSISTANT documented in this encounter Progress Notes * [...] health issues: History chronic low back pain, [id number] def, osteoporosis, adhd, anxiety and insomnia History Hip fracture Living with daughter [facility] Here with daughter and lives with other daughter. 3 daughters in [place] and 1 son in [place]. 22 grandkids. Emotionally doing. Memory about same. Sleep overall ok. Up to one glass wine/day. No shortness of breath. No chest pain. Appetite ok. No nausea, vomiting or diarrhea or black/bloody stool. No constipation. Albuterol more spring related. Eats meat. Recheck Medication (Refills/) 03/21/2023 11:44 AM Additional [...] edema PSYCH: mentation appears normal, affect normal/bright TEACHER ASSISTANT documented in this encounter Plan of Treatment [...] with my [facility] and the [facility] to inquire services I am interested [...] Total Score: 0 03/21/20 23 11:15 AM ESOL TEACHER ASSISTANT documented as of this encounter Care Teams Assembler Radio And Electrical Relationship Specialty [place] [address] [place] [address] PCP - General Family Practice 05/14/13 [place] [address] [address] [facility] [address] Assigned PCP 01/26/22 [place] [address] [place] [place] [address] Assigned Pain Medication Provider 04/15/22 documented as of this encounter
--- OUTSIDE RECORDS SUMMARY | 2023-05-20 09:15 | XMS_ITS | Encounter Summary ---
Author Name Unknown Organization [place] Address [address] [place] [address]. [place] [address] Care Team Providers Care Char Filter Tank Tender Name Role Phone Davy Murillo MD Primary Care Provider Davy Murillo MD Unavailable Davy Murillo MD Unavailable Reason for Visit * Reason Comments Medication Refill Encounter Details Date Type Department Care Team ([facility] st Contact Info) Description [facility] [address] [place] [address] [place] [address] [place] [address] Medication Refill Social History Tobacco [...] I will work with my [facility] and the [facility] to inquire services I am interested in. [...] Total Score: 6 05/17/19 23 1:27 PM SUPERVISOR/PORT DIRECTOR documented as of this encounter Care Teams Char Filter Tank Tender Relationship Specialty [place] [address] [place] [address] PCP - General Family Practice 05/14/13 [place] [address] [place] [address] Assigned PCP 01/26/22 [place] [address] [place] [address] Assigned Pain Medication Provider 04/15/22 documented as of this encounter
--- OUTSIDE RECORDS SUMMARY | 2023-05-20 09:15 | XMS_ITS | Encounter Summary ---
Author Name Unknown Organization [place] Address [address] [place] [address]. [place] [address] Care Team Providers Care Flexo Press Operator Name Role Phone Candice Murillo MD Primary Care Provider Candice Murillo MD Unavailable [phone] Candice Murillo MD Unavailable Encounter Details Date Type Department Care Team (Late st Contact Info) Description 11/08/2022 [facility] [address] [place] [address] [place] [address] [place] [address] Social History Tobacco Use Types [...] to appointment. Pharmacy is pended Katty Polanco Screw Machine Operator Swiss Type [phone] * Telephone Encounter - Stephanie Knox MA - 11/12/2022 12:55 PM CDT Left message on patient's voicemail with Dr Murillo;s message, and to call back to set up an appointment.Stephanie Anderson [facility] * Telephone Encounter - Candice Murillo [...] she has a lot of pain afterwards. [id number] [place], [place] - [address] [place] [address] AT [facility] [address] [phone] Dulce Dominguez, Patient Director Of Perioperative Services - [facility] * Addendum Note - Candice Murillo MD - 11/08/2022 11:39 AM CDTAddended by: CANDICE MURILLO on: 11/17/2022 04:36 PM Modules accepted: Orders documented in this encounter Plan of Treatment Not on file documented as of this encounter Goals Goal Patient Goal Type Associated Problems Recent Progress Patient-Stated? Author Financial Wellbeing General 20%( 9 1:15 PM CDT) Yes Liberty Harrsi LSW Note: Goal Statement: I would like to learn about financial resources that can assist me and my . Measure of Success: Whether or not I am able to qualfy programs that are helpful Supportive Steps to Achieve: I will work with my [facility] and the [facility] to inquire services I am interested in. [...] Total Score: 6 05/17/19 23 1:27 PM UNDERWRITING CLERKS SUPERVISOR documented as of this encounter Care Teams Flexo Press Operator Relationship Specialty [place] [address] [place] [address] PCP - General Family Practice 05/14/13 [place] [address] [place] [address] Assigned PCP 01/26/22 [place] [address] [place] [address] Assigned Pain Medication Provider 04/15/22 documented as of this encounter
--- OUTSIDE RECORDS SUMMARY | 2023-05-20 09:15 | XMS_ITS | Encounter Summary ---
Author Name Unknown Organization [place] Address [address] [place] [address]. [place] [address] Care Team Providers Care Peripheral Equipment Operator Name Role Phone Davy Murillo MD Primary Care Provider Davy Murillo MD Unavailable [phone] Davy Murillo MD Unavailable [phone] Reason for Visit * Reason Onset Date Comments Dme 10/10/2022 TENS unit order Encounter Details Date Type Department Care Team (Late st Contact Info) Description 10/10/2022 Telephone [facility] [address] [place] [address] [place] [address] [place] [address] Dme (TENS unit order) Social [...] different daughter of hers, living down in [place], [place]. This will remain patient's permanent address. Daughter has tried to find last prescription too, can't find it. Please mail to address noted in chart. Demographics page updated to reflect new address in [place]. Routing to provider to review and advise. Yamileth Xiao RN Clinical Triage/Primary Care [facility] documented in this encounter Plan of Treatment [...] to Achieve: I will work with my [facility] and the [facility] to inquire services I am [...] Total Score: 6 05/17/19 23 1:27 PM FLAT SURFACER JEWEL documented as of this encounter Care Teams Peripheral Equipment Operator Relationship Specialty [place] [address] [address] [address] PCP - General Family Practice 05/14/13 [place] [address] [address] [address] Assigned PCP 01/26/22 [place] [address] [address] [address] Assigned Pain Medication Provider 04/15/22 documented as of this encounter
--- OUTSIDE RECORDS SUMMARY | 2023-05-20 09:16 | XMS_ITS | Encounter Summary ---
Author Name Unknown Organization [place] Address [address] [place] [address]. [place] [address] Care Team Providers Care Supervisor Telephone Answering Service Name Role Phone Davy Murillo MD Primary Care Provider Davy Murillo MD Unavailable [phone] Davy Murillo MD Unavailable Reason for Visit * Reason Onset Date Comments Refill Request 06/16/2022 90 days supply ( RISEdronate (ACTONEL) 35 MG tablet) Encounter Details Date Type Department Care Team (Late st Contact Info) Description 06/16/2022 [facility] [address] [place] [address] [place] [address] [place] [address] Refill Request (90 days supply [...] Coronavirus/COVID-19? No / Unsure 06/07/2022 8:24 AM SHELVING SUPERVISOR documented as of this encounter Miscellaneous Notes [...] to Achieve: I will work with my [facility] to inquire services [...] Total Score: 6 05/17/19 23 1:27 PM SHELVING SUPERVISOR documented as of this encounter Care Teams Supervisor Telephone Answering Service Relationship Specialty [place] [address] [place] [address] PCP - General Family Practice 05/14/13 [place] [address] [address] [address] Assigned PCP 01/26/22 [place] [address] [address] [place] [address] Assigned Pain Medication Provider 04/15/22 documented as of this encounter
--- OUTSIDE RECORDS SUMMARY | 2023-05-20 09:16 | XMS_ITS | Encounter Summary ---
Author Name Unknown Organization [place] Address [address] [place] [address]. [place] [address] Care Team Providers Care Line And Frame Poler Name Role Phone Davy Murillo MD Primary Care Provider Davy Murillo MD Unavailable Davy Murillo MD Unavailable Encounter Details Date Type Department Care Team (Late st Contact Info) Description 07/29/2022 [facility] [address] [place] [address] [place] [address] [place] [address] Social History Tobacco Use Types [...] Mailed order to patient's home.Stephanie Anderson MA/TC [address] [place] [address] * Telephone Encounter - Davy Murillo MD [...] the paper order mailed to her at [address] [place] [phone] (this is not her current address- she [...] 9 1:15 PM CDT) Yes Liberty Harris, POWERHOUSE MECHANIC APPRENTICE Note: Goal Statement: I would like to learn about financial resources that can assist me and my . Measure of Success: Whether or not I am able to qualfy programs that are helpful Supportive Steps to Achieve: I will work with my [facility] and the [facility] to inquire services I am interested in. [...] Total Score: 6 05/17/19 23 1:27 PM BUSINESS IMPROVEMENT MANAGER documented as of this encounter Care Teams Line And Frame Poler Relationship Specialty [place] [address] [address] [address] PCP - General Family Practice 05/14/13 [place] [address] [address] [place] [address] Assigned PCP 01/26/22 [place] [address] [address] [address] Assigned Pain Medication Provider 04/15/22 documented as of this encounter
--- OUTSIDE RECORDS SUMMARY | 2023-05-20 09:16 | XMS_ITS | Encounter Summary ---
Author Name Unknown Organization [place] Address [address] [place] [address]. [place] [address] Care Team Providers Care Reservations And Ticketing Agent Name Role Phone Davy Murlilo MD Primary Care Provider Davy Murillo MD Unavailable [phone] Davy Murillo MD Unavailable [phone] Reason for Visit * Reason Onset Date Comments Orders 06/20/2022 Encounter Details Date Type Department Care Team (Late st Contact Info) Description 06/20/2022 Telephone [facility] [address] [place] [address] [place] [address] [place] [address] Orders Social History Tobacco Use [...] Coronavirus/COVID-19? No / Unsure 06/07/2022 8:24 AM B2B APPOINTMENT SETTER documented as of this encounter Miscellaneous Notes * Telephone Encounter - Stephanie Knox MA - 06/21/2022 9:49 AM CDT Called and spoke to patient, I informed her that her RX was sent to the pharmacy. She would like the order for the walker mailed to her at her [facility] house. Mailed to: [address] [place] [id number] Stephanie Anderson MA/TC * Telephone Encounter - [...] be reached at: Home number on file [phone] (home) Best Time: anytime Can we leave [...] will work with my [facility] and the [facility] to inquire [...] Total Score: 6 05/17/19 23 1:27 PM B2B APPOINTMENT SETTER documented as of this encounter Care Teams Reservations And Ticketing Agent Relationship Specialty [place] [address] [place] [address] PCP - General Family Practice 05/14/13 [place] [address] [place] [address] Assigned PCP 01/26/22 [place] [address] [place] [address] Assigned Pain Medication Provider 04/15/22 documented as of this encounter
--- OUTSIDE RECORDS SUMMARY | 2023-05-20 09:16 | XMS_ITS | Encounter Summary ---
Author Name Unknown Organization [facility] Address [address] [place] [address]. [place] [address] Care Team Providers Care Methods Analyst Name Role Phone Davy Murillo MD Primary Care Provider [phone] Davy Murillo MD Unavailable [phone] Davy Murillo MD Unavailable Reason for Visit * Reason Onset Date Comments Refill Request 06/11/2022 Encounter Details Date Type Department Care Team (Late st Contact Info) Description 06/11/2022 Refill M [facility] [address] [place] [address] [place] [address] [place] [address] Refill Request Social History Tobacco [...] Coronavirus/COVID-19? No / Unsure 06/07/2022 8:24 AM CORE PASTER documented as of this encounter Miscellaneous Notes * Telephone Encounter - Maame Snyder PA-C - 06/11/2022 4:17 PM CORE PASTER Patient filled 3 weeks ago ok to hold until pcp is back. Maame Snyder PA-C PASTER * Telephone Encounter - Mily Melara MA - 06/11/2022 12:24 PM CST Medication Question or Refill What medication are you calling about (include dose and sig)?: traMADol (ULTRAM) 50 MG tablet 120 tablet 0 05/17/2022 No Sig - Route: Take 2 tablets (100 mg) by mouth 2 times daily as needed for severe pain (7-10) - Oral Preferred Pharmacy: [facility] [address] [place] [address] Controlled Substance Agreement on file: CSA -- [...] we send this information to you in [facility] or would you prefer to receive a phone call?: Patient would prefer a phone call Okay to leave a detailed message?: Yes at Cell number on file: Telephone Information: PASTER documented in this encounter Plan of Treatment [...] to Achieve: I will work with my [facility] and the county to inquire services [...] Total Score: 6 05/17/19 23 1:27 PM CORE PASTER documented as of this encounter Care Teams Methods Analyst Relationship Specialty [place] [address] [address] [address] PCP - General Family Practice 05/14/13 [place] [address] [address] [address] Assigned PCP 01/26/22 [place] [address] [address] [address] Assigned Pain Medication Provider 04/15/22 documented as of this encounter
--- OUTSIDE RECORDS SUMMARY | 2023-05-20 09:16 | XMS_ITS | Encounter Summary ---
Author Name Unknown Organization [facility] Address [address] [place] [address]. [place] [address] Care Team Providers Care Flash Welding Machine Operator Name Role Phone Davy Murillo MD Primary Care Provider Davy Murillo MD Unavailable Davy Murillo MD Unavailable [phone] Reason for Visit * Reason Onset Date Comments Refill Request 07/18/2022 Encounter Details Date Type Department Care Team (Late st Contact Info) Description 07/18/2022 Refill M [facility] [address] [place] [address] [place] [address] [place] [address] Refill Request Social History Tobacco [...] or medication refill: Do you use a [facility]? Name of the pharmacy and phone [...] work with my [facility] and the [facility] to inquire services I am interested [...] Total Score: 6 05/17/19 23 1:27 PM THAW SHED HEATER TENDER documented as of this encounter Care Teams Flash Welding Machine Operator Relationship Specialty [place] [address] [place] [address] PCP - General Family Practice 05/14/13 [place] [address] [address] [address] Assigned PCP 01/26/22 [place] [address] [address] [address] Assigned Pain Medication Provider 04/15/22 documented as of this encounter
--- OUTSIDE RECORDS SUMMARY | 2023-05-20 09:16 | XMS_ITS | Encounter Summary ---
Author Name Unknown Organization [facility] Address [address] [place] [address]. [place] [address] Care Team Providers Care Accounts Supervisor Name Role Phone Davy Murillo MD Primary Care Provider [phone] Davy Murillo MD Unavailable [phone] Davy Murillo MD Unavailable [phone] Reason for Visit * Reason Onset Date Comments Refill Request 08/12/2022 Encounter Details Date Type Department Care Team (Late st Contact Info) Description 08/12/2022 Refill M [facility] [address] [place] [address] [place] [address] [place] [address] Refill Request Social History Tobacco [...] CDT Phone (Incoming) Car Harmony Vanessa (Self) [phone] (M) What medication are you calling about (include dose and sig)?: B12 Preferred Pharmacy: [facility][id number] [place], [place] - [facility] [address] [facility] [place] [place] OF Y [address] [facility] [address] Controlled Substance Agreement on file: CSA -- Patient Level: CSA: None found at the patient level. Who prescribed the medication?: Dr Murillo Do you need a refill? Yes When did you use the medication last? Patient offered an appointment? No Do you have any questions or concerns? No Could we send this information to you in [place] or would you prefer to receive a phone call?: Patient would prefer a phone call Okay to leave a detailed message?: Yes at Home number on file [phone] (home) Stephanie Anderson MA/BENJY documented in this [...] with my [facility] and the [facility] to inquire [...] Total Score: 6 05/17/19 23 1:27 PM PLC ENGINEER documented as of this encounter Care Teams Accounts Supervisor Relationship Specialty [place] [address] [address] [address] PCP - General Family Practice 05/14/13 [place] [address] [address] [address] Assigned PCP 01/26/22 [place] [address] [place] [address] Assigned Pain Medication Provider 04/15/22 documented as of this encounter
--- OUTSIDE RECORDS SUMMARY | 2023-05-20 09:16 | XMS_ITS | Encounter Summary ---
Author Name Unknown Organization [facility] Address [address] [place] [address]. [place] [address] Care Team Providers Care Blankbook Forwarder Name Role Phone Davy Murillo MD Primary Care Provider [phone] Davy Murillo MD Unavailable [phone] Davy Murillo MD Unavailable Encounter Details Date Type Department Care Team (Late st Contact Info) Description 06/18/2022 [facility] [address] [place] [address] [place] [address] [place] [address] Social History Tobacco Use Types [...] Coronavirus/COVID-19? No / Unsure 06/07/2022 8:24 AM SUPERVISOR PASTE MIXING documented as of this encounter Miscellaneous Notes [...] 9 1:15 PM CDT) Yes Liberty Harris, DRIVER MEDIC Note: Goal Statement: I would like to learn about financial resources that can assist me and my . Measure of Success: Whether or not I am able to qualfy programs that are helpful Supportive Steps to Achieve: I will work with my [facility] and the [facility] to inquire services I am interested [...] Total Score: 6 05/17/19 23 1:27 PM SUPERVISOR PASTE MIXING documented as of this encounter Care Teams Blankbook Forwarder Relationship Specialty [place] [address] [place] [address] PCP - General Family Practice 05/14/13 [place] [address] [address] [address] Assigned PCP 01/26/22 [place] [address] [address] [address] Assigned Pain Medication Provider 04/15/22 documented as of this encounter
--- OUTSIDE RECORDS SUMMARY | 2023-05-20 09:16 | XMS_ITS | Encounter Summary ---
Author Name Unknown Organization [facility] Address [address] [place] [address]. [place] [address] Care Team Providers Care Sliver Cutter Name Role Phone Davy Murillo MD Primary Care Provider [phone] Davy Murillo MD Unavailable [phone] Davy Murillo MD Unavailable Reason for Visit * Reason Onset Date Comments Refill Request 06/18/2022 Encounter Details Date Type Department Care Team (Late st Contact Info) Description 06/18/2022 Refill M [facility] [address] [place] [address] [place] [address] [place] [address] Refill Request Social History Tobacco [...] Coronavirus/COVID-19? No / Unsure 06/07/2022 8:24 AM ARMORED TRANSPORT SERVICE MANAGER documented as of this encounter Miscellaneous Notes * Telephone Encounter - Shari Mtz, RN - 06/18/2022 12:07 PM CDT Pt is in [facility]. Can you resend prescription there? Shari Mtz BSN, RN * Telephone Encounter - Yoselyn Cartagena - 06/18/2022 12:04 PM CDT Medication Question or Refill Contacts Type Contact Phone/Fax 06/18/2022 12:04 PM CDT Phone (Incoming) Harmony Yoon (Self) [phone] (M) What medication are you calling about (include dose and sig)?: traMADol (ULTRAM) 50 MG tablet Preferred Pharmacy: [facility][id number] [place] [address] [address] [facility] [address] [facility] [address] Controlled Substance Agreement on file: CSA -- Patient Level: CSA: None found at the patient level. Who prescribed the medication?: murillo Do you need a refill? Yes When did you use the medication last? Daily Patient offered an appointment? No Do you have any questions or concerns? No Could we send this information to you in [facility] or would you prefer to receive a phone call?: No preference Okay to leave a detailed message?: Yes at Cell number on file: Telephone Information: Yoselyn Rodriguez, Glass Tinter documented in this encounter Plan of Treatment Not on file documented as of this encounter Goals Goal Patient Goal Type Associated Problems Recent Progress Patient-Stated? Author Financial Wellbeing General 20%( 9 1:15 PM CDT) Yes Harris, Liberty J, MEAT COUNTER CLERK Note: Goal Statement: I would like to learn about financial resources that can assist me and my . Measure of Success: Whether or not I am able to qualfy programs that are helpful Supportive Steps to Achieve: I will work with my [facility] and the [facility] [...] Total Score: 6 05/17/19 23 1:27 PM ARMORED TRANSPORT SERVICE MANAGER documented as of this encounter Care Teams Sliver Cutter Relationship Specialty [place] [address] [place] [address] PCP - General Family Practice 05/14/13 [place] [address] [place] [address] Assigned PCP 01/26/22 [place] [address] [place] [place] [address] Assigned Pain Medication Provider 04/15/22 documented as of this encounter
--- OUTSIDE RECORDS SUMMARY | 2023-05-20 09:16 | XMS_ITS | Encounter Summary ---
Author Name Unknown Organization [facility] Address [address] [place] [address]. [place] [address] Care Team Providers Care Building Serviceman Name Role Phone Davy Murillo MD Primary Care Provider Davy Murillo MD Unavailable [phone] Davy Murillo MD Unavailable Reason for Visit * Reason Onset Date Comments Refill Request 08/12/2022 Encounter Details Date Type Department Care Team (Late st Contact Info) Description 08/12/2022 Refill M [facility] [address] [place] [address] [place] [address] [place] [address] Refill Request Social History Tobacco [...] for severe pain - Oral Preferred Pharmacy: [facility] #[id number] [place], [place] - [address] [facility] [place] OF Y [address] [facility] [address] Controlled Substance Agreement on file: CSA -- Patient Level: CSA: None found at the patient level. Who prescribed the medication?: Dr. Murillo Do you need a refill? Yes When did you use the medication last? Patient offered an appointment? Do you have any questions or concerns? Could we send this information to you in [facility] or would you prefer to receive a [...] [facility] and the [facility] to inquire services I am [...] Depression Total Score: 6 05/17/19 1:27 PM CHECK OUT CASHIER documented as of this encounter Care Teams Building Serviceman Relationship Specialty [place] [address] [address] [address] PCP - General Family Practice 05/14/13 [place] [address] [address] [address] Assigned PCP 01/26/22 [place] [address] [address] [address] Assigned Pain Medication Provider 04/15/22 documented as of this encounter
--- OUTSIDE RECORDS SUMMARY | 2023-05-20 09:16 | XMS_ITS | Encounter Summary ---
Author Name Unknown Organization [facility] Address [address] [place] [address]. [place] [address] Care Team Providers Care Police Radio Dispatcher Name Role Phone Davy Murillo MD Primary Care Provider Davy Murillo MD Unavailable [phone] Davy Murillo MD Unavailable Reason for Visit * Reason Comments Medication Refill Encounter Details Date Type Department Care Team ([facility] st Contact Info) Description [facility] [address] [place] [address] [place] [address] [place] [address] Medication Refill Social History Tobacco [...] with my [facility] and the [facility] to inquire services I am [...] Total Score: 6 05/17/19 23 1:27 PM ACTUARIAL CONSULTANT documented as of this encounter Care Teams Police Radio Dispatcher Relationship Specialty [place] [address] [place] [address] PCP - General Family Practice 05/14/13 [place] [address] [place] [address] Assigned PCP 01/26/22 [place] [address] [place] [address] Assigned Pain Medication Provider 04/15/22 documented as of this encounter
--- OUTSIDE RECORDS SUMMARY | 2023-05-20 09:16 | XMS_ITS | Encounter Summary ---
Author Name Unknown Organization [facility] Address [address] [place] [address]. [place] [address] Care Team Providers Care Switch Foreman Name Role Phone Davy Murillo MD Primary Care Provider [phone] Davy Murillo MD Unavailable [phone] Davy Murillo MD Unavailable [phone] Encounter Details Date Type Department Care Team [...] Coronavirus/COVID-19? No / Unsure 06/07/2022 8:24 AM TELEMETRY MONITOR documented as of this encounter Plan of Treatment Not on file documented as of this encounter Goals Goal Patient Goal Type Associated Problems Recent Progress Patient-Stated? Author Financial Wellbeing General 20%( 9 1:15 PM CDT) Yes Liberty Harris, INSPECTOR OF DREDGING Note: Goal Statement: I would like to learn about financial resources that can assist me and my . Measure of Success: Whether or not I am able to qualfy programs that are helpful Supportive Steps to Achieve: I will work with my [facility] to inquire services I am interested in. Barriers: None noted Strengths: I am willing and able to look into applicable resources. Date to Achieve By: October 2018 Patient expressed understanding of goal: yes documented as of this encounter Visit Diagnoses Not on filedocumented in this encounter Additional Health Concerns Assessment Noted Time PHQ-9 Depression Total Score: 6 05/17/19 23 1:27 PM TELEMETRY MONITOR documented as of this encounter Care Teams Switch Foreman Relationship Specialty [place] [address] [place] [address] PCP - General Family Practice 05/14/13 [place] [address] [place] [address] Assigned PCP 01/26/22 [place] [address] [place] [address] Assigned Pain Medication Provider 04/15/22 documented as of this encounter
--- OUTSIDE RECORDS SUMMARY | 2023-05-20 09:16 | XMS_ITS | Encounter Summary ---
Author Name Unknown Organization [facility] Address [address] [place] [address]. [place] [address] Care Team Providers Care Agriculture Professor Name Role Phone Davy Murillo MD Primary Care Provider Davy Murillo MD Unavailable [phone] Davy Murillo MD Unavailable [phone] Reason for Visit * Reason Onset Date Comments Refill Request 05/18/2022 90 days supply ( lidocaine (LIDODERM) 5 % patch) Encounter Details Date Type Department Care Team (Late st Contact Info) Description 05/18/2022 [facility] [address] [place] [address] [place] [address] [place] [address] Refill Request (90 days supply [...] Coronavirus/COVID-19? No / Unsure 05/17/2022 1:23 PM INDUCTION COORDINATION POWER ENGINEER documented as of this encounter Miscellaneous Notes * Telephone Encounter - Francesca Ortega - 05/18/2022 6:28 PM CST Patient is requesting 90 days supply for lidocaine (LIDODERM) 5 % patch. CTION COORDINATION POWER ENGINEER documented in this encounter Plan of Treatment [...] my [facility] and the [facility] [...] Total Score: 6 05/17/19 23 1:27 PM INDUCTION COORDINATION POWER ENGINEER documented as of this encounter Care Teams Agriculture Professor Relationship Specialty [place] [address] [address] [address] PCP - General Family Practice 05/14/13 [place] [address] [address] [address] Assigned PCP 01/26/22 [place] [address] [place] [address] Assigned Pain Medication Provider 04/15/22 documented as of this encounter
--- OUTSIDE RECORDS SUMMARY | 2023-05-20 09:16 | XMS_ITS | Encounter Summary ---
Author Name Unknown Organization [facility] Address [address] [place] [address]. [place] [address] Care Team Providers Care Carbon Paste Mixer Operator Name Role Phone Davy Murillo MD Primary Care Provider Davy Murillo MD Unavailable Davy Murillo MD Unavailable Reason for Visit * Reason Comments Medication Refill Encounter Details Date Type Department Care Team ([facility] st Contact Info) Description [facility] [address] [place] [address] [place] [address] [place] [address] Medication Refill Social History Tobacco [...] Coronavirus/COVID-19? No / Unsure 06/07/2022 8:24 AM RN EXAMINER documented as of this encounter Plan of [...] to Achieve: I will work with my [facility] and the [facility] to inquire [...] Total Score: 6 05/17/19 23 1:27 PM RN EXAMINER documented as of this encounter Care Teams Carbon Paste Mixer Operator Relationship Specialty [place] [address] [address] [address] PCP - General Family Practice 05/14/13 [place] [address] [address] [address] Assigned PCP 01/26/22 [place] [address] [address] [address] Assigned Pain Medication Provider 04/15/22 documented as of this encounter
--- OUTSIDE RECORDS SUMMARY | 2023-05-20 09:16 | XMS_ITS | Encounter Summary ---
Author Name Unknown Organization [facility] Address [address] [place] [address]. [place] [address] Care Team Providers Care Contract Clerk Name Role Phone Davy Murillo MD Primary Care Provider Davy Murillo MD Unavailable [phone] Davy Murillo MD Unavailable Reason for Visit * Reason Onset Date Comments Medication Request 09/11/2022 Encounter Details Date Type Department Care Team (Late st Contact Info) Description 09/11/2022 Refill M [facility] [address] [place] [address] [place] [address] [place] [address] Medication Request Social History Tobacco [...] AM CDT Phone (Incoming) Harmony Yoon (Self) [phone] (M) What medication are you calling about (include dose and sig)?: Tramadol 50 MG Preferred Pharmacy: [facility] #[id number] [place] [address] [address] [facility] OF Y [address] [facility] [address] Controlled Substance Agreement on file: CSA -- [...] we send this information to you in [facility] or would you prefer to receive a [...] my [facility] and the [facility] to inquire services I [...] Score: 6 05/17/19 23 1:27 PM SENIOR QUALITY MANAGER documented as of this encounter Care Teams Contract Clerk Relationship Specialty [place] [address] [address] [facility] [address] PCP - General Family Practice 05/14/13 [place] [address] [address] [address] Assigned PCP 01/26/22 [place] [address] [address] [address] Assigned Pain Medication Provider 04/15/22 documented as of this encounter
--- OUTSIDE RECORDS SUMMARY | 2023-05-20 09:16 | XMS_ITS | Encounter Summary ---
Author Name Unknown Organization [facility] Address [address] [place] [address]. [place] [address] Care Team Providers Care Design Release Engineer Name Role Phone Dvay Murillo MD Primary Care Provider Davy Murillo MD Unavailable Davy Murillo MD Unavailable Reason for Visit * Diagnostic Imaging Dexa (Routine) - Closed Specialty Diagnoses / Procedures Referred By Carlos t Referred To Contact Radiology. Diagnoses Osteoporosis with current pathological fracture, unspecified osteoporosis type, sequela Age-related osteoporosis with current pathological fracture, vertebra(e), initial encounter for fracture (H) Procedures DX Hip/Pelvis/[place] [address] [place] [address] Referral ID Status Reason Start Date Expiration Date Visits Re quested Visits Authorized [id number] Closed 05/17/2022 05/17/2023 1 1 Encounter Details Date Type Department Care Team (Latest Contact Info) Description 06/07/2022 9:00 AM ROLLER LEVELER Ancillary Procedure M [address] [id number] [place] [address] [place] [address] Osteoporosis with current pathological fracture, [...] Coronavirus/COVID-19? No / Unsure 06/07/2022 8:24 AM ROLLER LEVELER documented as of this encounter Miscellaneous Notes * Result Encounter Note - Linh Ulrich MD - 06/07/2022 9:00 AM ROLLER LEVELER Ok to hold for primary ER LEVELER documented in this encounter Plan of Treatment [...] with my [facility] and [facility] to inquire services I am interested in. Barriers: None noted Strengths: I am willing and able to look into applicable resources. Date to Achieve By: October 2018 Patient expressed understanding of goal: yes documented as of this encounter Procedures Procedure Name Priority Date/Time Associated Diagnosis Comments DX HIP/PELVIS/SPINE Routine 06/07/2022 8:55 AM ROLLER LEVELER Osteoporosis with current pathological fracture, unspecified osteoporosis type, sequela Age-related osteoporosis with current pathological fracture, vertebra(e), initial encounter for fracture (H) documented in this encounter Results * DX Hip/Pelvis/Spine (06/07/2022 8:55 AM ROLLER LEVELER) Anatomical Region Laterality Modality Dexa Bone Mineral Den sity Narrative 06/11/2022 4:54 PM ROLLER LEVELER BONE DENSITOMETRY [address] [address] 06/07/2022 ?? PATIENT: Harmony Yoon CHART: [id number] : ??1945 AGE: ??77 year old SEX: ??female REFERRING PROVIDER: ??Davy Murillo MD ?? PROCEDURE: ??Bone density scanning was performed using DXA technology of the lumbar spine and hip. ??Scanning was performed on a AnSyn scanner. ??Reporting is completed in the form [...] years. Joyce Cabrera M.D. Electronically signed ? Dayv Murillo MD IMG DEXA ORDERABLES documented in this encounter Visit Diagnoses Diagnosis Osteoporosis with current pathological fracture, unspecified osteoporosis type, sequela Age-related osteoporosis with current pathological fracture, vertebra(e), initial encounter for fracture (H) documented in this encounter Additional Health Concerns Assessment Noted Time PHQ-9 Depression Total Score: 6 05/17/19 23 1:27 PM ROLLER LEVELER documented as of this encounter Care Teams Design Release Engineer Relationship Specialty [place] [address] [facility] [place] [address] PCP - General Family Practice 05/14/13 [place] [address] [place] [address] Assigned PCP 01/26/22 [place] [address] [address] [address] Assigned Pain Medication Provider 04/15/22 documented as of this encounter
--- OUTSIDE RECORDS SUMMARY | 2023-05-20 09:16 | XMS_ITS | Encounter Summary ---
Author Name Unknown Organization [facility] Address [address] [place] [address]. [place] [address] Care Team Providers Care Research Affiliate Name Role Phone Davy Murillo MD Primary Care Provider Davy Murillo MD Unavailable [phone] Davy Murillo MD Unavailable [phone] Reason for Visit * Reason Onset Date Comments Medication Request 08/26/2022 Encounter Details Date Type Department Care Team (Late st Contact Info) Description 08/26/2022 Refill M [facility] [address] [place] [address] [place] [address] [place] [address] Medication Request Social History Tobacco [...] AM CDT Phone (Incoming) Harmony Yoon (Self) [phone] (M) What medication are you calling about (include dose and sig)?: albuterol inhaler Preferred Pharmacy: [id number] [place], [place] - [facility] [address] [facility] [address] [facility] [phone] Controlled Substance Agreement on file: CSA -- Patient Level: CSA: None found at the patient level. Who prescribed the medication?: Dr Key Do you need a refill? Yes When did you use the medication last? Patient offered an appointment? No Do you have any questions or concerns? Yes: allergies are bad, from the smoke from [place]. Could we send this information to you in [employer] or would you prefer to receive a [...] I will work with my [facility] and [facility] to inquire services [...] Total Score: 6 05/17/19 23 1:27 PM COMMUNITY CENTER WORKER documented as of this encounter Care Teams Research Affiliate Relationship Specialty [place] [address] [place] [address] PCP - General Family Practice 05/14/13 [place] [address] [place] [address] Assigned PCP 01/26/22 [place] [address] [place] [address] Assigned Pain Medication Provider 04/15/22 documented as of this encounter
--- OUTSIDE RECORDS SUMMARY | 2023-05-20 09:16 | XMS_ITS | Encounter Summary ---
Author Name Unknown Organization [facility] Address [address] [place] [address]. [place] [address] Care Team Providers Care Mechanical Facilities Technician Name Role Phone Davy Murillo MD Primary Care Provider [phone] Davy Murillo MD Unavailable Davy Murillo MD Unavailable Reason for Visit * Diagnostic Imaging Dexa (Routine) - Pending Review Specialty Diagnoses / Procedures Referred By Carlos t Referred To Contact Radiology. Diagnoses Asymptomatic postmenopausal status Procedures [place] [address] [place] [address] Referral ID Status Reason Start Date Expiration Date V isits Requested Visits Authorized [id number] Pending Review 06/07/2022 06/07/2023 1 1 Encounter Details Date Type Department Care Team (Latest Contact Info) Description 06/07/2022 9:05 AM ENGINEERING PROFESSOR Ancillary Procedure M [address] [phone] [place] [address] [place] [address] Asymptomatic postmenopausal status Social History [...] No / Unsure 06/07/2022 8:24 AM ENGINEERING PROFESSOR documented as of this encounter Miscellaneous Notes * Result Encounter Note - Linh Ulrich MD - 06/07/2022 9:05 AM ENGINEERING PROFESSOR Ok to hold for primary NEERING PROFESSOR documented in this encounter Plan of Treatment [...] Achieve: I will work with my [facility] and the community health to inquire services I am interested in. Barriers: None noted Strengths: I am willing and able to look into applicable resources. Date to Achieve By: October 2018 Patient expressed understanding of goal: yes documented as of this encounter Procedures Procedure Name Priority Date/Time Associated Diagnosis Comments DX WRIST/HEEL/RADIUS Routine 06/07/2022 8:55 AM ENGINEERING PROFESSOR Asymptomatic postmenopausal status documented in this encounter Results * DX Wrist Heel Radius (06/07/2022 8:55 AM ENGINEERING PROFESSOR) Anatomical Region Laterality Modality Dexa Bone Mineral Den sity Narrative 06/11/2022 4:54 PM ENGINEERING PROFESSOR BONE DENSITOMETRY [facility] [address] [place] [address] 06/07/2022 ?? PATIENT: Harmony Yoon CHART: [id number] : ??1945 AGE: ??77 year old SEX: ??female REFERRING PROVIDER: ??Davy Murillo MD ?? PROCEDURE: ??Bone density scanning was performed using DXA technology of the lumbar spine and hip. ??Scanning was performed on a [employer] scanner. ??Reporting is completed in the form [...] Score: 6 05/17/19 23 1:27 PM ENGINEERING PROFESSOR documented as of this encounter Care Teams Mechanical Facilities Technician Relationship Specialty [place] [address] [facility] [place] [address] PCP - General Family Practice 05/14/13 [place] [address] [address] [place] [address] Assigned PCP 01/26/22 [place] [address] [address] [place] [address] Assigned Pain Medication Provider 04/15/22 documented as of this encounter
--- OUTSIDE RECORDS SUMMARY | 2023-05-20 09:17 | XMS_ITS | Clinical Summary ---
Author Name Unknown Organization [facility] Address [address] [place] [address] Care Team Providers Care Mounter Smoking Pipe Name Role Phone Unavailable Primary Care Provider Unavailabl e Source Comments Patient records contain information from all sites at [facility]. For routine questions regarding patient records, call [phone] during business hours, M-F 8:00 AM - 5:00 PM Central Time. Record requests for emergency care only can be directed to [phone] at any time.[facility] Allergies Active Allergy Reactions Criticality Noted Date Comments Acetaminophen Other (see comments) 03/11/2022 Per [facility] EMR Amitriptyline Other (see comments) 03/11/2022 Per [facility] E[facility] Codeine Other (see comments) 03/11/2022 Per [facility] E[facility] Diphenhydramine Other (see comments) 03/11/2022 Per [facility] EMR Methylphenidate Swelling High 01/06/2014 Tongue swelling Zinc Other (see comments) 03/11/2022 Per [facility] E[facility] Medications Medication Sig Dispensed [...] Influenza, Seasonal, Injectable 12/25/19 13,01/14/2012,02/23/2008,2006,02/13/2006,02/19/2005 PCV13 01/17/2016 PPSV23(Discontinued) 08/25/2013,08/08/2010 RZV (SHINGRIX) 10/11/2019,09/29/2019 SARS-COV-2 (COVID-19) - JANS SEN (J&J)(Discontinued) 06/20/2020 SARS-COV-2 (COVID-19) - MODERNA(Discontinued) 02/05/2021 Tdap 08/08/2010 influenza high dose (65 [...] Comments Blood Pressure 137/76 03/12/2022 8:34 AM FIREFIGHTER Pulse 70 03/12/2022 8:34 AM FIREFIGHTER Temperature 36.7 ??C (98.1 ??F) 03/12/2022 8:34 AM CS T Respiratory Rate 17 03/12/2022 8:34 AM FIREFIGHTER Oxygen Saturation 96% 03/12/2022 8:34 AM FIREFIGHTER Inhaled Oxygen Concentration - - Weight - [...] Advance Directives For more information, please contact: [phone] Documents on File Type Date Recorded Patient Scallop Cutter Machine Expl anation Advance Directives 03/12/2022 1:55 PM POLLizbeth T/MOLST
--- OUTSIDE RECORDS SUMMARY | 2023-05-20 09:17 | XMS_ITS | Referral Summary ---
Author Name Unknown Organization [facility] Address [address] [place] [address] Care Team Providers Care Assistant Infant Toddler Teacher Name Role Phone Unavailable Primary Care Provider Unavailabl e Source Comments Patient records contain information from all sites at [facility]. For routine questions regarding patient records, call [phone] during business hours, M-F 8:00 AM - 5:00 PM Central Time. Record requests for emergency care only can be directed to [phone] at any time.[facility] Allergies Active Allergy Reactions Criticality Noted Date Comments Acetaminophen Other (see comments) 03/11/2022 Per [facility] EMR Amitriptyline Other (see comments) 03/11/2022 Per [facility] E[facility] Codeine Other (see comments) 03/11/2022 Per [facility] E[facility] Diphenhydramine Other (see comments) 03/11/2022 Per [facility] EMR Methylphenidate Swelling High 01/06/2014 Tongue swelling Zinc Other (see comments) 03/11/2022 Per [facility] EMR Medications Medication Sig Dispensed Refills Start [...] Date Recorded Dental: Regular Dentist Unknown 03/11/20 22 Sex and Gender Information Value Date Recorded Sex Assigned at Not on file Gender Identity Not on file Sexual Orientation Not on file Last Filed Vital Signs Vital Sign Reading Time Taken Comments Blood Pressure 137/76 03/12/2022 8:34 AM MERGERS AND ACQUISITIONS MANAGER Pulse 70 03/12/2022 8:34 AM MERGERS AND ACQUISITIONS MANAGER Temperature 36.7 ??C (98.1 ??F) 03/12/2022 8:34 AM CS T Respiratory Rate 17 03/12/2022 8:34 AM MERGERS AND ACQUISITIONS MANAGER Oxygen Saturation 96% 03/12/2022 8:34 AM MERGERS AND ACQUISITIONS MANAGER Inhaled Oxygen Concentration - - Weight - - Height - - Body Mass Index - - Plan of Treatment Not on file Advance Directives For more information, please contact: [phone] Documents on File Type Date Recorded Patient Executive Chairman Expl anation Advance Directives 03/12/2022 1:55 PM POLS T/MOLST
--- OUTSIDE RECORDS SUMMARY | 2023-05-20 09:17 | XMS_ITS ---
Author Name Unknown Organization [facility] Address [address] [place] [address] Care Team Providers Care Computer Network Specialist Name Role Phone Unavailable Unavailable Unavailable Surgery Details Not on file Complications Check Surgery Details section. Procedure Estimated Blood Loss Check Surgery Details section. Procedure Findings Check Surgery Details section. Procedure Specimens Taken Check Surgery Details section.
--- OUTSIDE RECORDS SUMMARY | 2023-05-20 09:17 | XMS_ITS | Encounter Summary ---
Author Name Unknown Organization [facility] Address [address] [place] [address]. [place] [address] Care Team Providers Care Marketing Analytics Analyst Name Role Phone Davy Murillo MD Primary Care Provider Davy Murillo MD Unavailable Davy Murillo MD Unavailable [phone] Liberty HarrisW Unavailable Walter Bryson DO Unavailable [phone] Davy Murillo MD Unavailable Davy Murillo MD Unavailable Reason for Visit * Reason Comments Medication Refill Encounter Details Date Type Department Care Team (Late st Contact Info) Description 01/17/2017 Refill [facility] [address] [place] [address] [place] [address] [place] [address] Medication Refill Social History Tobacco [...] Total Score(s): No flowsheet data found. Last [facility] website verification: ??12/16/16 Abbi Wisdom RN documented in this encounter Plan of Treatment Not on file documented as of this encounter Visit Diagnoses Diagnosis Chronic low back pain, unspecified back pain laterality, with sciatica presence unspecified documented in this encounter Additional Health Concerns Assessment Noted Time PHQ-9 Depression Total Score: 0 04/26/19 16 7:58 AM NO EXPERIENCE documented as of this encounter Care Teams Marketing Analytics Analyst Relationship Specialty [place] [address] [address] [place] [address] PCP - General Family Practice 05/14/13 [place] [address] [address] [place] [address] PCP - Assigned PCP 02/26/13 06/09/18 [place] [address] [address] [place] [address] Assigned PCP 02/26/13 10/19/21 Liberty Harris, CLINICAL IMMUNOLOGIST [facility] [address] [facility] [address] [place] [address] Lead Agricultural Adviser Primary Care - CC 07/21/18 Walter Bryson DO [address] [facility] [address] Assigned Musculoskeletal Provider 01/28/20 03/11/20 [place] [address] [address] [address] Assigned PCP 01/26/22 [place] [address] [address] [place] [address] Assigned Pain Medication Provider 04/15/22 documented as of this encounter
--- OUTSIDE RECORDS SUMMARY | 2023-05-20 09:17 | XMS_ITS | Encounter Summary ---
Author Name Unknown Organization [facility] Address [address] [place] [address]. [place] [address] Care Team Providers Care Hydramatic Specialist Name Role Phone Davy Murillo MD Primary Care Provider Davy Murillo MD Unavailable Davy Murillo MD Unavailable Liberty HarrisW Unavailable [phone] Walter Bryson DO Unavailable Davy Murillo MD Unavailable [phone] Davy Murillo MD Unavailable [phone] Reason for Visit * Reason Comments Medication Refill Encounter Details Date Type Department Care Team (Late st Contact Info) Description 12/12/2016 Refill [facility] [address] [place] [address] [place] [address] [place] [address] Medication Refill Social History Tobacco [...] Total Score(s): No flowsheet data found. Last [facility] website verification: 12/16/16 [email or web address] documented in this encounter Plan of Treatment Not on file documented as of this encounter Visit Diagnoses Diagnosis Chronic low back pain, unspecified back pain laterality, with sciatica presence unspecified LOUISA (generalized anxiety disorder) Generalized anxiety disorder documented in this encounter Additional Health Concerns Assessment Noted Time PHQ-9 Depression Total Score: 0 04/26/19 16 7:58 AM CHINESE INSTRUCTOR documented as of this encounter Care Teams Hydramatic Specialist Relationship Specialty [place] [address] [address] [place] [address] PCP - General Family Practice 05/14/13 [place] [address] [address] [place] [address] PCP - Assigned PCP 02/26/13 06/09/18 [place] [address] [address] [place] [address] Assigned PCP 02/26/13 10/19/21 Liberty Harris, DEVULCANIZER TENDER [facility] [address] [facility] [address] [place] [address] Lead Buildings And Grounds Superintendent Primary Care - CC 07/21/18 Walter Bryson DO [address] [place] [address] Assigned Musculoskeletal Provider 01/28/20 03/11/20 [place] [address] [address] [place] [address] Assigned PCP 01/26/22 [place] [address] [address] [address] Assigned Pain Medication Provider 04/15/22 documented as of this encounter
--- OUTSIDE RECORDS SUMMARY | 2023-05-20 09:17 | XMS_ITS | Encounter Summary ---
Author Name Unknown Organization [facility] Address [address] [place] [address]. [place] [address] Care Team Providers Care Program Arranger Name Role Phone Davy Murillo MD Primary Care Provider Davy Murillo MD Unavailable [phone] Davy Murillo MD Unavailable [phone] Liberty HarrisW Unavailable Walter Bryson DO Unavailable Davy Murillo MD Unavailable Davy Murillo MD Unavailable Reason for Visit * Reason Comments Medication Refill Encounter Details Date Type Department Care Team (Late st Contact Info) Description 03/18/2017 Refill [facility] [address] [place] [address] [place] [address] [place] [address] Medication Refill Social History Tobacco [...] Total Score: 0 04/26/19 16 7:58 AM GEOTECHNICAL ENGINEER documented as of this encounter Care Teams Program Arranger Relationship Specialty Start [place] [address] [place] [address] PCP - General Family Practice 05/14/13 [place] [address] [place] [address] PCP - Assigned PCP 02/26/13 06/09/18 [place] [address] [place] [address] Assigned PCP 02/26/13 10/19/21 Liberty Harris, EQUIPMENT PROCESSOR [facility] [address] [facility] [address] [place] [address] Lead Corporate Coordinator Primary Care - CC 07/21/18 Walter Bryson DO [address] [place] [address] Assigned Musculoskeletal Provider 01/28/20 03/11/20 [place] [address] [place] [address] Assigned PCP 01/26/22 [place] [address] [place] [address] Assigned Pain Medication Provider 04/15/22 documented as of this encounter
--- OUTSIDE RECORDS SUMMARY | 2023-05-20 09:17 | XMS_ITS | Encounter Summary ---
Author Name Unknown Organization [facility] Address [address] [place] [address]. [place] [address] Care Team Providers Care Scooter Mechanic Name Role Phone Candice Murillo MD Primary Care Provider [phone] Candice Murillo MD Unavailable [phone] Candice Murillo MD Unavailable [phone] Reason for Referral * Diagnostic Imaging Dexa (Routine) - Closed Specialty Diagnoses / Procedures Referred By Carlos t Referred To Contact Radiology. Diagnoses Osteoporosis with current pathological fracture, unspecified osteoporosis type, sequela Age-related osteoporosis with current pathological fracture, vertebra(e), initial encounter for fracture (H) Procedures DX Hip/Pelvis/[place] [address] [place] [address] Referral ID Status Reason Start Date Expiration Date Visits Re quested Visits Authorized [id number] Closed 05/17/2022 05/17/2023 1 1 S CATALOGUER Reason for Visit * Reason Comments RECHECK Fall 03/2022. Medica tion Imm/Inj b12 Encounter Details Date Type Department Care Team ([facility] st Contact Info) Description 05/17/2022 1:30 PM PARTS CATALOGUER Office Visit [facility] [address] [place] [phone] [place] [address] [place], [place] [id number] Chronic low back pain, unspecified back pain [...] Coronavirus/COVID-19? No / Unsure 06/07/2022 8:24 AM PARTS CATALOGUER documented as of this encounter Last Filed Vital Signs Vital Sign Reading Time Taken Comments Blood Pressure 108/64 05/17/2022 1:23 PM PARTS CATALOGUER Pulse 91 05/17/2022 1:23 PM PARTS CATALOGUER Temperature 36.6 ??C (97.8 ??F) 05/17/2022 1:23 PM CS T Respiratory Rate 20 05/17/2022 1:23 PM PARTS CATALOGUER Oxygen Saturation 98% 05/17/2022 1:23 PM PARTS CATALOGUER Inhaled Oxygen Concentration - - Weight 48.5 kg (107 lb) 05/17/2022 1:23 PM PARTS CATALOGUER Height 152.4 cm (5') 05/17/2022 1:23 PM PARTS CATALOGUER Body Mass Index 20.9 05/17/2022 1:23 PM PARTS CATALOGUER documented in this encounter Progress Notes * [...] Medication ) History chronic low back pain, [id number] def, adhd, anxiety and insomnia Hip fracture [...] spine. PSYCH: mentation appears normal, affect normal/bright S CATALOGUER documented in this encounter Nursing Notes * [...] patient? No Leroy Meier, Licensed Practical Nurse [facility] 05/03/2022 at 7:45 AM S CATALOGUER documented in this encounter Miscellaneous Notes * [...] with my [facility] and the [facility] to inquire services I am interested in. Barriers: None noted Strengths: I am willing and able to look into applicable resources. Date to Achieve By: October 2018 Patient expressed understanding of goal: yes documented as of this encounter Results * DX Hip/Pelvis/Spine (06/07/2022 8:55 AM PARTS CATALOGUER) Anatomical Region Laterality Modality Dexa Bone Mineral Den sity Narrative 06/11/2022 4:54 PM PARTS CATALOGUER BONE DENSITOMETRY [facility] [address] [place] [address] 06/07/2022 ?? PATIENT: Harmony Yoon CHART: [id number] : ??1945 AGE: ??77 year old SEX: ??female REFERRING PROVIDER: ??Candice Murillo MD ?? PROCEDURE: ??Bone density scanning was performed using DXA technology of the lumbar spine and hip. ??Scanning was performed on a [employer] scanner. ??Reporting is completed in the form [...] M.D. Electronically signed ? Candice Murillo MD IMHiren DEXA ORDERABLES documented in this encounter Visit [...] (H) documented in this encounter Administered Medications Inactive Administered Medications - up to 3 most recent administrations Medication Order MAR Action Action Date Dose Rate Site cyanocobalamin injection 1,000 mcg 1,000 mcg, Intramuscular, EVERY 30 DAYS, First dose on Fri05/17/22 at 1430, For 12 doses $Given 05/17/2022 2:13 PM PARTS CATALOGUER 1,000 mcg Other (see comments) documented in this encounter Additional Health Concerns Assessment Noted Time PHQ-9 Depression Total Score: 6 05/17/19 23 1:27 PM PARTS CATALOGUER documented as of this encounter Care Teams Scooter Mechanic Relationship Specialty Start [place] [address] [address] [address] PCP - General Family Practice 05/14/13 [place] [address] [address] [address] Assigned PCP 01/26/22 [place] [address] [address] [place] [address] Assigned Pain Medication Provider 04/15/22 documented as of this encounter
--- OUTSIDE RECORDS SUMMARY | 2023-05-20 09:17 | XMS_ITS | Clinical Summary ---
Author Name Unknown Organization [facility] Address [place], [place] [address] Care Team Providers Care Sawmill Worker Name Role Phone Emerita Oviedo DO Unavailable Daniele Hawkins MD Primary Care Provider [phone] Allergies No known active allergies Medications Medication [...] Encounters Date Type Department Care Team Description 05/05/2023 Telephone [facility] [address] [place] [address] Walter Gomes MD Appointment Request 03/04/2023 11:20 AM OFFICE MESSENGER Office Visit [facility] [address] [place] [phone] Walter Gomes MD Procedure (Right L4-5 TFESI) 03/04/2023 Orders Only [facility] Scanner 1 scan: (1-Ord) [facility], INJ, RT L4-L5 TRANSFORAMINAL , 03/04/2023 [...] Care Team (Late st Contact Info) Description 05/20/2023 9:40 AM OFFICE MESSENGER Office Visit [facility] [address] [place] [phone] Walter Gomes MD [address] [facility] [address] Arrived 06/16/2023 8:40 AM CDT Office Visit [facility] [address] [place] [address] Walter Gomes MD [address] [place] [address] Health Maintenance Due Date Last Done Comments [...] Diagnosis Comments AMB EPIDURAL STEROID INJECTION Routine 05/20/2023 8:00 AM OFFICE MESSENGER Lumbar radiculopathy DDD (degenerative disc disease), lumbar Lumbar facet arthropathy AMB EPIDURAL STEROID INJECTION Routine 03/04/2023 8:14 AM OFFICE MESSENGER Lumbar radiculopathy DDD (degenerative disc disease), lumbar Lumbar facet arthropathy SCAN-OPERATIVE/PROC EDURE REPORT 03/04/2023 12:00 AM OFFICE MESSENGER from Last 3 Months Results * SCAN-OPERATIVE/PROCEDURE REPORT (03/04/2023 12:00 AM OFFICE MESSENGER) Scanner OTHER from Last 3 Months Care Teams Sawmill Worker Relationship Specialty Start Date End Date Daniele Hawkins MD [address] [place] [place] [phone] PCP - General Family Practice 11/25/22 Emerita Oviedo DO [address] [place] [place] [phone] 01/30/12
== END 2023-05-20 09:12 | disposition home or self-care (01) ==
PROVIDERS: PCP Family Medicine; Visit Provider Family Medicine
DX: M54.16 Radiculopathy, lumbar region (principal); M51.36 Other intervertebral disc degeneration, lumbar region
CPT/HCPCS: 64483; J1100; Q9966

== ENCOUNTER 2024-03-29 16:08 | Outpatient (CLI) | payer MEDICARE, SELFPAY | END 2024-03-29 16:09 | disposition home or self-care (01) | PROVIDERS: PCP Family Medicine; Visit Provider Family Medicine | DX: R63.4 Abnormal weight loss (principal) | CPT/HCPCS: 80053; 84443 ==

== ENCOUNTER 2024-06-14 14:05 | Outpatient (CLI) | payer MEDICARE, SELFPAY | END 2024-06-14 14:06 | disposition home or self-care (01) | LOC: MRI 14:06 | PROVIDERS: PCP Family Medicine; Visit Provider Family Medicine | DX: M54.50 Low back pain, unspecified (principal); M48.04 Spinal stenosis, thoracic region; M51.26 Other intervertebral disc displacement, lumbar region; M51.27 Other intervertebral disc displacement, lumbosacral region; K80.20 Calculus of gallbladder without cholecystitis without obstruction | CPT/HCPCS: 72148 ==

== ENCOUNTER 2024-07-13 10:53 | Outpatient (CLI) | payer MEDICARE, SELFPAY | END 2024-07-13 10:54 | disposition home or self-care (01) | LOC: INJ CL 10:55 | PROVIDERS: PCP Family Medicine; Visit Provider Family Medicine | DX: M54.16 Radiculopathy, lumbar region (principal); M47.816 Spondylosis without myelopathy or radiculopathy, lumbar region | CPT/HCPCS: 64483; J1100; Q9966 ==

== ENCOUNTER 2024-09-07 15:22 | Outpatient (CLI) | payer MEDICARE, SELFPAY | END 2024-09-07 15:23 | disposition home or self-care (01) | LOC: INJ CL 15:22 | PROVIDERS: PCP Family Medicine; Visit Provider Family Medicine | DX: M17.11 Unilateral primary osteoarthritis, right knee (principal); M25.561 Pain in right knee | CPT/HCPCS: 64454 ==

== ENCOUNTER 2024-09-21 13:01 | Outpatient (CLI) | payer MEDICARE, SELFPAY | END 2024-09-21 13:02 | disposition home or self-care (01) | LOC: INJ CL 13:03 | PROVIDERS: PCP Family Medicine; Visit Provider Family Medicine | DX: M17.11 Unilateral primary osteoarthritis, right knee (principal); M25.561 Pain in right knee; G89.29 Other chronic pain | CPT/HCPCS: 64624; J2250; J3010 ==

== ENCOUNTER 2024-09-22 16:15 | Outpatient (RCR) | payer MEDICARE, SELFPAY ==
--- NOTE | 2024-08-25 12:54 | PT.OPEX ---
PT [place] Outpatient Eval PT [facility] Outpatient Eval Start: 08/09/24 17:44 Freq: Status: Active Protocol: Document 08/20/24 09:02 HEN (Rec: 08/20/24 12:55 HEN No Response) E-signed By Allyn Nicole DPT Physical Therapy Outpatient Evaluation Insurance Information Insurance Name Medicare B Insurance [facility] Information/Comments Medical Diagnosis R29.898 Other symptoms and signs involving the musculoskeletal system Weakness of R leg Treating Diagnosis M62.81: Generalized muscle weakness Z74.9 Impaired mobility Referring MD Daniele Hawkins MD Subjective Preferred Name Harmony Fuentes Pt presents to physical therapy with R hip weakness. Pt 's daughter present to assist with history. Pt's daughter reports a fall ~1 year ago, R hip strength did not return to normal. Pt and daughter report difficulty with bed mobility (scooting), transfers ( lifting R LE) and ambulation. Pt also reports long history of low back pain, R lumbar radiculopathy and chronic knee pain impacting her mobility. Aggravating factors for low back pain include prolonged walking and standing, prolonged laying in bed. Daughter reports pt is currently very sedentary. Social history: pt is retired Pt lives with daughter and family 7 stairs to navigate with railing, daughters assist, and step to pattern. Pt has tub bench, grab bars, toilet riser, and 4WW (1 in home, 1 for community ambulation) Pt goals: pt and daughter's goals to improve bed mobility, R hip strength for functional transfers (in/ out of tub, in/out of bed, in/out of car). Pain Comments Current: 10 Best: 10 Worst: 1010 Current Work Status Retired Precautions Treatment hard of hearing Precautions/ Past medical history: Anxiety, Depression, Chronic low Contraindications back pain, frequent falls, chronic bilateral knee pain, pt reports bilateral LE neuropathy Weight Bearing Full Weight Bearing Status Therapy Limitations/ Hearing Systems Review Objective Other/Pertinent MMT: Objective Hip flexion: 4/5 L / 2+/5 on R Hip extension: 3/5 bilaterally (able to do bridge) Hip abduction 3+/5 bilaterally Hip adduction: 3/5 bilaterally Knee flexion 3/5 bilaterally Knee extension: 3/5 on R, 4/5 on L 5 time sit to stand: 14 seconds with use of hands, unable to complete without hands Core strength in seated: poor Functional Test LEFS 6/80 Performed & Score Assessment Assessment/ Patient is a 79 year old with R LE weakness with onset Impression after hip fracture ~1 year ago. Pt demonstrates impairments in hip and knee strength, impaired functional LE strength, and increased risk for falls. These impairments impact the patient's bed mobility, transfers, ambulation, stair navigation and participation in ADLs including cooking. Patient will benefit from skilled physical therapy to address the impairments and activity limitations listed above. Pt and daughter educated on risks and benefits of treatment and are agreeable to plan of care. Plan of Care Rehabilitation Fair Potential Rehabilitation Chronic nature of symptoms, deconditioned Potential Comments Physical Therapy Short term goals 6 weeks Goals 1. Patient will demonstrate 3/5 R hip flexion strength to improve transfers 2. Patient and daughter will be independent with home exercise program in order to self manage condition MCC goals 12 weeks 1. Patient will complete 5 time sit to greeting card writer 13 second or less with 1 UE or fewer to demonstrate decreased risk for falls and improved safety with transfers 2. Patient will demonstrate R hip flexion strength 4/5 or greater to improve car transfers and bed mobility 3. Patient will be independent with bed mobility to reduce caregiver burden 4. Patient and daughter will demonstrate independence with home exercise program to continue to self manage condition Coordination/ Referral Source Communication With Treatment Plan/ Gait Training,Joint Mobilization,Manual Therapy, Direct Interventions Neuromuscular Re-ed,Self-Care/Home Management, Therapeutic Activities,Therapeutic Exercises Frequency/Duration 1x/week for up to 12 weeks Patient Will Be Completion of LTG(s),Skills Plateau,Independent w/HEP Discharged From Therapy Evaluation Billing Untimed Code 30 Treatment Minutes Complexity Low Certification Information Initial 08/20/24 Certification Date Ending Certification 11/17/24 Date Provider Signature Yes Required Provider Signature POC & Medical Necessity Shows Agreement With Physician NPI Number Write NPI# Here Physician Comment/ : Change Physician Signature Please Sign/Date Here & Date Requested
== END 2025-01-12 13:36 | disposition home or self-care (01) ==
PROVIDERS: PCP Family Medicine; Visit Provider Family Medicine
DX: R29.898 Other symptoms and signs involving the musculoskeletal system (principal); Z51.89 Encounter for other specified aftercare
CPT/HCPCS: 97110; 97161

== ENCOUNTER 2024-10-04 16:23 | Outpatient (CLI) | payer MEDICARE, SELFPAY | END 2024-10-04 16:24 | disposition home or self-care (01) | PROVIDERS: PCP Family Medicine; Visit Provider Family Medicine | DX: M25.562 Pain in left knee (principal); R22.42 Localized swelling, mass and lump, left lower limb | CPT/HCPCS: A0425; A0427 ==

== ENCOUNTER 2024-10-04 16:54 | Observation (INO) | payer MEDICARE, SELFPAY ==
[2024-10-04 17:03] VITALS: BP 144/71; PULSE 96; RESP 16; TEMP 36.2; O2SAT 95; BMI 23.9
--- NOTE | 2024-10-04 17:39 | ED.GENADULT ---
HPI - General Adult General Date Seen: 10/04/24 Chief complaint: Extremity Pain/Injury, Lower Stated complaint: knee pain Time Seen by Provider: 10/04/24 17:38 History of Present Illness HPI narrative: 79 yo F with history of anemia, duodenal ulcers, GERD, chronic low back pain, ADD, previous hip surgery, lumbar laminectomy, right shoulder replacement, left hip replacement, gastric bypass. She has a history of both hip replacements and also recently had a lumbar nerve root procedure (possibly an ablation rhizotomy?). She does have chronic pain in her back and is on tramadol. She was in the bathroom 2 nights ago overnight Friday and into Friday morning when she fell off the toilet. Circumstances of fall or unclear. She probably lost her balance and fell. She was found on the floor by her son-in-law. She had scraped the right side of her nose. No other signs of head injury. She was able to get up off the floor with help and ambulate into her bedroom. Since then she has been complaining of pain in her left leg. It has been getting progressively more painful and progressively stiffer. Daughter notes that on the morning after a fall she was able to flex and extend her hip knee a little bit. Since then she has been having pain with even transferring out of bed onto a bedside commode. She has been refusing to get up because it is too painful. Now she is even having pain when she rolls over in bed. Daughter made her come to the ER today because she is not able to care for herself or even get home care with her daughter and granddaughters help based on how much pain she is having. She does have a prescription for tramadol which she uses chronically for back pain which has been ineffective in managing her pain. No other injuries from the fall. Related Data Home Medications ?Medication ?Instructions ?Recorded ?Confirmed needle (disp) 18 G 18 gauge x 1 10/22/21 05/24/2404/08 (Exel Hypodermic Sadler) risedronate 35 mg tablet 35 mg PO QWEEK 06/25/22 05/24/24 lidocaine 5 % topical patch 1 patch topical DAILY 09/23/22 05/24/24 ondansetron HCl 4 mg tablet 4 mg PO Q8H PRN 04/28/24 05/24/24 propranolol 10 mg tablet 10 mg PO BID 04/28/24 05/24/24 trazodone 150 mg tablet 300 mg PO QPM 04/28/24 05/24/24 Previous Rx's ?Medication ?Instructions ?Recorded cyanocobalamin (vitamin B-12) 1,000 mcg IM .QMONTH #10 mL 12/02/21 1,000 mcg/mL injection solution escitalopram oxalate 20 mg tablet 30 mg (1.5 x 20 mg) PO QDAY #45 03/12/24 tabs atomoxetine 25 mg capsule 25 mg PO QAM #90 caps 03/29/24 meloxicam 15 mg tablet 15 mg PO DAILY #90 tabs 04/13/24 oxybutynin chloride 15 mg 15 mg PO .HS #90 tabs 04/13/24 tablet,extended release 24 hr tizanidine 2 mg tablet 2 mg PO TID PRN muscle spasticity 05/31/24 #30 tabs syringe with needle, safety 3 mL #3 ea 06/30/24 25 gauge x 1 (Eclipse Syringe) valacyclovir 500 mg tablet 500 mg PO QDAY #30 tabs 07/27/24 tramadol 50 mg tablet See Rx Instructions PO .ud PRN 09/13/24 pain #90 tabs Allergies Allergy/AdvReac Type Severity Reaction Status Date / Time amitriptyline Allergy Severe Bundle Verified 09/07/24 16:30 Branch Block codeine (From Allergy Intermediate GI Verified 09/07/24 16:30 Tylenol-Codeine #3) Intolerance diphenhydramine Allergy Mild Itchiness Verified 09/07/24 16:30 zinc Allergy Mild Cold Sores Verified 09/07/24 16:30 [facility] Medical History (Updated 10/04/24 @ 21:31 by Gage Boyle MD) Osteoporosis ?M81.0 - Age-related osteoporosis without current pathological fracture (ICD-10) Anemia ?D64.9 - Anemia, unspecified (ICD-10) 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, including tongue (ICD-10) Poor circulation ?R09.89 - Other specified symptoms and signs involving the circulatory and respiratory systems (ICD-10) 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 (ICD-10) History of duodenal ulcer ?Z87.19 - Personal history of other diseases of the digestive system (ICD-10) Gastroesophageal reflux disease ?K21.9 - Gastro-esophageal reflux disease without esophagitis (ICD-10) Chronic pain syndrome ?G89.4 - Chronic pain syndrome (ICD-10) Surgical History Status post hip surgery (03/02/22) ?Z98.890 - Other specified postprocedural states (ICD-10) History of lumbar laminectomy ?Z98.890 - Other specified postprocedural states (ICD-10) 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 Harmony has been smoking cigarettes for 50 years. She is now down to a puff a few times a day, and one cigarette lasts 4-5 days. She denied alcohol use, but her granddaughter stopped Harmony's nurse in the hallway to say that Harmony does drink wine. She denies recreational drug use. She wishes to be a full code. Smoking Status: Current some day smoker What tobacco products do you use: cigarettes Smoking quit date/years: <= 15 years ago Do you use any of these nicotine containing products: None and Vaping Products Second hand tobacco smoke exposure: No How often do you have a drink containing alcohol: 4 or more times a week Alcohol type: wine How many standard drinks containing alcohol do you have on a typical day: 1 or 2 How often do you have six or more drinks on one occasion: Never AUDIT-C Alcohol total score: 4 Non-prescribed substance use: denies use Non-prescribed substance use details: tylenol Caffeine: Yes (coffee, 1 cup/day) service: No Exam Narrative: Exam Narrative: Constitutional: Appears well-developed and well-nourished. Alert. Conversant., but a poor historian. Follows simple commands. Daughter is very polite and works well with her. Non toxic. HENT: Head: No depressed skull fracture, Raccoon Eyes, Cosme's sign, or hemotympanum. Face normal. TMs normal. Nose: Superficial abrasion on right lateral nasal bridge and nasal Sydney. No active bleeding. No septal deviation. No septal hematoma. No epistaxis. No other facial bone tenderness or crepitus. Mouth/Throat: Oral mucosa is clear and moist. no trismus. Pharynx normal. Tonsils symmetric. No tonsillar enlargement, erythema, or exudate. Mandible nontender. No trismus. Eyes: Conjunctivae normal. EOM normal. Pupils equal, round, and reactive to light. No scleral icterus. Neck: Normal range of motion. Neck supple. No tracheal deviation present. Cardiovascular: Normal rate, regular rhythm. No gallop. No friction rub. No murmur heard. Symmetric radial and PT artery pulses Pulmonary/Chest: Effort normal. No stridor. No respiratory distress. No wheezes. No rales. No rhonchi . No ribcage tenderness. Abdominal: Soft. Bowel sounds normal. No distension. No mass. No tenderness. No rebound. No guarding. Musculoskeletal: No T or L-spine tenderness. Pelvis is stable. RUE: Normal range of motion. No tenderness. No deformity LUE: Normal range of motion. No tenderness. No deformity RLE: Normal range of motion. No edema. No tenderness. No deformity LLE: She does have an apparent deformity of her left hip but she is also sitting a little bit to sit on the bed and despite my best efforts I cannot get her to position into a completely straight supine position for exam. The appearance of her hip raises concern for a possible posterior dislocation. She does have a healed lateral scar from previous hip replacement. She also seems to have internal rotation of her left hip and leg. She is not able to externally rotate. Range of motion in the knee and hip are limited to about 10 or 20? and are. There because of pain. No obvious deformity or crepitus of the femoral shaft. Normal inspection of the knee. Mild tenderness over the patella and proximal tibia. Unable to complete ligamentous exam. Neurological: Alert and oriented to person, place, and time. Normal strength. CN II-VII intact. No sensory deficit. GCS eye subscore is 4. GCS verbal subscore is 5. GCS motor subscore is 6. Normal coordination Skin: Skin is warm and dry. No rash noted. No pallor. Normal capillary refill. Unable to assess gait because of leg pain. Intact distal sensory function in both feet and intact 0 wiggling. Feet are warm, pink, well perfused with strong distal pulses. Psychiatric: Normal mood. Normal affect. Const: Vital Signs, click to edit/add: Vital Signs - 24 hr 10/04/24 17:03 10/04/24 20:14 Temperature 97.2 F L Pulse Rate 88 Pulse Rate [Pulse Oximeter] 96 Respiratory Rate 16 16 Blood Pressure 128/59 L Blood Pressure [Ri ght Upper Arm] 144/71 H Pulse Oximetry 95 95 Oxygen Delivery Me thod Room Air Room Air Course Vital Signs Vital signs: Initial Vital Signs Temperature 97.2 F L 10/04/24 17:03 Temperature Source Temporal Artery Scan 10/04/24 17:03 Pulse Rate 96 10/04/24 17:03 Respiratory Rate 16 10/04/24 17:03 Blood Pressure 144/71 H 10/04/24 17:03 Blood Pressure Mean 95 10/04/24 17:03 Blood Pressure Position Sitting 10/04/24 17:03 Pulse Oximetry 95 10/04/24 17:03 Oxygen Delivery Method Room Air 10/04/24 17:03 Vital Signs Temperature 97.2 F L 10/04/24 17:03 Pulse Rate 96 10/04/24 17:03 Respiratory Rate 16 10/04/24 17:03 Blood Pressure 144/71 H 10/04/24 17:03 Pulse Oximetry 95 10/04/24 17:03 Oxygen Delivery Method Room Air 10/04/24 17:03 Temperature 97.2 F L 10/04/24 17:03 Pulse Rate 88 10/04/24 20:14 Respiratory Rate 16 10/04/24 20:14 Blood Pressure 128/59 L 10/04/24 20:14 Pulse Oximetry 95 10/04/24 20:14 Oxygen Delivery Method Room Air 10/04/24 20:14 Medications Administered Medications: Discontinued Medications Generic Name Dose Route Start Last Admin Trade Name Freq PRN Reason Stop Dose Admin Hydrocodone Bitart/Acetaminophen 1 tab 10/04/24 17:53 10/04/24 18:02 Hydrocodone-Acetamin 5-325 Mg 1 Tab PO 10/04/24 17:54 1 tab ONCE ONE Administration Fentanyl 25 mcg 10/04/24 20:53 10/04/24 21:05 Fentanyl 100 Mcg/2 Ml Inj IVP 10/04/24 20:54 25 mcg ONCE ONE Administration Medical Decision Making MDM Narrative Medical decision making narrative: Pleasant 79-year-old female who is frail and somewhat confused presenting to the ER today with left leg and left knee pain and stiffness after what is thought to have been mechanical slip and fall that occurred overnight Friday night and Friday morning, 2 days prior to arrival. Her family has been trying to care for her at home but she is having worsening pain, increasing stiffness and has gotten to the point where she is not able to transfer herself out of bed. On my initial exam and she was a little bit oddly position in bed but I was suspicious for a possible left hip fracture or posterior dislocation as well as possible knee pathology. X-rays of the patient's hip and knee were obtained. Hip is normal but knee x-ray is suspicious for a transverse fracture through the patella that is nondisplaced. In discussion with Orthopedics by phone consult, we did obtain a knee CT which confirms the patella fracture. Patient is placed into a knee immobilizer tonight. She is neurovascularly intact. She did have a small scrape on the side of her nose. No other signs of head or facial trauma. Given age and confusion we did obtain head CT and C-spine CT which are fortunately negative for any acute injuries or other acute findings. She will be admitted to the hospitalist service for pain control and orthopedic consult, potentially will need surgical fixation. Discussed with hospitalist who graciously accepts for admission. Please see hospitalist notes for further details about admission status and further workup. As part of process for workup EKG was obtained and shows sinus rhythm without ischemia. Screening labs is CBC and BMP showed mild anemia with hemoglobin of 10.8. Normal white count and platelet count. Electrolytes and kidney function are normal. Blood sugar 146. Needs CT does confirm the suspected patellar fracture seen on x-ray. Lab Data Labs: Lab Results 10/04/24 Range/Units 20:25 WBC 10.28 (4.50-11.00) K/uL RBC 3.38 L (4.00-5.20) m/uL Hgb 10.8 L (12.0-16.0) gm/dL Hct 33.4 (33.0-51.0) % MCV 99 (80-100) fL MCH 32 (26-34) pg MCHC 32 (32-36) gm/dL RDW Coeff of Hao 14.6 (11.5-15.5) % Plt Count 175 (140-440) K/uL Neut % (Auto) 75.1 H (42.0-72.0) % Lymph % (Auto) 10.3 L (20-44) % [place] % (Auto) 12.9 H (0.0-11.0) % Eos % (Auto) 0.4 (0.0-7.0) % Baso % (Auto) 0.1 (0.0-3.0) % Neut # (Auto) 7.70 H (1.7-7.0) K/uL Lymph # (Auto) 1.10 (0.90-2.90) K/uL [place] # (Auto) 1.30 H (0.00-0.90) K/UL Eos # (Auto) 0.04 (0.00-0.50) K/uL Baso # (Auto) 0.01 (0.00-0.30) K/uL Abs Immat Gran (auto) 0.12 (0.00-0.30) K/uL Imm/Tot Granulo (auto) 1.2 % Sodium 136 (135-149) mmol/L Potassium 4.3 (3.6-5.1) mmol/L Chloride 102 (96-114) mmol/L Carbon Dioxide 25 (20-32) mmol/L Anion Gap 9 (7-15) mEq/L BUN 25 (7-30) mg/dL Creatinine 0.7 (0.5-1.5) mg/dL Estimated Creat Clear 36.50 Estimated GFR 87 ml/min Glucose 146 H (60-115) mg/dL Calcium 9.2 (8.4-10.6) mg/dL Imaging Data XR L hip: Attestation: I have reviewed the pertinent imaging results. Radiologist's impression: IMPRESSION: No acute osseous findings. Chronic findings as above. XR L knee: Attestation: I have reviewed the pertinent imaging results. Radiologist's impression: IMPRESSION: Subtle transversely oriented lucency extending through the mid patella. Correlate with point tenderness on physical exam to ascertain if this represents a minimally displaced fracture. Moderate effusion. Severe degenerative change. CT C spine: Attestation: I have reviewed the pertinent imaging results. Radiologist's impression: IMPRESSION: 1. No acute fracture or traumatic malalignment of the cervical spine. CT scan - head: Attestation: I have reviewed the pertinent imaging results. Radiologist's impression: IMPRESSION: 1. No acute intracranial abnormalities. ECG Data Attestation: I personally reviewed and interpreted this ECG as follows: Interpretation: Normal sinus rhythm Rate: 85 TX: 140 QRS axis: Normal axis. ST segment/T wave: No ST segment elevation or depression. Nonspecific T-wave flattening. QTc: 466 Discharge Plan Discharge Clinical Impression: Acute pain of left lower extremity, Fall, Fracture, patella Patient Disposition: Admitted As Observation
--- NOTE | 2024-10-04 17:53 | CRLHL7_ITS ---
For Patients: As a result of the Cures Act, medical imaging exams and procedure reports are released immediately into your electronic medical record. You may view this report before your referring provider. If you have questions, please contact your health care provider. INDICATION: Left hip and pelvic pain. Unable to bear weight. COMPARISON: None. TECHNIQUE: Single view of the pelvis and two views of the left hip FINDINGS: Status post left total hip arthroplasty. Status post partially imaged right femur intramedullary nail placement. No substantial periprosthetic lucency. No acute displaced fracture is detected. Moderate to severe degenerative changes of the right hip. Mild degenerative change of the pubic symphysis and sacroiliac joints. Partially imaged degenerative changes of the lumbosacral spine. IMPRESSION: No acute osseous findings. Chronic findings as above. Dictated by Hoang Felix MD @ 10/04/2024 7:06:30 PM (Electronically Signed)
--- NOTE | 2024-10-04 17:53 | CRLHL7_ITS ---
For Patients: As a result of the Cures Act, medical imaging exams and procedure reports are released immediately into your electronic medical record. You may view this report before your referring provider. If you have questions, please contact your health care provider. INDICATION: Fall with left knee pain COMPARISON: None. TECHNIQUE: Three radiographic view(s) of the left knee. FINDINGS: Subtle transversely oriented lucency extending through the mid patella. Moderate effusion. Severe degenerative change. IMPRESSION: Subtle transversely oriented lucency extending through the mid patella. Correlate with point tenderness on physical exam to ascertain if this represents a minimally displaced fracture. Moderate effusion. Severe degenerative change. Dictated by Hoang Felix MD @ 10/04/2024 7:01:35 PM (Electronically Signed)
--- NOTE | 2024-10-04 17:56 | CRLHL7_ITS ---
For Patients: As a result of the Century Cures Act, medical imaging exams and procedure reports are released immediately into your electronic medical record. You may view this report before your referring provider. If you have questions, please contact your health care provider. INDICATION: Fall. Hit head. TECHNIQUE: CT of the cervical spine without contrast. Coronal and sagittal reformats are included. COMPARISON: None. FINDINGS: Fractures and other acute findings: None. Hardware: None. Spinal alignment: Mild cervical kyphosis. Trace anterolisthesis at C3-4 and C4-5. Grade 1 retrolisthesis at C5-6. Significant cervical spondylosis: Advanced disc degeneration at C5-6. Qyif-ca-uqcayeia disc degeneration elsewhere. Multilevel uncovertebral and facet arthrosis without high-grade neural foraminal stenosis. Paraspinal soft tissues and imaged lungs: Calcified nodule within the right thyroid lobe. IMPRESSION: 1. No acute fracture or traumatic malalignment of the cervical spine. Please note that all CT scans at this facility use dose modulation, iterative reconstruction, and/or weight-based dosing when appropriate to reduce radiation dose to as low as reasonably achievable. Dictated by Willy Gillis MD @ 10/04/2024 7:00:05 PM (Electronically Signed)
--- NOTE | 2024-10-04 17:56 | CRLHL7_ITS ---
For Patients: As a result of the Century Cures Act, medical imaging exams and procedure reports are released immediately into your electronic medical record. You may view this report before your referring provider. If you have questions, please contact your health care provider. INDICATION: Fall. Hit head. TECHNIQUE: CT of the head without contrast. Coronal and sagittal reformats are included. COMPARISON: None. FINDINGS: No acute intracranial hemorrhage. No mass effect or midline shift. No hydrocephalus or extra-axial collections. Patchy white matter hypoattenuation, typical for chronic microvascular ischemic change. Intracranial vascular calcifications. Woso-lg-ecfkijwz generalized parenchymal volume loss. No acute osseous abnormalities. Mastoid air cells and paranasal sinuses are clear. Normal soft tissues. IMPRESSION: IMPRESSION: 1. No acute intracranial abnormalities. Please note that all CT scans at this facility use dose modulation, iterative reconstruction, and/or weight-based dosing when appropriate to reduce radiation dose to as low as reasonably achievable. Dictated by Willy Gillis MD @ 10/04/2024 7:01:46 PM (Electronically Signed)
--- OUTSIDE RECORDS SUMMARY | 2024-10-04 18:00 | XMS_ITS | Encounter Summary ---
Author Organization [facility] Address [address] [place] [address]. [place] [address] Care Team Providers Care Commissary Representative Name Role Phone Davy Murillo MD Primary Care Provider Davy Murillo MD Unavailable [phone] Davy Murillo MD Unavailable Liberty Harris WORD PROCESSOR TECHNICIAN Unavailable Walter Bryson DO Unavailable Davy Murillo MD Unavailable Davy Murillo MD Unavailable Davy Murillo MD Unavailable [phone] Reason for Visit * Reason Comments Medication Refill Encounter Details Date Type Department Care Team (Late st Contact Info) Description 03/18/2017 Refill [facility] [address] [place] [address] [place] [address] [place] [address] Medication Refill Social History Tobacco Use Types Packs/Day Years Used Date Smoking Tobacco: Some Days Cigarettes 0.5 40 Smokeless Tobacco: Never Alcohol Use Standard Drinks/Week Comments No 0 (1 standard drink = 0.6 oz pur e alcohol) red wine rare Comments No Sex and Gender Information Value Date Recorded Sex Assigned at Not on file Legal Sex Female 3:35 AM LOCAL OPERATOR Gender Identity Not on file Sexual Orientation Not on file documented as of this encounter Plan of Treatment Not on file documented as of this encounter Visit Diagnoses Diagnosis LOUISA (generalized anxiety disorder) Generalized anxiety disorder documented in this encounter Additional Health Concerns Assessment Noted Time PHQ-9 Depression Total Score: 0 04/26/19 16 7:58 AM LOCAL OPERATOR documented as of this encounter Care Teams Commissary Representative Relationship Specialty [place] [address] [place] [address] PCP - General Family Practice 05/14/13 [place] [address] [place] [address] PCP - Assigned PCP 02/26/13 06/09/18 [place] [address] [place] [address] Assigned PCP 02/26/13 10/19/21 Liberty Harris, WORD PROCESSOR TECHNICIAN [address] [place] [address] Lead Top Case Assembler Primary Care - CC 07/21/18 Walter Bryson DO [address] [place] [address] Assigned Musculoskeletal Provider 01/28/20 03/11/20 [place] [address] [place] [address] Assigned PCP 01/26/22 [place] [address] [place] [address] Assigned Pain Medication Provider 04/15/22 03/28/24 [place] [address] [address] [place] [address] Assigned Pain Medication Provider 04/29/24 05/29/24 documented as of this encounter
--- OUTSIDE RECORDS SUMMARY | 2024-10-04 18:00 | XMS_ITS | Encounter Summary ---
Author Organization [facility] Address [address] [place] [address]. [place] [address] Care Team Providers Care Human Resources Consultant Name Role Phone Davy Murillo MD Primary Care Provider [phone] Davy Murillo MD Unavailable Davy Murillo MD Unavailable [phone] Davy Murillo MD Unavailable [phone] Reason for Visit * Reason Comments Medication Refill Encounter Details Date Type Department Care Team (Late st Contact Info) Description [facility] [address] [place] [address] [place] [address] [place], [place] [id number] Medication Refill Social History Tobacco Use Types Packs/Day Years Used Date Smoking Tobacco: Former Cigarettes 0.5 40 1 05/30/1981 - 03/29/2022 Smokeless Tobacco: Never Alcohol Use Standard [...] you bought just not last and you didn t have money to get more? No 03/21/2023 Housing Stability Answer Date Recorded Do you have housing? (Jeff enamorado is defined as stable permanent housing and does not include staying outside in a car, in a tent, in an abandoned building, in an overnight penitentiary, or couch-surfing.) Yes 03/21/2023 Are you worried about losing [...] getting things that you need? No 03/21/2023 Comments No Sex and Gender Information Value Date Recorded Sex Assigned at Not on file Legal Sex Female 3:35 AM REPAIRER SHOE STICKS Gender Identity Not on file Sexual Orientation Not on file documented as of this encounter Miscellaneous Notes * Telephone Encounter - Arielle Roberts RN - 07/11/2023 11:58 AM CDT Refill too soon documented in this encounter Plan of Treatment Not on file documented as of this encounter Goals Goal Patient Goal Type Associated Problems Recent Progress Patient-Stated? Author Financial Wellbeing General 20%( 9 1:15 PM CDT) Yes Liberty Harris GUM SCORING MACHINE OPERATOR Note: Goal Statement: I would like to learn about financial resources that can assist me and my . Measure of Success: Whether or not I am able to qualfy programs that are helpful Supportive Steps to Achieve: I will work with my [facility] and the [facility] [...] Total Score: 0 03/21/20 23 11:15 AM REPAIRER SHOE STICKS documented as of this encounter Care Teams Human Resources Consultant Relationship Specialty [place] [address] [address] [place] [address] PCP - General Family Practice 05/14/13 [place] [address] [address] [place] [address] Assigned PCP 01/26/22 [place] [address] [address] [place] [address] Assigned Pain Medication Provider 04/15/22 03/28/24 [place] [address] [address] [address] Assigned Pain Medication Provider 04/29/24 05/29/24 documented as of this encounter
--- OUTSIDE RECORDS SUMMARY | 2024-10-04 18:00 | XMS_ITS | Encounter Summary ---
Author Organization [facility] Address [address] [place] [address]. [place] [address] Care Team Providers Care Offal Baler Name Role Phone Davy Murillo MD Primary Care Provider Davy Murillo MD Unavailable Davy Murillo MD Unavailable [phone] Liberty Harris EQUITY DIRECTOR Unavailable Walter Bryson DO Unavailable Davy Murillo MD Unavailable Davy Murillo MD Unavailable Davy Murillo MD Unavailable [phone] Reason for Visit * Reason Comments Medication Refill Encounter Details Date Type Department Care Team (Late st Contact Info) Description 12/12/2016 Refill [facility] [address] [place] [address] [place] [address] [place] [address] Medication Refill Social History Tobacco Use Types Packs/Day Years Used Date Smoking Tobacco: Some Days Cigarettes 0.5 40 Smokeless Tobacco: Never Alcohol Use Standard Drinks/Week Comments No 0 (1 standard drink = 0.6 oz pur e alcohol) red wine rare Comments No Sex and Gender Information Value Date Recorded Sex Assigned at Not on file Legal Sex Female 3:35 AM VP PRODUCT MARKETING Gender Identity Not on file Sexual Orientation [...] Total Score(s): No flowsheet data found. Last [facility] website verification: 12/16/16 [email or web address]/ documented in this encounter Plan of Treatment Not on file documented as of this encounter Visit Diagnoses Diagnosis Chronic low back pain, unspecified back pain laterality, with sciatica presence unspecified LOUISA (generalized anxiety disorder) Generalized anxiety disorder documented in this encounter Additional Health Concerns Assessment Noted Time PHQ-9 Depression Total Score: 0 04/26/19 16 7:58 AM VP PRODUCT MARKETING documented as of this encounter Care Teams Offal Baler Relationship Specialty [place] [address] [place] [address] PCP - General Family Practice 05/14/13 [place] [address] [place] [address] PCP - Assigned PCP 02/26/13 06/09/18 [place] [address] [place] [address] Assigned PCP 02/26/13 10/19/21 Liberty Harris, EQUITY DIRECTOR [address] [place] [address] Lead Machine Bender Primary Care - CC 07/21/18 Walter Bryson DO [address] [place] [address] Assigned Musculoskeletal Provider 01/28/20 03/11/20 [place] [address] [place] [address] Assigned PCP 01/26/22 [place] [address] [place] [address] Assigned Pain Medication Provider 04/15/22 03/28/24 [place] [address] [place] [address] Assigned Pain Medication Provider 04/29/24 05/29/24 documented as of this encounter
--- OUTSIDE RECORDS SUMMARY | 2024-10-04 18:00 | XMS_ITS | Encounter Summary ---
Author Organization [facility] Address [address] [place] [address]. [place] [address] Care Team Providers Care Gin Pole Operator Name Role Phone Davy Murillo MD Primary Care Provider Davy Murillo MD Unavailable [phone] Davy Murillo MD Unavailable [phone] Davy Murillo MD Unavailable Encounter Details Date Type Department Care Team (Late st Contact Info) Description 07/01/2023 [facility] [address] [address] Michelle Leon V Social History Tobacco [...] in an abandoned building, in an overnight care home, or couch-surfing.) Yes 03/21/2023 Are you worried [...] on file Legal Sex Female 3:35 AM VULCANIZER Gender Identity Not on file Sexual Orientation Not on file documented as of this encounter Plan of Treatment Not on file documented as of this encounter Goals Goal Patient Goal Type Associated Problems Recent Progress Patient-Stated? Author Financial Wellbeing General 20%( 9 1:15 PM CDT) Yes Liberty Harris PHARMACY MANAGER Note: Goal Statement: I would like to learn about financial resources that can assist me and my . Measure of Success: Whether or not I am able to qualfy programs that are helpful Supportive Steps to Achieve: I will work with my [facility] and the [facility] to inquire services I am interested in. Barriers: None noted Strengths: I am willing and able to look into applicable resources. Date to Achieve By: October 2018 Patient expressed understanding of goal: yes documented as of this encounter Visit Diagnoses Not on filedocumented in this encounter Additional Health Concerns Assessment Noted Time PHQ-9 Depression Total Score: 0 03/21/20 23 11:15 AM VULCANIZER documented as of this encounter Care Teams Gin Pole Operator Relationship Specialty [place] [address] [place] [address] PCP - General Family Practice 05/14/13 [place] [address] [place] [address] Assigned PCP 01/26/22 [place] [address] [address] [address] Assigned Pain Medication Provider 04/15/22 03/28/24 [place] [address] [address] [address] Assigned Pain Medication Provider 04/29/24 05/29/24 documented as of this encounter
--- OUTSIDE RECORDS SUMMARY | 2024-10-04 18:00 | XMS_ITS | Encounter Summary ---
Author Organization [facility] Address [address] [place] [address]. [place] [address] Care Team Providers Care Rod Filler Name Role Phone Davy Murillo MD Primary Care Provider Davy Murillo MD Unavailable Davy Murillo MD Unavailable Davy Murillo MD Unavailable Reason for Visit * Reason Comments Medication Refill Encounter Details Date Type Department Care Team (Late st Contact Info) Description [facility] [address] [place] [address] [place] [address] [place], [place] [id number] Medication Refill Social History Tobacco Use Types [...] in an abandoned building, in an overnight residential, or couch-surfing.) Yes 03/21/2023 Are you worried [...] on file Legal Sex Female 3:35 AM SHARED SERVICES AND OUTSOURCING MANAGER Gender Identity Not on file Sexual Orientation Not on file documented as of this encounter Miscellaneous Notes * Telephone Encounter - Valentina Reynoso RN - 07/21/2023 2:47 PM CDT Refill request refused- should already have refills on file. documented in this encounter Plan of Treatment Not on file documented as of this encounter Goals Goal Patient Goal Type Associated Problems Recent Progress Patient-Stated? Author Financial Wellbeing General 20%( 9 1:15 PM CDT) Yes Liberty Harris MATE FOURTH Note: Goal Statement: I would like to learn about financial resources that can assist me and my . Measure of Success: Whether or not I am able to qualfy programs that are helpful Supportive Steps to Achieve: I will work with my [facility] and the [facility] to inquire services I [...] Depression Total Score: 0 03/21/20 11:15 AM SHARED SERVICES AND OUTSOURCING MANAGER documented as of this encounter Care Teams Rod Filler Relationship Specialty [place] [address] [address] [facility] [address] PCP - General Family Practice 05/14/13 [place] [address] [address] [address] Assigned PCP 01/26/22 [place] [address] [address] [address] Assigned Pain Medication Provider 04/15/22 03/28/24 [place] [address] [address] [place] [address] Assigned Pain Medication Provider 04/29/24 05/29/24 documented as of this encounter
--- OUTSIDE RECORDS SUMMARY | 2024-10-04 18:00 | XMS_ITS | Clinical Summary ---
Author Organization [facility] Address [address] [place] [address]. [place] [address] Care Team Providers Care Online Marketer Name Role Phone Davy Murillo MD Primary Care Provider [phone] Davy Murillo MD Unavailable Allergies Active Allergy Reactions Criticality Noted Date Comments Amitriptyline Other (See Comments) High 01/06/2014 Bundle branch block Per SNF EMR Diphenhydramine Itching Low 04/26/2019 Per SNF EMR Methylphenidate Swelling High 01/06/2014 Tongue swelling Acetaminophen-Codeine GI Disturbance 03/22/2013 Zinc Other (See Comments) 03/11/2022 Per SNF EMR Medications VITAMIN D, CHOLECALCIFEROL, PO Take 50,000 Units by mouth Take 2 times weekly Active order for DMEIndications:Ch ronic low back pain, unspecified back pain laterality, with sciatica presence unspecified Equipment being ordered: TENS unit 1 each 7 Active Syringe/Needle, Disp, (SYRINGE LUER LOCK) 25G X 1 3 ML MISCIndications:V itamin B12 deficiency without anemia Inject 1 Device into the muscle every 30 days Every OTHER MONTH, to be given with B-12 injection 1 each 7 Active vitamin C (ASCORBIC ACID) 500 MG tablet Take 500 mg by mouth daily Active GARLIC PO Active oxybutynin ER (DITROPAN XL) 15 MG 24 hr tablet Take 15 mg by mouth At Bedtime 3 Active omeprazole (PRILOSEC) [address] capsuleIndication s:Gastroesophagea l reflux disease without esophagitis TAKE 1 CAPSULE BY MOUTH DAILY FOR 14 DAYS THEN NEEDED UP UPSET STOMACH/ HEARTBURN 90 capsule 1 3 Active RISEdronate (ACTONEL) 35 MG tabletIndications :Age-related osteoporosis with current pathological fracture, vertebra(e), initial encounter for fracture (H) TAKE 1 TABLET BY MOUTH EVERY 7 DAYS. REMAIN UPRIGHT FOR AT LEAST 30 MINUTES AFTER TAKING AND TAKE 30 MINUTES BEFORE FIRST MEAL 4 tablet 5 3 Active meloxicam (MOBIC) 15 MG tabletIndications :Closed fracture of hip, unspecified laterality, sequela TAKE 1 TABLET(15 MG) BY MOUTH DAILY 30 tablet 1 4 Active lidocaine (LIDODERM) 5 % patchIndications: Closed fracture of hip, unspecified laterality, sequela,Chronic low back pain, unspecified back pain laterality, unspecified whether sciatica present PLACE 1 PATCH ONTO THE SKIN EVERY 24 HOURS. TO PREVENT LIDOCAINE TOXICITY, PATIENT SHOULD BE PATCH FREE FOR 12 HOURS DAILY 90 patch 1 4 Active ondansetron (ZOFRAN) 4 MG tabletIndications :Nausea and vomiting, unspecified vomiting type TAKE 1 TABLET(4 MG) BY MOUTH EVERY 8 HOURS NEEDED FOR NAUSEA 18 tablet 1 4 Active albuterol (PROAIR HFA/PROVENTIL HFA/VENTOLIN HFA) 108 (90 Base) MCG/ACT inhalerIndication s:Wheezing INHALE 1 TO 2 PUFFS INTO THE LUNGS EVERY 6 HOURS NEEDED FOR SHORTNESS OF BREATH OR WHEEZING OR COUGH 6.7 g 1 4 Active traMADol (ULTRAM) 50 MG tabletIndications :Closed fracture of hip, unspecified laterality, sequela,Chronic low back pain with sciatica, sciatica laterality unspecified, unspecified back pain laterality Take 1 tablet (50 mg) by mouth every 4 hours as needed for severe pain for pain. Max #6/day. 180 tablet 5 4 Active atomoxetine (STRATTERA) 10 MG capsuleIndication s:Attention deficit hyperactivity disorder (ADHD), predominantly inattentive type TAKE 1 CAPSULE(10 MG) BY MOUTH DAILY FOR ADHD. REPLACES ADDERALL 30 capsule 3 4 Active propranolol (INDERAL) 10 MG tabletIndications :Anxiety TAKE 1 TABLET(10 MG) BY MOUTH TWICE DAILY NEEDED FOR ANXIETY 60 tablet 2 4 Active cyanocobalamin (CYANOCOBALAMIN) 1000 mcg/mL injectionIndicati ons:Vitamin B12 deficiency without anemia ADMINISTER 1 ML(1000 MCG) IN THE MUSCLE EVERY 30 DAYS 1 mL 5 4 Active traZODone (DESYREL) 150 MG tabletIndications :Primary insomnia TAKE 2 TABLETS BY MOUTH AT BEDTIME NEEDED FOR SLEEP 180 tablet 5 5 Active tolterodine ER (DETROL LA) 4 MG 24 hr capsuleIndication s:OAB (overactive bladder) TAKE 1 CAPSULE(4 MG) BY MOUTH DAILY 90 capsule 1 5 Active Active Problems Problem Noted Date Diagnosed Date Closed intertrochanteric fracture of femur 03/11 Severe episode of recurrent major depressive disorder, without psychotic features 01/21/2022 Anemia 02/22/2019 Overview (05/17/2022): As of 02/2019, multifactorial including acute blood loss postoperative left hip replacement (hemoglobin 11.3 down to 8.7), vitamin B12 deficiency, iron deficiency. Anxiety 02/22/2019 Overview (05/17/2022): Has been on Xanax as needed Attention [...] low back pain 01/27/2015 Chronic pain 10/25/2014 Overview (12/16/2016): Patient is followed by Davy Murillo MD [...] Total Score(s): No flowsheet data found. Last [facility] website verification: 12/16/16 [email or web address] Vitamin D deficiency 04/19/2013 Overview (01/06/2015): Problem list name updated by automated process. Provider to review Vitamin B12 deficiency without anemia 04/19/2013 Overview (02/06/2015): Diagnosis updated by automated process. Provider to review and confirm. Generalized anxiety disorder 04/12/2013 Overview (02/06/2015): Diagnosis updated by automated process. Provider to review and confirm. Advance care planning 03/29/2013 Overview (05/11/2015): Advance Care Planning 05/11/2015: Receipt of ACP [...] of age-related cataract, os 01/17/2016 02/06/2016 Immunizations Immunization Administration Dates Next Due COVID-19 Monovalent 18+ (Moderna) 09/17/2021,04/2020 COVID-19 Vaccine (Imani) 06/20/2020 Influenza (High Dose) Trival ent,PF (Fluzone) 02/05/2021,01/26/2019,12/25/2017,2016,01/17/2016,01/03/2015 Influenza (IIV3) PF 12/14/2012, 2,02/23/2008,2006,02/13/2006,02/19/2005 Influenza (prior to 2023) 02/14/2011,12/21/2009 Influenza Vaccine 65+ (FLUAD) 01/11/2023 Influenza Vaccine 65+ (Fluzone HD) 01/21/2022 Influenza Vaccine >6 months,quad, PF 04/2020,12/25/2017,12/12/2016,2015,01/03/2015,02/03/2014,12/24/2012,1 ,02/14/2011,12/21/2009, 008,02/23/2007,02/13/2006,02/19/2005 Pneumo Conj 13-V (2010&after) 01/17/2016 Pneumococcal 23 valent 08/25/2013,08/08/2010 TDAP (Adacel,Boostrix) 11/26/2022,08/08/2010 Zoster recombinant adjuvante d (Shingrix) 10/11/2019,09/29/2019 Family History Medical History Relation Comments [...] Son 1 Alive Son 2 [facility] Social History Tobacco Use Types Packs/Day Years Used Date Smoking Tobacco: Former Cigarettes 0.5 40 1 05/30/1981 - 03/29/2022 Smokeless Tobacco: Never Tobacco Cessation:Counseling Given: Not Answered Alcohol Use Standard Drinks/Week Comments No 0 (1 standard drink = 0.6 oz pur e alcohol) red wine rare PHQ-2 Answer Date Recorded PHQ-2 Score 6 10/07/2023 Adolescent Education Answer Date Record ed Getting [...] in an abandoned building, in an overnight group home, or couch-surfing.) Yes 03/21/2023 Are you [...] on file Legal Sex Female 3:35 AM ENVIRONMENTAL EPIDEMIOLOGIST Gender Identity Not on file Sexual Orientation Not on file Last Filed Vital Signs Vital Sign Reading Time Taken Comments Blood Pressure 118/67 03/21/2023 11:50 AM ENVIRONMENTAL EPIDEMIOLOGIST Pulse 73 03/21/2023 11:50 AM ENVIRONMENTAL EPIDEMIOLOGIST Temperature 36.8 C (98.3 F) 03/21/2023 11:50 AM ENVIRONMENTAL EPIDEMIOLOGIST Respiratory Rate 18 03/21/2023 11:50 AM ENVIRONMENTAL EPIDEMIOLOGIST Oxygen Saturation 96% 03/21/2023 11:50 AM ENVIRONMENTAL EPIDEMIOLOGIST Inhaled Oxygen Concentration - - Weight 50.8 kg (112 lb) 03/21/2023 11:50 AM ENVIRONMENTAL EPIDEMIOLOGIST Height 152.4 cm (5') 05/17/2022 1:23 PM ENVIRONMENTAL EPIDEMIOLOGIST Body Mass Index 21.87 05/17/2022 1:23 PM ENVIRONMENTAL EPIDEMIOLOGIST Plan of Treatment Health Maintenance Due Date Last Done Comments ANNUAL REVIEW OF HM ORDERS 1945 URINE DRUG SCREEN 1945 MEDICARE ANNUAL WELLNESS VISIT 2008 EYE EXAM 06/06/2017 06/06/2016, 01/05, 01/03/2016, Additional history exists ADVANCE CARE PLANNING 03/29/2018 03/29/2013 RSV VACCINE (1 - 1-dose 75+ series) 2018 ZOSTER VACCINE (2 of 2) 12/06/2019 10/11/2019, 09/28 COVID-19 VACCINE ( - season) 2023 01/11/2023, 09/17/2021, 02/05/2021, Additional history exists FALL RISK ASSESSMENT 03/21/2024 03/21/2023, 01/21/2022, 10/15/2018, Additional history exists PHQ-9 10/06/2024 10/07/2023, 03/07, 05/17/2022, Additional history exists INFLUENZA VACCINE (Season Ended) 2024 01/11/2023, 01/21/2022, 02/05/2021, Additional history exists DTAP/TDAP/TD VACCINE (3 - Td or Tdap) 11/26/2032 11/26/2022, 08/08/2010 DEXA 06/07/2037 06/07/2022, 03/0 06/2022, 04/07/2012 DEPRESSION ACTION PLAN Completed 5, 02/03/2014, 09/23/2013 PNEUMOCOCCAL VACCINE 50+ YEARS Completed 01/17/2016, 08/25/2013, 08/08/2010 LUNG CANCER SCREENING Discontinued 06/14/2016, 016 HPV VACCINE Aged Out No longer eligi ble based on patient's age to complete this topic MENINGITIS VACCINE Aged Out No longer eligible based on patient's age to complete this topic Goals Goal Patient Goal Type Associated Problems Recent Progress Patient-Stated? Author Financial Wellbeing General 20%( 9 1:15 PM CDT) Yes [place] Harris, PLANER MILL GRADER Note: Goal Statement: I would like to learn about financial resources that can assist me and my . Measure of Success: Whether or not I am able to qualfy programs that are helpful Supportive Steps to Achieve: I will work with my [facility] and the community health to inquire services I am interested in. Barriers: None noted Strengths: I am willing and able to look into applicable resources. Date to Achieve By: October 2018 Patient expressed understanding of goal: yes Medical Devices Implanted Type Area Food Service Substitute Device Identifier Shelf Expiration Date Model / Serial / Lot Eye Imp Iol Abel Pcl Tecnis [id number] 22.0 Implanted:Qty: 1 on 01/22/2016 by Zane Bender MD at [facility] Right: Eye [employer]VANCED [employer] OPT 11/18/2019 [id number] 22.0 / [id number] / Eye Imp Iol Abel Pcl Tecnis Zcb00 22.0 Implanted:Qty: 1 on 02/05/2016 by Zane Bender MD at [facility] Left: Eye [employer] OPT 11/20/2019 ZCB00 22.0 / [id number] / Procedures Procedure Name Priority Date/Time Associated Diagnosis Comments DX BONE DENSITY Routine 06/07/2022 8:55 AM ENVIRONMENTAL EPIDEMIOLOGIST Osteoporosis with current pathological fracture, unspecified osteoporosis type, sequela Age-related osteoporosis with current pathological fracture, vertebra(e), initial encounter for fracture (H) from Last 3 Months or Most Recently Relevant to Health Maintenance Results * DX Hip/Pelvis/Spine (06/07/2022 8:55 AM ENVIRONMENTAL EPIDEMIOLOGIST) Anatomical Region Laterality Modality Dexa Bone Mineral Den sity Narrative 06/11/2022 4:54 PM ENVIRONMENTAL EPIDEMIOLOGIST BONE DENSITOMETRY [address] [address] 06/07/2022 PATIENT: Harmony Yoon CHART: [id number] : 1945 AGE: [age] year old SEX: female REFERRING PROVIDER: Davy Murillo MD PROCEDURE: Bone density scanning was performed using DXA technology of the lumbar spine and hip. Scanning was performed on a [employer] scanner. Reporting is completed in the form of a T-score. The T-score represents the standard deviation from peak bone mass based on a young healthy adult. REFERENCE T-SCORES: Normal -1.0 and greater Osteopenia Between -1.0 and -2.5 Osteoporosis -2.5 and less RISK FACTORS: Early menopause before age 45, Height loss of 2 inches, Hip fracture, Condition related to bone loss: gastric bypass CURRENT TREATMENT: Calcium, Vitamin D FINDINGS: Lumbar Spine (L2-L4) T-score: -1.9, marked degenerative changes present, most marked at L3,4, so only L1,2 are evaluated. Forearm (radius 33%) T-score: -3.9 The left femur is not acceptable for evaluation due to previous arthroplasty. The right femur is not acceptable for evaluation due to previous surgical repair. Lumbar (L1-L4) BMD: 1.110 Forearm (radius 33%) BMD: 0.437 IMPRESSION Severe osteoporosis on the basis of hip fracture. Degenerative changes at the lumbar spine may falsely [...] calculator (www.shef.ac.uk/FRAX or you can google FRAX). Based on these guidelines, treatment (in addition to calcium and vitamin D) is recommended for this patient, after ruling out other causes of osteoporosis. This is meant as an aid to clinical decision making; one must still use clinical judgement. Follow up can be considered in 2 years. Joyce Cabrera M.D. Electronically signed Davy Murillo MD IMHiren DEXA ORDERABLES Final Re sult from Last 3 Months or Most Recently Relevant to Health Maintenance Insurance [employer] MEDICARE ADVANTAGE [employer] MEDICARE ADVANTAGE Advance Directives For more information, please contact: [phone] Documents on File Type Date Recorded Patient Social Services Coordinator Expl anation Advance Directives and Living Will 05/19/2015 2:23 PM HEALTH CARE DIRECTIV E 09-11-12 Care Teams Online Marketer Relationship Specialty [place] [address] [address] [address] PCP - General Family Practice 05/14/13 [place] [address] [address] [address] Assigned PCP 01/26/22
--- OUTSIDE RECORDS SUMMARY | 2024-10-04 18:00 | XMS_ITS | Encounter Summary ---
Author Organization [facility] Address [address] [place] [address]. [place] [address] Care Team Providers Care Electrical Test Engineer Name Role Phone Davy Murillo MD Primary Care Provider Davy Murillo MD Unavailable [phone] Davy Murillo MD Unavailable [place] Harris WAITER/WAITRESS COCKTAIL LOUNGE Unavailable Walter Bryson DO Unavailable [phone] Davy Murillo MD Unavailable Davy Murillo MD Unavailable [phone] Davy Murillo MD Unavailable [phone] Reason for Visit * Reason Comments Medication Refill Encounter Details Date Type Department Care Team (Late st Contact Info) Description 01/17/2017 Refill [facility] [address] [place] [address] [place] [address] [place] [address] Medication Refill Social History Tobacco Use Types Packs/Day Years Used Date Smoking Tobacco: Some Days Cigarettes 0.5 40 Smokeless Tobacco: Never Alcohol Use Standard Drinks/Week Comments No 0 (1 standard drink = 0.6 oz pur e alcohol) red wine rare Comments No Sex and Gender Information Value Date Recorded Sex Assigned at Not on file Legal Sex Female 3:35 AM MOUNTING MACHINE OPERATOR Gender Identity Not on file Sexual [...] Score(s): No flowsheet data found. Last [facility] website verification: ??12/16/16 Abbi Wisdom RN documented in this encounter Plan of Treatment Not on file documented as of this encounter Visit Diagnoses Diagnosis Chronic low back pain, unspecified back pain laterality, with sciatica presence unspecified documented in this encounter Additional Health Concerns Assessment Noted Time PHQ-9 Depression Total Score: 0 04/26/19 16 7:58 AM MOUNTING MACHINE OPERATOR documented as of this encounter Care Teams Electrical Test Engineer Relationship Specialty [place] [address] [address] PCP - General Family Practice 05/14/13 [place] [address] [address] [address] PCP - Assigned PCP 02/26/13 06/09/18 [place] [address] [address] [address] Assigned PCP 02/26/13 10/19/21 [place] Harris, WAITER/WAITRESS COCKTAIL LOUNGE [address] [place] [address] Lead Shorer Primary [facility] - CC 07/21/18 Walter Bryson DO [address] [place] [address] Assigned Musculoskeletal Provider 01/28/20 03/11/20 [place] [address] [place] [address] Assigned PCP 01/26/22 [place] [address] [place] [address] Assigned Pain Medication Provider 04/15/22 03/28/24 [place] [address] [place] [address] Assigned Pain Medication Provider 04/29/24 05/29/24 documented as of this encounter
--- OUTSIDE RECORDS SUMMARY | 2024-10-04 18:00 | XMS_ITS | Encounter Summary ---
Author Organization [facility] Address [address] [place] [address]. [place] [address] Care Team Providers Care Film Processing Shift Supervisor Name Role Phone Davy Murillo MD Primary Care Provider [phone] Davy Murillo MD Unavailable [phone] Davy Murillo MD Unavailable [phone] Davy Murillo MD Unavailable Encounter Details Date Type Department Care Team (Late st Contact Info) Description 01/10/2023 Lisa Medical Advice [address] [address] Michelle Leon V Social History [...] School Help Needed Not on file 01/10 Comments No Sex and Gender Information Value Date Recorded Sex Assigned at Not on file Legal Sex Female 3:35 AM GRIND OPERATOR Gender Identity Not on file Sexual Orientation Not on file documented as of this encounter Plan of Treatment Not on file documented as of this encounter Goals Goal Patient Goal Type Associated Problems Recent Progress Patient-Stated? Author Financial Wellbeing General 20%( 9 1:15 PM CDT) Yes [place] Harris BSW Note: Goal Statement: I would like to learn about financial resources that can assist me and my . Measure of Success: Whether or not I am able to qualfy programs that are helpful Supportive Steps to Achieve: I will work with my [facility] and the [facility] to inquire services I am interested in. Barriers: None noted Strengths: I am willing and able to look into applicable resources. Date to Achieve By: October 2018 Patient expressed understanding of goal: yes documented as of this encounter Visit Diagnoses Not on filedocumented in this encounter Additional Health Concerns Assessment Noted Time PHQ-9 Depression Total Score: 6 05/17/19 23 1:27 PM GRIND OPERATOR documented as of this encounter Care Teams Film Processing Shift Supervisor Relationship Specialty [place] [address] [address] [address] PCP - General Family Practice 05/14/13 [place] [address] [address] [address] Assigned PCP 01/26/22 [place] [address] [address] [address] Assigned Pain Medication Provider 04/15/22 03/28/24 [place] [address] [address] [address] Assigned Pain Medication Provider 04/29/24 05/29/24 documented as of this encounter
--- OUTSIDE RECORDS SUMMARY | 2024-10-04 18:00 | XMS_ITS | Encounter Summary ---
Author Organization [facility] Address [address] [place] [address]. [place] [address] Care Team Providers Care Hot Press Operator Name Role Phone Davy Murillo MD Primary Care Provider [phone] Davy Murillo MD Unavailable Davy Murillo MD Unavailable [phone] Davy Murillo MD Unavailable Reason for Visit * Reason Comments Medication Refill Encounter Details Date Type Department Care Team (Late st Contact Info) Description [facility] [address] [place] [address] [place] [address] [place], [place] [id number] Medication Refill Social History Tobacco Use Types [...] in an abandoned building, in an overnight [facility], or couch-surfing.) Yes 03/21/2023 Are you worried [...] on file 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 Barriers: None noted Strengths: I am willing and able to look into applicable resources. Date to Achieve By: October 2018 Patient expressed understanding of goal: yes documented as of this encounter Visit Diagnoses Diagnosis Anxiety Anxiety state, unspecified documented in this encounter Additional Health Concerns Assessment Noted Time PHQ-9 Depression Total Score: 18 024 11:42 AM CDT documented as of this encounter Care Teams Hot Press Operator Relationship Specialty [place] [address] [address] [address] PCP - General Family Practice 05/14/13 [place] [address] [address] [address] Assigned PCP 01/26/22 [place] [address] [address] [address] Assigned Pain Medication Provider 04/15/22 03/28/24 [place] [address] [address] [address] Assigned Pain Medication Provider 04/29/24 05/29/24 documented as of this encounter
--- OUTSIDE RECORDS SUMMARY | 2024-10-04 18:01 | XMS_ITS | Patient Health Record ---
Author Organization [facility] Address [address] [facility] [place] [address] Care Team Providers Care Php Developer Name Role Phone Marvin, Lamin Primary Care Provider Unavailabl e Reason For Referral No Information Medications Medication SIG (Take, Route, Fr equency, Duration) Notes Start Date End Date Status carBAMazepine 200 MG 1 tablet Orally Twice a day Active traZODone HCl 150 MG 2 tablets Orally at bedtime as needed; Duration: 30 day(s) Acti ve Adderall 20 MG 1 tablet Orally Twice a day Active tramadol 50mg 2 tabs by mouth twic e daily as needed Active ALPRAZolam 0.25 MG 1 tab by mouth twice daily as needed Active Social History Tobacco Use: Social History Observation Description Date Details (start date - stop date) Current Smoker NA - NA Tobacco Use Smoking Question Answer Notes Are you a current smoker How often do you smoke cigarettes? every day How many cigarettes a day do you smoke? 5 or les s Problems Problem Type SNOMED Code ICD Code Onset Dates Problem Status W/U Status Risk Notes Problem Anemia (272932434) Anemia (D64.9) Active confirmed Problem Tobacco abuse (1164651627) Tobacco abuse (Z72.0) Active confirmed Problem Family history of Factor V Leiden mutation (8891423520354 4102) Family history of factor V Leiden mutation (Z83.2) Active confirmed Plan Of Treatment No Information Insurance Providers Payer Name Payer Address Payer Phone Subscriber Number Group Number Insured Name Patient Relationship to Insured Coverage Start Date Coverage End Date [facility] [address] [address] KRYSTYNA Barros, SELENE [phone] [id number] Harmony Yoon Self - patient is the insured Medical (General) History Medical History History ICD Code Anxiety Restless leg syndrome Chronic bilateral hip and knee pain ADHD Surgical History Surgery Date(Month/Year) Gastric bypass Hysterectomy Left breast lumpectomy
--- OUTSIDE RECORDS SUMMARY | 2024-10-04 18:01 | XMS_ITS | Clinical Summary ---
Author Organization [employer] Address [address] [place] [id number] Care Team Providers Care Business Systems Architect Name Role Phone Emerita Oviedo DO Unavailable Daniele Hawkins MD Primary Care Provider [phone] Allergies No known active allergies Medications (u) VITAMIN B-12 1000 MCG/ML SOLN Give 1 cc IM injection every month ? 0 06/11/19 01 Active meclizine (ANTIVERT) 25 mg tabletIndications: Dizziness Take 1 tablet by mouth 3 times daily if needed for Other (Specify) (dizziness). 15 tablet 0 10/28/19 16 Active ondansetron (ZOFRAN ODT) 8 mg disintegrating tabletIndications: Nausea Place 1 tablet on the tongue every 8 hours if needed for Nausea/Vomiting. 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 Transcutaneous electrical nerve stimulation unit and supplies. 99 months 1 Each 11/26/19 23 Active albuterol HFA (PRO-AIR; VENTOLIN; PROVENTIL) 90 mcg/actuation inhaler INHALE 1 TO 2 PUFFS INTO THE LUNGS EVERY 6 HOURS NEEDED FOR SHORTNESS OF BREATH OR WHEEZING OR COUGH Active cyanocobalamin (VITAMIN B12) 1,000 mcg/mL injection Inject 1,000 mcg intramuscular once a month. 06/06/19 24 Active ergocalciferol (Vitamin D2) 50,000 unit capsule Take 50,000 Units by mouth as directed. 2 days per week Active escitalopram oxalate (LEXAPRO) 10 mg tablet Take 10 mg by mouth once daily. 05/17/19 24 Active lidocaine 5 % topical patch Apply 1 Patch on dry, clean, hairless skin once daily. 05/20/19 23 Active meloxicam 15 mg tablet 05/20/19 24 Active omeprazole (PRILOSEC) 20 mg Delayed-Release capsule TAKE 1 CAPSULE BY MOUTH DAILY FOR 14 DAYS THEN NEEDED UP UPSET STOMACH / HEARTBURN Active oxybutynin (DITROPAN XL) 15 mg CR tablet Take 15 mg by mouth. Active risedronate (ACTONEL) 35 mg tablet TAKE 1 TABLET BY MOUTH EVERY 7 DAYS. REMAIN UPRIGHT FOR AT LEAST 30 MINUTES AFTER TAKING AND TAKE 30 MINUTES BEFORE FIRST MEAL Active sennosides (SENNA) 8.6 mg tablet Take 2 Tablets by mouth. Active Eclipse Syringe 3 mL 25 gauge x 1 syrg USE ONCE MONTHLY 03/29/20 23 Active tolterodine (DETROL LA) 4 mg Extended-Release capsule TAKE 1 CAPSULE(4 MG) BY MOUTH DAILY 04/29/19 24 Active traMADoL (ULTRAM) 50 mg tablet TAKE 1 TO 2 TABLETS BY MOUTH EVERY 8 HOURS NEEDED FOR PAIN. MAX 5 PER DAY Active traZODone (DESYREL) 150 mg tablet TAKE 2 TABLETS BY MOUTH AT BEDTIME NEEDED FOR SLEEP Active valACYclovir (VALTREX) 500 mg tablet Take 500 mg by mouth once daily. Active Active Problems Problem Noted Date Diagnosed Date DISEASE, CEREBROVASCULAR NEC 02/05/1998 DISORDER, DEPRESSIVE NEC Encounters Date Type Department Care Team Description 09/21/2024 2:00 PM CDT Procedure Only [facility] [address] [place] [id number] Walter Gomes MD Procedure (Right knee Coolief RFA) 09/20/2024 Orders Only [facility] Scanner 1 scan: (1-Ord) [facility], LUMBAR FACET JOINT RF NEUROTOMY WITH MODERATE CONSCIOUS SEDATION, RT L3-L4 FACET NERVES,, 09/20/2024 09/07/2024 3:20 PM CDT Procedure Only [facility] [address] [place] [phone] Walter Gomes MD Procedure (Right knee genicular nerve block ) 08/25/2024 3:00 PM CDT Office Visit [facility] [address] [place] [address] Walter Gomes MD Musculoskeletal Problem (Rt knee pain and lower back pain /Pain at its worse 12/15-10) 08/25/2024 Travel 08/04/2024 Telephone [facility] [address] [place] [address] Walter Gomes MD Concerns 07/13/2024 11:20 AM CDT Office Visit [facility] at [address] [phone] Walter Gomes MD Procedure (Bilateral L4-5 TFESI) from Last 3 Months Family History Medical History Relation Name Comments Genetic Other Father: d (age:68) Heart disease/ Diabetes~Mother: Cancer~Brother: Cancer(pancreas,liver,brain) Relation Name Status Comments Other Social History Tobacco Use Types Packs/Day Years Used Date Smoking Tobacco: Former Cigarettes 1 35 Q uit: 2021 Tobacco Cessation:Counseling Given: Yes Comments Unknown Sex and Gender Information Value Date Recorded Sex Assigned at Not on file 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 Gender Identity Not on file Sexual Orientation Not on file Obstetrics History Last Filed Vital Signs Vital Sign Reading Time Taken Comments Blood Pressure 119/74 08/25/2024 3:04 PM CDT Pulse 76 08/25/2024 3:04 PM CDT Temperature 37 C (98.6 F) 06/16/2023 9:00 AM CDT Respiratory Rate 16 11/07/2015 1:54 PM CDT Oxygen Saturation 97% 08/25/2024 3:04 PM CDT Inhaled Oxygen Concentration - - Weight 47.2 kg (104 lb) 08/25/2024 3:04 PM CDT Height 152.4 cm (5') 11/07/2015 1:51 PM CDT Body Mass Index 20.31 11/07/2015 1:51 PM CDT Plan of Treatment Health Maintenance Due Date Last Done Comments Tdap 1954 Depression screening for age 12+ 1955 Tetanus booster 1963 Pneumococcal series for age 50+ (1 of 1 - PCV) 1993 Zoster (shingles) series for age 50+ (1 of 2) 1993 DEXA/DXA scan for age 65+ 2008 Medicare Wellness for age 65+ 2008 BMI (ht and wt on same day) for age 18+ 10/27/2016 10/28/2015 RSV vaccine for adults or (1 - 1-dose 75+ series) 2018 COVID-19 vaccine series ( season) 2024 03/29/2024, 01/11/2023, 09/17/2021, Additional history exists Influenza Vaccine (Season Ended) 2024 Hepatitis B series for 19+ Aged Out N o longer eligible based on patient's age to complete this topic Procedures Procedure Name Priority Date/Time Associated Diagnosis Comments AMB CONSULT FOR INJECTION Routine 09/21/2024 12:00 AM CDT Primary osteoarthritis of right knee Chronic pain of right knee SCAN-OPERATIVE/PRO CEDURE REPORT 09/20/2024 12:00 AM CDT AMB CONSULT FOR INJECTION Routine 09/07/2024 12:00 AM CDT Primary osteoarthritis of right knee Chronic pain of right knee AMB EPIDURAL STEROID INJECTION Routine 07/13/2024 12:00 AM CDT Lumbar radiculopathy Lumbar facet arthropathy from Last 3 Months Results * AMB CONSULT FOR INJECTION (09/21/2024 12:00 AM CDT) Only the most recent of2 resultswithin the time period is included. us Walter Gomes MD AMB REFERRAL/CONSULT ORD F inal Result * SCAN-OPERATIVE/PROCEDURE REPORT (09/20/2024 12:00 AM CDT) us Scanner OTHER Final Result * AMB EPIDURAL STEROID INJECTION (07/13/2024 12:00 AM CDT) Walter Gomes MD NEUROLOGY ORD Final Resu lt from Last 3 Months Insurance [facility] MR Care Teams Business Systems Architect Relationship Specialty Start Date End Date Daniele Hawkins MD [address] [place] [address] PCP - General Family Practice 06/16/23 Emerita Oviedo DO [address] [place] [address] 01/30/12
[2024-10-04] MEDS: HYDROCODONE-ACETAMIN 5-325 MG 1 TAB PO (18:02)
[2024-10-04 20:14] VITALS: BP 128/59; PULSE 88; RESP 16; O2SAT 95
--- NOTE | 2024-10-04 20:23 | CRLHL7_ITS ---
For Patients: As a result of the Century Cures Act, medical imaging exams and procedure reports are released immediately into your electronic medical record. You may view this report before your referring provider. If you have questions, please contact your health care provider. INDICATION: Fall. Knee pain. TECHNIQUE: Noncontrast CT of the left knee. COMPARISON: Radiographs 10/04/2024. FINDINGS: There is a subtle acute nondisplaced fracture of patella extending to the subchondral bone plate of the medial patellar facet inferiorly as seen on sagittal image number 39 of series 6. No acute distal femoral or acute proximal tibial fracture. There are degenerative changes of the knee. A lipohemarthrosis is present. IMPRESSION: 1. Acute nondisplaced fracture of the patella. 2. Associated lipohemarthrosis. 3. Degenerative changes. Please note that all CT scans at this facility use dose modulation, iterative reconstruction, and/or weight-based dosing when appropriate to reduce radiation dose to as low as reasonably achievable. Dictated by Raheel Sullivan MD @ 10/05/2024 7:14:19 AM (Electronically Signed)
[2024-10-04 21:07] LABS: Hematocrit 33.4 % (33.0-51.0); Hemoglobin* 10.8 gm/dL (12.0-16.0); Immature Granulocytes Abs Auto 0.12 K/uL (0.00-0.30); Immature Granulocytes Pct Auto 1.2 %; Mean Corpuscular HGB Conc 32 gm/dL (32-36); Mean Corpuscular Hemoglobin 32 pg (26-34); Mean Corpuscular Volume 99 fL (80-100); RDW Coefficient of Variation % 14.6 % (11.5-15.5); Red Blood Count 3.38 m/uL (4.00-5.20); White Blood Count* 10.28 K/uL (4.50-11.00)
[2024-10-04 21:10] LABS: Chloride* 102 mmol/L (96-114); Potassium* 4.3 mmol/L (3.6-5.1); Sodium* 136 mmol/L (135-149)
[2024-10-04 21:13] LABS: Anion Gap 9 mEq/L (7-15); Blood Urea Nitrogen* 25 mg/dL (7-30); Carbon Dioxide* 25 mmol/L (20-32); Creatinine* 0.7 mg/dL (0.5-1.5); Est. Creatinine Clearance* 36.50; Estimated Glomerular Filt Rate 87 ml/min
[2024-10-04 21:14] LABS: Calcium* 9.2 mg/dL (8.4-10.6); Glucose* 146 mg/dL (60-115)
[2024-10-04 21:16] LABS: Lymphocytes Absolute Auto 1.10 K/uL (0.90-2.90); Slide Review Reflex No
[2024-10-04 21:53] VITALS: RESP 16; O2SAT 100
[2024-10-04 22:05] VITALS: BP 156/81; PULSE 81; RESP 18; TEMP 37.3; O2SAT 100
--- NOTE | 2024-10-04 22:16 | PM.IMHP1 ---
Assessment and Plan Assessment and plan (1) Fracture, patella: Status: Acute Assessment and Plan: Unable to bear weight after mechanical fall 2 days prior to admission. Underlying significant DJD and osteoporosis with chronic pain, now exacerbated. -CT pending -Ortho consult in the morning (ER spoke with PA) -Continue immobilizer -Hold off on DVT prophy until decision regarding potential surgery, but would likely benefit if she is going to be immobile. -Pain control -Will need PT/OT and potential placement (2) Fall: Status: Acute Assessment and Plan: Mechanical fall with knee injury. See above plan (3) Osteoporosis: Status: Acute Assessment and Plan: Contributes to fracture risk -Continue outpatient management (4) Chronic back pain: Status: Acute Assessment and Plan: Continue home medications, oxycodone available for acute fracture pain (5) Alcohol use: Status: Acute Assessment and Plan: Does not consume high volume of alcohol, but drinks daily without interruption -Monitor on CIWA protocol Total Time Spent Total Time Spent: 60 min Hospitalist- H&P: HPI History of Present Illness Time Seen by Provider: 22:16 Date Seen: 10/04/24 Chief complaint: knee pain Narrative: Harmony Yoon is a 79 year old female with PMH significant for GERD, DJD, osteoporosis, chronic pain, ADD, depression and anxiety who lives with her daughter. She follows with spine and pain clinic and recently had nerve ablations for ongoing chronic low back pain. Patient uses a walker, but does not like to use it to get to the bathroom at home and in this setting suffered a mechanical fall in the bathroom roughly 48 hours ago. She fell between the toilet and the wall and needed assistance to get up. Once up, she was able to ambulate initially despite some increased pain in her already painful knees. She has since developed significantly worse pain in the left knee to the point where she really can't even bear weight. Her daughter is not really able to care for her at home with her inability to tolerate transferring/walking, so they presented here. Her workup is fairly benign with fortunately normal head and neck imaging, but there is a question about a left patellar fracture. ER spoke with orthopedics who recommended a CT for better view which is currently pending. At any rate, she will need to stay in the hospital for pain control, working on ambulation and orthopedic consult in the morning. Of note, patient and daughter report that she does not like to drink any liquids other than wine and typically nurses a 6 oz glass of wine in a large tumbler of ice throughout the day. She does not know if she will experience withdrawal as she never goes a day without her wine. She has quit smoking, but puffs on a nicotine-free vape pen. She expresses that she wishes to be full code and understands that CPR could cause significant physical trauma and still wants everything possible to continue her life. 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, including tongue (ICD-10) Poor circulation ?R09.89 - Other specified symptoms and signs involving the circulatory and respiratory systems (ICD-10) 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 (ICD-10) History of duodenal ulcer ?Z87.19 - Personal history of other diseases of the digestive system (ICD-10) Gastroesophageal reflux disease ?K21.9 - Gastro-esophageal reflux disease without esophagitis (ICD-10) Chronic pain syndrome ?G89.4 - Chronic pain syndrome (ICD-10) Surgical History Status post hip surgery (03/02/22) ?Z98.890 - Other specified postprocedural states (ICD-10) History of lumbar laminectomy ?Z98.890 - Other specified postprocedural states (ICD-10) 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 Harmony has been smoking cigarettes for 50 years. She is now down to a puff a few times a day, and one cigarette lasts 4-5 days. She denied alcohol use, but her granddaughter stopped Harmony's nurse in the hallway to say that Harmony does drink wine. She denies recreational drug use. She wishes to be a full code. Smoking Status: Current some day smoker What tobacco products do you use: cigarettes Smoking quit date/years: <= 15 years ago Do you use any of these nicotine containing products: None and Vaping Products Second hand tobacco smoke exposure: No How often do you have a drink containing alcohol: 4 or more times a week Alcohol type: wine How many standard drinks containing alcohol do you have on a typical day: 1 or 2 How often do you have six or more drinks on one occasion: Never AUDIT-C Alcohol total score: 4 Non-prescribed substance use: denies use Non-prescribed substance use details: tylenol Caffeine: Yes (coffee, 1 cup/day) service: No Meds Home Medications and Allergies Home Medications ?Medication ?Instructions ?Recorded ?Confirmed ?Type needle (disp) 18 G 18 gauge x 1 10/22/21 05/24/24 History 1/2 ([facility]) cyanocobalamin (vitamin B-12) 1,000 mcg IM .QMONTH #10 mL 12/02/21 05/24/24 Rx 1,000 mcg/mL injection solution risedronate 35 mg tablet 35 mg PO QWEEK 06/25/22 05/24/24 History lidocaine 5 % topical patch 1 patch topical DAILY 09/23/22 05/24/24 History escitalopram oxalate 20 mg tablet 30 mg (1.5 x 20 mg) PO QDAY #45 03/12/24 05/24/24 Rx tabs atomoxetine 25 mg capsule 25 mg PO QAM #90 caps 03/29/24 05/24/24 Rx meloxicam 15 mg tablet 15 mg PO DAILY #90 tabs 04/13/24 05/24/24 Rx oxybutynin chloride 15 mg 15 mg PO .HS #90 tabs 04/13/24 05/24/24 Rx tablet,extended release 24 hr ondansetron HCl 4 mg tablet 4 mg PO Q8H PRN 04/28/24 05/24/24 History propranolol 10 mg tablet 10 mg PO BID 04/28/24 05/24/24 History trazodone 150 mg tablet 300 mg PO QPM 04/28/24 05/24/24 History tizanidine 2 mg tablet 2 mg PO TID PRN muscle spasticity 05/31/24 Rx #30 tabs syringe with needle, safety 3 mL #3 ea 06/30/24 Rx 25 gauge x 1 (Eclipse Syringe) valacyclovir 500 mg tablet 500 mg PO QDAY #30 tabs 07/27/24 Rx tramadol 50 mg tablet See Rx Instructions PO .ud PRN 09/13/24 Rx pain #90 tabs Allergies Allergy/AdvReac Type Severity Reaction Status Date / Time amitriptyline Allergy Severe Bundle Verified 09/07/24 16:30 Branch Block codeine (From Allergy Intermediate GI Verified 09/07/24 16:30 Tylenol-Codeine #3) Intolerance diphenhydramine Allergy Mild Itchiness Verified 09/07/24 16:30 zinc Allergy Mild Cold Sores Verified 09/07/24 16:30 Exam Narrative: Exam Narrative: General: Elderly female in NAD HEENT: Edentulous, abrasion to the nose Resp: Breathing is comfortable, unlabored. CTAB CV: RRR, no m/g/r Abd: Thin, flat MSK: Left leg is in a knee immobilizer (not removed due to reported /10 pain), sarcopenia/cachexia Neuro: Nonfocal, no lateralizing deficits Const: Vital Signs, click to edit/add: Vital Signs - 24 hr 10/04/24 17:03 10/04/24 20:14 Temperature 97.2 F L Pulse Rate 88 Pulse Rate [Pulse Oximeter] 96 Respiratory Rate 16 16 Blood Pressure 128/59 L Blood Pressure [Ri ght Upper Arm] 144/71 H Pulse Oximetry 95 95 Oxygen Delivery Me thod Room Air Room Air Hospitalist - H&P: Result Labs Labs: Short CBC 06/30/25 Range/Units 20:25 WBC 10.28 (4.50-11.00) K/uL Hgb 10.8 L (12.0-16.0) gm/dL Hct 33.4 (33.0-51.0) % Plt Count 175 (140-440) K/uL BMP 10/04/24 20:25 Sodium 136 Potassium 4.3 Chloride 102 Carbon Dioxide 25 BUN 25 Creatinine 0.7 Glucose 146 H Calcium 9.2
[2024-10-04] MEDS: ACETAMINOPHEN 325 MG TABLET PO (22:49)
[2024-10-04 22:57] VITALS: BP 156/81; PULSE 81; RESP 18; TEMP 37.3; O2SAT 100
[2024-10-04] MEDS: TRAMADOL HCL 50 MG TABLET 100 MG PO (23:20)
[2024-10-05 02:05] VITALS: BP 141/68; PULSE 84; RESP 14; TEMP 37.2; O2SAT 94
[2024-10-05 02:55] VITALS: BP 131/68; PULSE 87; RESP 14; TEMP 36.9; O2SAT 96
[2024-10-05 03:04] VITALS: BP 131/68; PULSE 87; RESP 14; TEMP 36.9; O2SAT 96
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
[2024-10-05 07:50] VITALS: BP 130/78; PULSE 87; RESP 14; TEMP 36.8; O2SAT 97
[2024-10-05] MEDS: ACETAMINOPHEN 325 MG TABLET PO ×2 (08:04→14:16)
[2024-10-05] MEDS: TRAMADOL HCL 50 MG TABLET 100 MG PO (08:04)
[2024-10-05] MEDS: ESCITALOPRAM 10 MG TABLET 30 MG PO (08:47)
[2024-10-05] MEDS: PROPRANOLOL 20 MG TABLET 10 MG PO (08:47)
[2024-10-05] MEDS: SENNOSIDES/DOCUSATE TABLET 1 TAB PO (08:47)
[2024-10-05] MEDS: SODIUM CHLORIDE 0.9 % (FLUSH) 10 ML SYRINGE 5 ML IVF (08:48)
[2024-10-05] MEDS: VALACYCLOVIR HCL 500 MG TABLET PO (08:50)
[2024-10-05] MEDS: LIDOCAINE 5% PATCH 1 PATCH TRANSDERMA (08:56)
[2024-10-05 10:48] VITALS: BP 97/58; PULSE 71; RESP 12; TEMP 36.5; O2SAT 95
[2024-10-05 10:58] VITALS: BP 102/51; PULSE 72
[2024-10-05 11:08] VITALS: BMI 20.2
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
--- NOTE | 2024-10-05 14:24 | P.IMPN_ITS ---
Subjective Date Seen: 10/05/24 Interval history: Patient is seen lying in bed this morning. Again later in the afternoon with his bedside. Continues on home metoprolol. Has been started on oral diltiazem 45 mg q.6 hours. Systolics have been soft. Resting heart rate remains < 110. Mild headache. No dizziness. No chest pain. Denies nausea vomiting, tolerating orals. Exam Narrative: Exam Narrative: PHYSICAL EXAM General: Pleasant, conversant, NAD HEENT: Normocephalic, atraumatic, sclera white, EOMI, oral mucosa moist Cardiovascular: IRRR. No pitting edema Pulmonary: CTA bilaterally without rhonchi, rales, expiratory wheezes. No dyspnea Abdominal: Soft, nondistended, NTTP Neurological: Alert, answering questions appropriately, cranial nerves intact, no focal findings Extremities: No gross joint deformity or swelling. AROMI. Neurovascularly intact Skin: Warm, dry. Const: Vital Signs, click to edit/add: Vital Signs - 24 hr 10/04/24 17:03 10/04/24 20:14 10/04/24 21:53 Temperature 97.2 F L Pulse Rate 88 Pulse Rate [Pulse Oximeter] 96 Respiratory Rate 16 16 16 Blood Pressure 128/59 L Blood Pressure [Ri ght Arm] Blood Pressure [Ri ght Upper Arm] 144/71 H Pulse Oximetry 95 95 100 [facility] Room [facility] 10/04/24 22:05 10/04/24 22:05 10/04/24 22:57 Temperature 99.1 F 99.1 F Pulse Rate Pulse Rate [Pulse Oximeter] 81 81 Respiratory Rate 18 18 18 Blood Pressure Blood Pressure [Ri ght Arm] 156/81 H 156/81 H Blood Pressure [Ri ght Upper Arm] Pulse Oximetry 100 100 100 [facility] Room Air Room Air 10/04/24 22:57 10/05/24 02:05 10/05/24 02:55 Temperature 99.1 F 98.9 F 98.4 F Pulse Rate Pulse Rate [Pulse Oximeter] 81 84 87 Respiratory Rate 18 14 14 Blood Pressure Blood Pressure [Ri ght Arm] 156/81 H 141/68 H 131/68 Blood Pressure [Ri ght Upper Arm] Pulse Oximetry 100 94 96 [facility] Room Air Room Air 10/05/24 03:04 10/05/24 07:50 10/05/24 07:50 Temperature 98.4 F 98.2 F 98.2 F Pulse Rate Pulse Rate [Pulse Oximeter] 87 87 87 Respiratory Rate 14 14 14 Blood Pressure Blood Pressure [Ri ght Arm] 131/68 130/78 130/78 Blood Pressure [Ri ght Upper Arm] Pulse Oximetry 96 97 97 Oxygen Delivery Me thod Room Air Room Air Room Air 10/05/24 07:50 10/05/24 10:48 10/05/24 10:48 Temperature 97.7 F 97.7 F Pulse Rate Pulse Rate [Pulse Oximeter] 87 71 71 Respiratory Rate 14 12 12 Blood Pressure Blood Pressure [Ri ght Arm] 97/58 L 97/58 L Blood Pressure [Ri ght Upper Arm] Pulse Oximetry 95 95 Oxygen Delivery Me thod Room Air Room Air 10/05/24 10:58 Temperature Pulse Rate Pulse Rate [Pulse Oximeter] 72 Respiratory Rate Blood Pressure Blood Pressure [Ri ght Arm] 102/51 L Blood Pressure [Ri ght Upper Arm] Pulse Oximetry Oxygen Delivery Me thod Labs Labs: Laboratory Results - last 24 hr 10/04/24 20:25 WBC 10.28 RBC 3.38 L Hgb 10.8 L Hct 33.4 MCV 99 MCH 32 MCHC 32 RDW Coeff of Hao 14.6 Plt Count 175 Neut % (Auto) 75.1 H Lymph % (Auto) 10.3 L [place] % (Auto) 12.9 H Eos % (Auto) 0.4 Baso % (Auto) 0.1 Neut # (Auto) 7.70 H Lymph # (Auto) 1.10 [place] # (Auto) 1.30 H Eos # (Auto) 0.04 Baso # (Auto) 0.01 Abs Immat Gran (auto) 0.12 Imm/Tot Granulo (auto) 1.2 Sodium 136 Potassium 4.3 Chloride 102 Carbon Dioxide 25 Anion Gap 9 BUN 25 Creatinine 0.7 Estimated Creat Clear 36.50 Estimated GFR 87 Glucose 146 H Calcium 9.2
--- NOTE | 2024-10-05 15:08 | PC.NURSE ---
Discharge: Patient pleasant and cooperative, alert and oriented x3 this morning but forgetful. Patient vitally stable, lungs clear, BS WNL, IV removed, catheter intact. Patient rates pain at most 3/10 with no activity. Left knee immobilizer in place. Tylenol 975 given twice today, tramadol once, and oxy 5mg once. Patient tolerating regular diet, urinated three times, and no BM. Active Ice used on left knee, and half of a lidocaine patch is applied to bilateral knees. Patient's know to remove patches tonight. Patient signed belongings sheet and discharge form. Patient nor her daughter had further questions regarding discharge. Patient left the floor by wheelchair to home at 1445.
--- NOTE | 2024-10-05 18:36 | PM.ORCN ---
History of Present Illness HPI Date Seen: 10/05/24 Consult date: 10/05/24 Requesting physician: Khalida Lopez Chief complaint: knee pain Narrative: Orthopedics requested for consult on pleasant 79-year-old female with fall injury left knee. Patient was using the restroom. Not using her walker. She fell landing on her left knee. Pain to the left knee. There is also concern for possible left hip fracture due to internal rotation of her left lower extremity. History of left total hip arthroplasty. Radiographs of the left hip were negative for acute injury/fracture or prosthesis concern. There was however concern for left patellar fracture. Today, patient states that her left knee hurts but is not significantly painful. She has been kept in a knee immobilizer with ice pack. Patient lives with her daughter. Patient has cognitive impairment. 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 (ICD-10) History of duodenal ulcer ?Z87.19 - Personal history of other diseases of the digestive system (ICD-10) Gastroesophageal reflux disease ?K21.9 - Gastro-esophageal reflux disease without esophagitis (ICD-10) Chronic pain syndrome ?G89.4 - Chronic pain syndrome (ICD-10) Surgical History Status post hip surgery (03/02/22) ?Z98.890 - Other specified postprocedural states (ICD-10) History of lumbar laminectomy ?Z98.890 - Other specified postprocedural states (ICD-10) 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 Harmony has been smoking cigarettes for 50 years. She is now down to a puff a few times a day, and one cigarette lasts 4-5 days. She denied alcohol use, but her granddaughter stopped Harmony's nurse in the hallway to say that Harmony does drink wine. She denies recreational drug use. She wishes to be a full code. What is your current living situation?: I presently have a place to live Problems where you live: no known problems Problems where you live details: NA In the past 12 months, utilities in danger of being shut off: no In past 12 months, lack of transportation kept you from medical appts, meetings, work, or getting things needed for daily living: no In the past 12 mos, have been you worried that your food would run out before you had money to buy more?: never true In the past 12 mos, the food you bought just didn't last and you didn't have money to buy more?: never true Highest level of school completed/degree received: Bachelor's degree Smoking Status: Former smoker What tobacco products do you use: cigarettes Years smoked: 20 Smoking quit date/years: >15 years ago Do you use any of these nicotine containing products: Vaping Products Nicotine containing products detail: Vaping Cannot describe the type she uses. Second hand tobacco smoke exposure: No How often do you have a drink containing alcohol: 4 or more times a week Alcohol type: wine Alcohol type details: She says she fills a big glass with ice and wine and then sips on it through the day. How many standard drinks containing alcohol do you have on a typical day: 1 or 2 How often do you have six or more drinks on one occasion: Never AUDIT-C Alcohol total score: 4 Non-prescribed substance use: denies use Non-prescribed substance use details: tylenol Caffeine: Yes (Cup of coffee a day) How often does anyone, including family, friends and others, physically hurt you: never How often does anyone, including family, friends and others, insult or talk down to you: never How often does anyone, including family, friends and others, threaten you with harm: never How often does anyone, including family, friends and others, scream or curse at you: never Gender Identity: female service: No Meds Home Medications and Allergies Home Medications ?Medication ?Instructions ?Recorded ?Confirmed ?Type cyanocobalamin (vitamin B-12) 1,000 mcg IM .QMONTH #10 mL 12/02/21 10/05/24 Rx 1,000 mcg/mL injection solution risedronate 35 mg tablet 35 mg PO QWEEK 06/25/22 10/05/24 History lidocaine 5 % topical patch 1 patch topical DAILY 09/23/22 10/05/24 History escitalopram oxalate 20 mg tablet 30 mg (1.5 x 20 mg) PO QDAY #45 03/12/24 10/05/24 Rx tabs atomoxetine 25 mg capsule 25 mg PO QAM #90 caps 03/29/24 10/05/24 Rx meloxicam 15 mg tablet 15 mg PO DAILY #90 tabs 04/13/24 10/05/24 Rx ondansetron HCl 4 mg tablet 4 mg PO Q8H PRN 04/28/24 10/05/24 History propranolol 10 mg tablet 10 mg PO BID 04/28/24 10/05/24 History trazodone 150 mg tablet 300 mg PO HS PRN 04/28/24 10/05/24 History tizanidine 2 mg tablet 2 mg PO TID PRN muscle spasticity 05/31/24 10/05/24 Rx #30 tabs valacyclovir 500 mg tablet 500 mg PO QDAY #30 tabs 07/27/24 10/05/24 Rx acetaminophen 325 mg tablet 650 mg (2 x 325 mg) PO Q6H #120 10/05/24 Rx tabs oxybutynin chloride 15 mg 15 mg PO HS 10/05/24 10/05/24 History tablet,extended release 24 hr oxycodone 5 mg tablet 2.5 mg (1/2 x 5 mg) PO Q4H PRN 10/05/24 Rx Pain #15 tabs tolterodine 4 mg capsule,extended 4 mg PO DAILY 10/05/24 10/05/24 History release 24 hr tramadol 50 mg tablet 100 mg PO BID pain 10/05/24 10/05/24 History Allergies Allergy/AdvReac Type Severity Reaction Status Date / Time amitriptyline Allergy Severe Bundle Verified 09/07/24 16:30 Branch Block codeine (From Allergy Intermediate GI Verified 09/07/24 16:30 Tylenol-Codeine #3) Intolerance diphenhydramine Allergy Mild Itchiness Verified 09/07/24 16:30 zinc Allergy Mild Cold Sores Verified 09/07/24 16:30 Ortho Exam Narrative Exam Narrative: General: Well-developed, well-nourished, A&Ox 3, no apparent acute distress. Patient appears to be resting comfortably in bed. Pulmonary: Breathing pattern regular, even, without apparent distress or audible wheeze present. Left Knee: Knee immobilizer in place, ice pack over this. Mild anterior knee swelling; no ecchymosis, or erythema. There is no gross deformity Pain to palpation and percussion anterior patella; pain to palpation medial and lateral retinaculum. No significant pain along the medial/lateral joint lines which were suboptimally assessed due to patient remaining in full knee extension Nontender femoral condyles or tibial plateau No range of motion tested No stability/varus/valgus stress performed Able to straight leg raise 5/5 strength without pain 2+ DP/PT pulses, pink warm digits with brisk cap refill; intact dermatomes and myotomes distally including the common peroneal, tibial, saphenous, and sural nerve distributions Left lower extremity: No groin/hip pain with log roll Const Vital Signs, click to edit/add: Vital Signs - 24 hr 10/04/24 20:14 10/04/24 21:53 10/04/24 22:05 Temperature Pulse Rate 88 Pulse Rate [Pulse Oximeter] Respiratory Rate 16 16 18 Blood Pressure 128/59 L Blood Pressure [Right Arm] Pulse Oximetry 95 100 100 Oxygen Delivery Method Room Air Room Air Room Air 10/04/24 22:05 10/04/24 22:57 10/04/24 22:57 Temperature 99.1 F 99.1 F 99.1 F Pulse Rate Pulse Rate [Pulse Oximeter] 81 81 81 Respiratory Rate 18 18 18 Blood Pressure Blood Pressure [Right Arm] 156/81 H 156/81 H 156/81 H Pulse Oximetry 100 100 100 Oxygen Delivery Method Room Air Room Air Room Air 10/05/24 02:05 10/05/24 02:55 10/05/24 03:04 Temperature 98.9 F 98.4 F 98.4 F Pulse Rate Pulse Rate [Pulse Oximeter] 84 87 87 Respiratory Rate 14 14 14 Blood Pressure Blood Pressure [Right Arm] 141/68 H 131/68 131/68 Pulse Oximetry 94 96 96 Oxygen Delivery Method Room Air Room Air Room Air 10/05/24 07:50 10/05/24 07:50 10/05/24 07:50 Temperature 98.2 F 98.2 F Pulse Rate Pulse Rate [Pulse Oximeter] 87 87 87 Respiratory Rate 14 14 14 Blood Pressure Blood Pressure [Right Arm] 130/78 130/78 Pulse Oximetry 97 97 Oxygen Delivery Method Room Air Room Air 10/05/24 10:48 10/05/24 10:48 10/05/24 10:58 Temperature 97.7 F 97.7 F Pulse Rate Pulse Rate [Pulse Oximeter] 71 71 72 Respiratory Rate 12 12 Blood Pressure Blood Pressure [Right Arm] 97/58 L 97/58 L 102/51 L Pulse Oximetry 95 95 Oxygen Delivery Method Room Air Room Air Results Labs Labs: Laboratory Results - last 48 hr 10/04/24 20:25 WBC 10.28 RBC 3.38 L Hgb 10.8 L Hct 33.4 MCV 99 MCH 32 MCHC 32 RDW Coeff of Hao 14.6 Plt Count 175 Neut % (Auto) 75.1 H Lymph % (Auto) 10.3 L [place] % (Auto) 12.9 H Eos % (Auto) 0.4 Baso % (Auto) 0.1 Neut # (Auto) 7.70 H Lymph # (Auto) 1.10 [place] # (Auto) 1.30 H Eos # (Auto) 0.04 Baso # (Auto) 0.01 Abs Immat Gran (auto) 0.12 Imm/Tot Granulo (auto) 1.2 Sodium 136 Potassium 4.3 Chloride 102 Carbon Dioxide 25 Anion Gap 9 BUN 25 Creatinine 0.7 Estimated Creat Clear 36.50 Estimated GFR 87 Glucose 146 H Calcium 9.2 Diagnostic results Hip x-ray: report reviewed and image reviewed Knee x-ray: report reviewed and image reviewed Knee CT: report reviewed and image reviewed Additional Comments: AP pelvis, left AP, and cross-table lateral views left hip ordered by different provider [facility] dated 10/04/2024. These images were reviewed and corroborated with the radiology report showing no acute fractures, avulsions, or interosseous pathology. No periprosthetic fracture. Left total hip arthroplasty components and right intramedullary nail components in good position without evidence of loosening or failure. The proximal femur intertrochanteric fracture appears well healed with her topic ossification changes. Moderate to severe joint space narrowing of the right hip joint. Three views left knee ordered by different provider [facility] dated 10/04/2024. These images were reviewed and corroborated with the radiology report showing translucent line, less than 1 mm joint aspect of the mid patella best on lateral view. There is no significant displacement or obvious exit of this reduced line anteriorly. No significant elevation of the patella. Knee joint effusion, moderate. Patella sits well within the trochlear groove on sunrise view. Degenerative changes of the medial greater than lateral joint lines in this nonweightbearing AP view with tricompartmental joint space narrowing and osteophytosis. No obvious fracture involving the femoral condyles or tibial plateau. Left knee CT scan ordered by different provider [facility] dated 10/04/2024. These images were reviewed and corroborated with the radiology report showing subtle acute nondisplaced fracture patella extending to the subchondral bone medial patellar facet inferiorly. This fracture is transverse, and complete. There is no acute distal femur or proximal tibia fracture. Degenerative knee changes. The lipohemarthrosis present. Assessment and Plan Assessment and plan (1) Fracture, patella: Problem comment: Unable to bear weight after mechanical fall 2 days prior to admission. Underlying significant DJD and osteoporosis with chronic pain, now exacerbated. -CT pending -Ortho consult in the morning (ER spoke with PA) -Continue immobilizer -Hold off on DVT prophy until decision regarding potential surgery, but would likely benefit if she is going to be immobile. -Pain control -Will need PT/OT and potential placement On day of discharge, PT and OT assessed, recommending home with home health care PT and OT. Orthopedic surgery consulted, recommending continuing knee immobilizer while out of bed and weight-bearing as tolerated. Pain management to include ice to the area, scheduled Tylenol, lidocaine patch to the area. Patient takes tramadol at home for chronic pain and has been taking this while in the hospital in addition to small doses of oxycodone. This may be continued for short time but should be monitor closely as patient is at increased risk for sedation and falls. Recommend avoiding alcohol use while taking these medications. Status: Acute Total time spent: Total time spent is greater than 50% in coordination of care (as documented) at patient's floor/unit and/or counseling patient: (2) Fall: Problem comment: Mechanical fall from standing with patellar fracture PT and OT assessed Status: Acute Total time spent: Total time spent is greater than 50% in coordination of care (as documented) at patient's floor/unit and/or counseling patient: (3) Osteoporosis: Problem comment: Contributing to fracture risk. Ongoing outpatient management with PCP. Status: Acute Total time spent: Total time spent is greater than 50% in coordination of care (as documented) at patient's floor/unit and/or counseling patient: (4) Chronic back pain: Problem comment: Continued on home medication, including tramadol and lidocaine patch. Status: Acute Total time spent: Total time spent is greater than 50% in coordination of care (as documented) at patient's floor/unit and/or counseling patient: (5) Alcohol use: Problem comment: Does not consume high volume of alcohol, but drinks daily without interruption -Monitor on CIWA protocol Recommended to avoid alcohol use while taking narcotics/pain medications Status: Acute Total time spent: Total time spent is greater than 50% in coordination of care (as documented) at patient's floor/unit and/or counseling patient: (6) Cognitive impairment: Problem comment: OT assessed with MOCA, scoring 13. Recommending 24 hour supervision. Per discussion with daughter Jamia, able to provide 24 hour care except for 2 hours on Friday. Family to find adult sitter for this time period. Close outpatient follow-up with PCP for reassessment. Consideration for further outpatient formal cognitive assessment. Status: Acute Total time spent: Total time spent is greater than 50% in coordination of care (as documented) at patient's floor/unit and/or counseling patient: Plan I discussed the patellar fracture and management with the patient. I also shared this information with the hospitalist. At this time, non operative management is most prudent due to the nondisplaced nature of this fracture. Recommend no knee range of motion for 1 month. She should wear the knee immobilizer at all times. Avoid straight leg raises at this time to prevent displacement of this fracture. She can weight bear as tolerated while in the knee immobilizer. Pending how the fracture is healing after 1 month, we may start to wean from the knee immobilizer. At that time, she will have to work diligently on knee range of motion. Also, because of her pre-existing osteoarthritis of this left knee, I anticipate a more difficult time obtaining knee motion. Also, after discussing with the hospitalist, it sounds like patient will return to her current living situation with the help of home care nurse. We should see the patient in are [facility] in 10-14 days for repeat clinical exam. AP, lateral views of the left knee at that visit. Oral NSAIDs/acetaminophen as needed for pain, rest, modify activities, elevate affected extremity above the heart level, and ice 20 min on/20 minutes off repeat as needed for pain/swelling. Thank you for allowing me to participate in the patient's care.
== END 2024-10-05 14:45 | disposition home or self-care (01) ==
LOC: ED 20:52 → MEDSURG 21:30
PROVIDERS: Admitting Provider Family Medicine; Emergency Provider Emergency Medicine; PCP Family Medicine; Visit Provider Family Medicine
DX: S82.002A Unspecified fracture of left patella, initial encounter for closed fracture (principal); M17.12 Unilateral primary osteoarthritis, left knee; M25.552 Pain in left hip; W18.11XA Fall from or off toilet without subsequent striking against object, initial encounter; Y92.002 Bathroom of unspecified non-institutional (private) residence as the place of occurrence of the external cause; G89.29 Other chronic pain; M54.50 Low back pain, unspecified; S00.30XA Unspecified superficial injury of nose, initial encounter; M81.0 Age-related osteoporosis without current pathological fracture; F10.90 Alcohol use, unspecified, uncomplicated; G31.84 Mild cognitive impairment of uncertain or unknown etiology
CPT/HCPCS: 36415; 70450; 72125; 73502; 73562; 73700; 80048; 85025; 87081; 93005; 96374; 97116; 97161; 97165; 97530; 97535; 99283; 99285; A9270; G0378; J3010

== ENCOUNTER 2025-03-07 14:33 | Outpatient (CLI) | payer MEDICARE, SELFPAY | END 2025-03-07 14:34 | disposition home or self-care (01) | LOC: NFLDREF 03-11 07:56 | PROVIDERS: PCP Family Medicine; Referring Provider Family Medicine; Visit Provider Family Medicine | DX: N39.0 Urinary tract infection, site not specified (principal) | CPT/HCPCS: 87086 ==